=== PATIENT | male | born 1955 | race Caucasian/White ===

== ENCOUNTER → 2017-03-23 07:43 | Outpatient (CLI) | payer OTHER, SELFPAY ==
[2017-03-27 17:09] LABS: Testosterone, Total, LC/MS 639.3 ng/dL (264.0-916.0)
== END ==
PROVIDERS: PCP Family Medicine; Visit Provider Urology
DX: E29.1 Testicular hypofunction (principal)
CPT/HCPCS: 36415

== ENCOUNTER 2017-09-05 09:09 | Inpatient (IN) ==
[2017-09-05 09:50] LABS: Basophils % 0.1 % (0.1-2.0); Eosinophils # 0.1 K/mm3 (0.0-0.4); Eosinophils % 1.3 % (0.1-12.0); Hematocrit 43.6 % (42.0-52.0); Hemoglobin 13.6 g/dL (14.1-18.0); Lymphocytes # 1.5 K/mm3 (0.7-4.5); Lymphocytes % 14.3 K/mm3 (10-50); Mean Corpuscular HGB Conc 31.2 g/dL (31.8-35.4); Mean Corpuscular Hemoglobin 26.5 pg (27.0-31.2); Mean Corpuscular Volume 84.8 fl (80-94); Mean Platelet Volume 7.2 fl (7.4-10.4); Monocytes # 0.6 K/mm3 (0.1-1.0); Neutrophils # 8.2 K/mm3 (1.8-7.8); Neutrophils % 78.3 % (37.0-80.0); Platelet Count 266 K/mm3 (142-424); Red Blood Count 5.14 M/mm3 (4.60-6.20); White Blood Count 10.5 K/mm3 (4.8-10.8)
--- NOTE | 2017-09-05 10:01 | Emergency Department Note ---
ED Disposition Clinical Impression: Ulcer Cellulitis Qualifiers: Site of cellulitis: extremity Site of cellulitis of extremity: toe Laterality: right Qualified Code(s): L03.031 - Cellulitis of right toe Diabetic foot ulcer Qualifiers: Diabetic foot ulcer location: unspecified part of foot Diabetes mellitus type: type 2 Laterality: right Non-pressure ulcer stage: unspecified non-pressure ulcer stage Qualified Code(s): E11.621 - Type 2 diabetes mellitus with foot ulcer Disposition: Admitted As Inpatient Condition on Discharge: Fair Time of Disposition: 07:55 - Critical Care Critical Care Time: No Attestation: On 09/05/17, the high probability of a clinically significant, sudden or life threatening deterioration of the following system(s) required my full and direct attention, intervention and personal management. The time I documented below is in addition to time spent performing reported procedures but includes the following listed in this critical care notation. Medical Decision Making - Medical Records Medical records reviewed: Yes: I reviewed the patient's medical records. - Franck Inquiry Pt receiving controlled substance: No Franck was queried for this patient: No Vital Signs: 09/05/17 09:10 09/05/17 10:57 09/05/17 11:20 Temperature 98.8 F 98.6 F Temperature Source Oral Oral Pulse Rate Pulse Rate [Right Radial] 97 H 100 H Respiratory Rate 20 20 Blood Pressure Blood Pressure [Right Arm] 149/83 139/85 Blood Pressure Mean [Right Arm] 105 103 Blood Pressure Source Blood Pressure Source [Right Arm] Automatic Cuff Automatic Cuff Blood Pressure Position Blood Pressure Position [Right Arm] Sitting Supine 02 Sat by Pulse Oximetry 98 96 Oxygen Delivery Method Room Air Room Air Room Air 09/05/17 11:38 Temperature 99.2 F Temperature Source Oral Pulse Rate 99 H Pulse Rate [Right Radial] Respiratory Rate 18 Blood Pressure 137/90 Blood Pressure [Right Arm] Blood Pressure Mean [Right Arm] Blood Pressure Source Automatic Cuff Blood Pressure Source [Right Arm] Blood Pressure Position Sitting Blood Pressure Position [Right Arm] 02 Sat by Pulse Oximetry Oxygen Delivery Method Room Air - Lab Data Lab results reviewed: Yes: I reviewed the patient's lab results. Lab Results 09/05/17 09:35: WBC 10.5, RBC 5.14, Hgb 13.6 L, Hct 43.6, MCV 84.8, MCH 26.5 L, MCHC 31.2 L, RDW 13.0, Plt Count 266, MPV 7.2 L, Neut % (Auto) 78.3, Lymph % ( Auto) 14.3, [place] % (Auto) 6.0, Eos % (Auto) 1.3, Baso % (Auto) 0.1, Neut # (Auto ) 8.2 H, Lymph # (Auto) 1.5, [place] # (Auto) 0.6, Eos # (Auto) 0.1, Baso # (Auto) 0.0 09/05/17 09:35: Sodium 132 L, Potassium 4.6, Chloride 92 L, Carbon Dioxide 28, Anion Gap 16.6 H, BUN 12, Creatinine 1.05, Estimated Creat Clear 117, Estimated GFR 72, Est GFR ( Amer) 87, Glucose 184 H, Calcium 8.5, Total Bilirubin 0.6, AST 15, ALT 46, Alkaline Phosphatase 89, Total Protein 7.4, Albumin 3.4, Globulin 4.0 H, Albumin/Globulin Ratio 0.9 L 09/05/17 09:35: Lactic Acid 1.6 09/05/17 09:35: ESR 50 H 09/05/17 09:35: C-Reactive Protein 16.2 H Result diagrams: 09/08/17 05:30 09/08/17 05:30 Orders (Tests/Meds): ED MEDICATIONS Discontinued Medications Generic Name Dose Route Start Last Admin Trade Name Freq PRN Reason Stop Dose Admin Acetaminophen 650 mg 09/06/17 16:41 09/06/17 19:07 Acetaminophen 325mg Tab PO 10/06/17 16:40 650 mg Q4HP PRN Administration MILD PAIN/FEVER Acetaminophen 325 mg 09/07/17 13:05 Acetaminophen 325mg Tab PO 10/07/17 13:04 Q8HP PRN Fever > 100.4 Hydrocodone Bitart/Acetaminophen 1 tab 09/07/17 13:05 [place] 7.5/325mg Tablet PO 10/07/17 13:04 Q4HP PRN Moderate Pain Aspirin 81 mg 09/05/17 11:15 Aspirin 81mg Enteric Coated Tablet PO 10/05/17 11:14 QDAY CALEB Aspirin 81 mg 09/05/17 11:18 09/05/17 12:34 Aspirin 81mg Enteric Coated Tablet PO 10/05/17 11:17 Not Given DAILY CALEB Aspirin 81 mg 09/05/17 11:45 09/05/17 13:10 Aspirin 81mg Enteric Coated Tablet PO 10/05/17 11:44 81 mg DAILY CALEB Administration Aspirin 81 mg 09/05/17 13:33 09/08/17 20:31 Aspirin 81mg Enteric Coated Tablet PO 10/05/17 11:44 81 mg HS CALEB Administration Sodium Chloride 1,000 mls @ 999 mls/hr 09/05/17 10:15 09/05/17 10:24 Sod Chlor 0.9% 1000ml Bag IV 09/05/17 11:15 999 mls/hr .Q1H1M CALEB Administration Sodium Chloride 1,000 mls @ 999 mls/hr 09/05/17 10:30 09/05/17 10:29 Sod Chlor 0.9% 1000ml Bag IV 09/05/17 11:30 Not Given .Q1H1M CALEB Piperacillin Sod/Tazobactam 100 mls @ 200 mls/hr 09/05/17 10:30 09/05/17 10: 31 Sod 3.375 gm/ Sodium Chloride IV 09/19/17 10:29 200 mls/hr Q6H CALEB Administration Protocol Vancomycin HCl 2,000 mg/ 250 mls @ 125 mls/hr 09/05/17 10:45 09/05/17 12:18 Sodium Chloride IV 09/19/17 10:44 125 mls/hr Q12 CALEB Administration Sodium Chloride 1,000 mls @ 999 mls/hr 09/05/17 11:18 09/05/17 11:52 Sod Chlor 0.9% 1000ml Bag IV 09/05/17 11:30 Not Given .Q1H1M CALEB Piperacillin Sod/Tazobactam 100 mls @ 200 mls/hr 09/05/17 17:00 Sod 3.375 gm/ Sodium Chloride IV 09/19/17 16:59 Q6H CALEB Protocol Vancomycin HCl 2,000 mg/ 250 mls @ 125 mls/hr 09/05/17 21:00 Sodium Chloride IV 09/19/17 10:44 Q12 CALEB Piperacillin Sod/Tazobactam 50 mls @ 100 mls/hr 09/05/17 17:00 09/09/17 05:01 Sod 3.375 gm/ Sodium Chloride IV 09/19/17 16:59 100 mls/hr Q6H CALEB Administration Protocol Vancomycin HCl 2,000 mg/ 250 mls @ 125 mls/hr 09/05/17 21:00 09/09/17 08:39 Sodium Chloride IV 09/19/17 10:44 125 mls/hr Q12 CALEB Administration Insulin Human Lispro 0 unit 09/05/17 16:30 09/09/17 06:23 Humalog 100 Units/Ml 3ml Vial (Ssi) SQ 10/05/17 16:29 Not Given ACHS CALEB Protocol Irbesartan 300 mg 09/06/17 21:00 09/08/17 20:31 Avapro 300mg Tablet PO 10/06/17 20:59 300 mg HS CALEB Administration Metformin HCl 1,000 mg 09/05/17 17:30 Metformin 500mg Tablet PO 10/05/17 17:29 BIDWM [facility] Miscellaneous 1 each 09/05/17 10:30 09/05/17 10:29 Vancomycin Consult Request * 10/05/17 10:29 1 each [facility] Administration Miscellaneous 1 each 09/05/17 11:18 09/05/17 12:34 Vancomycin Consult Request * 10/05/17 10:29 Not Given [facility]SULT [facility] Miscellaneous 1 each 09/05/17 11:45 09/05/17 11:52 Vancomycin Consult Request * 10/05/17 10:29 Not Given [facility] Non-Formulary Medication 10 mg 09/05/17 11:15 Ezetimibe [Ezetimibe] PO 10/05/17 11:14 QDAY [facility] Non-Formulary Medication 30 unit 09/05/17 11:15 Insulin Aspart [Novolog Flexpen] SUB-Q 10/05/17 11:14 DIRECTED CALEB Non-Formulary Medication 70 unit 09/05/17 21:00 Insulin Degludec [Tresiba Flextouch U-100] SUB-Q 10/05/17 20:59 HS [facility] Non-Formulary Medication 1,000 mg 09/05/17 21:00 Metformin Hcl [Glucophage] PO 10/05/17 20:59 BID CALEB Non-Formulary Medication 50 mg 09/05/17 11:15 Nortriptyline Hcl [Nortriptyline Hcl] PO 10/05/17 11:14 QDAY [facility] Non-Formulary Medication 320 mg 09/05/17 11:15 Valsartan [Valsartan] PO 10/05/17 11:14 QDAY CALEB Non-Formulary Medication 10 mg 09/05/17 11:18 Ezetimibe [Ezetimibe] PO 10/05/17 11:14 QDAY CALEB Non-Formulary Medication 30 unit 09/05/17 11:18 Insulin Aspart [Novolog Flexpen] SUB-Q 10/05/17 11:14 DIRECTED CALEB Non-Formulary Medication 70 unit 09/05/17 21:00 Insulin Degludec [Tresiba Flextouch U-100] SUB-Q 10/05/17 20:59 HS CALEB Non-Formulary Medication 320 mg 09/05/17 11:18 Valsartan [Valsartan] PO 10/05/17 11:14 QDAY CALEB Non-Formulary Medication 30 unit 09/05/17 11:45 Insulin Aspart [Novolog Flexpen] SUB-Q 10/05/17 11:14 DIRECTED [facility] Pat Own Med 70 unit 09/05/17 21:00 09/08/17 20:35 Tresiba Flextouch U- SUB-Q 10/05/17 20:59 70 unit 100 HS CALEB Administration Non-Formulary Medication 1,000 mg 09/05/17 21:00 Metformin Hcl [Glucophage] PO 10/05/17 20:59 BID [facility] Pat Own Med 10 mg 09/05/17 21:00 09/08/17 20:34 Ezetimibe 10 Mg PO 10/05/17 20:59 10 mg HS CALEB Administration Nortriptyline HCl 50 mg 09/06/17 09:00 Pamelor 25mg Capsule PO 10/06/17 08:59 DAILY CALEB Nortriptyline HCl 50 mg 09/06/17 21:00 09/08/17 20:31 Pamelor 25mg Capsule PO 10/06/17 20:59 50 mg HS CALEB Administration Ondansetron HCl 4 mg 09/07/17 13:05 Zofran 4mg/2ml Vial IV 10/07/17 13:04 Q6HP PRN Nausea Testosterone Cypionate 200 mg 09/05/17 11:15 Depo-Testosterone 200mg/Ml Inj IM 10/05/17 11:14 DIRECTED CALEB Testosterone Cypionate 200 mg 09/05/17 11:18 Depo-Testosterone 200mg/Ml Inj IM 10/05/17 11:14 DIRECTED [facility] Testosterone Cypionate 200 mg 09/05/17 11:45 Depo-Testosterone 200mg/Ml Inj IM 10/05/17 11:14 DIRECTED [facility] Skin/Abscess/FB HPI - General Chief complaint: Skin/Abscess/Foreign Body Stated complaint: right foot has ulcer; swelled Time Seen by Provider: 09/05/17 09:54 Mode of Arrival: Ambulatory Limitations: No Limitations Description of Symptoms (Recalled from ER Triage Doc. by RN): swelling on fourth toe on right foot that started out as a blister on thursday. when the scab of the blister came off, it had a big hole in it. swelling increased. seen pcp on thursday and was placed on levaquin. toe is yellow and red in color. appears to have red streaking up foot. pt is a diabetic. - History of Present Illness HPI narrative: Pt says he noticed a blister on right 5th toe 4 days ago and when scab came off it had a hole in it. Swelled up and he went to see Dr. Capellan on and was placed on Levaquin. Now comes to the ED with yello area on toe and redness going up the foot. ? low grade fiever and he is a Diabetic for over 30 years and had a diabetic ulcer on another toe on that foot in the past that healed up successfully. He quit smoking over 3 years ago but does drink beer occasionally He has neuropathy as well MD complaint: rash Onset (ago): day(s) Tetanus up to date: yes Location: R foot Severity: moderate Severity scale (1-10): 4 - Related Data Home Medications Medication Instructions Recorded Confirmed aspirin 81 mg tablet,delayed 81 mg PO DAILY 03/26/17 09/08/17 release ezetimibe 10 mg tablet 10 mg PO DAILY 03/26/17 09/08/17 insulin aspart U-100 100 unit/mL 30 unit SUB-Q DIRECTED 03/26/17 09/05/17 subcutaneous pen insulin degludec (U-100) 100 70 unit SUB-Q HS 03/26/17 09/05/17 unit/mL (3 mL) subcutaneous pen metformin 1,000 mg tablet 1,000 mg PO BID 03/26/17 09/05/17 nortriptyline 50 mg capsule 50 mg PO DAILY 03/26/17 09/08/17 valsartan 160 mg tablet 320 mg PO DAILY 03/26/17 09/08/17 Testosterone Cypionate 200 mg IM QOW 09/05/17 09/08/17 Previous Rx's Medication Instructions Recorded Ciprofloxacin HCl [Ciprofloxacin 500 mg PO BID #42 tab 09/09/17 500mg Tab] Clindamycin HCl [Cleocin HCl] 300 mg PO TID #63 cap 09/09/17 Allergies Allergy/AdvReac Type Severity Reaction Status Date / Time No Known Allergies Allergy Verified 09/05/17 09:[address] [facility] History I have reviewed the patient's past medical history: Yes Medical History: Reports:: Cerebrovascular Accident, Diabetes Mellitus Type 2, Hyperlipidemia, Hypertension Denies:: Aneurysm, Asthma, Atrial Fibrillation, Cancer, Congestive Heart Failure, Chronic Obstructive Pulmonary Disease (COPD), Gastroesophageal Reflux Disease(GERD), MRSA, Myocardial Infarction, Osteoporosis, Seizures, Supraventricular Tachycardia, Transient Ischemic Attacks (TIA), Valvular Heart Disease Other Medical History: Denies: Anemia, Arthritis, Cataracts, Glaucoma, Hypothyroidism, Osteoporosis, Thyroid Disease Other Surgeries: Yes: Other (neck sx) Amputation: No Fractures: No - Social History Smoking Status: Former smoker Tobacco Type: cigarettes #Yrs smoked (if former smoker): 20 Alcohol Intake: current Alcohol Intake Frequency:: a few times a week Substance Use Type: denies use Occupational Status: retired - Psychiatric History Expresses thoughts of harming self/others: None Suicide Plan Description: No Plan Family Hx:: Diabetes, Cancer, Hyperlipidemia, Hypertension ROS Obtained: Yes All systems reviewed & no additional complaints - Constitutional Constitutional: Reports system reviewed and no additional complaints, except as docu - Eyes Eyes: Reports system reviewed and no additional complaints, except as docu - ENT Ears, Nose, Mouth, and Throat: Reports system reviewed and no additional complaints, except as docu - Cardiovascular Cardiovascular: Reports system reviewed and no additional complaints, except as docu - Respiratory Respiratory: Yes system reviewed and no additional complaints, except as docu - Gastrointestinal Gastrointestingal: Reports: system reviewed and no additional complaints, except as docu - Musculoskeletal Musculoskeletal: Reports system reviewed and no additional complaints, except as docu - Integumentary/Breasts Skin/Breast: Reports system reviewed and no additional complaints, except as docu Physical Exam - General General appearance: alert, in no apparent distress - Head Head exam: atraumatic - Eye Eye exam: Present: normal appearance - ENT ENT exam: Present: normal exam - Neck Neck exam: Present: normal inspection - Chest Chest inspection: Present: normal inspection - Respiratory Respiratory exam: Present: normal lung sounds bilaterally - Cardiovascular Cardiovascular exam: Present: regular rate, normal rhythm - Abdominal Exam Abdominal exam: Present: soft - Neurological Exam Neurological exam: Present: alert, oriented X3 - Skin Skin exam: Present: other (Diabetic foot ulcer on 4th toe between 3rd and 4th toes)
[2017-09-05 10:05] LABS: Albumin Level 3.4 gm/dL (3.4-5.0); Albumin/Globulin Ratio 0.9 (1.1-1.8); Anion Gap 16.6 mEq/L (5-15); Bilirubin,Total 0.6 mg/dL (0.2-1.0); Calcium 8.5 mg/dL (8.5-10.1); Potassium 4.6 mmoL/L (3.5-5.1); Total Protein,Serum 7.4 gm/dL (6.4-8.2)
--- NOTE | 2017-09-05 12:28 | History & Physical Report ---
*Admission Date: 09/05/17 *Chief complaint: Redness and swelling in right foot *History of present illness: 62-year-old white male, insulin requiring type II diabetic with previous history of toe cellulitis that resolved, who presented to the emergency department this morning after having taken levofloxacin for 3 days for toe cellulitis without improvement. Worsening condition was noted, significant redness and streaking was noted, patient admitted for IV antibiotics and podiatry evaluation. [facility] History I have reviewed the patient's past medical history: Yes Medical History: Reports:: Cerebrovascular Accident, Diabetes Mellitus Type 2, Hyperlipidemia, Hypertension Denies:: Aneurysm, Asthma, Atrial Fibrillation, Cancer, Congestive Heart Failure, Chronic Obstructive Pulmonary Disease (COPD), Gastroesophageal Reflux Disease(GERD), MRSA, Myocardial Infarction, Osteoporosis, Seizures, Supraventricular Tachycardia, Transient Ischemic Attacks (TIA), Valvular Heart Disease Other Medical History: Denies: Anemia, Arthritis, Cataracts, Glaucoma, Hypothyroidism, Osteoporosis, Thyroid Disease Other Surgeries: Yes: Other (neck sx) Amputation: No Fractures: No - *Social History Smoking Status: Former smoker Tobacco Type: cigarettes #Yrs smoked (if former smoker): 20 Alcohol Intake: current Alcohol Intake Frequency:: a few times a week Substance Use Type: denies use Occupational Status: retired - Psychiatric History Expresses thoughts of harming self/others: None Suicide Plan Description: No Plan *Family Hx:: Diabetes, Cancer, Hyperlipidemia, Hypertension Review of Systems - Review of Systems Review of systems:: pertinent systems reviewed and negative unless documented below Meds Home Medications Medication Instructions Recorded Confirmed Type aspirin 81 mg tablet,delayed 81 mg PO QDAY 03/26/17 09/05/17 History release ezetimibe 10 mg tablet 10 mg PO QDAY 03/26/17 09/05/17 History insulin aspart U-100 100 unit/mL 30 unit SUB-Q DIRECTED 03/26/17 09/05/17 History subcutaneous pen insulin degludec (U-100) 100 70 unit SUB-Q HS 03/26/17 09/05/17 History unit/mL (3 mL) subcutaneous pen metformin 1,000 mg tablet 1,000 mg PO BID 03/26/17 09/05/17 History nortriptyline 50 mg capsule 50 mg PO QDAY 03/26/17 09/05/17 History valsartan 160 mg tablet 320 mg PO QDAY 03/26/17 09/05/17 History Testosterone Cypionate 200 mg IM DIRECTED 09/05/17 09/05/17 History Allergies Allergy/AdvReac Type Severity Reaction Status Date / Time No Known Allergies Allergy Verified 09/05/17 09:21 Exam Vital signs and Labs for Last 24 Hours: Temp Pulse Resp BP Pulse Ox 99.2 F 99 H 18 137/90 98 09/05/17 11:38 09/05/17 11:38 09/05/17 11:38 09/05/17 11:38 09/05/17 09:10 Laboratory Results - last 24 hr 09/05/17 09:35: WBC 10.5, RBC 5.14, Hgb 13.6 L, Hct 43.6, MCV 84.8, MCH 26.5 L, MCHC 31.2 L, RDW 13.0, Plt Count 266, MPV 7.2 L, Neut % (Auto) 78.3, Lymph % ( Auto) 14.3, [place] % (Auto) 6.0, Eos % (Auto) 1.3, Baso % (Auto) 0.1, Neut # (Auto ) 8.2 H, Lymph # (Auto) 1.5, [place] # (Auto) 0.6, Eos # (Auto) 0.1, Baso # (Auto) 0.0 09/05/17 09:35: Sodium 132 L, Potassium 4.6, Chloride 92 L, Carbon Dioxide 28, Anion Gap 16.6 H, BUN 12, Creatinine 1.05, Estimated Creat Clear 117, Estimated GFR 72, Est GFR ( Amer) 87, Glucose 184 H, Calcium 8.5, Total Bilirubin 0.6, AST 15, ALT 46, Alkaline Phosphatase 89, Total Protein 7.4, Albumin 3.4, Globulin 4.0 H, Albumin/Globulin Ratio 0.9 L 09/05/17 09:35: Lactic Acid 1.6 I & O for Last 24 hours: Intake & Output 09/03/17 09/04/17 09/05/17 09/06/17 11:59 11:59 11:59 11:59 Weight 247 lb Narrative: Patient is alert, oriented. Very pleasant. Lungs are clear, cardiac assessment unremarkable with regular heart rate and no murmurs. Abdomen soft and nontender. No edema noted in his hands or left foot. The right foot has a significant cellulitic toe with red streaking into the dorsum of the foot. There is good capillary refill in the other toes, but significant redness and some purulent appearance at the tip of the nailbed of this toe. H&P: Result - Labs Labs: Short CBC 09/05/17 Range/Units 09:35 WBC 10.5 (4.8-10.8) K/mm3 Hgb 13.6 L (14.1-18.0) g/dL Hct 43.6 (42.0-52.0) % Plt Count 266 (142-424) K/mm3 BMP 09/05/17 09:35 Sodium 132 L Potassium 4.6 Chloride 92 L Carbon Dioxide 28 BUN 12 Creatinine 1.05 Glucose 184 H Calcium 8.5 Liver Function 09/05/17 Range/Units 09:35 Total Bilirubin 0.6 (0.2-1.0) mg/dL AST 15 (15-37) U/L ALT 46 (12-78) U/L Alkaline Phosphatase 89 (46-116) U/L Albumin 3.4 (3.4-5.0) gm/dL Assessment and Plan (1) Diabetic foot ulcer Current visit: Yes Status: Acute Category: Medical Code(s): E11.621 - Type 2 diabetes mellitus with foot ulcer; L97.509 - Non-pressure chronic ulcer of other part of unspecified foot with unspecified severity (2) Cellulitis, toe Current visit: Yes Status: Acute Category: Medical Code(s): L03.039 - Cellulitis of unspecified toe (3) Insulin-requiring or dependent type II diabetes mellitus Current visit: Yes Status: Acute Category: Medical Code(s): E11.9 - Type 2 diabetes mellitus without complications; Z79.4 - shelter (current) use of insulin Plan will be to admit to hospital for vancomycin and Zosyn therapy. Check sed rate, CRP. Check CT of foot. Podiatry evaluation. Plan for at least a couple of days of IV antibiotics before reassessment. Hold metformin given possible need for IV contrast. Sliding scale insulin along with long-acting Triceba
[2017-09-06 06:02] LABS: Basophils % 0.3 % (0.1-2.0); Eosinophils # 0.2 K/mm3 (0.0-0.4); Eosinophils % 1.7 % (0.1-12.0); Hematocrit 41.8 % (42.0-52.0); Hemoglobin 13.1 g/dL (14.1-18.0); Lymphocytes # 1.4 K/mm3 (0.7-4.5); Lymphocytes % 15.5 K/mm3 (10-50); Mean Corpuscular HGB Conc 31.4 g/dL (31.8-35.4); Mean Corpuscular Hemoglobin 26.9 pg (27.0-31.2); Mean Corpuscular Volume 85.8 fl (80-94); Mean Platelet Volume 7.4 fl (7.4-10.4); Monocytes # 0.6 K/mm3 (0.1-1.0); Monocytes % 6.7 % (1.7-9.3); Neutrophils # 6.7 K/mm3 (1.8-7.8); Neutrophils % 75.8 % (37.0-80.0); Platelet Count 266 K/mm3 (142-424); Red Blood Count 4.87 M/mm3 (4.60-6.20); Red Cell Distribution Width 13.2 % (11.5-17.5); White Blood Count 8.9 K/mm3 (4.8-10.8)
[2017-09-06 06:21] LABS: Albumin Level 3.1 gm/dL (3.4-5.0); Albumin/Globulin Ratio 0.8 (1.1-1.8); Anion Gap 11.4 mEq/L (5-15); Bilirubin,Total 0.4 mg/dL (0.2-1.0); Calcium 8.5 mg/dL (8.5-10.1); Potassium 4.4 mmoL/L (3.5-5.1); Total Protein,Serum 7.1 gm/dL (6.4-8.2)
--- NOTE | 2017-09-06 08:28 | Progress Note ---
Internal Medicine - PN: Subj *Date: 09/06/17 *Time: 08:26 Interval history: No complaints overnight, rested well. Exam Vital signs and Labs for Last 24 Hours: Temp Pulse Resp BP Pulse Ox 99.0 F 94 H 18 116/75 96 09/06/17 04:05 09/06/17 04:05 09/06/17 04:05 09/06/17 04:05 09/06/17 04:05 Laboratory Results - last 24 hr 09/05/17 09:35: WBC 10.5, RBC 5.14, Hgb 13.6 L, Hct 43.6, MCV 84.8, MCH 26.5 L, MCHC 31.2 L, RDW 13.0, Plt Count 266, MPV 7.2 L, Neut % (Auto) 78.3, Lymph % ( Auto) 14.3, [place] % (Auto) 6.0, Eos % (Auto) 1.3, Baso % (Auto) 0.1, Neut # (Auto ) 8.2 H, Lymph # (Auto) 1.5, [place] # (Auto) 0.6, Eos # (Auto) 0.1, Baso # (Auto) 0.0 09/05/17 09:35: Sodium 132 L, Potassium 4.6, Chloride 92 L, Carbon Dioxide 28, Anion Gap 16.6 H, BUN 12, Creatinine 1.05, Estimated Creat Clear 117, Estimated GFR 72, Est GFR ( Amer) 87, Glucose 184 H, Calcium 8.5, Total Bilirubin 0.6, AST 15, ALT 46, Alkaline Phosphatase 89, Total Protein 7.4, Albumin 3.4, Globulin 4.0 H, Albumin/Globulin Ratio 0.9 L 09/05/17 09:35: Lactic Acid 1.6 09/05/17 09:35: ESR 50 H 09/05/17 09:35: C-Reactive Protein 16.2 H 09/05/17 16:43: POC Glucose 171 H 09/05/17 20:30: POC Glucose 164 H 09/06/17 05:50: WBC 8.9, RBC 4.87, Hgb 13.1 L, Hct 41.8 L, MCV 85.8, MCH 26.9 L , MCHC 31.4 L, RDW 13.2, Plt Count 266, MPV 7.4, Neut % (Auto) 75.8, Lymph % ( Auto) 15.5, [place] % (Auto) 6.7, Eos % (Auto) 1.7, Baso % (Auto) 0.3, Neut # (Auto ) 6.7, Lymph # (Auto) 1.4, [place] # (Auto) 0.6, Eos # (Auto) 0.2, Baso # (Auto) 0.0 09/06/17 05:50: Sodium 137, Potassium 4.4, Chloride 100, Carbon Dioxide 30, Anion Gap 11.4, BUN 10, Creatinine 0.98, Estimated Creat Clear 122, Estimated GFR 78, Est GFR ( Amer) 94, Glucose 130 H D, Calcium 8.5, Total Bilirubin 0.4, AST 16, ALT 42, Alkaline Phosphatase 81, Total Protein 7.1, Albumin 3.1 L, Globulin 4.0 H, Albumin/Globulin Ratio 0.8 L 09/06/17 05:56: POC Glucose 117 H I & O for Last 24 hours: Intake & Output 09/03/17 09/04/17 09/05/17 09/06/17 11:59 11:59 11:59 11:59 Intake Total 1440 / 1440 Output Total 300 / 300 Balance 1140 / 1140 Weight 252 lb 1.013 oz 244 lb 9 oz Narrative: Alert, able to ambulate around room. Cardiopulmonary assessment unremarkable. No ankle edema. Toe on the right foot remains yellow and swollen. Red streaking is improved, Assessment and Plan (1) Diabetic foot ulcer Current visit: Yes Status: Acute Category: Medical Code(s): E11.621 - Type 2 diabetes mellitus with foot ulcer; L97.509 - Non-pressure chronic ulcer of other part of unspecified foot with unspecified severity (2) Cellulitis, toe Current visit: Yes Status: Acute Category: Medical Code(s): L03.039 - Cellulitis of unspecified toe (3) Insulin-requiring or dependent type II diabetes mellitus Current visit: Yes Status: Acute Category: Medical Code(s): E11.9 - Type 2 diabetes mellitus without complications; Z79.4 - intermediate (current) use of insulin - Assessment and plan all Dx Assessment and Plan for all problems:: Discussed case with podiatry yesterday via phone. She will see patient first thing in the morning. Sed rate noted to be elevated. CT scan report reviewed. Continue current antibiotic therapy.
--- NOTE | 2017-09-06 12:06 | Pharmacy Consult Notes ---
- Pharmacy Consult Date: 09/06/17 Time: 12:05 Referring provider: DR. WILLS Reason for Consult:: VANCOMYCIN DOSING Allergies and ADEs:: Allergies Allergy/AdvReac Type Severity Reaction Status Date / Time No Known Allergies Allergy Verified 09/05/17 09:21 Home Medications:: Home Medications Medication Instructions Recorded Confirmed Type aspirin 81 mg tablet,delayed 81 mg PO QDAY 03/26/17 09/05/17 History release ezetimibe 10 mg tablet 10 mg PO QDAY 03/26/17 09/05/17 History insulin aspart U-100 100 unit/mL 30 unit SUB-Q DIRECTED 03/26/17 09/05/17 History subcutaneous pen insulin degludec (U-100) 100 70 unit SUB-Q HS 03/26/17 09/05/17 History unit/mL (3 mL) subcutaneous pen metformin 1,000 mg tablet 1,000 mg PO BID 03/26/17 09/05/17 History nortriptyline 50 mg capsule 50 mg PO QDAY 03/26/17 09/05/17 History valsartan 160 mg tablet 320 mg PO QDAY 03/26/17 09/05/17 History Testosterone Cypionate 200 mg IM DIRECTED 09/05/17 09/05/17 History Height: 1.88 m Weight: 110.932 kg Laboratory Results:: Laboratory Results - last 24 hr 09/05/17 09:35: ESR 50 H 09/05/17 09:35: C-Reactive Protein 16.2 H 09/05/17 16:43: POC Glucose 171 H 09/05/17 20:30: POC Glucose 164 H 09/06/17 05:50: WBC 8.9, RBC 4.87, Hgb 13.1 L, Hct 41.8 L, MCV 85.8, MCH 26.9 L , MCHC 31.4 L, RDW 13.2, Plt Count 266, MPV 7.4, Neut % (Auto) 75.8, Lymph % ( Auto) 15.5, [place] % (Auto) 6.7, Eos % (Auto) 1.7, Baso % (Auto) 0.3, Neut # (Auto ) 6.7, Lymph # (Auto) 1.4, [place] # (Auto) 0.6, Eos # (Auto) 0.2, Baso # (Auto) 0.0 09/06/17 05:50: Sodium 137, Potassium 4.4, Chloride 100, Carbon Dioxide 30, Anion Gap 11.4, BUN 10, Creatinine 0.98, Estimated Creat Clear 122, Estimated GFR 78, Est GFR ( Amer) 94, Glucose 130 H D, Calcium 8.5, Total Bilirubin 0.4, AST 16, ALT 42, Alkaline Phosphatase 81, Total Protein 7.1, Albumin 3.1 L, Globulin 4.0 H, Albumin/Globulin Ratio 0.8 L 09/06/17 05:56: POC Glucose 117 H 09/06/17 11:18: POC Glucose 178 H Medical History: Reports:: Cerebrovascular Accident, Diabetes Mellitus Type 2, Hyperlipidemia, Hypertension Denies:: Aneurysm, Asthma, Atrial Fibrillation, Cancer, Congestive Heart Failure, Chronic Obstructive Pulmonary Disease (COPD), Gastroesophageal Reflux Disease(GERD), MRSA, Myocardial Infarction, Osteoporosis, Seizures, Supraventricular Tachycardia, Transient Ischemic Attacks (TIA), Valvular Heart Disease Assessment and Plan (1) Diabetic foot ulcer Current visit: Yes Status: Acute Category: Medical Code(s): E11.621 - Type 2 diabetes mellitus with foot ulcer; L97.509 - Non-pressure chronic ulcer of other part of unspecified foot with unspecified severity (2) Cellulitis, toe Current visit: Yes Status: Acute Category: Medical Code(s): L03.039 - Cellulitis of unspecified toe (3) Insulin-requiring or dependent type II diabetes mellitus Current visit: Yes Status: Acute Category: Medical Code(s): E11.9 - Type 2 diabetes mellitus without complications; Z79.4 - intermediate (current) use of insulin - Assessment and plan all Dx Assessment and Plan for all problems:: BASED ON PATIENT'S FACTORS, RECOMMEND STARTING WITH VANCOMYCIN 2000 MG Q24H AT THIS TIME. PHARMACY WILL FOLLOW DAILY AND ADJUST APPROPRIATE. JAEL DE LA GARZA, RADHAD
--- NOTE | 2017-09-06 12:08 | Pharmacy Consult Notes ---
[facility] Pharmacy VTE Monitoring - Patient Demographics Admission date: 09/06/17 Report Date: 09/06/17 Time: 12:07 Allergies/Adverse Reactions: Patient Allergies No Known Allergies Allergy (Verified 09/05/17 09:21) Height: 1.88 m Weight: 110.932 kg Patient Problems: Current Active Problems Ulcer (Acute) Diabetic foot ulcer (Acute) Cellulitis, toe (Acute) Insulin-requiring or dependent type II diabetes mellitus (Acute) - VTE Risk Labs: VTE Related Lab Results Hgb 13.1 g/dL (14.1-18.0) L 09/06/17 05:50 Hct 41.8 % (42.0-52.0) L 09/06/17 05:50 Plt Count 266 K/mm3 (142-424) 09/06/17 05:50 BUN 10 mg/dL (7-18) 09/06/17 05:50 Creatinine 0.98 mg/dL (0.70-1.30) 09/06/17 05:50 Estimated Creat Clear 122 mL/min (0-300) 09/06/17 05:50 Was VTE Risk Assessment Performed: Yes VTE Score: 2 VTE Risk Level: Low Risk - Prophylaxis Types of VTE Prophylaxis: TEDS Knee High (TERRY HOSE ORDERED) Location of Applied Device: Bilateral Lower Extremeties
--- NOTE | 2017-09-07 07:03 | Progress Note ---
Internal Medicine - PN: Subj *Date: 09/07/17 *Time: 07:02 Interval history: There has been very little if any improvement in the right fourth toe over the last 24 hours according to the patient. Exam Vital signs and Labs for Last 24 Hours: Temp Pulse Resp BP Pulse Ox 97.9 F 82 18 157/86 97 09/07/17 03:56 09/07/17 03:56 09/07/17 03:56 09/07/17 03:56 09/07/17 03:56 Laboratory Results - last 24 hr 09/06/17 11:18: POC Glucose 178 H 09/06/17 16:41: POC Glucose 136 H 09/06/17 21:20: POC Glucose 191 H 09/07/17 05:58: POC Glucose 95 I & O for Last 24 hours: Intake & Output 09/04/17 09/05/17 09/06/17 09/07/17 11:59 11:59 11:59 11:59 Intake Total 1900 / 1900 1989 Output Total 300 / 300 Balance 1600 / 1600 1989 Weight 252 lb 1.013 oz 244 lb 9 oz 242 lb 2 oz Narrative: Left fourth toe remains significantly swollen with yellow discoloration erythema extending from the fourth MTP joint proximally. Assessment and Plan (1) Diabetic foot ulcer Current visit: Yes Status: Acute Category: Medical Code(s): E11.621 - Type 2 diabetes mellitus with foot ulcer; L97.509 - Non-pressure chronic ulcer of other part of unspecified foot with unspecified severity (2) Cellulitis, toe Current visit: Yes Status: Acute Category: Medical Code(s): L03.039 - Cellulitis of unspecified toe (3) Insulin-requiring or dependent type II diabetes mellitus Current visit: Yes Status: Acute Category: Medical Code(s): E11.9 - Type 2 diabetes mellitus without complications; Z79.4 - USP (current) use of insulin - Assessment and plan all Dx Assessment and Plan for all problems:: Podiatry consult
--- NOTE | 2017-09-07 08:56 | Consult Report ---
*Admission Date: 09/06/17 *Chief complaint: Right foot cellulitis, 4th toe infection *History of present illness: Mr. Marsh is a 62-year-old white male, insulin requiring type II diabetic with previous history of toe cellulitis that resolved, who presented to the emergency department 09/05/17 after having taken levofloxacin for 3 days for toe cellulitis without improvement. Patient states redness to right foot started . Worsening condition was noted, significant redness and streaking was noted, patient admitted for IV antibiotics and podiatry evaluation. Review of Systems - Review of Systems Review of systems:: pertinent systems reviewed and negative unless documented below - Constitutional Reports fatigue, Denies chills, Denies fever(s) - Eyes Denies change in vision - ENT Denies abnormal hearing - *Cardiovascular Reports foot swelling, Denies chest pain, Denies shortness of breath Comments: Right foot swelling - *Respiratory Denies shortness of breath, Denies pain on inspiration - *Gastrointestinal Denies abdominal pain - *Genitourinary Denies difficulty urinating - *Musculoskeletal Reports joint swelling (right 4th digit), Reports tingling - Integumentary/Breasts Reports skin ulcer (right 4th medial toe) - *Neurologic Denies abnormal walking, Denies loss of vision - Psychiatric Denies abnormal sleep pattern [facility] History Medical History: Reports:: Cerebrovascular Accident, Diabetes Mellitus Type 2, Hyperlipidemia, Hypertension Denies:: Aneurysm, Asthma, Atrial Fibrillation, Cancer, Congestive Heart Failure, Chronic Obstructive Pulmonary Disease (COPD), Gastroesophageal Reflux Disease(GERD), MRSA, Myocardial Infarction, Osteoporosis, Seizures, Supraventricular Tachycardia, Transient Ischemic Attacks (TIA), Valvular Heart Disease Other Medical History: Denies: Anemia, Arthritis, Cataracts, Glaucoma, Hypothyroidism, Osteoporosis, Thyroid Disease Laterality Cases: Bilateral: Other Other Surgeries: Yes: Skin Cancer Excision (on face), Other (neck sx) Amputation: No Fractures: No - *Social History Educational Level: Attended High School Smoking Status: Former smoker Tobacco Type: cigarettes #Yrs smoked (if former smoker): 20 Smoking End Date: 30 years ago Alcohol Intake: current Alcohol Intake Frequency:: a few times a week Substance Use Type: denies use Occupational Status: retired Housing: house Household Members: spouse - Psychiatric History Expresses thoughts of harming self/others: None Suicide Plan Description: No Plan *Family Hx:: Diabetes, Cancer, Hyperlipidemia, Hypertension Meds Home Medications Medication Instructions Recorded Confirmed Type aspirin 81 mg tablet,delayed 81 mg PO QDAY 03/26/17 09/05/17 History release ezetimibe 10 mg tablet 10 mg PO QDAY 03/26/17 09/05/17 History insulin aspart U-100 100 unit/mL 30 unit SUB-Q DIRECTED 03/26/17 09/05/17 History subcutaneous pen insulin degludec (U-100) 100 70 unit SUB-Q HS 03/26/17 09/05/17 History unit/mL (3 mL) subcutaneous pen metformin 1,000 mg tablet 1,000 mg PO BID 03/26/17 09/05/17 History nortriptyline 50 mg capsule 50 mg PO QDAY 03/26/17 09/05/17 History valsartan 160 mg tablet 320 mg PO QDAY 03/26/17 09/05/17 History Testosterone Cypionate 200 mg IM DIRECTED 09/05/17 09/05/17 History Allergies Allergy/AdvReac Type Severity Reaction Status Date / Time No Known Allergies Allergy Verified 09/05/17 09:21 Exam Vital signs and Labs for Last 24 Hours: Temp Pulse Resp BP Pulse Ox 97.9 F 82 18 157/86 97 09/07/17 03:56 09/07/17 03:56 09/07/17 03:56 09/07/17 03:56 09/07/17 03:56 Laboratory Results - last 24 hr 09/06/17 11:18: POC Glucose 178 H 09/06/17 16:41: POC Glucose 136 H 09/06/17 21:20: POC Glucose 191 H 09/07/17 05:58: POC Glucose 95 I & O for Last 24 hours: Intake & Output 09/04/17 09/05/17 09/06/17 09/07/17 11:59 11:59 11:59 11:59 Intake Total 1900 / 1900 1989 Output Total 300 / 300 Balance 1600 / 1600 1989 Weight 252 lb 1.013 oz 244 lb 9 oz 242 lb 2 oz - *Routine HEENT Exam Head: Present: normocephalic - *Routine Neck Exam Present: supple. Absent: JVD - *Routine Respiratory Exam Present: accessory muscle use - *Routine Cardiovascular Exam Present: RRR - *Routine Abdominal Exam Present: soft - *Routine Rectal Exam Patient deferred: visual exam - *Routine Exam Patient deferred: penile exam - *Routine Extremities Exam Present: edema (right foot), pulses intact, normal capillary refill. Absent: calf tenderness, extremity cold to touch - *Routine Skin Exam Present: erythema (right 4th toe and dorsal foot) - *Routine Neurological Exam Present: alert, oriented X3, moving all extremities - Detailed Lower Extremity Exam Foot/Toes: Right erythema (right 4th toe extending to dorsal midfoot), Right swelling (right 4th toe), Right tenderness Comments: Palpable DP and PT pedal pulses noted. Capillary time within normal limits. Skin temperature increased to the right dorsal fourth toe. Ulceration noted on the medial aspect of the right fourth PIPJ extending to the bone. Malodor and yellow purulent drainage expressed. Erythema noted extending from the right fourth toe to the dorsal midfoot. Nonpalpable popliteal lymph nodes. No pain to palpation noted. Significant edema noted to the right fourth toe extending to dorsal midfoot. No crepitus noted over midfoot. Results - Labs Result Diagrams: 09/06/17 05:50 09/06/17 05:50 Labs: Abnormal lab results 09/06/17 09/06/17 09/06/17 Range/Units 11:18 16:41 21:20 POC Glucose 178 H 136 H 191 H (70-110) H & H 09/05/17 09/06/17 Range/Units 09:35 05:50 Hgb 13.6 L 13.1 L (14.1-18.0) g/dL Hct 43.6 41.8 L (42.0-52.0) % All other labs normal. - Diagnostic results Ankle/Foot x-ray: report reviewed, image reviewed (R 4th toe cellulitis) Ankle/Foot CT: report reviewed, image reviewed (R foot swelling, cellulitis, HAV ) Assessment and Plan (1) Diabetic foot ulcer Current visit: Yes Status: Acute Category: Medical Code(s): E11.621 - Type 2 diabetes mellitus with foot ulcer; L97.509 - Non-pressure chronic ulcer of other part of unspecified foot with unspecified severity (2) Cellulitis, toe Current visit: Yes Status: Acute Category: Medical Code(s): L03.039 - Cellulitis of unspecified toe (3) Insulin-requiring or dependent type II diabetes mellitus Current visit: Yes Status: Acute Category: Medical Code(s): E11.9 - Type 2 diabetes mellitus without complications; Z79.4 - [facility] (current) use of insulin - Assessment and plan all Dx Assessment and Plan for all problems:: PRE-OP AMPUTATION RIGHT FOOT CELLULITIS, 4TH TOE OSTEOMYELITIS: Radiographs and CT of the right foot were reviewed from 09/05/17, and discussed with the patient. X-rays show cellulitis of the right foot and 4th toe. We discussed conservative versus surgical treatment options. Conservative treatment options include local wound care, oral and IV antibiotics, change in shoe wear, taping/padding, and off-loading. Discussed that patient would benefit from a wider and deeper shoe wear to accommodate the deformity and will need DM shoes. We discussed surgical intervention for amputation of the right 4th toe. Patient understands that there is a chance that the toes can migrate to fill the gap or the foot may change shape after surgery. Patient also understands that they could have wound healing complications including delayed healing and infection. We discussed that if the wound does not heal, it is possible that they may need a more proximal amputation and could result in further loss of digits, loss of partial foot or loss of leg. We discussed the risks and benefits in great detail. Other surgical risks include: prolonged pain and swelling, further infection requiring oral or IV antibiotics, delay in healing of soft tissue or bone, nerve or blood vessel damage, CRPS/RSD, DVT, anesthesia complications, and even . Patient has medical clearance per Dr. Quiroz and Madi. Pre-op labs: ESR, CRP, Ha1c, CBC, CMP, EKG, CXR Plan for surgery: right foot incision and drainage, right 4th toe amputation
--- NOTE | 2017-09-07 11:37 | Progress Note ---
[facility] Anesthesia Checklist - Patient Identification Patient Identification: Arm Band, Verbal (Name & ) - Structural Data Admitted From: Inpatient Planned Operative Procedure/s: Right foot I&D, right 4th toe amputation Consent for Planned Operative Procedure(s) Verified: Yes Verified Documents: Surgical Consent, History and Physical - NPO Status Verified Time NPO: 00:00 - Additional verifications Anesthesia Reactions: No - Airway Assessment C-Spine Mobility Assessed: Yes TMJ Mobility Assessed: Yes Dentition: Edentulous - Neurological Assessment Level of Consciousness: Awake Hx Seizures: No Numbness or tingling in extremities: No - Anesthesia Plan Anesthesia Risk discussed: Yes Anesthesia Plan: Verified ASA Class: III Anesthesia Type: MAC [facility] Anesthesia HX I have reviewed the patient's past medical history: Yes Medical History: Reports:: Depression, Diabetes Mellitus Type 2, Hyperlipidemia , Hypertension Denies:: Aneurysm, Asthma, Atrial Fibrillation, Cancer, Congestive Heart Failure, Chronic Obstructive Pulmonary Disease (COPD), Gastroesophageal Reflux Disease(GERD), MRSA, Myocardial Infarction, Osteoporosis, Seizures, Supraventricular Tachycardia, Transient Ischemic Attacks (TIA), Valvular Heart Disease Other Medical History: Reports: Other (Obesity). Denies: Anemia, Arthritis, Cataracts, Glaucoma, Hypothyroidism, Osteoporosis, Thyroid Disease Laterality Cases: Bilateral: Other Other Surgeries: Yes: Skin Cancer Excision (on face), Other (neck sx) Amputation: No Fractures: No *Family Hx:: Diabetes, Cancer, Hyperlipidemia, Hypertension
--- NOTE | 2017-09-07 13:29 | Operative Note ---
Date of procedure: 09/07/17 Pre-op Diagnosis:: Right foot cellulitis Right 4th digit cellulitis, osteomyelitis Right 4th digit DM ulcer Post-op Diagnosis:: Right foot cellulitis Right 4th digit cellulitis, osteomyelitis Right 4th digit DM ulcer Procedure performed:: Right foot incision and drainage Right 4th digit amputation Surgeon:: Mickie Field DPM MARINE DRAFTER:: Other (Taj Walker) Anesthesia: MAC, local (10cc 0.5% marcaine plain) Estimated blood loss (mL): 50 Clinical Note:: PRE-OP AMPUTATION RIGHT FOOT CELLULITIS, 4TH TOE OSTEOMYELITIS: Radiographs and CT of the right foot were reviewed from 09/05/17, and discussed with the patient. X-rays show cellulitis of the right foot and 4th toe. We discussed conservative versus surgical treatment options. Conservative treatment options include local wound care, oral and IV antibiotics, change in shoe wear, taping/padding, and off-loading. Discussed that patient would benefit from a wider and deeper shoe wear to accommodate the deformity and will need DM shoes. We discussed surgical intervention for amputation of the right 4th toe. Patient understands that there is a chance that the toes can migrate to fill the gap or the foot may change shape after surgery. Patient also understands that they could have wound healing complications including delayed healing and infection. We discussed that if the wound does not heal, it is possible that they may need a more proximal amputation and could result in further loss of digits, loss of partial foot or loss of leg. We discussed the risks and benefits in great detail. Other surgical risks include: prolonged pain and swelling, further infection requiring oral or IV antibiotics, delay in healing of soft tissue or bone, nerve or blood vessel damage, CRPS/RSD, DVT, anesthesia complications, and even . Patient has medical clearance per Dr. Quiroz and Madi. Pre-op labs: ESR, CRP, Ha1c, CBC, CMP, EKG, CXR Plan for surgery: right foot incision and drainage, right 4th toe amputation Operative findings:: Diabetic ulcer noted to the right medial fourth toe over the PIPJ, probe to bone. Purulent yellow discharge noted with malodor. Edema and erythema noted extending from the fourth toe to the dorsal aspect of the midfoot. Infection localized to the 4th digit. Operative note:: On this date and time patient was deemed an appropriate surgical candidate. With informed consent signed, the patient was taken to the operating theater. The patient was positioned supine. MAC anesthesia was induced. No tourniquet used. Pre-op right fourth toe block given with 10 cc 0.5% marcaine plain. Right foot incision and drainage: The right lower extremity was prepped and drapped in normal sterile fashion. Attention was directed to the right 4th toe where a medial ulcer was noted over the PIPJ. There was exposed deep fascia and proximal phalanx head. Cellulitis is noted extending to the MPJ and onto the dorsal right midfoot. Wound probed directly to the bone and 2 cc purulent drainage was coming from the wound site. A linear incision was made over the 4th MPJ directly to the bone. A hemostat was used to bluntly dissect the soft tissue. There was no tracking or tunneling noted. No evidence extending up the extensor or flexor tendon. Right 4th digit amputation: A fish mouth incision was then mapped out. Utilizing a 15 blade dissection was carried down sharply to the level of the bone around the proximal phalanx which was disarticulated from the metatarsal head. The distal proximal phalanx bone was less hard than normal bone and slightly crumbly and had malodor to it. Portion of it was cut and sent for bone culture and the other part was sent for bone biopsy for pathology. Attention was then directed to the proximal aspect of the proximal phalanx. The proximal phalanx base was sent as proximal margin. The 4th met head was intact with no cortical erosions, discoloration or obvious signs of osteomyelitis. Next 3 L of bacitracin irrigation was used to flush the wound with pulse lavage. The wound was reexplored and no further signs of infection noted. Patient was on aspirin, some bleeding noted. Bleeding controlled with ligating vessels with electrocautery or tied as needed. Bernard-surg topical thrombin was inserted to control bleeding. No pulsatile blood flow noted. 3-0 and 4-0 Nylon was used to close skin in an interrupted simple suture fashion. The wounds were cleansed. Xeroform, betadine , dry sterile dressing was then applied to the right foot. The patient was awoken from anesthesia and transferred to recovery with vital signs stable and neurovascular status intact. Materials: 3-0 Nylon 4-0 Nylon Bernard-surg topical thrombin Discharge/Plan: Transfer back to the floor. Patient is to maintain dressing clean dry and intact. Continue antibiotics. Non weight bearing to the right lower extremity with DME assistance (crutches, walker). Obtain post op films, right foot, 3 views. Plan for dressing change tomorrow by myself. Tourniquet time (min): 0 Condition: stable Disposition: floor Specimens:: Right foot wound culture Right 4th proximal phalanx bone culture Right 4th proximal phalanx bone pathology Right 4th proximal phalanx bone pathology-proximal margin Complications:: None
[2017-09-08 06:02] LABS: Basophils % 0.3 % (0.1-2.0); Eosinophils # 0.2 K/mm3 (0.0-0.4); Hematocrit 40.6 % (42.0-52.0); Hemoglobin 12.6 g/dL (14.1-18.0); Lymphocytes # 1.2 K/mm3 (0.7-4.5); Lymphocytes % 17.2 K/mm3 (10-50); Mean Corpuscular HGB Conc 31.1 g/dL (31.8-35.4); Mean Corpuscular Hemoglobin 26.6 pg (27.0-31.2); Mean Corpuscular Volume 85.4 fl (80-94); Mean Platelet Volume 7.1 fl (7.4-10.4); Monocytes # 0.5 K/mm3 (0.1-1.0); Monocytes % 7.3 % (1.7-9.3); Neutrophils # 5.1 K/mm3 (1.8-7.8); Neutrophils % 72.1 % (37.0-80.0); Platelet Count 297 K/mm3 (142-424); Red Blood Count 4.75 M/mm3 (4.60-6.20); White Blood Count 7.1 K/mm3 (4.8-10.8)
[2017-09-08 06:17] LABS: Albumin/Globulin Ratio 0.8 (1.1-1.8); Anion Gap 11.3 mEq/L (5-15); Bilirubin,Total 0.4 mg/dL (0.2-1.0); Calcium 8.5 mg/dL (8.5-10.1); Globulin 3.9 gm/dl (1.3-3.2); Potassium 4.3 mmoL/L (3.5-5.1); Total Protein,Serum 6.9 gm/dL (6.4-8.2)
--- NOTE | 2017-09-08 07:16 | Progress Note ---
Internal Medicine - PN: Subj *Date: 09/08/17 *Time: 07:15 Interval history: Patient has no complaints as he is postop right fourth toe amputation. Dr. Higuera will change the dressing this morning. Patient denies any significant pain. Exam Vital signs and Labs for Last 24 Hours: Temp Pulse Resp BP Pulse Ox 98.4 F 85 18 124/65 96 09/08/17 04:00 09/08/17 04:00 09/08/17 04:00 09/08/17 04:00 09/08/17 04:00 Laboratory Results - last 24 hr 09/07/17 11:07: POC Glucose 82 09/07/17 16:18: POC Glucose 163 H 09/07/17 20:03: POC Glucose 189 H 09/07/17 20:30: Vancomycin Trough 16.7 09/08/17 05:30: WBC 7.1, RBC 4.75, Hgb 12.6 L, Hct 40.6 L, MCV 85.4, MCH 26.6 L , MCHC 31.1 L, RDW 13.0, Plt Count 297, MPV 7.1 L, Neut % (Auto) 72.1, Lymph % ( Auto) 17.2, [place] % (Auto) 7.3, Eos % (Auto) 3.0, Baso % (Auto) 0.3, Neut # (Auto ) 5.1, Lymph # (Auto) 1.2, [place] # (Auto) 0.5, Eos # (Auto) 0.2, Baso # (Auto) 0.0 09/08/17 05:30: Sodium 137, Potassium 4.3, Chloride 103, Carbon Dioxide 27, Anion Gap 11.3, BUN 11, Creatinine 0.95, Estimated Creat Clear 121, Estimated GFR 81, Est GFR ( Amer) 98, Glucose 101, Calcium 8.5, Total Bilirubin 0.4 , AST 53 H D, ALT 114 H D, Alkaline Phosphatase 85, Total Protein 6.9, Albumin 3.0 L, Globulin 3.9 H, Albumin/Globulin Ratio 0.8 L 09/08/17 05:50: POC Glucose 94 I & O for Last 24 hours: Intake & Output 09/05/17 09/06/17 09/07/17 09/08/17 11:59 11:59 11:59 11:59 Intake Total 1900 / 1900 2710 / 2710 1760 / 1760 Output Total 300 / 300 Balance 1600 / 1600 2710 / 2710 1760 / 1760 Weight 252 lb 1.013 oz 244 lb 9 oz 242 lb 1.998 oz 242 lb 1.998 oz Microbiology Reports for the Last 24 Hours: Microbiology 09/07/17 13:35 Toe,Right Fourth Gram Stain - Final 09/07/17 13:35 Toe,Right Fourth Gram Stain - Final 09/05/17 09:27 Blood Blood Culture - Preliminary NO GROWTH AFTER 48 HOURS 09/05/17 09:27 Blood Blood Culture - Preliminary NO GROWTH AFTER 48 HOURS Narrative: He is in no distress. Foot is heavily bandaged Assessment and Plan (1) Diabetic foot ulcer Current visit: Yes Status: Acute Category: Medical Code(s): E11.621 - Type 2 diabetes mellitus with foot ulcer; L97.509 - Non-pressure chronic ulcer of other part of unspecified foot with unspecified severity (2) Cellulitis, toe Current visit: Yes Status: Acute Category: Medical Code(s): L03.039 - Cellulitis of unspecified toe (3) Insulin-requiring or dependent type II diabetes mellitus Current visit: Yes Status: Acute Category: Medical Code(s): E11.9 - Type 2 diabetes mellitus without complications; Z79.4 - [facility] (current) use of insulin - Assessment and plan all Dx Assessment and Plan for all problems:: Podiatry evaluation and recommendation. At this time continue broad-spectrum antibiotic coverage
--- NOTE | 2017-09-08 08:03 | Progress Note ---
Subjective Date: 09/08/17 Time: 07:45 Principal diagnosis: Right foot cellulitis, 4th digit osteomyelitis Interval history: Patient is resting comfortably, denies pain. He is status post right foot I&D and fourth digit amputation 09/07/17. PN: Obj Ex Vital signs: Temp Pulse Resp BP Pulse Ox 98.4 F 85 18 124/65 96 09/08/17 04:00 09/08/17 04:00 09/08/17 04:00 09/08/17 04:00 09/08/17 04:00 Narrative: Denies N/V, F/C, SOB/CP. - Constitutional no acute distress - Routine HEENT Exam Head: Present: normocephalic Eye: Present: PERRL ENT: Present: mucous membranes moist - Routine Neck Exam Absent: JVD - Detailed Lower Extremity Exam Foot/Toes: Right amputation (R 4TH TOE AMP), Right erythema (Improving to right foot), Right swelling (improving to right foot, resolved ankle), Right wound (R 4TH TOE-INCISION, SUTURES) Comments: Dressing to the right foot was clean dry and intact with no strikethrough. Upon removal of the dressing sutures intact to the fourth digit amputation site. Erythema and edema noted to the dorsal aspect of the right foot. Edema has resolved from the ankle and erythema has decreased. No pain to palpation. No ascending cellulitis or palpable lymph nodes noted. No purulence or drainage appreciated from incision site. No calf or thigh pain noted bilaterally. Progress Note: A&P (1) Diabetic foot ulcer Status: Acute Current Visit: Yes (2) Cellulitis, toe Status: Acute Current Visit: Yes (3) Insulin-requiring or dependent type II diabetes mellitus Status: Acute Current Visit: Yes Assessment and Plan for All Diagnoses:: S/P RIGHT FOOT INCISION AND DRAINAGE, RIGHT 4TH DIGIT AMPUTATION 09/07/17: POD # 1 Intrap op wound culture, bone cultures (09/07/17): gram stain NOS Right foot evaluated and foot cleansed with Betadine. Right foot dressing change today with Xeroform Betadine soaked 4 x 4's followed by dry sterile dressing. See physical exam, overall looks improved. 1. Plan for dressing change tomorrow morning per Dr. Field 2. Dispensed flat post op shoe today 3. NWB (may put heel down to stand, transition) to right foot in shoe with DME 4. Patient will need crutches or walker as tolerated 5. Continue IV Abx broad spectrum 6. Await wound cultures tomorrow to determine po vs IV Abx for discharge 7. Plan for possible d/c home tomorrow
--- NOTE | 2017-09-08 08:13 | Progress Note ---
Internal Medicine - PN: Subj *Date: 09/08/17 *Time: 08:13 Exam Vital signs and Labs for Last 24 Hours: Temp Pulse Resp BP Pulse Ox 98.3 F 88 18 137/74 96 09/08/17 07:59 09/08/17 07:59 09/08/17 07:59 09/08/17 07:59 09/08/17 07:59 Laboratory Results - last 24 hr 09/07/17 11:07: POC Glucose 82 09/07/17 16:18: POC Glucose 163 H 09/07/17 20:03: POC Glucose 189 H 09/07/17 20:30: Vancomycin Trough 16.7 09/08/17 05:30: WBC 7.1, RBC 4.75, Hgb 12.6 L, Hct 40.6 L, MCV 85.4, MCH 26.6 L , MCHC 31.1 L, RDW 13.0, Plt Count 297, MPV 7.1 L, Neut % (Auto) 72.1, Lymph % ( Auto) 17.2, [place] % (Auto) 7.3, Eos % (Auto) 3.0, Baso % (Auto) 0.3, Neut # (Auto ) 5.1, Lymph # (Auto) 1.2, [place] # (Auto) 0.5, Eos # (Auto) 0.2, Baso # (Auto) 0.0 09/08/17 05:30: Sodium 137, Potassium 4.3, Chloride 103, Carbon Dioxide 27, Anion Gap 11.3, BUN 11, Creatinine 0.95, Estimated Creat Clear 121, Estimated GFR 81, Est GFR ( Amer) 98, Glucose 101, Calcium 8.5, Total Bilirubin 0.4 , AST 53 H D, ALT 114 H D, Alkaline Phosphatase 85, Total Protein 6.9, Albumin 3.0 L, Globulin 3.9 H, Albumin/Globulin Ratio 0.8 L 09/08/17 05:50: POC Glucose 94 I & O for Last 24 hours: Intake & Output 09/05/17 09/06/17 09/07/17 09/08/17 23:59 23:59 23:59 23:59 Intake Total 1070 / 1070 2770 / 2770 2110 / 2110 840 / 840 Output Total 300 / 300 Balance 1070 / 1070 2470 / 2470 2110 / 2109 840 / 840 Weight 114.334 kg 110.932 kg 109.826 kg Microbiology Reports for the Last 24 Hours: Microbiology 09/07/17 13:35 Toe,Right Fourth Gram Stain - Final 09/07/17 13:35 Toe,Right Fourth Surgical Biopsy Culture - Preliminary 09/07/17 13:35 Toe,Right Fourth Gram Stain - Final 09/07/17 13:35 Toe,Right Fourth Wound Culture - Preliminary 09/05/17 09:27 Blood Blood Culture - Preliminary NO GROWTH AFTER 48 HOURS 09/05/17 09:27 Blood Blood Culture - Preliminary NO GROWTH AFTER 48 HOURS Assessment and Plan (1) Diabetic foot ulcer Current visit: Yes Status: Acute Category: Medical Code(s): E11.621 - Type 2 diabetes mellitus with foot ulcer; L97.509 - Non-pressure chronic ulcer of other part of unspecified foot with unspecified severity (2) Cellulitis, toe Current visit: Yes Status: Acute Category: Medical Code(s): L03.039 - Cellulitis of unspecified toe (3) Insulin-requiring or dependent type II diabetes mellitus Current visit: Yes Status: Acute Category: Medical Code(s): E11.9 - Type 2 diabetes mellitus without complications; Z79.4 - longterm (current) use of insulin The patient's infection will respond to the chosen ABx?: Yes Is the patient receiving the right drug, dose, and route?: Yes Could a more targeted ABx be ordered?: No
--- NOTE | 2017-09-08 10:16 | Pharmacy Consult Notes ---
- Pharmacy Consult Date: 09/08/17 Time: 10:14 Referring provider: DR. JACKSON/GIANLUCA Reason for Consult:: VANCOMYCIN TROUGH LEVEL Allergies and ADEs:: Allergies Allergy/AdvReac Type Severity Reaction Status Date / Time No Known Allergies Allergy Verified 09/05/17 09:21 Home Medications:: Home Medications Medication Instructions Recorded Confirmed Type aspirin 81 mg tablet,delayed 81 mg PO DAILY 03/26/17 09/08/17 History release ezetimibe 10 mg tablet 10 mg PO DAILY 03/26/17 09/08/17 History insulin aspart U-100 100 unit/mL 30 unit SUB-Q DIRECTED 03/26/17 09/05/17 History subcutaneous pen insulin degludec (U-100) 100 70 unit SUB-Q HS 03/26/17 09/05/17 History unit/mL (3 mL) subcutaneous pen metformin 1,000 mg tablet 1,000 mg PO BID 03/26/17 09/05/17 History nortriptyline 50 mg capsule 50 mg PO DAILY 03/26/17 09/08/17 History valsartan 160 mg tablet 320 mg PO DAILY 03/26/17 09/08/17 History Testosterone Cypionate 200 mg IM QOW 09/05/17 09/08/17 History Height: 1.88 m Weight: 109.826 kg Laboratory Results:: Laboratory Results - last 24 hr 09/07/17 11:07: POC Glucose 82 09/07/17 16:18: POC Glucose 163 H 09/07/17 20:03: POC Glucose 189 H 09/07/17 20:30: Vancomycin Trough 16.7 09/08/17 05:30: WBC 7.1, RBC 4.75, Hgb 12.6 L, Hct 40.6 L, MCV 85.4, MCH 26.6 L , MCHC 31.1 L, RDW 13.0, Plt Count 297, MPV 7.1 L, Neut % (Auto) 72.1, Lymph % ( Auto) 17.2, [place] % (Auto) 7.3, Eos % (Auto) 3.0, Baso % (Auto) 0.3, Neut # (Auto ) 5.1, Lymph # (Auto) 1.2, [place] # (Auto) 0.5, Eos # (Auto) 0.2, Baso # (Auto) 0.0 09/08/17 05:30: Sodium 137, Potassium 4.3, Chloride 103, Carbon Dioxide 27, Anion Gap 11.3, BUN 11, Creatinine 0.95, Estimated Creat Clear 121, Estimated GFR 81, Est GFR ( Amer) 98, Glucose 101, Calcium 8.5, Total Bilirubin 0.4 , AST 53 H D, ALT 114 H D, Alkaline Phosphatase 85, Total Protein 6.9, Albumin 3.0 L, Globulin 3.9 H, Albumin/Globulin Ratio 0.8 L 09/08/17 05:50: POC Glucose 94 Medical History: Reports:: Cerebrovascular Accident, Depression, Diabetes Mellitus Type 2, Hyperlipidemia, Hypertension Denies:: Aneurysm, Asthma, Atrial Fibrillation, Cancer, Congestive Heart Failure, Chronic Obstructive Pulmonary Disease (COPD), Gastroesophageal Reflux Disease(GERD), MRSA, Myocardial Infarction, Osteoporosis, Seizures, Supraventricular Tachycardia, Transient Ischemic Attacks (TIA), Valvular Heart Disease Assessment and Plan (1) Diabetic foot ulcer Current visit: Yes Status: Acute Category: Medical Code(s): E11.621 - Type 2 diabetes mellitus with foot ulcer; L97.509 - Non-pressure chronic ulcer of other part of unspecified foot with unspecified severity (2) Cellulitis, toe Current visit: Yes Status: Acute Category: Medical Code(s): L03.039 - Cellulitis of unspecified toe (3) Insulin-requiring or dependent type II diabetes mellitus Current visit: Yes Status: Acute Category: Medical Code(s): E11.9 - Type 2 diabetes mellitus without complications; Z79.4 - remote computer terminal operator (current) use of insulin - Assessment and plan all Dx Assessment and Plan for all problems:: BASED ON PATIENT FACTORS AND VANCOMYCIN TROUGH LEVEL, RECOMMEND CONTINUING VANCOMYCIN 2 GM IV Q12H. PHARMACY WILL CONTINUE TO MONITOR DAILY AND ADJUST APPROPRIATE.
--- NOTE | 2017-09-09 07:32 | Progress Note ---
Internal Medicine - PN: Subj *Date: 09/09/17 *Time: 07:31 Interval history: Patient has no complaints this morning. Cultures are still pending. Exam Vital signs and Labs for Last 24 Hours: Temp Pulse Resp BP Pulse Ox 98.5 F 80 16 112/65 99 09/09/17 04:00 09/09/17 04:00 09/09/17 04:00 09/09/17 04:00 09/09/17 04:00 Laboratory Results - last 24 hr 09/08/17 11:02: POC Glucose 140 H 09/08/17 16:39: POC Glucose 133 H 09/08/17 20:21: POC Glucose 195 H 09/09/17 06:23: POC Glucose 81 I & O for Last 24 hours: Intake & Output 09/06/17 09/07/17 09/08/17 09/09/17 11:59 11:59 11:59 11:59 Intake Total 1900 / 1900 2710 / 2710 2420 / 2420 1130 / 1130 Output Total 300 / 300 Balance 1600 / 1600 2710 / 2710 2420 / 2420 1130 / 1130 Weight 244 lb 9 oz 242 lb 1.998 oz 242 lb 1.998 oz Microbiology Reports for the Last 24 Hours: Microbiology 09/07/17 13:35 Toe,Right Fourth Gram Stain - Final 09/07/17 13:35 Toe,Right Fourth Surgical Biopsy Culture - Preliminary 09/07/17 13:35 Toe,Right Fourth Gram Stain - Final 09/07/17 13:35 Toe,Right Fourth Wound Culture - Preliminary - Constitutional no acute distress Assessment and Plan (1) Diabetic foot ulcer Current visit: Yes Status: Acute Category: Medical Code(s): E11.621 - Type 2 diabetes mellitus with foot ulcer; L97.509 - Non-pressure chronic ulcer of other part of unspecified foot with unspecified severity (2) Cellulitis, toe Current visit: Yes Status: Acute Category: Medical Code(s): L03.039 - Cellulitis of unspecified toe (3) Insulin-requiring or dependent type II diabetes mellitus Current visit: Yes Status: Acute Category: Medical Code(s): E11.9 - Type 2 diabetes mellitus without complications; Z79.4 - alf (current) use of insulin - Assessment and plan all Dx Assessment and Plan for all problems:: Await podiatry recommendations today. Patient may possibly be discharged today.
--- NOTE | 2017-09-09 07:35 | Discharge Summary ---
General - General Admission date:: 09/05/17 Discharge date: 09/09/17 HPI HPI: Mr. Marsh is a 62-year-old white male, insulin requiring type II diabetic with previous history of toe cellulitis that resolved, who presented to the emergency department 09/05/17 after having taken levofloxacin for 3 days for toe cellulitis without improvement. Patient states redness to right foot started . Worsening condition was noted, significant redness and streaking was noted, patient admitted for IV antibiotics and podiatry evaluation. Hospital Course Hospital Course: Patient was admitted and placed on broad-spectrum antibiotic coverage. After nearly 48 hours of treatment or been very little improvement in cellulitis or swelling of the fourth right toe. Podiatry evaluated the patient on September 07 and decision was made to perform right fourth toe amputation. Dr. Higuera took him to the OR on September 07 and performed right toe amputation without complication. Postoperatively he was continued on broad-spectrum antibiotics with dressing changes daily by Dr. Field. On September 09 patient was discharged home on oral antibiotics. He will follow-up with Dr. Field in 2 weeks. He was placed on 3 worth of antibiotics at discharge to include ciprofloxacin 500 mg twice daily and clindamycin 300 mg 3 times daily. Objective Vital signs: Temp Pulse Resp BP Pulse Ox 98.5 F 80 16 112/65 99 09/09/17 04:00 09/09/17 04:00 09/09/17 04:00 09/09/17 04:00 09/09/17 04:00 Results Labs on day of discharge: Labs from last 24 hours 09/09/17 09/08/17 09/08/17 06:23 20:21 16:39 POC Glucose 81 195 H 133 H 09/08/17 11:02 POC Glucose 140 H Preliminary micro results at discharge 09/07/17 13:35 Surgical Biopsy Culture - Preliminary Toe,Right Fourth 09/07/17 13:35 Wound Culture - Preliminary Toe,Right Fourth 09/05/17 09:27 Blood Culture - Preliminary Blood NO GROWTH AFTER 48 HOURS 09/05/17 09:27 Blood Culture - Preliminary Blood NO GROWTH AFTER 48 HOURS DS: Diagnosis - Discharge Diagnosis (1) Diabetic foot ulcer Status: Acute (2) Cellulitis, toe Status: Acute (3) Insulin-requiring or dependent type II diabetes mellitus Status: Acute Discharge Plan - Patient Discharge Instructions ACTIVITY: Continue current activity DIET: continue same diet - Follow up Plan Follow up with: Mickie Field DPM [Physician] - 2 weeks Disposition: Home, Self-Halfway Medications: Home Medications Medication Instructions Recorded Confirmed Type aspirin 81 mg tablet,delayed 81 mg PO DAILY 03/26/17 09/08/17 History release ezetimibe 10 mg tablet 10 mg PO DAILY 03/26/17 09/08/17 History insulin aspart U-100 100 unit/mL 30 unit SUB-Q DIRECTED 03/26/17 09/05/17 History subcutaneous pen insulin degludec (U-100) 100 70 unit SUB-Q HS 03/26/17 09/05/17 History unit/mL (3 mL) subcutaneous pen metformin 1,000 mg tablet 1,000 mg PO BID 03/26/17 09/05/17 History nortriptyline 50 mg capsule 50 mg PO DAILY 03/26/17 09/08/17 History valsartan 160 mg tablet 320 mg PO DAILY 03/26/17 09/08/17 History Testosterone Cypionate 200 mg IM QOW 09/05/17 09/08/17 History Prescriptions/Medication Reconciliation: New Ciprofloxacin HCl [Ciprofloxacin 500mg Tab] 500 mg PO BID #42 tab Clindamycin HCl [Cleocin HCl] 300 mg PO TID #63 cap Continue ezetimibe 10 mg tablet 10 mg PO DAILY valsartan 160 mg tablet 320 mg PO DAILY nortriptyline 50 mg capsule 50 mg PO DAILY aspirin 81 mg tablet,delayed release 81 mg PO DAILY insulin aspart U-100 100 unit/mL subcutaneous pen 30 unit SUB-Q DIRECTED insulin degludec (U-100) 100 unit/mL (3 mL) subcutaneous pen 70 unit SUB-Q HS metformin 1,000 mg tablet 1,000 mg PO BID Testosterone Cypionate 200 mg IM QOW
--- NOTE | 2017-09-09 08:03 | Progress Note ---
Subjective Date: 09/09/17 Time: 07:40 Principal diagnosis: Right foot cellulitis, 4th digit osteomyelitis Interval history: Patient is postop day 2, resting comfortably in chair with leg elevated. Patient denies pain to the right foot. Patient denies systemic signs of infection and reports having an appetite. Patient is requesting to go home today. PN: Obj Ex Vital signs: Temp Pulse Resp BP Pulse Ox 98.5 F 80 16 112/65 99 09/09/17 04:00 09/09/17 04:00 09/09/17 04:00 09/09/17 04:00 09/09/17 04:00 - Constitutional no acute distress - Routine HEENT Exam Head: Present: normocephalic - Routine Neck Exam Absent: JVD - Routine Respiratory Exam Absent: respiratory distress - Routine Cardiovascular Exam Absent: JVD - Routine Extremities Exam Present: edema, pulses intact. Absent: calf tenderness - Detailed Lower Extremity Exam Foot/Toes: Right amputation (R 4TH DIGIT), Right erythema (R DORSAL FOREFOOT), Right swelling (IMPROVING RIGHT FOOT), Right wound (SX INCISION ) Comments: Dressing to the right foot was clean dry and intact. Upon removal of the dressing, sutures intact to the fourth digit amputation site. Maceration to the incision site. Erythema and edema noted to the dorsal aspect of the right foot, improving. Edema has resolved from the ankle and erythema has decreased. No pain to palpation. No ascending cellulitis or palpable lymph nodes noted. No purulence or drainage appreciated from incision site. No calf or thigh pain noted bilaterally. Progress Note: A&P (1) Diabetic foot ulcer Status: Acute Current Visit: Yes (2) Cellulitis, toe Status: Acute Current Visit: Yes (3) Insulin-requiring or dependent type II diabetes mellitus Status: Acute Current Visit: Yes Assessment and Plan for All Diagnoses:: S/P RIGHT FOOT INCISION AND DRAINAGE, RIGHT 4TH DIGIT AMPUTATION 09/07/17: POD # 2 Intrap op wound culture, bone cultures (09/07/17): gram stain NOS Right foot evaluated and foot cleansed with Betadine. Maceration painted with betadine. Right foot dressing change today with Betadine soaked 4 x 4's followed by dry sterile dressing. 1. NWB (may put heel down to stand, transition) to right foot in post op shoe with crutches 2. 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 I discussed cultures with the lab. Gram stain for the bones is no organisms seen. Wound culture has light growth and the bone path has no growth so far. 5. Discussed plan of care with Dr. Barraza. I feel like the infection is isolated to the toe and did not extend into the metatarsal. Patient will need to continue antibiotics 6. Clinda 300 mg 3 times daily and Cipro 500 mg twice daily 3 weeks 7. Follow-up outpatient when he returns back from [facility] in 1.5 weeks
== END 2017-09-09 10:48 | disposition home or self-care (01) ==
LOC: 2ND 09:09 → ER 09:09 → OBSVTOIN 10:50 → 2ND 10:59
PROVIDERS: ADMIT Internal Medicine Adolescent Medicine; ATTEND Family Medicine

== ENCOUNTER → 2017-10-12 10:45 | Outpatient (CLI) | payer OTHER, SELFPAY ==
--- NOTE | 2017-10-12 10:46 | XR_ITS ---
XR foot wt bearing RT 3V HISTORY: Follow-up surgery ITS.REASON: postop views ORDERING PHYSICIAN: Mickie Field DPM PATIENT AGE: 62 years COMPARISON: 09/07/2017 FINDINGS: Status post amputation of the fourth metatarsophalangeal joint. The distal aspect of the fourth metatarsal has an unremarkable appearance as does the amputation site. There is mild hallux valgus with moderate osteoarthritic changes of the first metatarsophalangeal joint and prominent hypertrophic changes of the distal aspect of the first metatarsal. There is diffuse vascular calcification. Calcaneal spur and Achilles enthesophyte noted. IMPRESSION: Status post amputation at the fourth metatarsophalangeal joint with no acute finding. Hallux valgus with bunion formation
== END ==
PROVIDERS: Visit Provider Podiatrist
DX: Z98.890 Other specified postprocedural states (principal)
CPT/HCPCS: 73630

== ENCOUNTER → 2017-12-28 14:23 | Outpatient (CLI) | payer OTHER, SELFPAY ==
--- NOTE | 2017-12-28 14:26 | MR_ITS ---
MR cervical spine wo con, MR 3-d myelogram/MRCP HISTORY: No strength in LT hand. Pain between scapula tingling in LT arm. ITS.REASON: LEFT CERVICAL RADICULOPATHY ORDERING PHYSICIAN: Tommie Barraza MD PATIENT AGE: 62 years Comparison: 02-07-2011 TECHNIQUE: Standard multiplanar multiecho sequences are performed without contrast. 3-D MIP and myelographic images are also rendered and reviewed FINDINGS: Status post anterior cervical disc fusion at C5, C6, and C7. Artifact is present from surgical hardware. There is normal alignment Unremarkable craniocervical junction C2-C3: Mild right-sided foraminal narrowing from facet and uncovertebral hypertrophy C3-C4: Degenerative disc disease with bulging disc with small right paracentral/foraminal disc osteophyte complex. There is severe narrowing of the foramen on the right due to the disc osteophyte complex and facet hypertrophic change. There is narrowing of the canal at this level is not millimeters but no obvious cord impingement. C4-C5: Mild concentric bulging disc with narrowing of the canal at 10 mm. No cord impingement. C5-C6: Artifact from prior anterior cervical disc fusion. Moderate right and mild left foraminal narrowing from uncovertebral hypertrophy. There is narrowing of the canal at 9 mm. C6-C7: Artifact from prior anterior cervical disc fusion. Mild right and moderate left foraminal narrowing. C7-T1: Degenerative disc disease with bulging discs with narrowing of the canal 9 mm without cord compression. T1-T2: Degenerative disc disease with bulging disc. There does appear to be a small left foraminal disc herniation at T1-T2. Images are somewhat compromised due to motion. This is best demonstrated on the axial images. Dedicated MRI of the T-spine may be of further value if clinically warranted. IMPRESSION: 1. Abnormal MRI of the cervical spine with postsurgical changes from prior disc fusion at C5-C6 and C7 with artifact from the cervical hardware. 2. Multilevel cervical spondylosis with degenerative disc disease, bulging disc, variable foraminal narrowing, and narrowing of the canal. Please see above for detailed description at each level. 3. Small left foraminal disc herniation suspected at T1-T2 with compromise of that neural foramen. Dedicated MRI of the thoracic spine may confirm if clinically warranted
== END ==
PROVIDERS: PCP Family Medicine; Visit Provider Family Medicine
DX: M54.12 Radiculopathy, cervical region (principal)
CPT/HCPCS: 72141; 76376

== ENCOUNTER → 2018-02-18 09:39 | Outpatient (CLI) | payer OTHER, SELFPAY ==
--- NOTE | 2018-02-18 09:46 | XR_ITS ---
XR humerus RT, XR elbow RT min 3V Ordering Physician: Tommie Barraza MD Patient Age: 63 years: Male HISTORY: ITS.REASON: RT BICEP TENDON RUPTURE TECHNIQUE: Right humerus: AP & lateral Right elbow AP lateral and oblique COMPARISON : No previous studies for comparison ========= RIGHT HUMERUS. No acute findings at humerus Humeral shaft intact. Bones well mineralized. Right shoulder included on this right humerus study shows normal glenohumeral joint and humeral head/neck. There are degenerative changes at the AC joint and acromion. ======== RIGHT ELBOW 3 VIEWS No fracture. No acute findings. No joint effusion. There is suggestion of some mild hypertrophy about the lateral aspect of coronoid process and at the lateral elbow. Slight joint space narrowing and hypertrophy here at the ulna. Likely old injury. There is also small calcification seen overlying the medial and lateral epicondyles regions which may indeed reflect old epicondylitis. Note history of possible biceps tendon rupture. No plain film findings associated. No avulsion fracture from proximal right radius. MR may be of benefit to further evaluate and please specify if its of proximal or distal biceps tendon rupture if proceeded with the MRI imaging IMPRESSION......... 1. No acute osseous findings. 2. Right Elbow: No joint effusion at the elbow. No fracture Right elbow with mild degenerative changes at the lateral anterior aspect of the joint. Minimal focal calcification overlying the medial & lateral epicondyles- likely reflecting remote old epicondylitis 3. Right humerus intact. Right shoulder intact only to note Degenerative changes AC joint and acromion noted
--- NOTE | 2018-02-18 09:46 | XR_ITS ---
XR hip LT 2-3V w/pelvis Ordering Physician: Tommie Barraza MD Patient Age: 63 years: Male HISTORY: ITS.REASON: LEFT HIP PAIN Left hip pain TECHNIQUE: AP frog-leg view left hip along with AP pelvis. COMPARISON :. A lumbar spine series December 2010 FINDINGS Left hip. No fracture. No dislocation . Left femoral head normal contour and density. Borderline narrowing superior joint space on the left versus right but suggestive some early degenerative changes. Note relatively shallow acetabulum bilaterally appears adequate reaching just covering mid dome of the femur head slight roughening at the rim of acetabulum bilaterally is reflection of some scant degenerative changes but unimpressive. The osseous pelvis is intact. Pubis intact. Slight roughening at the issue reflecting insertions.. The sacrum SI joints iliac bone intact Degenerative changes lower L-spine noted with disc space narrowing most evident L4/5 L4/5 with associated marginal osteophytes. L4/5 Degenerative lumbar Findings at this level similar to the 2011 lumbar study. IMPRESSION: Subtle narrowing superior left hip joint space which may reflect some early degenerative changes. Femoral head appear normal bilaterally. Adequate but Borderline shallow acetabulum noted . Degenerative changes lower L-spine L4/5 again noted
== END ==
PROVIDERS: PCP Family Medicine; Visit Provider Family Medicine
DX: S46.211A Strain of muscle, fascia and tendon of other parts of biceps, right arm, initial encounter (principal)
CPT/HCPCS: 73060; 73080; 73502

== ENCOUNTER → 2018-05-03 15:25 | Outpatient (CLI) | payer OTHER, SELFPAY ==
[2018-05-07 10:52] LABS: Testosterone, Total, LC/MS 438.5 ng/dL (264.0-916.0); Testosterone,Free 9.7 pg/mL (6.6-18.1)
== END ==
PROVIDERS: Visit Provider Urology
DX: C61 Malignant neoplasm of prostate (principal)
CPT/HCPCS: 36415; 84402; 84403

== ENCOUNTER → 2018-05-05 13:45 | Outpatient (CLI) | payer OTHER, SELFPAY ==
--- NOTE | 2018-05-05 13:48 | XR_ITS ---
EXAM: XR lumbar spine min 4V HISTORY: Lower back and left hip pain ITS.REASON: weightbearing! ORDERING PHYSICIAN: Joellen Jacobson MD PATIENT AGE: 63 years COMPARISON: None FINDINGS: Weightbearing views are performed. There is multilevel degenerative disc disease from L1 S1 most severe at L3-S1. There is normal alignment. No acute fracture or dislocation. Anterior osteophytes are present from L2 to L5. No lytic or blastic change. Facet arthritic changes are also present at L4-L5 and L5-S1. IMPRESSION: Degenerative disc disease and facet arthritic change of the lumbar spine
== END ==
PROVIDERS: PCP Family Medicine; Visit Provider Orthopaedic Surgery
DX: M54.9 Dorsalgia, unspecified (principal)
CPT/HCPCS: 72110

== ENCOUNTER → 2018-05-11 10:35 | Outpatient (CLI) | payer OTHER, SELFPAY ==
--- NOTE | 2018-05-11 10:37 | IR_ITS ---
IR fluoro guided needle place CLINICAL INDICATION: ITS.REASON: left hip injection ORDERING PHYSICIAN: Joellen Jacobson MD PATIENT AGE: 63 years Comparison: None Fluoroscopy time: 13 seconds FINDINGS: Single image is submitted the fluoroscope showing contrast injection overlying the left femoral head and neck does not appear to be intracapsular. Please correlate with fluoroscopic findings. IMPRESSION: Fluoroscopic assistance utilized with left hip joint injection as described above
--- NOTE | 2018-05-11 21:55 | P.PCN_ITS ---
[facility] Procedure Note Procedure Note:: Date of Procedure: May 11, 2018 Pre-procedure diagnosis: L hip pain Post-procedure diagnosis: L hip pain Procedure: intraarticular corticosteroid injection L hip Performed by: Joellen Jacobson MD Accounting Manager/s: none Anesthesia: local; 10cc 1% lidocaine w/o epinephrine Estimated Blood Loss: none History of Present Illness: 63yo M with L hip pain as well as low back pain, pain that radiates across the posterior buttock, lateral thigh, and down the leg to the knee. X-rays of the lumbar spine show DDD/multilevel degenerative changes and possible mild degenerative changes in the hip (mostly superior joint space). I believe there are components of both lumbar and hip pathology contributing to his discomfort. To investigate the source of pain and serve both diagnostic and therapeutic purposes, I've recommended an intra-articular steroid injection into the left hip. Based on his response to the injection we may be able to determine how much pain is coming from the hip versus the back and target treatment accordingly. I discussed the procedure with the patient, including the risks of the procedure; he vocalized understanding and provided informed consent. Procedure Note: The patient presented to the radiology department and changed into a gown, exposing the affected LEFT hip. Consent was reviewed and signed by both myself and the patient, all questions were answered. The patient was placed supine on the fluoroscopy table and the left hip exposed. The anterior groin/hip and proxi mal thigh were prepped with chlorhexidine. Timeout was performed. Next, the fluoro machine was brought in over the patient?s left hip and a picture taken to confirm adequate visualization of the joint. I donned a pair of sterile surgical gloves; the remainder of the procedure was performed in a sterile fashion. A 20G spinal needle was held over the hip to approximate my desired entry point on the skin. Once this was established, a 25G needle was used to infiltrate injection site and estimated needle track with 10cc 1% lidocaine w/o epinephrine. Once the injection site was anesthetized, the spinal needle was advanced through the same puncture site and deeper towards the hip joint. Using fluoro, it was confirmed that the needle was advanced until it was at the level of the femoral neck. The stylus was removed from the spinal needle and 2cc of iodinated contrast solution was injected through the spinal needle. Fluoro was taken again, and the dye confirmed intra-capsular placement of the spinal needle, indicating a successful intraarticular injection. The syringe with contrast was removed, keeping the spinal needle in place, and 40mg Kenalog with 2cc 1% lidocaine w/o epinephrine was injected through the needle into the hip joint. A final fluoro picture was taken, confirming successful intraarticular injection. The spinal needle was removed from the hip and a band-aid was placed over the injection site. Specimens: none Condition/Disposition: good / home Complications: none
== END ==
PROVIDERS: PCP Family Medicine; Visit Provider Orthopaedic Surgery
DX: M16.12 Unilateral primary osteoarthritis, left hip (principal); M25.552 Pain in left hip; M51.37 Other intervertebral disc degeneration, lumbosacral region; E11.9 Type 2 diabetes mellitus without complications; I10 Essential (primary) hypertension
CPT/HCPCS: 20610; 77002

== ENCOUNTER → 2018-06-08 14:09 | Outpatient (CLI) | payer OTHER, SELFPAY | PROVIDERS: PCP Family Medicine; Visit Provider Orthopaedic Surgery | DX: M54.5 Low back pain (principal) ==

== ENCOUNTER → 2018-06-15 13:19 | Outpatient (CLI) | payer OTHER, SELFPAY ==
--- NOTE | 2018-06-15 14:30 | MR_ITS ---
MR lumbar spine wo/w con Ordering Physician: Joellen Jacobson MD Patient Age: 63 years: Male HISTORY: ITS.REASON: back pain Groin and buttocks pain. Left hip pain. Left-sided low back pain while sitting. Symptoms for months but has gotten worse the past month. No trauma. No history of lumbar surgery. TECHNIQUE: Pre and postcontrast imaging lumbar spine Precontrast images: Sagittal STIR, T1, T2, axial T1 and T2. On 1.5T Siemens wide bore MRI. 3-D MR myelogram image set obtained & performed on MRI workstation. Additional sagittal thin section T2 weighted dataset obtained from this latter acquisition as well (---76 CPT) Postcontrast images include sagittal and axial T1 imaging following 20 mL ProHance COMPARISON : Plain films of lumbar spine 05/05/2018 FINDINGS Vertebral bodies intact in that they show no no lesions or compression fractures. Generous Schmorl's node and Degenerative reactive endplate changes at inferior aspect of L3 narrowed L5/S1 & L4/5 disc space. Multilevel degenerative disc changes and lumbar spondylosis-superimposed upon a modest volume underlying osseous spinal canal L5/S1. Disc space narrowing. Degenerative reactive endplate changes . Mild disc bulge and spondylosis. Mild Posterior disc bulge/with osteophytic ridging posteriorly.. This along with generous facet hypertrophy yields moderate recess and foraminal encroachment bilateral L4/5. Pronounced spinal stenosis Most prominent disc space narrowing at this level with associated Modic degenerative endplate changes are seen about this level. Again spondylosis with. Diffuse osteophytic ridging with diffuse disc bulge. Prominent facet hypertrophy bilaterally with moderately ligamentum flavum hypertrophy also noted.-Combination of these features yields: moderately pronounced central canal spinal stenosis; as well as moderate pronounced foraminal & recess encroachment bilateral,-overall left greater than right L3/4. Pronounced, fairly severe spinal stenosis most evident at this level. Prominent spondylosis Generous posterior osteophytic ridging along with disc bulge narrow the spinal canal along with the exuberant of facet hypertrophy.. Generous bilateral recess and foraminal encroachment.. Degenerative disc disc space narrowing. Generous Schmorl's node along with Reactive endplate changes inferior aspect L4 vertebral L2/3. Diffuse more generous size disc bulge most evident towards the left foramen. Less pronounced posterior osteophytic ridging. These features yield moderate central canal stenosis, and along with moderate bilateral facet arthropathy yield moderate recess and foraminal encroachment.... Most evident to the left.. Moderate pronounced canal stenosis also seen at this level L1/2 mild diffuse disc bulge most evident at foramen. Bulge slightly more evident towards left foramen. Minor facet arthropathy. Moderate bilateral foraminal encroachment. Mild central canal stenosis T12/L1 disc intact with only mild disc bulge. T11/12 disc. Unremarkable. Conus ends appropriately at L1 On on the precontrast images there is a slightly unusual stippled within the thecal sac posterior to L4 and L5 level. Thus contrast was utilized. These areas show no enhancement and I believe are merely reflection of the prominent multilevel spinal stenosis compressing & dispersing nerve at the lower thecal sac. Mildly prominent Epidural veins likely also contribute to this overall appearance is well. No mass 3-D MRI myelogram nicely demonstrates the disc above feature but also nicely demonstrates the multilevel spinal stenosis which is most pronounced at L3/4, followed by L4/5 L2/3 with mild narrowing at L1/2 Incidental near 4 cm left renal cyst is partially imaged extending from the lateral aspect left kidney. ... IM
== END ==
PROVIDERS: PCP Family Medicine; Visit Provider Orthopaedic Surgery
DX: M51.37 Other intervertebral disc degeneration, lumbosacral region (principal)
CPT/HCPCS: 72158; 76376; A9576

== ENCOUNTER 2018-06-17 13:00 | Outpatient (RCR) | payer OTHER, SELFPAY ==
--- NOTE | 2018-06-07 15:12 | HMH.PTOPEV ---
PT Outpatient Evaluation Rehab PT Outpatient Evaluation Start: 06/07/18 14:03 Freq: Status: Active Protocol: Document 06/07/18 14:52 PHORNE (Rec: 06/07/18 15:06 PHORNE [id number]) Electronically Signed By Joe Barajas, PT 06/07/18 14:52 Outpatient Therapy Subjective History Subjective History Pt is a 63 yowm with history of LBP and left hip pain. Pt reports the low back has been hurting him for years and the hip began around 4 months ago. Pt reports recieving a cortizone shot from a doctor a month ago and it did not help . Pt reports being on crutches but now uses 1 cane. Pt reports 0/10 pain at this time and 8/10 at worst. Pt states pain is ache and shooting into the hip at times. Pt reports being diabetic and having skin cancer removed. Pt's past surgeries include C spine decompression x2, and 4th toe removed on the right foot. Pt reports 0/10 tenderness to palpation. Chief Complaint Pain Stiff Symptom Type Ache Shooting Symptoms Relieved By Rest/Positioning Symptoms Aggravated By Standing Physical Activity Twisting Walking Lifting Prior Functional Limitations None Current Functional Limitations Sleeping Standing Squatting Recreation Activity Walking Stairs Balance Symptom Description Constant but Variable Level of pain today (0-10) 0 Pain scale - at its best (0-10) 0 Pain scale - at its worst (0-10) 8 Lumbopelvic Eval Posture Thoracic Spine Posture Standing Position Neutral Flattened Lumbar Spine Posture Standing Position Flattened Assistive device Assistive Devices Straight Cane Gait Observation General Gait Pattern Observation Antalgic Gait Wide Based Gait Decrease Weight Bear (L) Range of Motion Lumbar Spine Active Flexion Ran
== END 2018-06-17 13:05 | disposition home or self-care (01) ==
LOC: PT 13:00
PROVIDERS: Visit Provider Orthopaedic Surgery
DX: M54.5 Low back pain (principal); M16.12 Unilateral primary osteoarthritis, left hip
CPT/HCPCS: 97010; 97014; 97035; 97110; 97140; 97163; G0283

== ENCOUNTER → 2018-10-18 09:54 | Outpatient (CLI) | payer OTHER, SELFPAY ==
[2018-10-20 11:13] LABS: Testosterone, Total, LC/MS 744.3 ng/dL (264.0-916.0); Testosterone,Free 12.8 pg/mL (6.6-18.1)
== END ==
PROVIDERS: Visit Provider Urology
DX: E29.1 Testicular hypofunction (principal)
CPT/HCPCS: 36415; 84402; 84403

== ENCOUNTER → 2019-02-07 14:57 | Outpatient (CLI) | payer OTHER, SELFPAY ==
--- NOTE | 2019-02-07 15:01 | XR_ITS ---
PROCEDURE: XR HIP LT 2-3V W/PELVIS CLINICAL INDICATION: AP pelvis AP/Lateral of Lt Hip-weightbearing COMPARISON: HIPCMLT XR hip LT 2-3V w/pelvis from 02/18/2018 [id number] XR lumbar spine min 4V from 05/05/2018 FINDINGS: There are severe osteoarthritic changes of the left hip with subarticular cystic changes of the acetabulum and the femoral head. Is some minimal flattening of the left femoral head. There is mild widening of the left hip joint space. Somewhat unusual gas density is noted inferior to the symphysis pubis etiology indeterminate IMPRESSION: Severe osteoarthritic changes are present involving the left hip with subarticular cystic changes and mild flattening of the femoral head. These findings have developed since the previous exam. Dictated by: Qasim Rojas MD 02/07/2019 18:46 Electronically signed by Qasim Rojas MD in [place] 02/07/2019 18:46
== END ==
PROVIDERS: PCP Family Medicine; Visit Provider Orthopaedic Surgery
DX: M25.552 Pain in left hip (principal)
CPT/HCPCS: 73502

== ENCOUNTER → 2019-02-16 08:40 | Outpatient (CLI) | payer OTHER, SELFPAY ==
--- NOTE | 2019-02-16 08:41 | XR_ITS ---
PROCEDURE: XR KUB CLINICAL INDICATION: PRIOR TO BE COMPARISON: No exams were available for comparison FINDINGS: There is a rather gas x's appearing abdomen with no definite visible stool seen throughout the colon consistent with an adequate prep for the scheduled barium enema. 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 There is severe joint space narrowing with eburnation of the left hip joint. There is possible subchondral cyst femoral head. IMPRESSION: Satisfactory prep for scheduled barium enema, severe osteoarthritic change left hip Dictated by: Dr. Obdulio Recio MD 02/16/2019 17:[address] Obdulio Recio MD in [place] 02/16/2019 17:45
== END ==
PROVIDERS: PCP Family Medicine; Visit Provider Surgery
DX: Q43.8 Other specified congenital malformations of intestine (principal)
CPT/HCPCS: 74018

== ENCOUNTER → 2019-02-17 09:38 | Outpatient (CLI) | payer OTHER, SELFPAY ==
--- NOTE | 2019-02-17 09:39 | FL_ITS ---
PROCEDURE: FL BARIUM ENEMA CLINICAL INDICATION: tortuous and spastic colon COMPARISON: No exams were available for comparison FINDINGS: Fluoroscopy time: 2 minutes and 29 seconds. Air contrast technique utilized. The colon is visualized from the rectum to the cecum. No annular constricting lesions, fixed polypoid filling defects, mucosal abnormalities, or other significant anomalies apparent. No diverticula evident. IMPRESSION: Unremarkable air-contrast barium enema Dictated by: Qasim Rojas MD 02/17/2019 14:41 Electronically signed by Qasim Rojas MD in [place] 02/17/2019 14:41
== END ==
PROVIDERS: PCP Family Medicine; Visit Provider Surgery
DX: Q43.8 Other specified congenital malformations of intestine (principal)
CPT/HCPCS: 74270

== ENCOUNTER → 2019-04-21 12:15 | Outpatient (CLI) | payer OTHER, SELFPAY ==
[2019-04-21 12:17] LABS: MANUAL DIFFERENTIAL MANUAL DIFFERENTIAL (MANUAL DIFF)
[2019-04-21 12:31] LABS: Basophils % 0.6 % (0.1-2.0); Eosinophils # 0.2 K/mm3 (0.0-0.4); Eosinophils % 3.4 % (0.1-12.0); Hematocrit 45.8 % (42.0-52.0); Hemoglobin 15.3 g/dL (14.1-18.0); Lymphocytes # 2.1 K/mm3 (0.7-4.5); Lymphocytes % 29.8 % (10-50); Mean Corpuscular HGB Conc 33.4 g/dL (31.8-35.4); Mean Corpuscular Hemoglobin 28.6 pg (27.0-31.2); Mean Corpuscular Volume 85.5 fl (80-94); Monocytes # 0.5 K/mm3 (0.1-1.0); Monocytes % 6.8 % (1.7-9.3); Neutrophils # 4.1 K/mm3 (1.8-7.8); Neutrophils % 59.3 % (37.0-80.0); Platelet Count 303 K/mm3 (142-424); Red Blood Count 5.36 M/mm3 (4.60-6.20); White Blood Count 6.9 K/mm3 (4.8-10.8)
[2019-04-21 13:22] LABS: Alanine Aminotransferase 35 U/L (12-78); Albumin Level 4.4 gm/dL (3.4-5.0); Alkaline Phosphatase 85 U/L (46-116); Aspartate Amino Transferase 19 U/L (15-37); Bilirubin,Direct 0.1 mg/dL (0.0-0.2); Bilirubin,Indirect 0.2 mg/dL (0.0-0.9); Bilirubin,Total 0.3 mg/dL (0.2-1.0); Prostate Specific Ag, Diagnost 1.16 ng/mL (0.0-4.0); Total Protein,Serum 7.2 gm/dL (6.4-8.2)
[2019-04-21 13:36] LABS: Lymphocytes % 35 % (10-50); Monocytes % 7 % (2-9); Neutrophils % 58 % (42-76); Platelet Estimate Normal; RBC Morphology Normal; Total Cells Counted 100
[2019-04-26 06:20] LABS: Testosterone,Free 23.7 pg/mL (6.6-18.1)
== END ==
PROVIDERS: Visit Provider Urology
DX: Z12.5 Encounter for screening for malignant neoplasm of prostate (principal); R79.89 Other specified abnormal findings of blood chemistry; E34.9 Endocrine disorder, unspecified
CPT/HCPCS: 36415; 80076; 84153; 84402; 84403; 85007; 85014; 85018; 85048; 85049

== ENCOUNTER → 2019-05-12 10:10 | Outpatient (CLI) | payer OTHER, SELFPAY ==
--- NOTE | 2019-05-12 10:17 | XR_ITS ---
PROCEDURE: XR CHEST 2V CLINICAL HISTORY: HTN, PREOP COMPARISON: CXR1VP XR chest portable from 09/07/2017 FINDINGS: The cardiomediastinal silhouette and pulmonary vascularity are within normal limits. The lungs are clear without infiltrates, suspicious nodules, or pleural effusions. Bone plate is present over the lower cervical spine IMPRESSION: No change with no acute finding Dictated by: Qasim Rojas MD 05/12/2019 10:55 Electronically signed by Qasim Rojas MD in [place] 05/12/2019 10:55
== END ==
PROVIDERS: PCP Family Medicine; Visit Provider Family Medicine
DX: Z01.818 Encounter for other preprocedural examination (principal); I10 Essential (primary) hypertension
CPT/HCPCS: 71046

== ENCOUNTER → 2019-10-20 11:06 | Outpatient (CLI) | payer OTHER, SELFPAY ==
[2019-10-20 11:27] LABS: Basophils % 0.6 % (0.1-2.0); Eosinophils # 0.2 K/mm3 (0.0-0.4); Eosinophils % 3.5 % (0.1-12.0); Hematocrit 41.4 % (42.0-52.0); Hemoglobin 14.1 g/dL (14.1-18.0); Lymphocytes # 1.5 K/mm3 (0.7-4.5); Mean Corpuscular Hemoglobin 28.1 pg (27.0-31.2); Mean Corpuscular Volume 82.9 fl (80-94); Mean Platelet Volume 7.6 fl (7.4-10.4); Monocytes # 0.5 K/mm3 (0.1-1.0); Monocytes % 7.9 % (1.7-9.3); Neutrophils # 3.5 K/mm3 (1.8-7.8); Platelet Count 220 K/mm3 (142-424); Red Blood Count 4.99 M/mm3 (4.60-6.20); Red Cell Distribution Width 14.9 % (11.5-17.5); White Blood Count 5.7 K/mm3 (4.8-10.8)
[2019-10-20 11:55] LABS: Alanine Aminotransferase 41 U/L (12-78); Albumin Level 4.5 g/dl (3.5-5.0); Alkaline Phosphatase 72 U/L (38-126); Aspartate Amino Transferase 36 U/L (17-59); Bilirubin,Direct 0.1 mg/dl (0.0-0.4); Bilirubin,Indirect 0.4 mg/dL (0.0-0.9); Bilirubin,Total 0.5 mg/dl (0.2-1.3); Bilirubin,Unconjugated 0.5 mg/dL (0.0-1.1); Total Protein,Serum 7.2 g/dl (6.3-8.2)
[2019-10-25 09:36] LABS: Testosterone, Total, LC/MS 294.2 ng/dL (264.0-916.0); Testosterone,Free 8.9 pg/mL (6.6-18.1)
== END ==
PROVIDERS: Visit Provider Urology
DX: E29.1 Testicular hypofunction (principal)
CPT/HCPCS: 36415; 80076; 84402; 84403; 85025

== ENCOUNTER → 2020-04-24 10:40 | Outpatient (CLI) | payer OTHER, SELFPAY ==
[2020-04-24 10:44] LABS: MANUAL DIFFERENTIAL MANUAL DIFFERENTIAL (MANUAL DIFF)
[2020-04-24 11:30] LABS: Basophils % 0.6 % (0.1-2.0); Eosinophils # 0.3 K/mm3 (0.0-0.4); Eosinophils % 4.9 % (0.1-12.0); Hematocrit 45.2 % (42.0-52.0); Hemoglobin 14.6 g/dL (14.1-18.0); Lymphocytes # 1.4 K/mm3 (0.7-4.5); Lymphocytes % 25.8 % (10-50); Mean Corpuscular HGB Conc 32.2 g/dL (31.8-35.4); Mean Corpuscular Hemoglobin 27.3 pg (27.0-31.2); Mean Corpuscular Volume 84.6 fl (80-94); Mean Platelet Volume 7.4 fl (7.4-10.4); Monocytes # 0.4 K/mm3 (0.1-1.0); Monocytes % 6.3 % (1.7-9.3); Neutrophils # 3.5 K/mm3 (1.8-7.8); Neutrophils % 62.4 % (37.0-80.0); Platelet Count 271 K/mm3 (142-424); Red Blood Count 5.34 M/mm3 (4.60-6.20); Red Cell Distribution Width 13.5 % (11.5-17.5); White Blood Count 5.5 K/mm3 (4.8-10.8)
[2020-04-24 12:23] LABS: Alanine Aminotransferase 47 U/L (12-78); Albumin Level 4.8 g/dl (3.5-5.0); Alkaline Phosphatase 60 U/L (38-126); Aspartate Amino Transferase 42 U/L (17-59); Bilirubin,Direct 0.3 mg/dl (0.0-0.4); Bilirubin,Indirect 0.2 mg/dL (0.0-0.9); Bilirubin,Total 0.5 mg/dl (0.2-1.3); Bilirubin,Unconjugated 0.3 mg/dL (0.0-1.1); Total Protein,Serum 7.6 g/dl (6.3-8.2)
[2020-04-24 12:54] LABS: Prostate Specific Ag Screen 1.5 ng/ml (0.0-4.0)
[2020-04-24 17:40] LABS: Eosinophils % 6 % (0-3); Lymphocytes % 15 % (10-50); Monocytes % 3 % (2-9); Neutrophils % 69 % (42-76); RBC Morphology Normal; Total Cells Counted 100
[2020-04-24 17:41] LABS: Platelet Estimate Normal
== END ==
PROVIDERS: Visit Provider Urology
DX: E29.1 Testicular hypofunction (principal); Z12.5 Encounter for screening for malignant neoplasm of prostate
CPT/HCPCS: 36415; 80076; 85007; 85014; 85018; 85048; 85049; G0103

== ENCOUNTER → 2020-07-06 11:51 | Outpatient (CLI) | payer OTHER, SELFPAY | PROVIDERS: PCP Family Medicine; Visit Provider Family Medicine | DX: I49.9 Cardiac arrhythmia, unspecified (principal) | CPT/HCPCS: 93225; 93226 ==

== ENCOUNTER → 2020-08-02 08:05 | Outpatient (CLI) | payer OTHER, SELFPAY ==
[2020-08-02 09:20] LABS: Blood Urea Nitrogen 13 mg/dl (9-20); Estimated Glomerular Filt Rate 85 ml/min (>60); GFR (African American) 103 ML/MIN (>60)
== END ==
PROVIDERS: Visit Provider Family Medicine
DX: M48.062 Spinal stenosis, lumbar region with neurogenic claudication (principal); Z98.890 Other specified postprocedural states
CPT/HCPCS: 36415; 82565; 84520

== ENCOUNTER → 2020-08-04 09:08 | Outpatient (CLI) | payer OTHER, SELFPAY ==
--- NOTE | 2020-08-04 09:15 | MR_ITS ---
PROCEDURE INFORMATION: Exam: MR Lumbar Spine Without and With Contrast Exam date and time: 08/04/2020 9:15 AM Age: 65 years old Clinical indication: Low back pain; Prior surgery; Surgery date: 6+ months; Surgery type: Lumbar surgery; Patient HX: PT C/O lbp with RT groin pain with HX of mary stenosis. PT states he had lumbar sugery in 2019. 20 ml prohance used for contrast lot # [id number] exp 12/2022 bun 13 creat .9 gfr 85 prior MR l-spine done 06/15/2018. ; Additional info: Lbp HX spinal stenosis TECHNIQUE: Imaging protocol: Multiplanar magnetic resonance images of the lumbar spine without and with intravenous contrast. Contrast material: PROHANCE; Contrast volume: 20 ml; Contrast route: IV; COMPARISON: SPLUMBWW MR lumbar spine wo/w con 06/15/2018 1:44 PM FINDINGS: Vertebrae: There is straightening of the normal lumbar lordosis. There is 4 mm of grade 1 retrolisthesis of L2 with respect to L3 and 3 mm of grade 1 retrolisthesis of L3 with respect to L4. Normal vertebral body alignment is otherwise preserved. There is severe intervertebral disc space loss at L4/5 and L5/S1. There are laminectomy changes from L3/4 to L4/5. Spinal cord: Normal signal. No cord compression. L1-L2: There is diffuse disc bulging. There is mild facet hypertrophy. There is mild canal stenosis. There is moderate right and sqls-jz-zcizalsg left neural foraminal narrowing. L2-L3: There is diffuse disc bulging/uncovering related to listhesis. There is mild facet hypertrophy. There is lrbw-wk-fvbapvwf canal stenosis. There is moderate to severe right and moderate left neural foraminal narrowing. L3-L4: There are laminectomy changes. There is diffuse disc bulging. There is mild facet hypertrophy. There is mild canal stenosis. There is vdoe-pp-notvqlvo right and moderate left neural foraminal narrowing. L4-L5: There are laminectomy changes. There is a diffuse disc bulge. There is mild facet hypertrophy. There is moderate right and moderate to severe left neural foraminal narrowing. L5-S1: There is diffuse disc bulging. There is sfnk-xk-jwxfalxy facet hypertrophy. There is moderate bilateral neural foraminal narrowing. Soft tissues: Unremarkable. IMPRESSION: Degenerative disc disease and spondylosis, with multilevel neural foraminal narrowing, most pronounced at L4/5, where it is moderate on the right and moderate to severe on the left.
== END ==
PROVIDERS: PCP Family Medicine; Visit Provider Family Medicine
DX: M48.062 Spinal stenosis, lumbar region with neurogenic claudication (principal); Z98.890 Other specified postprocedural states
CPT/HCPCS: 72158; 76376; A9576

== ENCOUNTER → 2020-11-07 12:19 | Outpatient (CLI) | payer OTHER, SELFPAY | PROVIDERS: Visit Provider Urology | DX: Z20.822 Contact with and (suspected) exposure to COVID-19 (principal); R33.9 Retention of urine, unspecified | CPT/HCPCS: U0003 ==

== ENCOUNTER 2020-11-09 08:05 | Day surgery (SDC) | payer OTHER, SELFPAY ==
[2020-11-06 14:09] VITALS: BMI 30.8
[2020-11-09 08:37] VITALS: BP 135/75; PULSE 88; RESP 16; TEMP 36.3; O2SAT 97
[2020-11-09 09:48] VITALS: BP 133/76; PULSE 76; RESP 16; TEMP 36.8; O2SAT 97
--- NOTE | 2020-11-09 12:57 | HMH.OPNOTE ---
Date of procedure: 11/09/20 Pre-op Diagnosis:: Urinary retention Post-op Diagnosis:: Urinary retention Procedure performed:: Flexible cystourethroscopy Surgeon:: Will Andres MD Anesthesia: local Estimated blood loss (mL): 0 Clinical Note:: Patient is a 65-year-old white male with urinary retention and constipation since back surgery last year. Patient states he was voiding and defecating normally prior to his back surgery. He presents for cystoscopic evaluation. He is currently self catheterizing 3 times a day with residuals between 307 100 cc. He states he does not void very much between catheterizations. He is on Flomax without much improvement. Operative findings:: The bladder showed no evidence of chronic bladder outlet obstructive changes. It does appear to be of the larger capacity than normal. The prostate was moderately enlarged with a mild median lobe. It does not appear to be severely obstructing. Operative note:: Patient taken to the cystoscopy suite after informed consent was obtained. On the stretcher he was prepped draped in the standard surgical fashion and 2% lidocaine placed into the urethra and the urethra clamped for 5 minutes. Flexible cystoscope and introduced into the urethral meatus after 5 minutes and passed to the prostatic urethra which showed some moderate hyperplasia and some coaptation. The bladder was entered and examined in a systematic fashion. There is no evidence of mucosal abnormalities, stones, trabeculation, cellules or diverticula. Does appear to be a little larger than normal with some elevation towards the dome. The ureteral orifices in their normal anatomic position with clear efflux of urine. Scope was retroflexed showing a mild median lobe. Scope was brought back to the prostatic urethra and the urethral length was 2-1/2 cm in length. The prostate again was moderately enlarged but does not appear to be obstructing enough to cause the degree of retention that the patient is having plus there are no chronic obstructive changes in the bladder. Scope was removed patient taught the procedure well. We discussed the findings today. Patient states he is to have back surgery again for pinched nerve. He states that the surgeon states that this could help improve his bladder function. We will see the patient back in about 3 months to allow him to recover from his back surgery and reevaluate his bladder function. We did discuss UroLift procedure to help with the moderate hyperplasia but there no guarantees that his bladder would empty better if he has suffered a neurologic injury. Condition: stable Disposition: same day Specimens:: None Complications:: None
[2020-11-09 15:33] LABS: POC Glucose,Bedside 137 (70-110)
== END 2020-11-09 09:55 | disposition home or self-care (01) ==
LOC: OUTP 08:07
PROVIDERS: PCP Family Medicine; Visit Provider Urology
PROC: (CPT 52000; principal; 2020-11-09 09:00)
DX: N40.1 Benign prostatic hyperplasia with lower urinary tract symptoms (principal); R33.8 Other retention of urine; Z79.82 Long term (current) use of aspirin; Z79.84 Long term (current) use of oral hypoglycemic drugs; Z79.899 Other long term (current) drug therapy; Z85.9 Personal history of malignant neoplasm, unspecified; I50.9 Heart failure, unspecified; Z86.73 Personal history of transient ischemic attack (TIA), and cerebral infarction without residual deficits; F32.9 Major depressive disorder, single episode, unspecified; E11.9 Type 2 diabetes mellitus without complications; E78.5 Hyperlipidemia, unspecified; I10 Essential (primary) hypertension
CPT/HCPCS: 52000; 82962

== ENCOUNTER → 2021-04-25 12:35 | Outpatient (CLI) | payer MEDICARE, SELFPAY ==
[2021-04-25 12:42] LABS: MANUAL DIFFERENTIAL MANUAL DIFFERENTIAL (MANUAL DIFF)
[2021-04-25 13:28] LABS: Basophils % 0.7 % (0.1-2.0); Eosinophils # 0.2 K/mm3 (0.0-0.4); Eosinophils % 2.7 % (0.1-12.0); Hemoglobin 15.2 g/dL (14.1-18.0); Lymphocytes # 1.9 K/mm3 (0.7-4.5); Lymphocytes % 29.2 % (10-50); Mean Corpuscular Hemoglobin 27.7 pg (27.0-31.2); Mean Corpuscular Volume 83.9 fl (80-94); Mean Platelet Volume 7.8 fl (7.4-10.4); Monocytes # 0.4 K/mm3 (0.1-1.0); Monocytes % 5.8 % (1.7-9.3); Neutrophils # 3.9 K/mm3 (1.8-7.8); Neutrophils % 61.6 % (37.0-80.0); Platelet Count 296 K/mm3 (142-424); Red Blood Count 5.48 M/mm3 (4.60-6.20); Red Cell Distribution Width 13.3 % (11.5-17.5); White Blood Count 6.4 K/mm3 (4.8-10.8)
[2021-04-25 14:53] LABS: Alanine Aminotransferase 55 U/L (12-78); Albumin Level 4.9 g/dl (3.5-5.0); Alkaline Phosphatase 47 U/L (38-126); Aspartate Amino Transferase 46 U/L (17-59); Bilirubin,Direct 0.2 mg/dl (0.0-0.4); Bilirubin,Indirect 0.4 mg/dL (0.0-0.9); Bilirubin,Total 0.6 mg/dl (0.2-1.3); Bilirubin,Unconjugated 0.4 mg/dL (0.0-1.1)
[2021-04-25 15:21] LABS: Prostate Specific Ag Screen 0.8 ng/ml (0.0-4.0)
[2021-04-25 17:25] LABS: Eosinophils % 1 % (0-3); Lymphocytes % 13 % (10-50); Monocytes % 8 % (2-9); Neutrophils % 77 % (42-76); Platelet Estimate Normal; RBC Morphology Normal; Total Cells Counted 100
[2021-05-01 12:13] LABS: Testosterone, Total, LC/MS 465.8 ng/dL (264.0-916.0)
== END ==
PROVIDERS: PCP Family Medicine; Visit Provider Urology
DX: E29.1 Testicular hypofunction (principal); Z12.5 Encounter for screening for malignant neoplasm of prostate; N31.9 Neuromuscular dysfunction of bladder, unspecified
CPT/HCPCS: 36415; 80076; 84402; 84403; 85007; 85014; 85018; 85048; 85049; G0103

== ENCOUNTER 2021-07-26 19:08 | Emergency (ER) | payer MEDICARE, SELFPAY ==
[2021-07-26 19:13] VITALS: BMI 33.9
--- NOTE | 2021-07-26 19:14 | XR_ITS ---
PROCEDURE INFORMATION: Exam: XR Left Foot Exam date and time: 07/26/2021 7:28 PM Age: 66 years old Clinical indication: Pain; Foot; Left; Additional info: Pain/swelling TECHNIQUE: Imaging protocol: XR Left foot. Views: 3 or more views. COMPARISON: CR FTL3 FOOT-LT-3 VIEWS 01/29/2017 1:04 PM FINDINGS: Bones/joints: Accessory navicular. Mild hallux valgus. Degenerative changes most prominent of the 1st ray. Calcaneal spur. Enthesophyte at the Achilles tendon insertion. No acute fracture or dislocation. Soft tissues: No radiopaque foreign body. Vasculature: Vascular calcifications. IMPRESSION: No acute osseous abnormality. Chronic changes described above.
[2021-07-26 19:45] VITALS: BP 131/86; PULSE 87; RESP 19; TEMP 36.8; O2SAT 98; BMI 32.8
--- NOTE | 2021-07-26 20:13 | HMH.EDUTC ---
[facility] Disposition Clinical Impression: Left foot pain Sprain of left foot Qualifiers: Encounter type: initial encounter Qualified Code(s): S93.602A - Unspecified sprain of left foot, initial encounter Disposition: Home, Self-Care Condition on Discharge: Good Additional Instructions: Rest the extremity, Elevate the extremity as tolerated while you are resting. Take ibuprofen or tylenol for pain. Follow up with Dr. Field (podiatry). I put in a referral but you need to call her office and schedule an appointment. Follow up with your regular doctor. GO TO THE ER FOR ANY WORSENING SYMPTOMS Referrals: Bailey Solorzano APRN [Primary Care Provider] - Mickie Field DPM [Staff Physician] - Time of Disposition: 20:51 Medical Decision Making - Medical Records Medical records reviewed: No: I reviewed the patient's medical records. - Franck Inquiry Pt receiving controlled substance: No Vital Signs: 07/26/21 19:45 07/26/21 20:55 Temperature 98.2 F 98.2 F Temperature Source Oral Pulse Rate 87 Pulse Rate [Right Brachial] 87 Respiratory Rate 19 19 Blood Pressure 131/86 Blood Pressure [Right Arm] 131/86 Blood Pressure Mean [Right Arm] 101 Blood Pressure Source [Right Arm] Automatic Cuff Blood Pressure Position [Right Arm] Sitting 02 Sat by Pulse Oximetry 98 Oxygen Delivery Method Room Air [facility] HPI - General Stated complaint: left foot swelling Time Seen by Provider: 07/26/21 20:14 Mode of Arrival: Ambulatory Source of Information: Patient Limitations: No Limitations Description of Symptoms (Recalled from Triage Doc. by RN): PATIENT C/O SWELLING TO LEFT FOOT. HEENT Symptoms (Recalled from RN notes): No Resp Symptoms (Recalled from RN notes): No Skin Symptoms (Recalled from RN notes): No MS Symptoms (Recalled from RN notes): Yes Functional Status (Recalled from RN notes): WNL - History of Present Illness Provider Complaint: He c/o left and ankle pain and swelling. He states that he twisted it around 1 week ago and it has not got completely better. - Related Data Home Medications Medication Instructions Recorded Confirmed aspirin 81 mg tablet,delayed 81 mg PO DAILY 03/26/17 06/07/21 release insulin aspart U-100 100 unit/mL 30 unit SUB-Q DIRECTED 03/26/17 06/07/21 (3 mL) subcutaneous pen metformin 1,000 mg tablet 1,000 mg PO BID 03/26/17 06/07/21 nortriptyline 50 mg capsule 50 mg PO DAILY 03/26/17 06/07/21 Testosterone Cypionate 200 mg IM QOW 09/05/17 06/07/21 telmisartan 80 mg tablet 80 mg PO DAILY 30 Days #30 tab 12/31/17 06/07/21 tamsulosin 0.4 mg capsule 0.4 mg PO DAILY 09/07/18 06/07/21 hydroCHLOROthiazide [HCTZ 25mg 25 mg PO DAILY 01/19/19 06/07/21 tab] Insulin Degludec [Tresiba] 12 unit SQ HS 11/06/20 06/07/21 Allergies Allergy/AdvReac Type Severity Reaction Status Date / Time No Known Allergies Allergy Verified 06/07/21 13:46 - Worker's Comp Is this a Worker's Comp case?: No [facility] History - Hepatitis A Screen Attestation statement:: This patient has been screened for Hepatitis A risk factors. I have reviewed the patient's past medical history: Yes Medical History: Reports:: Cancer, Congestive Heart Failure, Cerebrovascular Accident, Depression, Diabetes Mellitus Type 2, Hyperlipidemia, Hypertension Denies:: Aneurysm, Asthma, Atrial Fibrillation, Chronic Obstructive Pulmonary Disease (COPD), Diabetes Mellitus Type 1, Gastroesophageal Reflux Disease(GERD), Internal Pacemaker, MRSA, Myocardial Infarction, Osteoporosis, Seizures, Supraventricular Tachycardia, Transient Ischemic Attacks (TIA), Valvular Heart Disease Other Medical History: Reports: Arthritis, Other (Obesity). Denies: Anemia, Blood Transfusion Reaction, Cataracts, Glaucoma, Hypothyroidism, Osteoporosis, Thyroid Disease Comment: hypogonadism/erectile dysfunction Laterality Cases: Left: Total Hip Replacement, Bilateral: Other Other Surgeries: Yes: No Previous Surgery, Cancer Surger
[2021-07-26 20:55] VITALS: BP 131/86; PULSE 87; RESP 19; TEMP 36.8; O2SAT 98
== END 2021-07-26 21:00 | disposition home or self-care (01) ==
PROVIDERS: Emergency Provider Nurse Practitioner Family; PCP Nurse Practitioner Family
DX: S93.602A Unspecified sprain of left foot, initial encounter (principal); M25.572 Pain in left ankle and joints of left foot; I11.0 Hypertensive heart disease with heart failure; I50.9 Heart failure, unspecified; E78.5 Hyperlipidemia, unspecified; E11.9 Type 2 diabetes mellitus without complications; E03.9 Hypothyroidism, unspecified; M81.0 Age-related osteoporosis without current pathological fracture; N52.9 Male erectile dysfunction, unspecified; M19.90 Unspecified osteoarthritis, unspecified site; H26.9 Unspecified cataract; H40.9 Unspecified glaucoma; E66.9 Obesity, unspecified; F32.A Depression, unspecified; F41.9 Anxiety disorder, unspecified; Z79.82 Long term (current) use of aspirin; Z79.84 Long term (current) use of oral hypoglycemic drugs; Z79.4 Long term (current) use of insulin; Z79.899 Other long term (current) drug therapy; Z85.9 Personal history of malignant neoplasm, unspecified; Z96.643 Presence of artificial hip joint, bilateral; Z68.32 Body mass index [BMI] 32.0-32.9, adult; Z87.891 Personal history of nicotine dependence; Z82.49 Family history of ischemic heart disease and other diseases of the circulatory system; Z83.438 Family history of other disorder of lipoprotein metabolism and other lipidemia; Z80.9 Family history of malignant neoplasm, unspecified; Z83.3 Family history of diabetes mellitus
CPT/HCPCS: 73630; 99213; G0463

== ENCOUNTER → 2021-10-24 09:21 | Outpatient (CLI) | payer MEDICARE, SELFPAY ==
[2021-10-24 09:43] LABS: MANUAL DIFFERENTIAL MANUAL DIFFERENTIAL (MANUAL DIFF)
[2021-10-24 10:16] LABS: Basophils # 0.1 K/mm3 (0-0.2); Basophils % 1.1 % (0.1-2.0); Eosinophils # 0.2 K/mm3 (0.0-0.4); Eosinophils % 2.9 % (0.1-12.0); Hematocrit 48.6 % (42.0-52.0); Hemoglobin 15.4 g/dL (14.1-18.0); Lymphocytes # 1.9 K/mm3 (0.7-4.5); Lymphocytes % 29.3 % (10-50); Mean Corpuscular HGB Conc 31.7 g/dL (31.8-35.4); Mean Corpuscular Hemoglobin 27.6 pg (27.0-31.2); Mean Corpuscular Volume 87.1 fl (80-94); Mean Platelet Volume 7.5 fl (7.4-10.4); Monocytes # 0.4 K/mm3 (0.1-1.0); Monocytes % 6.5 % (1.7-9.3); Neutrophils # 3.9 K/mm3 (1.8-7.8); Neutrophils % 60.1 % (37.0-80.0); Platelet Count 311 K/mm3 (142-424); Red Blood Count 5.59 M/mm3 (4.60-6.20); Red Cell Distribution Width 13.8 % (11.5-17.5); White Blood Count 6.5 K/mm3 (4.8-10.8)
[2021-10-24 11:27] LABS: Alanine Aminotransferase 47 U/L (12-78); Albumin Level 4.4 g/dl (3.5-5.0); Alkaline Phosphatase 66 U/L (38-126); Aspartate Amino Transferase 43 U/L (17-59); Bilirubin,Direct 0.2 mg/dl (0.0-0.4); Bilirubin,Indirect 0.1 mg/dL (0.0-0.9); Bilirubin,Total 0.3 mg/dl (0.2-1.3); Bilirubin,Unconjugated 0.1 mg/dL (0.0-1.1); Total Protein,Serum 6.9 g/dl (6.3-8.2)
[2021-10-24 12:45] LABS: Eosinophils % 2 % (0-3); Lymphocytes % 30 % (10-50); Monocytes % 4 % (2-9); Neutrophils % 64 % (42-76); Platelet Estimate Normal; RBC Morphology Normal; Total Cells Counted 100
[2021-10-30 11:23] LABS: Testosterone, Total, LC/MS 525.3 ng/dL (264.0-916.0); Testosterone,Free 12.1 pg/mL (6.6-18.1)
== END ==
PROVIDERS: PCP Nurse Practitioner Family; Visit Provider Urology
DX: E29.1 Testicular hypofunction (principal)
CPT/HCPCS: 36415; 80076; 84402; 84403; 85007; 85014; 85018; 85048; 85049

== ENCOUNTER 2021-12-04 09:51 | Outpatient (RCR) | payer MEDICARE, SELFPAY | END 2021-12-04 09:55 | disposition home or self-care (01) | LOC: PT 09:51 | PROVIDERS: PCP Nurse Practitioner Family; Visit Provider Orthopaedic Surgery | DX: M16.11 Unilateral primary osteoarthritis, right hip (principal); R26.89 Other abnormalities of gait and mobility ==

== ENCOUNTER → 2021-12-07 11:37 | Outpatient (CLI) | payer MEDICARE, SELFPAY | PROVIDERS: PCP Nurse Practitioner Family; Visit Provider Surgery | DX: Z01.812 Encounter for preprocedural laboratory examination (principal); Z20.822 Contact with and (suspected) exposure to COVID-19; Z12.11 Encounter for screening for malignant neoplasm of colon | CPT/HCPCS: C9803; U0003; U0005 ==

== ENCOUNTER 2021-12-10 07:23 | Day surgery (SDC) | payer MEDICARE, SELFPAY ==
[2021-12-05 13:35] VITALS: BMI 28.8
[2021-12-10 07:38] VITALS: BP 154/85; PULSE 55; RESP 20; TEMP 36.2; O2SAT 98
[2021-12-10 07:48] LABS: POC Glucose,Bedside 128 (70-110)
--- NOTE | 2021-12-10 08:25 | EXP.ANES.CKL ---
[facility] Medical History Amputated toe Diabetes mellitus, type 2 Hip replacement planned History of chest pain Hyperlipidemia Hypertension Skin cancer Surgical History History of back surgery History of hip replacement History of neck surgery Family History Other No significant family history Social History Smoking Status: Former smoker pack-years: 20 second hand exposure: No alcohol intake: current substance use type: denies use current occupational status: retired Travel in the last 8 weeks: None household members: spouse housing: house caffeine: Yes [facility] Anesthesia Checklist Patient Identification Patient Identification: Arm Band Structural Data Admitted From: Home Planned Operative Procedure/s: colonoscopy Consent for Planned Operative Procedure(s) Verified: Yes Verified Documents: Surgical Consent and History and Physical NPO Status Verified Time NPO: 00:00 Additional verifications Anesthesia Reactions: No Hx Blood Transfusions: No Blood Transfusion Reaction: No Airway Assessment C-Spine Mobility Assessed: Yes TMJ Mobility Assessed: Yes Dentition: Edentulous Neurological Assessment Level of Consciousness: Awake and Alert Anesthesia Plan Anesthesia Risk discussed: Yes Anesthesia Plan: Verified ASA Class: II Anesthesia Type: MAC
[2021-12-10 08:26] VITALS: O2SAT 98
[2021-12-10 09:20] VITALS: BP 108/74; PULSE 71; RESP 12; TEMP 36.2; O2SAT 95
--- NOTE | 2021-12-10 09:20 | HMH.SCOPE ---
Procedure: Date: 12/10/21 Patient Date of :: 1955 Procedure Performed:: Colonoscopy with polypectomy Indications:: History of colon polyps. Last colonoscopy in January 2019 was significant for poor bowel preparation, lack of relaxation, and a transverse colon tubular adenoma. Follow-up barium enema revealed no significant abnormality. Performing Provider:: Yanick Darling MD Referring Provider:: . Sedation:: Monitored anesthesia care Procedure:: After informed consent was obtained the patient was taken to the endoscopy suite. Sedation ensued after the patient was transferred to the left lateral decubitus position. Pulse, blood pressure, and oxygen saturation were monitored throughout the procedure. Digital rectal exam revealed no significant abnormality. The colonoscope was placed in position. The entire colon was evaluated. The colonoscope was carefully removed and the patient was transferred to recovery in stable condition. Please see findings and specimens below for detail. Findings:: Bowel preparation fairly poor with moderate improvement after large-volume irrigation/suctioning Enlarged/smooth prostate Scattered AVMs Polyps (see specimens) Specimens:: Sessile polyp at 65 cm (cold snare) Sessile polyp at 40 cm (cold snare) Sessile polyp at 20 cm (cold snare) Recommendations:: Timing of repeat colonoscopy is pending pathology but will likely be between 2-3 years with extended/altered bowel preparation. Complications:: No immediate with the exception of poor bowel preparation (somewhat improved with irrigation and suction) Estimated blood obtained (mL): 1
[2021-12-10 09:30] VITALS: BP 128/59; PULSE 564; RESP 16; O2SAT 97
[2021-12-10 09:40] VITALS: BP 148/60; PULSE 66; RESP 16; TEMP 36.2; O2SAT 98
[2021-12-10 09:56] VITALS: BP 145/64; PULSE 68; RESP 16; TEMP 36.2; O2SAT 98
== END 2021-12-10 09:56 | disposition home or self-care (01) ==
PROVIDERS: PCP Nurse Practitioner Family; Visit Provider Surgery
PROC: 0DJD8ZZ Inspection of Lower Intestinal Tract, Via Natural or Artificial Opening Endoscopic (ICD-10-PCS; principal; 2021-12-10 08:30)
DX: Z12.11 Encounter for screening for malignant neoplasm of colon (principal); Z86.010 Personal history of colon polyps; K63.5 Polyp of colon; Z79.899 Other long term (current) drug therapy
CPT/HCPCS: 45385; 82962; 88305; J2704

== ENCOUNTER → 2022-01-22 13:40 | Outpatient (CLI) | payer MEDICARE, SELFPAY ==
[2022-01-22 13:48] LABS: MANUAL DIFFERENTIAL MANUAL DIFFERENTIAL (MANUAL DIFF)
[2022-01-22 13:48] LABS: Microscopic, Urine URINE MICROSCOPIC (MICROSCOPIC)
[2022-01-22 14:16] LABS: Appearance,Urine CLEAR (Clear); Bilirubin,Urine Negative (Negative); Blood, Urine Negative (Negative); Color,Urine YELLOW (Yellow); Glucose,Urine (UA) Negative (Negative); Ketones,Urine Negative (Negative); Leukocyte Esterase,Urine Negative (Negative); Nitrate,Urine Negative (Negative); Protein,Urine Negative (Negative); Specific Gravity, Urine 1.015 (1.005-1.030)
[2022-01-22 14:25] LABS: WBC,Urine Occasional #/hpf (0-3)
[2022-01-22 14:33] LABS: Microalbumin < 6.000 mg/L (0-16.7)
[2022-01-22 14:44] LABS: Chloride 90 mmol/L (98-107)
[2022-01-22 14:45] LABS: Potassium 4.2 mmoL/L (3.5-5.1); Sodium 128 mmol/L (136-145)
[2022-01-22 14:47] LABS: Anion Gap 16.2 mEq/L (5-15); Blood Urea Nitrogen 7 mg/dl (9-20); Carbon Dioxide 26 mmol/L (22.0-30.0); Estimated Glomerular Filt Rate 113 ml/min (>60); GFR (African American) 137 ML/MIN (>60)
[2022-01-22 14:48] LABS: Calcium 9.2 mg/dl (8.4-10.2); Chol/HDL Ratio 4.3 (1-3.5); Cholesterol 175 mg/dl (140-200); Glucose 110 mg/dl (74-100); HDL Cholesterol 41 mg/dl (40-60); Triglycerides 174 mg/dl (30-150); VLDL Cholesterol 35 mg/dL (0-40)
[2022-01-22 14:58] LABS: Direct LDL Cholesterol 100.82 mg/dL (100-129)
[2022-01-22 15:16] LABS: Thyroid Stimulating Hormone 1.19 uIU/mL (0.465-4.68)
[2022-01-22 15:41] LABS: Basophils # 0.1 K/mm3 (0-0.2); Basophils % 0.6 % (0.1-2.0); Eosinophils # 0.2 K/mm3 (0.0-0.4); Eosinophils % 2.7 % (0.1-12.0); Hematocrit 38.4 % (42.0-52.0); Hemoglobin 12.1 g/dL (14.1-18.0); Lymphocytes # 1.6 K/mm3 (0.7-4.5); Lymphocytes % 20.4 % (10-50); Mean Corpuscular HGB Conc 31.5 g/dL (31.8-35.4); Mean Corpuscular Hemoglobin 28.4 pg (27.0-31.2); Mean Corpuscular Volume 89.9 fl (80-94); Mean Platelet Volume 7.1 fl (7.4-10.4); Monocytes # 0.5 K/mm3 (0.1-1.0); Monocytes % 6.4 % (1.7-9.3); Neutrophils # 5.3 K/mm3 (1.8-7.8); Neutrophils % 69.8 % (37.0-80.0); Platelet Count 422 K/mm3 (142-424); Red Blood Count 4.27 M/mm3 (4.60-6.20); Red Cell Distribution Width 15.5 % (11.5-17.5); White Blood Count 7.6 K/mm3 (4.8-10.8)
[2022-01-22 16:17] LABS: Lymphocytes % 15 % (10-50); Monocytes % 4 % (2-9); Neutrophils % 81 % (42-76); Total Cells Counted 100
[2022-01-22 16:18] LABS: Anisocytosis 1+; Platelet Estimate Normal
[2022-01-22 18:37] LABS: Hemoglobin A1C 5.7 % (4.0-6.0)
[2022-01-22 21:28] LABS: Vitamin B12 270 pg/mL (239-931)
[2022-01-22 21:39] LABS: Folate 9.61 ng/mL
== END ==
PROVIDERS: PCP Family Medicine; Visit Provider Family Medicine
DX: E11.9 Type 2 diabetes mellitus without complications (principal); E78.5 Hyperlipidemia, unspecified; I10 Essential (primary) hypertension; N31.9 Neuromuscular dysfunction of bladder, unspecified; R33.9 Retention of urine, unspecified; Z79.4 Long term (current) use of insulin
CPT/HCPCS: 36415; 80048; 80061; 81001; 82043; 82607; 82746; 83036; 84443; 85007; 85014; 85018; 85048; 85049; 87086

== ENCOUNTER → 2022-02-27 11:28 | Outpatient (CLI) | payer MEDICARE, SELFPAY ==
[2022-02-27 12:37] LABS: Alanine Aminotransferase 32 U/L (12-78); Albumin/Globulin Ratio 1.7 (1.1-1.8); Alkaline Phosphatase 106 U/L (38-126); Anion Gap 12.5 mEq/L (5-15); Aspartate Amino Transferase 26 U/L (17-59); Bilirubin,Total 0.3 mg/dl (0.2-1.3); Blood Urea Nitrogen 12 mg/dl (9-20); Calcium 9.1 mg/dl (8.4-10.2); Carbon Dioxide 26 mmol/L (22.0-30.0); Chloride 95 mmol/L (98-107); Estimated Glomerular Filt Rate 113 ml/min (>60); GFR (African American) 137 ML/MIN (>60); Globulin 2.3 g/dL (1.3-3.2); Glucose 100 mg/dl (74-100); Potassium 4.5 mmoL/L (3.5-5.1); Sodium 129 mmol/L (136-145); Total Protein,Serum 6.3 g/dl (6.3-8.2)
== END ==
PROVIDERS: PCP Family Medicine; Visit Provider Family Medicine
DX: E11.9 Type 2 diabetes mellitus without complications (principal); Z79.4 Long term (current) use of insulin
CPT/HCPCS: 36415; 80053

== ENCOUNTER → 2022-03-18 09:47 | Outpatient (POV) | payer MEDICARE, SELFPAY | PROVIDERS: Visit Provider Dermatology | DX: Z00.00 Encounter for general adult medical examination without abnormal findings (principal) ==

== ENCOUNTER → 2022-04-25 11:39 | Outpatient (CLI) | payer MEDICARE, SELFPAY ==
[2022-04-25 12:43] LABS: Hemoglobin A1C 6.3 % (4.0-6.0)
[2022-04-25 13:07] LABS: Alanine Aminotransferase 34 U/L (12-78); Albumin Level 4.6 g/dl (3.5-5.0); Alkaline Phosphatase 73 U/L (38-126); Anion Gap 13.3 mEq/L (5-15); Aspartate Amino Transferase 33 U/L (17-59); Bilirubin,Total 0.5 mg/dl (0.2-1.3); Blood Urea Nitrogen 9 mg/dl (9-20); Calcium 9.1 mg/dl (8.4-10.2); Carbon Dioxide 23 mmol/L (22.0-30.0); Chloride 102 mmol/L (98-107); Estimated Glomerular Filt Rate 97 ml/min (>60); GFR (African American) 117 ML/MIN (>60); Globulin 2.3 g/dL (1.3-3.2); Glucose 100 mg/dl (74-100); Potassium 4.3 mmoL/L (3.5-5.1); Sodium 134 mmol/L (136-145); Total Protein,Serum 6.9 g/dl (6.3-8.2)
== END ==
PROVIDERS: PCP Family Medicine; Visit Provider Family Medicine
DX: E11.9 Type 2 diabetes mellitus without complications (principal); Z79.4 Long term (current) use of insulin
CPT/HCPCS: 36415; 80053; 83036

== ENCOUNTER → 2022-05-12 12:25 | Outpatient (CLI) | payer MEDICARE, SELFPAY ==
--- NOTE | 2022-05-12 12:43 | XR_ITS ---
FINAL REPORT CLINICAL HISTORY: chest pain COMPARISON: 05/12/2019 FINDINGS: PA and lateral views of the chest were obtained. The cardiac and mediastinal silhouettes are within normal limits. The lungs are clear. There is no pleural effusion or pneumothorax. No acute osseous abnormality is identified. IMPRESSION: No radiographic evidence of acute cardiac or pulmonary disease. Reviewed, Interpreted and Dictated by Carmen Danielson MD Transcribed by Jessica Ureña Authenticated and . [facility]
[2022-05-12 13:06] LABS: Basophils % 0.8 % (0.1-2.0); Eosinophils # 0.1 K/mm3 (0.0-0.4); Eosinophils % 2.4 % (0.1-12.0); Hematocrit 44.4 % (42.0-52.0); Hemoglobin 14.3 g/dL (14.1-18.0); Lymphocytes # 1.5 K/mm3 (0.7-4.5); Lymphocytes % 27.8 % (10-50); Mean Corpuscular HGB Conc 32.2 g/dL (31.8-35.4); Mean Corpuscular Volume 80.6 fl (80-94); Mean Platelet Volume 7.5 fl (7.4-10.4); Monocytes # 0.3 K/mm3 (0.1-1.0); Monocytes % 6.1 % (1.7-9.3); Neutrophils # 3.4 K/mm3 (1.8-7.8); Platelet Count 264 K/mm3 (142-424); Red Blood Count 5.51 M/mm3 (4.60-6.20); Red Cell Distribution Width 15.4 % (11.5-17.5); White Blood Count 5.5 K/mm3 (4.8-10.8)
[2022-05-12 13:55] LABS: Chloride 100 mmol/L (98-107); Sodium 133 mmol/L (136-145)
[2022-05-12 13:56] LABS: Potassium 4.3 mmoL/L (3.5-5.1)
[2022-05-12 13:58] LABS: Alanine Aminotransferase 36 U/L (12-78); Albumin Level 4.5 g/dl (3.5-5.0); Alkaline Phosphatase 67 U/L (38-126); Anion Gap 11.3 mEq/L (5-15); Aspartate Amino Transferase 33 U/L (17-59); Bilirubin,Total 0.4 mg/dl (0.2-1.3); Blood Urea Nitrogen 10 mg/dl (9-20); Carbon Dioxide 26 mmol/L (22.0-30.0); Estimated Glomerular Filt Rate 113 ml/min (>60); GFR (African American) 137 ML/MIN (>60)
[2022-05-12 13:59] LABS: Albumin/Globulin Ratio 1.8 (1.1-1.8); Globulin 2.5 g/dL (1.3-3.2); Glucose 106 mg/dl (74-100)
[2022-05-12 14:24] LABS: Troponin I < 0.01 ng/ml (0.00-0.034)
== END ==
PROVIDERS: PCP Family Medicine; Visit Provider Family Medicine
DX: R07.9 Chest pain, unspecified (principal)
CPT/HCPCS: 36415; 71046; 80053; 84484; 85025

== ENCOUNTER → 2022-06-02 06:53 | Outpatient (CLI) | payer MEDICARE, SELFPAY ==
--- NOTE | 2022-06-02 | CA_ITS ---
APPROVED REPORT EXAM: Comprehensive 2D, Doppler, and color-flow Echocardiogram Sales Ledger Clerk: EDNA Charlton, RVS Ht: 6 ft 2 in Wt: 234lbs BSA: 2.32 BP: 152/92 mmHg Indications: CP, SOB, Abn EKG, DM, Fatigue 2D Dimensions Aortic Root 3.54 cm LA Volume 62.60 mL Left Atrium 3.20 cm LA Volume Index 26.455151 mL/m2 (M/F) 16-34 LVOT 2.07 cm (M/F) 1.5-2.5 M-Mode Dimensions RVDd 2.53 cm (0.9-2.6) LA Diam 4.42 cm (1.9-4.0) LVDd 4.78 cm (3.5-5.7) Ao Diam 3.55 cm (2.0-3.7) LVDs 3.13 cm (3.5-5.7) IVSd 1.17 cm (0.6-1.1) PWd 1.09 cm (0.6-1.1) EF (Teich) 63.60% EPSs 0.52 cm FS 34.50% EDV (Teich) 106.50 mL TAPSE 1.94 (<1.7) ESV (Teich) 38.80 mL LV Diastology E Decel Time 197.00 (160-240 msec) E/A Ratio 1.15 MED E' 7.10 (< 7 cm/sec) MED A' 11.40 cm/s E'/MED E' Ratio 9.90 (>14) LAT E' 8.60 (<10 cm/sec) LAT A' 8.70 cm/s E/LAT E' Ratio 8.17 (>14) Aortic Valve LVOT Max 76.00 (70-110 cm/s) LVOT VTI 17.61 cm AoV Peak Gustavo. 155.00 (50-130 cm/s) AO Peak GR. 9.60 mmHg AO Mean GR. 4.80 (<5 mmHg) AO VTI 31.55 (18-25 cm) DAVID (VTI) 1.88 (2.5-4.5 cm2) Mitral Valve MV A Velocity 61.00 (40-130 cm/s) E/A Ratio 1.15 MV Decel. Time 197.00 (160-240 ms) MV PHT 70.00 ms Pulmonary Valve PV Peak Velocity 94.00 (50-150 cm/s) Tricuspid Valve TR P. Velocity 153.00 cm/s RAP Estimate 10.00 mmHg RVSP 19.30 mmHg Left Ventricle Left atrium is normal size left ventricle is normal size, estimated ejection fraction 55% with no regional wall motion abnormality, diastolic parameters are inconclusive. Right Ventricle Right atrium and right ventricular normal size and contractility. Aortic Valve Aortic valve is thickened and calcified without Doppler evidence of aortic stenosis aortic insufficiency. Mitral Valve Mitral valve grossly normal, there is trace mitral regurgitation. Tricuspid Valve Tricuspid valve grossly normal, there is trace tricuspid regurgitation, tricuspid regurgitation jet velocity is inadequate for calculation of the right ventricular systolic pressure. Pulmonic Valve Pulmonic valve is poorly visualized. Great Vessels Aortic root is normal size. Inferior vena cava is normal size with normal inspiratory collapse. Pericardium No significant pericardial effusion noted. Conclusion 1. Normal left ventricular size preserved left ventricular systolic function, estimated ejection fraction 55% with no regional wall motion abnormality, diastolic parameters are inconclusive. 2. Trace mitral and tricuspid regurgitation. 3. No significant pericardial effusion noted. 4. Inferior vena cava is normal size with normal inspiratory collapse. Electronically signed by : Roni Brock MD 06/02/2022 13:15:31
--- NOTE | 2022-06-02 06:54 | CA_ITS ---
APPROVED REPORT Exam: Pharmacologic Technologist: Zena Yi, Ht: 6 ft 2 in Wt: 234 lbs BSA: 2.32 m2 HR: 64 bpm BP: 172/79 mmHg Medical History Medications: Lisinopril,,,,, Aspirin,,,,, Metformin,,,,, INSULIN,,,,, Nitroglycerin,,,,, Testosterone,,,,, Ezetimibe,,,,, Nortriptyline,,,,, Stress Test Details Test: LEXISCAN Reason for pharmacologic stress test: physical limitation. HR Resting HR: 66 bpm Max Heart Rate (APMHR): 154.191087 bpm Max HR Achieved: 82 bpm Target HR (85% APMHR): 130.803742 bpm % of APMHR: 53.25 Recovery HR: 70 bpm BP Resting BP: 172.0/79.0 mmHg Max BP: 172.0/79.0 mmHg Recovery BP: 131.0/75.0 mmHg ECG Resting ECG: SR Clinical Exercise duration: 04:00 min Highest Stage Achieved: Stress ECG Conclusion Symptoms: SOA w/ Lexiscan. No chest pain. Arrhythmias/Ectopy: none ST-T Changes: <1.5mm ST segment depression Test Summary REST . . . . . . . Resting REST 05:09 . . 66 . 172/ 79 . . Stage 1 01:00 . . 74 . . . . Stage 2 01:00 . . 76 . . . . Stage 3 01:00 . . 76 . 128/ 73 . . Stage 4 01:00 . . 73 . 131/ 73 . Stop exercise at 04:00 RECOVERY 01:00 . . 74 . . . . RECOVERY 02:00 . . 71 . 134/ 73 . . RECOVERY 02:15 . . 71 . 131/ 75 . . Electronically signed by : Roni Brock MD 06/02/2022 11:04:28
--- NOTE | 2022-06-02 06:54 | NM_ITS ---
APPROVED REPORT Exam: Nuclear Stress Test Indication: HTN, DM, HYPERLIPIDEMIA, C.P., SOB Patient Location: Outpatient Stress Tech: Zena Fajardo ME Tech:MALA Hernandez RT (R)(N)(M) Ht: 6 ft 2 in Wt: 225 lbs HR: 64 bpm BP: 172/79 mmHg BSA: 2.29 m2 TID: 1.19 BMI: 28.8 History: HTN, DM, HYPERLIPIDEMIA, C.P., SOB Procedure: Patient received 0.4 mg of intravenous Lexiscan, resting heart rate 64 bpm, resting blood pressure 172/79 mmHg, with Lexiscan maximum heart rate achieved was 77 bpm which is Less than 85 % of the maximum predicted heart rate and blood pressure was 128/71 mmHg. With Lexiscan, patient denied any complaint of chest pain. Electrocardiogram Resting electrocardiogram shows sinus rhythm, with Lexiscan there is less than 1.[address] segment depression noted from the baseline EKG. The EKG portion of the Lexiscan is nondiagnostic. Cardiac Stress and Resting SPECT Images: Cardiac Stress and Resting SPECT images were obtained using technetium 99m Myoview 31.7 mCi stress and 10.33 mCi at rest. Gated SPECT analysis of segmental wall motion and calculation of the ejection fraction also done. Prone images were also obtained. Cardiac stress and rest respectively show uniform myocardial activity without segmental perfusion abnormality, computer derived ejection fraction is 42% with no regional wall motion abnormality, right ventricle is normal size and contractility. Conclusion: 1. The EKG portion of the Lexiscan is nondiagnostic. 2. No scintigraphic evidence of reversible ischemia seen, computer derived ejection fraction is 42% with no regional wall motion abnormality, right ventricle is normal size and contractility. 3. Likely normal Lexiscan Myoview study except ejection fraction is 42%. Electronically signed by : Roni Brock MD 06/02/2022 12:50:51
== END ==
PROVIDERS: PCP Family Medicine; Visit Provider Nurse Practitioner
DX: R94.31 Abnormal electrocardiogram [ECG] [EKG] (principal); R06.09 Other forms of dyspnea; R07.9 Chest pain, unspecified
CPT/HCPCS: 78452; 93017; 93306; A9502; J2785

== ENCOUNTER → 2022-07-24 11:10 | Outpatient (CLI) | payer MEDICARE, SELFPAY ==
[2022-07-24 12:49] LABS: Chloride 89 mmol/L (98-107); Potassium 4.7 mmoL/L (3.5-5.1); Sodium 128 mmol/L (136-145)
[2022-07-24 12:51] LABS: Blood Urea Nitrogen 10 mg/dl (9-20); Estimated Glomerular Filt Rate 97 ml/min (>60); GFR (African American) 117 ML/MIN (>60)
[2022-07-24 12:52] LABS: Alanine Aminotransferase 48 U/L (12-78); Albumin Level 4.4 g/dl (3.5-5.0); Albumin/Globulin Ratio 2.2 (1.1-1.8); Alkaline Phosphatase 71 U/L (38-126); Anion Gap 19.7 mEq/L (5-15); Aspartate Amino Transferase 42 U/L (17-59); Bilirubin,Total 0.4 mg/dl (0.2-1.3); Calcium 9.3 mg/dl (8.4-10.2); Carbon Dioxide 24 mmol/L (22.0-30.0); Cholesterol 177 mg/dl (140-200); Glucose 163 mg/dl (74-100); Total Protein,Serum 6.4 g/dl (6.3-8.2); Triglycerides 91 mg/dl (30-150); VLDL Cholesterol 18 mg/dL (0-40)
[2022-07-24 12:53] LABS: Chol/HDL Ratio 3.2 (1-3.5); HDL Cholesterol 56 mg/dl (40-60)
[2022-07-24 13:03] LABS: Direct LDL Cholesterol 113.14 mg/dL (100-129); Hemoglobin A1C 6.2 % (4.0-6.0)
[2022-07-24 13:35] LABS: Prostate Specific Ag Screen 0.8 ng/ml (0.0-4.0)
[2022-07-30 17:51] LABS: Testosterone, Total, LC/MS 147.4 ng/dL (264.0-916.0); Testosterone,Free 3.7 pg/mL (6.6-18.1)
== END ==
PROVIDERS: PCP Family Medicine; Visit Provider Family Medicine
DX: E11.9 Type 2 diabetes mellitus without complications (principal); E78.5 Hyperlipidemia, unspecified; I10 Essential (primary) hypertension; Z79.4 Long term (current) use of insulin; Z12.5 Encounter for screening for malignant neoplasm of prostate
CPT/HCPCS: 36415; 80053; 80061; 83036; 84402; 84403; G0103

== ENCOUNTER → 2022-10-24 09:18 | Outpatient (CLI) | payer MEDICARE, SELFPAY ==
[2022-10-24 09:57] LABS: Chloride 99 mmol/L (98-107); Potassium 4.6 mmoL/L (3.5-5.1); Sodium 135 mmol/L (136-145)
[2022-10-24 09:59] LABS: Alanine Aminotransferase 43 U/L (12-78); Aspartate Amino Transferase 38 U/L (17-59); Blood Urea Nitrogen 10 mg/dl (9-20); Estimated Glomerular Filt Rate 97 ml/min (>60); GFR (African American) 117 ML/MIN (>60)
[2022-10-24 10:00] LABS: Albumin Level 4.1 g/dl (3.5-5.0); Albumin/Globulin Ratio 1.9 (1.1-1.8); Alkaline Phosphatase 67 U/L (38-126); Anion Gap 14.6 mEq/L (5-15); Bilirubin,Total 0.5 mg/dl (0.2-1.3); Carbon Dioxide 26 mmol/L (22.0-30.0); Chol/HDL Ratio 3.7 (1-3.5); Cholesterol 184 mg/dl (140-200); Globulin 2.2 g/dL (1.3-3.2); Glucose 98 mg/dl (74-100); HDL Cholesterol 50 mg/dl (40-60); Total Protein,Serum 6.3 g/dl (6.3-8.2); Triglycerides 82 mg/dl (30-150); VLDL Cholesterol 16 mg/dL (0-40)
[2022-10-24 10:11] LABS: Direct LDL Cholesterol 107.78 mg/dL (100-129)
[2022-11-01 22:07] LABS: Free Testosterone (Direct) 3.9 pg/mL (6.6-18.1); Testosterone, Total, LC/MS 218.7 ng/dL (264.0-916.0)
== END ==
PROVIDERS: PCP Nurse Practitioner Family; Visit Provider Family Medicine
DX: E11.9 Type 2 diabetes mellitus without complications (principal); Z79.4 Long term (current) use of insulin; E78.5 Hyperlipidemia, unspecified; N52.9 Male erectile dysfunction, unspecified; I10 Essential (primary) hypertension
CPT/HCPCS: 80053; 80061; 83036

== ENCOUNTER → 2022-11-04 12:48 | Outpatient (POV) | payer MEDICARE, SELFPAY ==
[2023-03-29 17:34] VITALS: BMI 29.5
== END | disposition home or self-care (01) ==
PROVIDERS: Visit Provider Dermatology
DX: Z00.00 Encounter for general adult medical examination without abnormal findings (principal)

== ENCOUNTER 2023-04-28 12:50 | Outpatient (CLI) | payer MEDICARE, SELFPAY ==
[2023-04-28 12:54] LABS: Microscopic, Urine URINE MICROSCOPIC (MICROSCOPIC)
[2023-04-28 13:14] LABS: Appearance,Urine SL CLOUDY (Clear); Bilirubin,Urine Negative (Negative); Blood, Urine Negative (Negative); Color,Urine YELLOW (Yellow); Glucose,Urine (UA) Negative (Negative); Ketones,Urine Negative (Negative); Leukocyte Esterase,Urine 1+ (Negative); Nitrate,Urine Negative (Negative); PH,Urine 6.5 (5.0-8.5); Protein,Urine Negative (Negative); Urobilinogen,Urine 0.2 EU/dl (0.2)
[2023-04-28 13:34] LABS: Barbiturates Screen,Urine Negative ng/ml (<200); Benzodiazepines Screen,Urine Negative ng/ml (<200)
[2023-04-28 13:36] LABS: Bacteria,Urine Trace /lpf; Squamous Epithelial Cell,Urine Occasional #/hpf (0-5); WBC,Urine Occasional #/hpf (0-3)
[2023-04-28 13:38] LABS: Phencyclidine Screen,Urine Negative ng/ml (<25)
[2023-04-28 14:01] LABS: Alanine Aminotransferase 53 U/L (12-78); Albumin Level 4.6 g/dl (3.5-5.0); Alkaline Phosphatase 80 U/L (38-126); Anion Gap 13.2 mEq/L (5-15); Aspartate Amino Transferase 44 U/L (17-59); Bilirubin,Total 0.6 mg/dl (0.2-1.3); Blood Urea Nitrogen 9 mg/dl (9-20); Calcium 9.4 mg/dl (8.4-10.2); Carbon Dioxide 26 mmol/L (22.0-30.0); Chloride 99 mmol/L (98-107); Chol/HDL Ratio 5.1 (1-3.5); Cholesterol 200 mg/dl (140-200); Estimated Glomerular Filt Rate 96 ml/min (>60); GFR (African American) 117 ML/MIN (>60); Globulin 2.3 g/dL (1.3-3.2); Glucose 102 mg/dl (74-100); HDL Cholesterol 39 mg/dl (40-60); Potassium 5.2 mmoL/L (3.5-5.1); Sodium 133 mmol/L (136-145); Total Protein,Serum 6.9 g/dl (6.3-8.2); Triglycerides 92 mg/dl (30-150); VLDL Cholesterol 18 mg/dL (0-40)
[2023-04-28 14:07] LABS: Cannabinoid Screen,Urine Negative ng/ml (<50); Cocaine Screen,Urine Negative ng/ml (<300)
[2023-04-28 14:09] LABS: Methadone Screen,Urine Negative ng/ml (<300)
[2023-04-28 14:10] LABS: Opiate Screen,Urine Negative ng/ml (<300)
[2023-04-28 14:15] LABS: Hemoglobin A1C 6.2 % (4.0-6.0)
[2023-04-28 14:17] LABS: Free T4 (Free Thyroxine) 0.97 ng/dl (0.78-2.19)
[2023-04-28 14:24] LABS: Amphetamine/Metha Screen,Urine Negative ng/ml (<1000)
[2023-04-28 14:30] LABS: Thyroid Stimulating Hormone 1.19 uIU/mL (0.465-4.68)
[2023-04-28 14:50] LABS: Vitamin B12 403 pg/mL (239-931)
[2023-04-29 09:14] LABS: Testosterone,Total 231 ng/dL (264-916)
== END 2023-04-28 23:59 ==
PROVIDERS: PCP Nurse Practitioner Family; Visit Provider Nurse Practitioner Family
DX: R53.83 Other fatigue (principal); Z79.899 Other long term (current) drug therapy; E34.9 Endocrine disorder, unspecified; Z79.4 Long term (current) use of insulin; R82.90 Unspecified abnormal findings in urine; E13.40 Other specified diabetes mellitus with diabetic neuropathy, unspecified; E78.5 Hyperlipidemia, unspecified; B95.2 Enterococcus as the cause of diseases classified elsewhere
CPT/HCPCS: 80053; 80061; 80307; 81001; 82607; 83036; 84403; 84439; 84443; 87086

== ENCOUNTER 2023-10-29 15:16 | Outpatient (CLI) | payer MEDICARE, SELFPAY ==
[2023-10-29 14:17] LABS: Alanine Aminotransferase 42 U/L (12-78); Albumin Level 4.5 g/dl (3.5-5.0); Albumin/Globulin Ratio 1.7 (1.1-1.8); Alkaline Phosphatase 64 U/L (38-126); Anion Gap 14.8 mEq/L (5-15); Aspartate Amino Transferase 37 U/L (17-59); Bilirubin,Total 0.7 mg/dl (0.2-1.3); Blood Urea Nitrogen 13 mg/dl (9-20); Calcium 9.5 mg/dl (8.4-10.2); Carbon Dioxide 26 mmol/L (22.0-30.0); Chloride 98 mmol/L (98-107); Cholesterol 196 mg/dl (140-200); Estimated Glomerular Filt Rate 96 ml/min (>60); GFR (African American) 117 ML/MIN (>60); Globulin 2.6 g/dL (1.3-3.2); Glucose 76 mg/dl (74-100); HDL Cholesterol 49 mg/dl (40-60); Potassium 5.8 mmoL/L (3.5-5.1); Sodium 133 mmol/L (136-145); Total Protein,Serum 7.1 g/dl (6.3-8.2); Triglycerides 72 mg/dl (30-150); VLDL Cholesterol 14 mg/dL (0-40)
[2023-10-29 15:04] LABS: Hemoglobin A1C 6.2 % (4.0-6.0)
[2023-10-31 07:21] LABS: Testosterone,Total 114 ng/dL (264-916)
== END 2023-10-29 23:59 | disposition home or self-care (01) ==
LOC: LAB.DROPOF 15:16
PROVIDERS: PCP Nurse Practitioner Family; Visit Provider Nurse Practitioner Family
DX: E78.2 Mixed hyperlipidemia (principal); E11.9 Type 2 diabetes mellitus without complications; Z79.4 Long term (current) use of insulin; E34.9 Endocrine disorder, unspecified; I10 Essential (primary) hypertension; N31.9 Neuromuscular dysfunction of bladder, unspecified; R39.9 Unspecified symptoms and signs involving the genitourinary system
CPT/HCPCS: 80053; 80061; 83036; 84403

== ENCOUNTER → 2023-10-30 11:23 | Outpatient (REF) | payer MEDICARE, SELFPAY ==
[2023-10-30 11:29] LABS: Microscopic, Urine URINE MICROSCOPIC (MICROSCOPIC)
[2023-10-30 13:02] LABS: Appearance,Urine CLEAR (Clear); Bilirubin,Urine Negative (Negative); Blood, Urine Negative (Negative); Color,Urine YELLOW (Yellow); Glucose,Urine (UA) Negative (Negative); Ketones,Urine Negative (Negative); Leukocyte Esterase,Urine Negative (Negative); Nitrate,Urine Negative (Negative); Protein,Urine Negative (Negative); Urobilinogen,Urine 0.2 EU/dl (0.2)
[2023-10-30 13:13] LABS: Creatinine,Urine Random 44 mg/dL (Not Estab.)
[2023-10-30 13:17] LABS: Bacteria,Urine Trace /lpf; Squamous Epithelial Cell,Urine Occasional #/hpf (0-5)
[2023-10-30 13:19] LABS: Microalbumin < 6.000 mg/L (0-16.7)
== END ==
LOC: LAB 11:23
PROVIDERS: Visit Provider Nurse Practitioner Family
DX: R39.9 Unspecified symptoms and signs involving the genitourinary system (principal); N31.9 Neuromuscular dysfunction of bladder, unspecified; I10 Essential (primary) hypertension; E11.9 Type 2 diabetes mellitus without complications; Z79.4 Long term (current) use of insulin
CPT/HCPCS: 81001; 82043; 82570; 84156; 87086

== ENCOUNTER 2023-12-19 12:47 | Emergency (ER) | payer MEDICARE, SELFPAY ==
[2023-12-19] VITALS (7 sets, daily range): BP systolic 137–157; BP diastolic 85–96; PULSE 61–86; RESP 12–18; TEMP 36.6–36.9; O2SAT 97–99; BMI 28.7
--- NOTE | 2023-12-19 12:46 | ECG_ITS ---
APPROVED REPORT Exam: Resting ECG HR:87 bpm ECG Measurements Heart Rate 87 AXES IL 186 P 65 QRSd 95 QRS -41 QT 320 T 30 QTc 364 Conclusion SINUS RHYTHM WITH FREQUENT SUPRAVENTRICULAR PREMATURE COMPLEXES INDETERMINATE AXIS ABNORMAL ECG Electronically signed by : SUSAN PENNINGTON, 12/19/2023 16:27:25
--- NOTE | 2023-12-19 13:02 | XR_ITS ---
PROCEDURE INFORMATION: Exam: XR Chest Exam date and time: 12/19/2023 1:06 PM Age: 68 years old Clinical indication: Pain; Other: Cp, pressue; Additional info: L chest pain TECHNIQUE: Imaging protocol: Radiologic exam of the chest. Views: 1 view. COMPARISON: CR XR CHEST 2V 05/12/2022 12:58 PM FINDINGS: Lungs: The lungs are clear. Pleural spaces: No pneumothorax or pleural effusion. Heart/Mediastinum: Cardiomediastinal silhouette is unremarkable. Bones/joints: No acute osseous or soft tissue abnormality. Partially seen cervical ACDF without appreciable complication. IMPRESSION: No acute cardiopulmonary abnormality.
[2023-12-19 13:09] LABS: Chloride 94 mmol/L (98-107); Potassium 4.6 mmoL/L (3.5-5.1); Sodium 132 mmol/L (136-145)
[2023-12-19 13:12] LABS: Alanine Aminotransferase 50 U/L (12-78); Albumin/Globulin Ratio 1.7 (1.1-1.8); Alkaline Phosphatase 62 U/L (38-126); Anion Gap 14.6 mEq/L (5-15); Aspartate Amino Transferase 42 U/L (17-59); Bilirubin,Total 0.9 mg/dl (0.2-1.3); Blood Urea Nitrogen 10 mg/dl (9-20); Calcium 9.9 mg/dl (8.4-10.2); Carbon Dioxide 28 mmol/L (22.0-30.0); Creatinine Clearance Estimated 106 mL/min (50-200); Estimated Glomerular Filt Rate 112 ml/min (>60); GFR (African American) 136 ML/MIN (>60); Globulin 2.9 g/dL (1.3-3.2); Glucose 96 mg/dl (74-100); Total Protein,Serum 7.9 g/dl (6.3-8.2)
[2023-12-19 13:16] LABS: Basophils # 0.1 K/mm3 (0-0.2); Basophils % 0.9 % (0.1-2.0); Eosinophils # 0.2 K/mm3 (0.0-0.4); Eosinophils % 2.6 % (0.1-12.0); Hemoglobin 16.4 g/dL (14.1-18.0); Lymphocytes # 1.5 K/mm3 (0.7-4.5); Lymphocytes % 19.7 % (10-50); Mean Corpuscular HGB Conc 31.6 g/dL (31.8-35.4); Mean Corpuscular Hemoglobin 26.7 pg (27.0-31.2); Mean Corpuscular Volume 84.4 fl (80-94); Mean Platelet Volume 7.6 fl (7.4-10.4); Monocytes # 0.5 K/mm3 (0.1-1.0); Monocytes % 6.5 % (1.7-9.3); Neutrophils # 5.4 K/mm3 (1.8-7.8); Neutrophils % 70.4 % (37.0-80.0); Platelet Count 299 K/mm3 (142-424); Red Blood Count 6.15 M/mm3 (4.60-6.20); Red Cell Distribution Width 14.7 % (11.5-17.5); White Blood Count 7.7 K/mm3 (4.8-10.8)
[2023-12-19 13:32] LABS: Troponin I < 0.01 ng/ml (0.00-0.034)
[2023-12-19 13:40] LABS: HIV (1&2) Antibody Rapid NONREACTIVE (NONREACTIVE)
--- NOTE | 2023-12-19 14:00 | HMH.EDCP ---
Discharge Plan Disposition Patient Disposition: Home, Self-Care Condition: Good Prescriptions Prescriptions: No Action aspirin 81 mg tablet,delayed release (DR/EC) 81 mg PO DAILY insulin degludec [Tresiba FlexTouch U-100] 100 unit/mL (3 mL) insulin pen 35 unit SQ DAILY Qty: 15 5RF (DME) Dexcom G7 Livestock Inspector Misc See Rx Instructions .Route Qty: 1 0RF Rx Instructions: As directed (DME) Dexcom G7 Sensor Device See Rx Instructions .Route Qty: 3 11RF Rx Instructions: As directed Fiasp FlexTouch U-100 Insulin 100 unit/mL (3 mL) insulin pen SQ Patient Comments: INJECT 30 UNITS TWICE A DAY BY SUBCUTANEOUS ROUTE AT BREAKFAST AND LUNCH, AND 50 UNITS AT SUPPER (DME) FreeStyle Claudia 3 [place] Misc See Rx Instructions .Route Qty: 1 0RF Rx Instructions: As directed (DME) FreeStyle Claudia 3 Sensor Device See Rx Instructions .ROUTE .MEDSUPPLY Qty: 6 3RF Rx Instructions: As directed ezetimibe 10 mg tablet 10 mg PO HS Qty: 90 3RF lisinopril 40 mg tablet 40 mg PO BID Qty: 180 3RF metformin 1,000 mg tablet 1,000 mg PO BID Qty: 180 3RF metoprolol succinate 25 mg tablet extended release 24 hr 25 mg PO DAILY Qty: 90 3RF nitroglycerin 0.4 mg tablet, sublingual 0.4 mg sublingual Q5M PRN (Reason: chest pain) Qty: 20 0RF Rx Instructions: do not exceed 3 doses per episode GO TO ER on 3rd dose nortriptyline 50 mg capsule 50 mg PO DAILY Qty: 90 3RF testosterone cypionate 200 mg/mL oil 200 mg IM Q2W Qty: 2 0RF (DME) Monoject Safety Syringes 3 mL 23 gauge x 1 syringe See Rx Instructions .Route Qty: 500 0RF Rx Instructions: for use with biweekly testosterone injections (DME) pen needle, diabetic [Unifine Pentips] 31 gauge x 5/16 needle See Rx Instructions .ROUTE .MEDSUPPLY Qty: 1200 0RF Rx Instructions: 4 times per day (DME) pen needle, diabetic, safety 30 gauge x 1/3 needle See Rx Instructions .Route Qty: 100 11RF Rx Instructions: 4 times per day Referrals Follow up/Referrals: Morenita De Jesus APRN [Primary Care Provider] - See instructions Activity Restrictions/Add. Instructions Additional Instructions/Restrictions: You were evaluated in the emergency department today. 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 Return to the emergency department right away for new or worsening symptoms. Clinical Impressions Clinical Impression: Chest pain Instructions Patient Instructions: DI for Atypical Chest Pain Print Language Print Language: Thai Discharge ED Provider: Sally Guzman HPI General Chief Complaint: Chest Pain Stated Complaint: chest pain Time Seen by Provider: 12/19/23 12:50 Mode of Arrival: Ambulatory Source of Information: Patient Limitations: No Limitations Description of Symptoms (Recalled from ER Triage Doc. by RN): left sided chest pain. heaviness. dull ache off and on for 2 weeks History of Present Illness HPI narrative: This patient is a 68-year-old male with a history of hypertension, hyperlipidemia, diabetes, and testosterone use presenting to the emergency department for evaluation with concern for chest pain. Patient states that for the last 2 weeks, he has had a discomfort in his chest as well as a heaviness that seems to come and go. Nothing seems to bring it on. Nothing makes it better or worse. No other associated symptoms noticed. [place] [employer] [place] when he started experiencing the symptoms. He states that he had gotten a sharp pain which resolved. He is now feeling fine. He reports compliance with his home medications. He is post to see cardiology 01/07/2024. He notes he is had issues like this in the past multiple times and no one has been able to figure out exactly what causes it Related Data Home Medications ?Medication ?Instructions ?Recorded ?Confirmed aspirin 81 mg tablet,delayed 81 mg PO DAILY [facility] 03/26/17 10/29/23 release insulin aspart SQ 10/29/23 10/29/23 (niacinamide)(U-100) 100 unit/mL(3 mL) subcutaneous pen (Fiasp FlexTouch U-100 Insulin) Previous Rx's ?Medication ?Instructions ?Recorded insulin degludec 100 unit/mL (3 35 unit (0.35 mL) SQ DAILY #15 mL 10/28/22 mL) subcutaneous pen (Tresiba FlexTouch U-100 insulin) blood-glucose meter,continuous #1 ea 05/04/23 (Dexcom G7 Livestock Inspector) blood-glucose sensor (Dexcom G7 #3 ea 05/04/23 Sensor device) blood-glucose meter,continuous #1 ea 10/29/23 (FreeStyle Claudia 3 [place]) blood-glucose sensor (FreeStyle #6 ea 10/29/23 Claudia 3 Sensor device) ezetimibe 10 mg tablet 10 mg PO HS Cholesterol #90 tabs 10/29/23 lisinopril 40 mg tablet 40 mg PO BID #180 tabs 10/29/23 metformin 1,000 mg tablet 1,000 mg PO BID #180 tabs 10/29/23 metoprolol succinate 25 mg 25 mg PO DAILY #90 tabs 10/29/23 tablet,extended release 24 hr nitroglycerin 0.4 mg sublingual 0.4 mg sublingual Q5M PRN chest 10/29/23 tablet pain #20 tabs nortriptyline 50 mg capsule 50 mg PO DAILY #90 caps 10/29/23 syringe with needle, safety 3 mL #500 ea 11/23/23 23 gauge x 1 (Monoject Safety Syringes) testosterone cypionate 200 mg/mL 200 mg IM Q2W #2 mL 11/23/23 intramuscular oil pen needle, diabetic 31 gauge x #1,200 ea 12/10/23 5/16 (Unifine Pentips) pen needle, diabetic, safety 30 #100 ea 12/10/23 gauge x 1/3 Allergies Allergy/AdvReac Type Severity Reaction Status Date / Time amlodipine AdvReac Severe leg Verified 10/29/23 08:46 swelling [id number] Reductase AdvReac Mild myalgia Verified 10/29/23 08:46 Inhibitor PFSH [facility] Disclaimer: The information contained in this section may have been updated after the patient was seen, as this information can be updated by other users. 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 Hip replacement planned History of chest pain Hyperlipidemia Hypertension Skin cancer Sprain of left foot Left foot pain Pain due to onychomycosis of toenail Cellulitis Cellulitis, toe Diabetic foot ulcer Ulcer Surgical History History of right hip replacement History of colonoscopy History of hip replacement Amputated toe History of back surgery History of neck surgery Family History Other No significant family history Social History Smoking Status: Never smoker second hand exposure: No alcohol intake: current alcohol intake frequency: 0-2 drinks per day substance use type: denies use current occupational status: retired Travel in the last 8 weeks: None household members: spouse housing: house caffeine: Yes Other Medical History Have you received the Flu Vaccine for this season: No Have you received the Pneumonia Vaccine: No ROS Obtained: Yes All systems reviewed & no additional complaints except as documented Physical Exam General General appearance: alert and in no apparent distress Head Head exam: atraumatic and normocephalic Eye Eye exam: Present normal appearance, PERRL and EOMI ENT ENT exam: Present normal exam, normal oropharynx, mucous membranes moist and normal external ear exam Neck Neck exam: Present normal inspection, full ROM and trachea midline; Absent tenderness Chest Chest inspection: Present normal inspection and symmetric chest wall rise; Absent tenderness Respiratory Respiratory exam: Present normal lung sounds bilaterally; Absent respiratory distress, wheezes, stridor or accessory muscle use Cardiovascular Cardiovascular exam: Present regular rate and normal rhythm Abdominal Exam Abdominal exam: Present soft; Absent distention, tenderness or guarding Extremities Exam Extremities exam: Present normal inspection, full ROM and normal capillary refill; Absent tenderness or edema Back Exam Back exam: Present normal inspection and full ROM; Absent tenderness Neurological Exam Neurological exam: Present alert, oriented X3, CN II-XII intact and normal gait; Absent motor sensory deficit Psychiatric Psychiatric exam: Present normal affect and normal mood Skin Skin exam: Present warm and dry HEART Score HEART Score HEART Score assessment performed?: Yes History (anamnesis): Slightly suspicious ECG: Normal Age: >65 years Risk factors: Atherosclerosis history Troponin: </= normal limit HEART Score: 4 Critical Care Critical Care Time Critical Care Time: No Medical Decision Making Franck Inquiry Pt receiving controlled substance: No Vital Signs Vital Signs: 12/19/23 12:48 12/19/23 13:00 12/19/23 13:30 Temperature 98.4 F Temperature Source Oral Pulse Rate 67 66 Pulse Rate [Right] 72 Respiratory Rate 18 Blood Pressure 148/85 H 146/90 H Blood Pressure [Right Arm] 157/96 H Blood Pressure Mean 95 99 Blood Pressure Mean [Right Arm] 116 02 Sat by Pulse Oximetry 98 98 99 Oxygen Delivery Method Room Air Room Air 12/19/23 14:00 12/19/23 14:30 12/19/23 15:00 Temperature Temperature Source Pulse Rate 61 68 61 Pulse Rate [Right] Respiratory Rate 16 16 16 Blood Pressure 149/96 H 137/85 148/96 H Blood Pressure [Right Arm] Blood Pressure Mean 107 102 108 Blood Pressure Mean [Right Arm] 02 Sat by Pulse Oximetry 98 97 98 Oxygen Delivery Method 12/19/23 15:44 Temperature 98 F Temperature Source Pulse Rate 86 Pulse Rate [Right] Respiratory Rate 12 Blood Pressure 153/89 H Blood Pressure [Right Arm] Blood Pressure Mean Blood Pressure Mean [Right Arm] 02 Sat by Pulse Oximetry Oxygen Delivery Method Lab Data Labs: Lab Results 12/19/23 12:50: WBC 7.7, RBC 6.15, Hgb 16.4, Hct 52.0, MCV 84.4, MCH 26.7 L, MCHC 31.6 L, RDW 14.7, Plt Count 299, MPV 7.6, Neut % (Auto) 70.4, Lymph % (Auto) 19.7, Dukes % (Auto) 6.5, Eos % (Auto) 2.6, Baso % (Auto) 0.9, Neut # (Auto) 5.4, Lymph # (Auto) 1.5, Dukes # (Auto) 0.5, Eos # (Auto) 0.2, Baso # (Auto) 0.1, D-Dimer 0.46, Sodium 132 L, Potassium 4.6, Chloride 94 L, Carbon Dioxide 28, Anion Gap 14.6, BUN 10, Creatinine 0.70, Estimated Creat Clear 106, Estimated GFR 112, Est GFR ( Amer) 136, Glucose 96, Calcium 9.9, Total Bilirubin 0.9, AST 42, ALT 50, Alkaline Phosphatase 62, Troponin I < 0.01, Total Protein 7.9, Albumin 5.0, Globulin 2.9, Albumin/Globulin Ratio 1.7, HIV 1&2 Antibody Rapid Nonreactive 12/19/23 15:13: Troponin I < 0.01 12/19/23 12:50 12/19/23 12:50 Response Orders (Tests/Meds): ORDERS Category Date Time Status CXR --portable [XR chest portable] Stat Exams 12/19/23 13:02 Completed Complete Blood Count Auto Diff Stat Lab 12/19/23 12:50 Completed Comprehensive Metabolic Panel Stat Lab 12/19/23 12:50 Completed D-Dimer Stat Lab 12/19/23 12:50 Completed HIV (1&2) Antibody Rapid Stat Lab 12/19/23 12:50 Completed Hep C Ab with Reflex to RNA Stat Lab 12/19/23 12:50 Received Troponin I Q3H Lab 12/19/23 15:13 Completed Troponin I Stat Lab 12/19/23 12:50 Completed ECG Data Tracing #1: Attestation: I reviewed this ECG and interpreted as documented below: ECG Narrative: Normal sinus rhythm with a ventricular rate of 87 bpm. Frequent PACs. No acute ST changes concerning for ischemia. ECG initial impression date: 12/19/23 ECG initial impression time: 12:47 MDM Narrative Medical Decision Narrative: In summary, this patient is a 68-year-old male presenting to the Emergency Department for evaluation of chest pain this been intermittent for the last 2-week. Differential diagnoses considered include but are not limited to ACS, dysrhythmia, GERD, costochondritis, PE. Ruling out the most morbid conditions drove assessment. It should be noted patient's history includes hypertension, hyperlipidemia, diabetes which may not be at goal therapy. This complicates all aspects of care by increasing patient's risk for morbidity. I reviewed patient's past medical records and noted cardiology evaluations as well as prior stress test from May 2022. On exam, the patient is sitting upright in bed in no acute distress with no symptoms at this time. Vitals are reassuring on cardiac telemetry. He has sinus arrhythmia on EKG without acute ST changes concerning for ischemia. He is not hypoxic or tachycardia, so feel PE is unlikely but cannot use PERC criteria to exclude PE given his age. workup included CBC, CMP, troponin, D-dimer, chest x-ray, EKG. I independently interpreted CXR prior to the radiologist read and noted no acute focal consolidation. Please see their read for final interpretation. Labs were obtained that demonstrated negative initial troponin and negative D-dimer. No other acute concerning abnormalities. At 1430, patient was placed in ED observation status pending 2nd troponin to determine whether or not the patient would be appropriate for discharge versus admission. The patient was provided serial reevaluations and cardiac monitoring while awaiting ultimate disposition. On reassessment again, the patient is lying comfortably in bed with normal vital signs on cardiac telemetry and no recurrence of symptoms. Second troponin resulted and is negative given reassuring workup and exam, it is felt that the patient is appropriate for discharge at 1545. Total ED observation time was 1 hour 15 minutes. Patient already has close follow-up with cardiology arranged, however advised that he contact them on Thursday and let them know that he was seen in the emergency department to try and expedite this. I also advised that he follow-up very closely with his primary care provider. He was given strict return precautions. I had a [id number] visit with the patient when providing discharge instructions. The total time involved in discharging this patient was less than 30 minutes.
--- NOTE | 2023-12-19 14:14 | PC.NURSE ---
Rounded on patient, patient voiced that he does not need anything at the moment. Call light in reach of the patient.
[2023-12-19 14:59] LABS: D-Dimer 0.46 ug/mL (0.0-0.5)
[2023-12-19 15:27] LABS: Troponin I < 0.01 ng/ml (0.00-0.034)
[2023-12-22 05:15] LABS: HCV Ab Non Reactive (Non Reactive)
== END 2023-12-19 15:45 | disposition home or self-care (01) ==
PROVIDERS: Emergency Provider Emergency Medicine; PCP Nurse Practitioner Family
DX: R07.9 Chest pain, unspecified (principal)
CPT/HCPCS: 71045; 80053; 84484; 85025; 85378; 86803; 87389; 93005; 99284

== ENCOUNTER 2024-01-18 11:44 | Outpatient (CLI) | payer MEDICARE, SELFPAY ==
[2024-01-18] VITALS (9 sets, daily range): BP systolic 121–160; BP diastolic 62–102; PULSE 54–98; RESP 18; O2SAT 91–100; BMI 29.7
--- NOTE | 2024-01-18 11:44 | CT_ITS ---
APPROVED REPORT Senior Sales Operations Manager: CLINICAL INDICATION Chest Pain TECHNIQUE Image Acquisition: A 128 slice MDCT scanner (Dattcha View) was used for data acquisition. A noncontrast coronary calcium scan was performed. A CT attenuation threshold of 130 Hounsfield units (HU) was used for the detection of calcium in contiguous voxels of 1 sq mm in area to be counted as individual lesions. Bolus tracking in the ascending aorta with a threshold of 180 HU was performed. Immediately afterwards, ECG synchronized cardiac CT was then performed from the cardiac base to apex using retrospective gating with ECG tube current modulation. A total of 85 mL of Isovue 370 mg/mL contrast medium was administered at 5 mL/sec followed by a saline flush using a biphasic injection protocol. A tube voltage of 120 KVp was used. The average heart rate at the time of acquisition was 85 bpm and irregular. Image Reconstruction Transaxial images were reconstructed at 0.67 mm slide thickness. Data was reviewed interactively on an advanced workstation capable of 2 and 3-dimensional displays in all conventional reconstruction formats, including multiplanar reformations, maximum intensity projections, curved multiplanar reformations, and volume rendered reconstructions. When applicable, selected routine images describing the relevant coronary anatomy and pathology were saved and sent to PACS. Complications None Technical Quality Overall image quality was suboptimal due to elevated HR and significant motion). Coronary artery opacification was suboptimal. Total DLP (Dose-Length Product) is 2448.2 mGy-cm. The reported value represents the total of one or more individual components during the CT acquisition of this date and at this time, and as such, the same value may appear in more than one CT report depending on the interpreting/reporting physicians. COMPARISON None FINDINGS CT Coronary Calcium Scoring LMA (Left Main Artery) = 38 LAD (Left Anterior Descending) = 535 LCX (Left Coronary Circumflex) = 357 RCA (Right Coronary Artery) = 1242 Total Calcium Score = 2171 using the AJ-130 method. The observed calcium score of 2171 is at 96th percentile for subjects of the same age, sex, and race/ethnicity. The interpretation of the calcium heart score is based on the following continuum*: 0 = no calcified plaque detected (risk of coronary artery disease is very low ??? less than 5%) 1-10 = calcium detected in extremely minimal levels (risk of coronary diseases is still low ??? less than 10%) 11-100 = mild levels of plaque detected with certainty (mild or minimal narrowing of heart arteries is likely) 101-400 = definite,at least moderate levels of plaque detected (relatively high risk of a heart attack within 3-5 years) >401-999 = extensive levels of plaque detected (high risk of heart attack, high levels of vascular disease are present, high likelihood of at least one significant coronary narrowing) *The calcium heart score quantifies the burden of coronary calcification/plaque in the coronary arteries. The calcium heart score is not able to evaluate the presence or burden of non-calcified (i.e. soft) plaque. There is also calcification in the aortic valve, mitral annulus, and the ascending and descending thoracic aorta. Coronary CT Angiography The coronary arterial system is right dominant. Quantitative Stenosis Grading: Left Main (LM): The left main originates normally from the left sinus of Valsalva. The LM bifurcates into the left anterior descending artery and left circumflex artery. There is mixed calcified/noncalcified plaque along the LM, with > 50% luminal stenosis. Left Anterior Descending (LAD) and Diagonal Branches: The LAD gives off at least 2 diagonal branch(es). There is mixed calcified/noncalcified plaque in the proximal and mid LAD segments with up to 70-90% luminal stenosis. There is no evidence of LAD-myocardial bridge. Left Circumflex (LCX) and Obtuse Marginals (OM): The LCX gives off at least 1 Obtuse Marginal (OM) branch(es). There is mixed calcified/noncalcified plaque in the proximal LCx segment with indeterminate degree of luminal stenosis. Right Coronary Artery (RCA): The RCA originates normally from the right sinus of Valsalva. The RCA gives off a posterior descending artery (PDA) and posterolateral (PL) branches. There is mixed calcified/noncalcified plaque along the RCA, and possibly presence of total/subtotal occlusion proximally. Non-Coronary Cardiac Findings: Analysis of the left ventricular (LV) structure and function was performed after 3-D reconstruction of the LV from axial images, with user-corrected automatic contouring for assessment of LV volumes and user-defined reconstruction from oblique planes for measurement of 3-D cardiac structure and function. -The left ventricle systolic function cannot be determined in this study due to technical difficulty. -There is no left atrial appendage filling defect. Two right pulmonary veins and two left pulmonary veins drain normally into the left atrium. -No pericardial thickening or calcification. -Central and branch pulmonary arteries in the [id number] are unremarkable. -Thoracic aorta within the visualized thoracic aortic-branches in the [id number] is unremarkable. Extracardiac Structures No significant extra-cardiac findings. Note, however, that this study is focused on the cardiac findings. IMPRESSION -Technically difficult study due to significant calcification and blurring in motion in the setting of elevated HR, as well as due to extensive calcification. Multiple coronary segments are not well-visualized. -Extensive coronary calcification with an Agatston score = 2171 using the AJ-130 method. -The observed calcium score of 2171 is at 96th percentile for subjects of the same age, sex, and race/ethnicity. -Multiple segments could not be visualized in the study due to technically difficult imaging. However, grossly, there is moderate to severe multivessel atherosclerotic coronary disease, including the left main segment, with evidence of significant flow-limiting atherosclerosis of the coronary arteries and possible total/subtotal occlusion of the RCA proximally. -CAD-RADS 5. Management recommendations per ACC/AHA guidelines*, as clinically appropriate. In the setting of technically difficult study and nondiagnostic evaluation of multiple segments, as well as extensive calcification and likely significant luminal stenosis, further evaluation invasively with coronary angiography is recommended. *Recommendations: CAD RADS 0: Reassurance. Consider non-atherosclerotic causes of chest pain. CAD RADS 1: Consider non-atherosclerotic causes of chest pain. Consider preventive therapy and risk factor modification. CAD RADS 2: Consider non-atherosclerotic causes of chest pain. Consider preventive therapy and risk factor modification, particularly for patients with nonobstructive plaque in multiple segments. CAD RADS 3: Consider further functional testing. Consider symptom-guided anti-ischemic and preventive pharmacotherapy as well as risk factor modification per published guideline statements. CAD RADS 4A: Consider further functional testing or invasive coronary angiography with revascularization per published guideline statements. Consider symptom-guided anti-ischemic and preventive pharmacotherapy as well as risk factor modification per published guideline statements. CAD RADS 4B: Invasive coronary angiography recommended with revascularization per published guideline statements. Consider symptom-guided anti-ischemic and preventive pharmacotherapy as well as risk factor modification per published guideline statements. CAD RADS 5: Consider invasive angiography and/or viability assessment with revascularization per published guideline statements. Consider symptom-guided anti-ischemic and preventive pharmacotherapy as well as risk factor modification per published guideline statements. CRITICAL RESULT None COMMUNICATION Per this written report The coronary and cardiac findings of this CCTA were reviewed, reported, and signed by Jayesh Bermudez MD (Railway Signal Operator) Conclusion Electronically signed by : Vilma Bermudez MD 01/21/2024 10:20:49
[2024-01-18 12:28] LABS: POC Glucose,Bedside 143 (70-110)
[2024-01-18 12:34] LABS: Chloride 94 mmol/L (98-107); Potassium 4.1 mmoL/L (3.5-5.1); Sodium 129 mmol/L (136-145)
[2024-01-18 12:37] LABS: Anion Gap 14.1 mEq/L (5-15); Blood Urea Nitrogen 10 mg/dl (9-20); Carbon Dioxide 25 mmol/L (22.0-30.0); Creatinine Clearance Estimated 107 mL/min (50-200); Estimated Glomerular Filt Rate 96 ml/min (>60); GFR (African American) 117 ML/MIN (>60); Glucose 162 mg/dl (74-100)
[2024-01-18] MEDS: METOPROLOL TARTRATE 25MG TABLET 25 MG (12:53)
[2024-01-18] MEDS: NITROGLYCERIN 0.4MG SL TABLET SL (13:45)
[2024-01-18] MEDS: SODIUM CHLORIDE 0.9% 10ML SYR (RAD ONLY) 10 ML IV (14:12)
[2024-01-18] MEDS: 0.9 % SODIUM CHLORIDE 50 ML VIAL IV (14:12)
[2024-01-18] MEDS: IOPAMIDOL-370 (76%);100ML BOTTLE 85 ML IV (14:13)
== END 2024-01-18 14:26 | disposition home or self-care (01) ==
PROVIDERS: PCP Nurse Practitioner Family; Visit Provider Physician Assistant
DX: I25.118 Atherosclerotic heart disease of native coronary artery with other forms of angina pectoris (principal); R07.9 Chest pain, unspecified; R94.31 Abnormal electrocardiogram [ECG] [EKG]
CPT/HCPCS: 75574; 80048; 82962; Q9967

== ENCOUNTER 2024-01-21 14:14 | Outpatient (CLI) | payer MEDICARE, SELFPAY | END 2024-01-21 23:59 | disposition home or self-care (01) | LOC: LAB.DROPOF 14:14 | PROVIDERS: PCP Nurse Practitioner Family; Visit Provider Nurse Practitioner Family | DX: R82.90 Unspecified abnormal findings in urine (principal) | CPT/HCPCS: 87086; 87088; 87186 ==

== ENCOUNTER 2024-02-03 08:08 | Day surgery (SDC) | payer MEDICARE, SELFPAY ==
[2024-02-03] VITALS (13 sets, daily range): BP systolic 115–167; BP diastolic 70–90; PULSE 18–78; RESP 16–63; O2SAT 90–100; BMI 29.9
--- NOTE | 2024-02-03 06:59 | IR_ITS ---
APPROVED REPORT Patient Location: Outpatient On Air Host: MALA Sol RT (R) PROCEDURES Selective coronary angiogram Intravascular ultrasound to the proximal and mid LAD Drug-eluting stent deployment to the proximal LAD INDICATION Abnormal CCTA, Coronary artery disease, Complex intervention requiring IVUS guidance for reduce morbidity mortality, Angiographic ambiguity in the proximal LAD Informed consent was obtained prior to the procedure. COMPLICATIONS NONE Estimated Blood Loss: LESS THAN 10 ML TECHNIQUE One percent lidocaine used to anesthetize the right anterior aspect of the wrist. The right radial artery was accessed via the Seldinger technique. A 6 [place] sheath was placed in the right radial artery. 2.5 mg of Verapamil, 800 mcg of nitroglycerin, 1mg Lidocaine and 5000 U Heparin were given through the arterial sheath. The 6 [place] JL 3 guide catheter was used to perform selective coronary angiogram. At the end the diagnostic angiogram therapeutic heparin was administered giving a therapeutic ACT and the guide catheters placed in left main artery followed by Choice PT extra-support wire placed distally in the LAD. Intravascular ultrasound probe was advanced which demonstrated heavy calcified plaque burden in the proximal LAD which was underrepresented by angiography however was more consistent with a CCTA. Intravascular ultrasound demonstrated the proximal LAD had an MLA of 3.6 mm???. Because of this a 3.5 x 22 mm Mathew frontier stent was deployed at 24 neftali reducing the stenosis. A 4 mm x 12 mm noncompliant balloon was deployed at 24 neftali in the proximal midportion of the stent. Following this intravascular ultrasound probe was advanced which demonstrated the stent was slightly undersized with persistent proximal calcification. A 4.5 x 12 mm noncompliant balloon was then deployed in the proximal and midportion at 24 neftali to further post dilate. Excellent intragraft results were obtained. At the end the procedure the apparatus was removed the sheath was removed and hemostasis was achieved using TR banding patient was transferred to the postop putting in stable condition. TESSA-3 flow was present before and after the procedure ANGIOGRAPHIC RESULTS The left main artery Normal The left anterior descending artery Has severe calcified plaque in the proximal segment which proved to have an angiographic stenosis in excess of 70%. The mid LAD then has diffuse 40% stenoses. A large first diagonal artery is present and was jailed at the end of the stent procedure with persistent TESSA-3 flow The circumflex artery Nondominant and has mild 10 and 20% calcified stenosis The right coronary artery Is dominant and has proximal 20 to 30% stenosis with mid vessel and distal 20 and 30% calcified stenoses The BANDA ventriculogram reveals Not performed The left ventricular end-diastolic pressure Not measured IMPRESSION Severe calcified proximal LAD stenosis as described above with successful stenting reducing lesion to 0% with 1 drug-eluting stent Persistent mild to moderate calcified disease as described above PLAN 1. Effient and aspirin 2. LDL less than 55 to be achieved with high intensity statin 3. Cardiac rehabilitation 4. Avoidance of tobacco products 5. Risk factor modification Electronically signed by : Dinoicio Zaragoza MD 02/03/2024 10:35:38
[2024-02-03 08:47] LABS: Anion Gap 10.3 mEq/L (5-15); Blood Urea Nitrogen 11 mg/dl (9-20); Calcium 8.9 mg/dl (8.4-10.2); Carbon Dioxide 31 mmol/L (22.0-30.0); Chloride 99 mmol/L (98-107); Creatinine Clearance Estimated 107 mL/min (50-200); Estimated Glomerular Filt Rate 96 ml/min (>60); GFR (African American) 117 ML/MIN (>60); Glucose 112 mg/dl (74-100); Potassium 4.3 mmoL/L (3.5-5.1); Sodium 136 mmol/L (136-145)
[2024-02-03 08:49] LABS: Basophils # 0.1 K/mm3 (0-0.2); Eosinophils # 0.3 K/mm3 (0.0-0.4); Hematocrit 47.2 % (42.0-52.0); Hemoglobin 15.7 g/dL (14.1-18.0); Lymphocytes # 1.5 K/mm3 (0.7-4.5); Lymphocytes % 25.8 % (10-50); Mean Corpuscular HGB Conc 33.3 g/dL (31.8-35.4); Mean Corpuscular Hemoglobin 27.4 pg (27.0-31.2); Mean Corpuscular Volume 82.1 fl (80-94); Mean Platelet Volume 7.1 fl (7.4-10.4); Monocytes # 0.4 K/mm3 (0.1-1.0); Monocytes % 7.3 % (1.7-9.3); Neutrophils # 3.5 K/mm3 (1.8-7.8); Neutrophils % 60.9 % (37.0-80.0); Platelet Count 261 K/mm3 (142-424); Red Blood Count 5.75 M/mm3 (4.60-6.20); Red Cell Distribution Width 14.4 % (11.5-17.5); White Blood Count 5.8 K/mm3 (4.8-10.8)
[2024-02-03] MEDS: MIDAZOLAM HCL 1MG/ML 5ML VIAL 1 MG IV (09:45)
[2024-02-03] MEDS: HEPARIN 1,000 UNITS/ML 10ML VIAL (CATH LAB) 10000 UNIT IV (09:46)
[2024-02-03] MEDS: VERAPAMIL 2.5MG/ML 2ML VIAL 2.5 MG IV (09:46)
[2024-02-03] MEDS: FENTANYL 100MCG/2ML VIAL 50 MCG IV (09:46)
[2024-02-03] MEDS: 0.9 % SODIUM CHLORIDE 500 ML 25 ML IV (09:46)
[2024-02-03] MEDS: LIDOCAINE 1% 10ML MDV 20 ML IJ (09:46)
[2024-02-03] MEDS: HEPARIN 1,000 UNITS/500ML NS (CATH LAB) 3000 UNIT IV (09:47)
[2024-02-03] MEDS: NITROGLYCERIN 800MCG/8ML SYR (CATH LAB) 800 MCG IA (09:55)
[2024-02-03] MEDS: diphenhydrAMINE 50MG/ML VIAL 50 MG IV (10:09)
[2024-02-03] MEDS: PRASUGREL 10MG TAB 60 MG PO (10:31)
[2024-02-03] MEDS: IOPAMIDOL-370 (76%);100ML BOTTLE 110 ML IV (10:50)
[2024-02-03 11:01] LABS: CATHL Activated Clotting Time > 400 SEC (74-125)
== END 2024-02-03 13:49 | disposition home or self-care (01) ==
PROVIDERS: PCP Nurse Practitioner Family; Visit Provider Internal Medicine
DX: I25.118 Atherosclerotic heart disease of native coronary artery with other forms of angina pectoris (principal); I77.1 Stricture of artery; Z79.899 Other long term (current) drug therapy; Z79.4 Long term (current) use of insulin; N31.8 Other neuromuscular dysfunction of bladder; E11.42 Type 2 diabetes mellitus with diabetic polyneuropathy; I25.83 Coronary atherosclerosis due to lipid rich plaque
CPT/HCPCS: 80048; 85025; 85347; 92928; 92978; 93454; 99152; 99153; C1725; C1769; C1874; C9600; J1200; J1644; J2250; J3010; Q9967

== ENCOUNTER 2024-02-06 13:41 | Outpatient (CLI) | payer MEDICARE, SELFPAY ==
[2024-02-06 14:16] LABS: Basophils # 0.1 K/mm3 (0-0.2); Basophils % 0.8 % (0.1-2.0); Eosinophils # 0.2 K/mm3 (0.0-0.4); Eosinophils % 3.3 % (0.1-12.0); Hemoglobin 15.5 g/dL (14.1-18.0); Lymphocytes # 1.5 K/mm3 (0.7-4.5); Lymphocytes % 24.7 % (10-50); Mean Corpuscular HGB Conc 32.9 g/dL (31.8-35.4); Mean Corpuscular Hemoglobin 27.6 pg (27.0-31.2); Mean Corpuscular Volume 83.9 fl (80-94); Mean Platelet Volume 7.6 fl (7.4-10.4); Monocytes # 0.3 K/mm3 (0.1-1.0); Monocytes % 5.4 % (1.7-9.3); Neutrophils # 4.1 K/mm3 (1.8-7.8); Neutrophils % 65.8 % (37.0-80.0); Platelet Count 256 K/mm3 (142-424); Red Cell Distribution Width 14.3 % (11.5-17.5); White Blood Count 6.2 K/mm3 (4.8-10.8)
[2024-02-06 14:26] LABS: Chloride 94 mmol/L (98-107); Potassium 4.4 mmoL/L (3.5-5.1); Sodium 131 mmol/L (136-145)
[2024-02-06 14:29] LABS: Anion Gap 15.4 mEq/L (5-15); Blood Urea Nitrogen 9 mg/dl (9-20); Calcium 9.3 mg/dl (8.4-10.2); Carbon Dioxide 26 mmol/L (22.0-30.0); Estimated Glomerular Filt Rate 75 ml/min (>60); GFR (African American) 90 ML/MIN (>60); Glucose 246 mg/dl (74-100)
== END 2024-02-06 23:59 | disposition home or self-care (01) ==
LOC: LAB 13:43
PROVIDERS: PCP Nurse Practitioner Family; Visit Provider Internal Medicine
DX: I25.10 Atherosclerotic heart disease of native coronary artery without angina pectoris (principal); R79.9 Abnormal finding of blood chemistry, unspecified
CPT/HCPCS: 36415; 80048; 85025

== ENCOUNTER 2024-02-17 10:59 | Outpatient (CLI) | payer MEDICARE, SELFPAY | END 2024-02-17 23:59 | disposition home or self-care (01) | LOC: RT 11:00 | PROVIDERS: PCP Nurse Practitioner Family; Visit Provider Nurse Practitioner | DX: I49.8 Other specified cardiac arrhythmias (principal); R00.2 Palpitations | CPT/HCPCS: 93270 ==

== ENCOUNTER 2024-04-11 11:11 | Outpatient (CLI) | payer MEDICARE, SELFPAY ==
[2024-04-11 17:32] LABS: Chloride 93 mmol/L (98-107); Potassium 5.5 mmoL/L (3.5-5.1); Sodium 131 mmol/L (136-145)
[2024-04-11 17:35] LABS: Anion Gap 19.5 mEq/L (5-15); Blood Urea Nitrogen 10 mg/dl (9-20); Calcium 9.6 mg/dl (8.4-10.2); Carbon Dioxide 24 mmol/L (22.0-30.0); Cholesterol 181 mg/dl (140-200); Estimated Glomerular Filt Rate 96 ml/min (>60); GFR (African American) 116 ML/MIN (>60); Glucose 68 mg/dl (74-100); Triglycerides 88 mg/dl (30-150); VLDL Cholesterol 18 mg/dL (0-40)
[2024-04-11 17:36] LABS: Chol/HDL Ratio 4.9 (1-3.5); HDL Cholesterol 37 mg/dl (40-60)
[2024-04-11 17:50] LABS: Direct LDL Cholesterol 124.45 mg/dL (100-129)
[2024-04-11 17:56] LABS: 25-OH Vitamin D, Total 30.1 ng/mL (30-100)
[2024-04-11 18:07] LABS: Prostate Specific Ag Screen 0.6 ng/ml (0.0-4.0)
[2024-04-11 18:26] LABS: Vitamin B12 289 pg/mL (239-931)
[2024-04-11 21:23] LABS: Hemoglobin A1C 6.3 % (4.0-6.0)
[2024-04-17 16:27] LABS: Testosterone, Total, LC/MS 569 ng/dL (.)
== END 2024-04-11 23:59 | disposition home or self-care (01) ==
LOC: LAB.DROPOF 11:11
PROVIDERS: PCP Nurse Practitioner Family; Visit Provider Nurse Practitioner Family
DX: R82.90 Unspecified abnormal findings in urine (principal); N39.0 Urinary tract infection, site not specified; E11.9 Type 2 diabetes mellitus without complications; I10 Essential (primary) hypertension; Z12.5 Encounter for screening for malignant neoplasm of prostate; E55.9 Vitamin D deficiency, unspecified; Z79.4 Long term (current) use of insulin; E78.2 Mixed hyperlipidemia; E34.9 Endocrine disorder, unspecified; I25.118 Atherosclerotic heart disease of native coronary artery with other forms of angina pectoris; E53.8 Deficiency of other specified B group vitamins
CPT/HCPCS: 80048; 80061; 82306; 82607; 83036; 84403; 87086; G0103

== ENCOUNTER 2024-06-21 08:18 | Day surgery (SDC) | payer MEDICARE, SELFPAY ==
--- NOTE | 2024-06-15 12:55 | SUR.PREOP ---
sent a workload message to [facility] cardiology regarding when pt can stop his Plavix. Will notify pt when I hear back from them
[2024-06-15 12:58] VITALS: BMI 29.5
--- NOTE | 2024-06-20 11:36 | SUR.PREOP ---
06/15/24 1330- confirmed with Alice Wheeler APRN when pt can stop blood thinners. Pt was called by me at this time and he verbalized understanding of when to stop
[2024-06-21] MEDS: LACTATED RINGERS 1000ML 1,000 ML 50 ML IV (08:42)
[2024-06-21 08:43] VITALS: BP 136/92; PULSE 89; RESP 16; TEMP 36.4; O2SAT 98
[2024-06-21 08:50] LABS: POC Glucose,Bedside 134 (70-110)
--- NOTE | 2024-06-21 08:54 | EXP.GEN.HP ---
HPI HPI HPI: This is a 69-year-old gentleman who presents for colonoscopy. He has a history of polyps. His most recent colonoscopy was in November 2021 at which time a fairly poor bowel preparation was noted. An enlarged/smooth prostate was encountered. Scattered AVMs were also noted. No active bleeding was seen. Adenomas at 65 cm, 40 cm, and 20 cm were excised. Prior colonoscopy in January 2019 was complicated by poor bowel preparation and poor relaxation. An adenomatous polyp of the transverse colon was excised. Follow-up barium enema revealed no significant abnormality. [facility] Disclaimer: The information contained in this section may have been updated after the patient was seen, as this information can be updated by other users. 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 Hip replacement planned History of chest pain Hyperlipidemia Hypertension Skin cancer Sprain of left foot Left foot pain Pain due to onychomycosis of toenail Cellulitis Cellulitis, toe Diabetic foot ulcer Ulcer Surgical History History of cardiac cath History of right hip replacement History of colonoscopy History of hip replacement Amputated toe History of back surgery History of neck surgery Family History Other No significant family history Social History Smoking Status: Never smoker second hand exposure: No alcohol intake: current alcohol intake frequency: 0-2 drinks per day substance use type: denies use current occupational status: retired Travel in the last 8 weeks: None household members: spouse housing: house caffeine: Yes Have you lived/traveled outside [place] in past 30 days?: No Contact w/someone who lives/traveled outside US past 30 days?: No Exposure to someone with infectious disease in past 14 days?: No Do you have a fever (greater than 100.4 F or 38 C)?: No Have you tested positive for COVID-19: No Exposed to someone with COVID-19 in past 14 days?: No Do you have a sore throat?: No Do you have a cough?: No Do you have any weakness?: No Do you have any diarrhea?: No Are you experiencing any unusual bleeding?: No Do you have any muscle aches/pain?: No Do you have any abdominal pain?: No Are you experiencing loss of taste or smell?: No Other Medical History Have you received the Flu Vaccine for this season: No Have you received the Pneumonia Vaccine: No Review of Systems Review of Systems Review of systems:: pertinent systems reviewed and negative unless documented below Meds Home Medications and Allergies Home Medications ?Medication ?Instructions ?Recorded ?Confirmed ?Type aspirin 81 mg tablet,delayed 81 mg PO DAILY heart health 03/26/17 06/15/24 History release ezetimibe 10 mg tablet 10 mg PO HS Cholesterol #90 tabs 10/29/23 06/15/24 Rx metformin 1,000 mg tablet 1,000 mg PO BID #180 tabs 10/29/23 06/15/24 Rx nitroglycerin 0.4 mg sublingual 0.4 mg sublingual Q5M PRN chest 10/29/23 06/15/24 Rx tablet pain #20 tabs nortriptyline 50 mg capsule 50 mg PO DAILY #90 caps 10/29/23 06/15/24 Rx clopidogrel 75 mg tablet (Plavix) 75 mg PO DAILY #90 tabs 03/28/24 06/15/24 Rx irbesartan 150 mg tablet 150 mg PO DAILY #90 tabs 03/28/24 06/15/24 Rx metoprolol succinate 100 mg 100 mg PO DAILY #90 tabs 03/28/24 06/15/24 Rx tablet,extended release 24 hr insulin aspart 1 sliding scale dose SQ TID 30 04/11/24 06/15/24 Rx (niacinamide)(U-100) 100 unit/mL(3 days #15 mL mL) subcutaneous pen (Fiasp FlexTouch U-100 Insulin) cholecalciferol (vitamin D3) 50 50 mcg PO DAILY #90 caps 04/12/24 06/15/24 Rx mcg (2,000 unit) capsule mecobalamin (vitamin B12) 1,000 1,000 mcg PO DAILY #90 tabs 04/12/24 06/15/24 Rx mcg chewable tablet insulin degludec 100 unit/mL (3 35 unit (0.35 mL) SQ HS #15 mL 04/18/24 06/15/24 Rx mL) subcutaneous pen testosterone cypionate 200 mg/mL 200 mg IM Q2W #2 mL 06/01/24 06/15/24 Rx intramuscular oil New Prescriptions to Start Prescriptions: Allergies Allergy/AdvReac Type Severity Reaction Status Date / Time amlodipine AdvReac Severe leg Verified 06/21/24 08:39 swelling [id number] Reductase AdvReac Mild myalgia Verified 06/21/24 08:39 Inhibitor Exam Data for Last 24 hours Vital signs and Labs for Last 24 Hours: Temp Pulse Resp BP Pulse Ox O2 Del Method 97.6 F 89 16 136/92 H 98 Room Air 06/21/24 08:43 06/21/24 08:43 06/21/24 08:43 06/21/24 08:43 06/21/24 08:43 06/21/24 08:43 Laboratory Results - last 24 hr 06/21/24 08:41: POC Glucose 134 H Constitutional Constitutional: no acute distress *Routine HEENT Exam Head: Present normocephalic Eye: Present EOMI ENT: Present mucous membranes moist *Routine Neck Exam Neck: Present full ROM *Routine Respiratory Exam Respiratory: Absent respiratory distress *Routine Cardiovascular Exam Cardiovascular: Absent tachycardia *Routine Abdominal Exam Abdominal: Present soft *Routine Rectal Exam Rectal:: deferred *Routine Genitalia Exam Genitalia:: deferred *Routine Extremities Exam Extremities: Present full ROM *Routine Skin Exam Skin: Absent erythema *Routine Neurological Exam Neurological: Present alert Results Results Lab Results Last 24 Hours:: Laboratory Results - last 24 hr 06/21/24 08:41: POC Glucose 134 H Assessment and Plan *Assessment and plan (1) History of colon polyps: Status: Acute Category: Medical Code(s): Z86.0100 - Personal history of colon polyps, unspecified Plan: Colonoscopy today I have discussed the risks and benefits including, but not limited to: Bleeding Infection Damage to surrounding tissue Inherent risks of sedation The patient agrees to proceed.
--- NOTE | 2024-06-21 08:55 | EXP.ANES.CKL ---
[facility] Disclaimer: The information contained in this section may have been updated after the patient was seen, as this information can be updated by other users. 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 Hip replacement planned History of chest pain Hyperlipidemia Hypertension Skin cancer Sprain of left foot Left foot pain Pain due to onychomycosis of toenail Cellulitis Cellulitis, toe Diabetic foot ulcer Ulcer Surgical History History of cardiac cath History of right hip replacement History of colonoscopy History of hip replacement Amputated toe History of back surgery History of neck surgery Family History Other No significant family history Social History Smoking Status: Never smoker second hand exposure: No alcohol intake: current alcohol intake frequency: 0-2 drinks per day substance use type: denies use current occupational status: retired Travel in the last 8 weeks: None household members: spouse housing: house caffeine: Yes Have you lived/traveled outside [place] in past 30 days?: No Contact w/someone who lives/traveled outside US past 30 days?: No Exposure to someone with infectious disease in past 14 days?: No Do you have a fever (greater than 100.4 F or 38 C)?: No Have you tested positive for COVID-19: No Exposed to someone with COVID-19 in past 14 days?: No Do you have a sore throat?: No Do you have a cough?: No Do you have any weakness?: No Do you have any diarrhea?: No Are you experiencing any unusual bleeding?: No Do you have any muscle aches/pain?: No Do you have any abdominal pain?: No Are you experiencing loss of taste or smell?: No [facility] Anesthesia Checklist Patient Identification Patient Identification: Arm Band Structural Data Admitted From: Home Planned Operative Procedure/s: Colonoscopy Consent for Planned Operative Procedure(s) Verified: Yes Verified Documents: Surgical Consent and History and Physical NPO Status Verified Time NPO: 00:00 Additional verifications Anesthesia Reactions: No Hx Blood Transfusions: No Blood Transfusion Reaction: No Airway Assessment Mallampati Score:: Class II C-Spine Mobility Assessed: Yes TMJ Mobility Assessed: Yes Dentition: Edentulous Neurological Assessment Level of Consciousness: Awake, Alert and Appropriate Anesthesia Plan Anesthesia Risk discussed: Yes Anesthesia Plan: Verified ASA Class: III Anesthesia Type: MAC
--- NOTE | 2024-06-21 08:56 | HMH.SCOPE ---
Procedure: Date: 06/21/24 Patient Date of :: 1955 Procedure Performed:: Colonoscopy with polypectomy by means other than snare Indications:: History of colon polyps Note: His most recent colonoscopy was in November 2021 at which time a fairly poor bowel preparation was noted. An enlarged/smooth prostate was encountered. Scattered AVMs were also noted. No active bleeding was seen. Adenomas at 65 cm, 40 cm, and 20 cm were excised. Prior colonoscopy in January 2019 was complicated by poor bowel preparation and poor relaxation. An adenomatous polyp of the transverse colon was excised. Follow-up barium enema revealed no significant abnormality. Performing Provider:: Yanick Darling MD Referring Provider:: . Sedation:: Monitored anesthesia care Procedure:: After informed consent was obtained the patient was taken to the endoscopy suite. Sedation ensued after the patient was transferred to the left lateral decubitus position. Pulse, blood pressure, and oxygen saturation were monitored throughout the procedure. Digital rectal exam revealed no significant abnormality. The colonoscope was placed in position. The entire colon was evaluated. The colonoscope was carefully removed and the patient was transferred to recovery in stable condition. Please see findings and specimens below for detail. Findings:: Moderate bowel preparation (improved versus prior evaluations) Hemorrhoidal tag/cushions Unchanged smooth prostatic enlargement Unchanged scattered AVMs Polyps (see specimens) Specimens:: Adjacent polyps at 35 cm (cold biopsy forceps) Polyp at 25 cm (cold biopsy forceps) Recommendations:: Timing of repeat colonoscopy is pending pathology will likely be around 3 years secondary to additional polyps on relatively short-term reevaluation and moderate bowel preparation. Complications:: No immediate Estimated blood obtained (mL): 1 Colonoscopy Component Colonoscopy Component Was a colonoscopy performed during today's procedure?: Yes Recommended follow up colonoscopy of at least 10 years?: No If no, follow up colonoscopy recommended in ___ years?: (See above) Reason for not recommending >/= 10 yr follow-up interval?: (See above)
[2024-06-21 09:01] VITALS: O2SAT 98
[2024-06-21 09:45] VITALS: BP 145/79; PULSE 90; RESP 18; TEMP 36.1; O2SAT 92
[2024-06-21 09:55] VITALS: BP 82/58; PULSE 82; RESP 18; O2SAT 94
[2024-06-21 10:05] VITALS: BP 102/62; PULSE 77; RESP 18; O2SAT 96
[2024-06-21 10:22] VITALS: BP 109/71; PULSE 84; RESP 18; O2SAT 93
== END 2024-06-21 10:24 | disposition home or self-care (01) ==
PROVIDERS: PCP Nurse Practitioner Family; Visit Provider Surgery
PROC: 0DJD8ZZ Inspection of Lower Intestinal Tract, Via Natural or Artificial Opening Endoscopic (ICD-10-PCS; CPT 45380; principal; 2024-06-21 09:30)
DX: K55.20 Angiodysplasia of colon without hemorrhage (principal); K63.5 Polyp of colon; K64.9 Unspecified hemorrhoids; Z86.0100 Personal history of colon polyps, unspecified; E11.621 Type 2 diabetes mellitus with foot ulcer
CPT/HCPCS: 45380; 82962; J2704; J7120

== ENCOUNTER 2024-07-28 11:00 | Outpatient (CLI) | payer MEDICARE, SELFPAY ==
[2024-07-28 14:24] LABS: Microscopic, Urine URINE MICROSCOPIC (MICROSCOPIC)
[2024-07-28 14:55] LABS: Appearance,Urine CLEAR (Clear); Bilirubin,Urine Negative (Negative); Blood, Urine Negative (Negative); Color,Urine YELLOW (Yellow); Glucose,Urine (UA) Negative (Negative); Ketones,Urine Negative (Negative); Leukocyte Esterase,Urine Negative (Negative); Nitrate,Urine Negative (Negative); Protein,Urine Negative (Negative); Urobilinogen,Urine 0.2 EU/dl (0.2)
[2024-07-28 15:08] LABS: Creatinine,Urine Random 57 mg/dL (Not Estab.)
[2024-07-28 15:10] LABS: Microalbumin < 6.000 mg/L (0-16.7)
[2024-07-28 15:19] LABS: Bacteria,Urine Trace /lpf; Squamous Epithelial Cell,Urine Occasional #/hpf (0-5)
--- OUTSIDE RECORDS SUMMARY | 2024-07-29 11:06 | XMS_ITS | Data Portability ---
Author Organization [facility] Address [address] [facility] [place] [address] Care Team Providers Care Production Packager Name Role Phone AZEEM JACKSON Primary Care Provider Assessment Encounter Date Assessment Date Assessment LastModified by Organization Details LastModified Time 12/24/2020 12/24/2020 Pt is S/P L2-3 Laminectomy on 11/30/2020. Here for staple removal. Incision is well healed. Atiya were removed. Pt is doing well. Tolerated procedure well. [email or web address] Not available 01/10/2021 13:19:10 01/03/2021 01/03/2021 Mr. Marsh is recovering well from an L2-3 laminectomy extension performed on November 30, 2020. I think he will continue to see improvement over the coming months. We discussed some lower extremity strengthening, and the option of physical therapy. He is comfortable following up on an as-needed basis, but understands he can call at any time with questions or concerns. Not available 01/03/2021 11:59:48 01/06/2023 01/06/2023 ASSESSMENT: Mr. Marsh is a 67-year-old male who returns to the office after last being seen 01/03/2021. He is accompanied by his , Keily. He had a C5-[address] Zuluaga in 2011 and then had a minimally invasive left C7-T1 and T1-T2 decompression done March 31, 2018. He also had an L3-4 and L4-5 laminectomy done on September 01, 2018 that was complicated by a durotomy. This procedure was followed with an L2-3 laminectomy on November 30, 2020. He returns to the office with increasing symptoms over the last 5 to 6 months. He reports low back pain that he describes as burning as well as pain that radiates to his anterior thighs bilaterally but not past the knee. He cannot tell if this is coming from the legs up his back or from his back down his legs. He does have a history of bilateral hip replacements completed at [facility]. 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 He also reports that with leaning his head back he experiences the same burning in his lower back. He does have numbness into his feet but they feel that could be related to his type 2 diabetes. He has issues with his balance and issues with his left hand regarding his dexterity as he feels his left hand has gotten weak. He has been using a cane for the last month or so mainly to help him get up once he starts moving he feels that he is able to move around easier. He continues to self cath 2-3 times a day following his surgery in 2019 and reports issues with constipation at times. He has no updated imaging of his lumbar spine or cervical spine available for review. IMAGING: No updated imaging available for review Nurse practitioner visit PLAN: Cervical AP, lateral, flexion, extension x-rays Lumbar AP, lateral, flexion, extension x-rays Cervical MRI without contrast Lumbar MRI without contrast Follow-up with Dr. Zuluaga Mr. Marsh is going to get updated imaging of his cervical and lumbar spine to include x-rays with flexion and extension to evaluate for any instability. We will also request updated cervical and lumbar MRIs to evaluate for any neural impingement that could be causing his radicular symptoms or cord compression that could be causing his balance and dexterity issues. He will follow-up with Dr. Zuluaga to review these results to determine if he would be a candidate for injections or surgical interventions. He has previously attempted physical therapy without significant improvement. He and his verbalized understanding of these instructions and are agreeable to this plan. They have no further questions or concerns at this time. They are satisfied with this plan of care. Addendum 02/20/23 [facility] [email or web address] Not available 02/20/2023 14:20:28 04/20/2023 04/20/2023 Mr. Marsh is a 68-year-old gentleman status post C3-C4 ACDF extension. His x-rays today look great. I gave him a printed copy. He may discontinue use of his cervical collar. I plan on seeing him back in 3 months with repeat x-rays of the cervical spine. I will also get some standing flexion-extension lumbar x-rays given his history of multilevel laminectomies and current back pain symptoms. Any additional imaging needed of his lumbar spine can be ordered at that time. Not available 04/20/2023 14:05:21 07/20/2023 07/20/2023 ASSESSMENT: Mr. Marsh is a pleasant 68-year-old man who returns to the office accompanied by his in follow-up of his C5-7 ACDF fusion extension up to C3 completed by Dr. Zuluaga on 03/11/2023. He has also had a C7-T1 and a T1-T2 decompression on 03/31/2018, and MIS left L3-4 and L4-5 laminectomy on 09/01/2018, and an L2-3 laminectomy on 11/30/2020. He reports in regards to his last cervical surgery at the end of last year, he only reports some pain to the left side of his neck that is intermittent in nature that started around 3 weeks after surgery but feels like something is rubbing the plate in his neck. He was evaluated by a throat doctor and said that it was not an issue in his throat causing the problem. He also continues to report bilateral lower extremity tightness that is worse after he has been sitting for any length of time when he tries to get up he it takes some time for his legs to get moving but the leg symptoms do improve with moving but then his low back pain seems to worsen. They report he has had issues with left foot drop following his second lumbar surgery where he suffered what sounds like a durotomy. He does still use a cane and feels that his balance is still not very good. He self caths 2-3 times per day. He denies any bowel control issues. IMAGING: Cervical and lumbar x-rays taken today at the clinic. Dr. Zuluaga and I have reviewed the images personally but the radiologist's report was not available at the time of his appointment. His cervical x-rays reveal his instrumentation in stable position with no signs of complications. His lumbar x-rays reveal significant degenerative changes in the lower lumbar spine. He is given printed copies of his cervical and lumbar x-rays as well as a copy of his preoperative cervical MRI sagittal view that demonstrates the significant central stenosis that was present at C3-4. He had a lumbar MRI taken at the clinic on 01/29/2023. Dr. Zuluaga and I have reviewed the images personally and read the radiologist report. This reveals multilevel foraminal stenosis most significantly at L2-3. Seen by Dr. Zuluaga and myself PLAN: Follow-up as needed Dr. Zuluaga spoke with Mr. Marsh and his that his neck surgery was completed to get the pressure off of his cervical cord that had developed above his previous fusion to prevent his myelopathy symptoms from worsening. We discussed that the hope would be that with additional time the symptoms will continue to improve but that it can take up to a year. However the goal of the surgery was to prevent them from worsening. We discussed possibly referring him to see pain management to discuss an injection at L2-3 to see if that would help with the symptoms he feels into his back and his legs. He is not interested in pursuing that at this time. We discussed that his last MRI was in January and that he can continue to tolerate the symptoms for as long as possible if he is able to continue with the activities that he wants. If this pain was to get to the point that it was becoming significantly more interfering and problematic, we would need to update his lumbar MRI. He is not to the point where he wants to consider additional surgery at this time which is certainly reasonable given his surgical history. We will leave the door open for him to follow-up with our office as needed moving forward and they are encouraged to contact our office if they would like to discuss injections or moving forward with an updated MRI. They both verbalized understanding of these instructions and are agreeable to this plan. They have no further questions or concerns at this time. They are satisfied with this plan of care. [email or web address] Not available 07/20/2023 15:40:47 Plan of Treatment Reminders Order Date Submit Date Provider Last Modified By Organization Details Last Modified Time Details Appointments None record ed. Lab None record ed. Referral None record ed. Procedures None record ed. Surgeries None record ed. Imaging None record ed. Medication Orders None record ed. Patient TargetsNo targets recorded. Patient Instructions Encounter Date Encounter Id Patient Instructions Last Modified By Organization Details Last Modified Time 07/20/2023 [id number] CATEGORY DESCRIPTION MINUTES Prepare to see the patient (e.g. review of tests) 5 Obtain/review separately obtained history 5 Perform medically appropriate exam/evaluation 5 Order medications, tests, or procedures Manuscripts Archivist/educate the patient/family/car egiver 10 Refer/communicate w/other healthcare professionals Document clinical information into health record 5 Non-billable independent interp of results Non-billable care coordination TOTAL TIME 30 74000 (15-29) 05247 (30-44) 61946 (45-59) [id number] (60-74) 25922 35176 (10-19) 62520 (20-29) 91328 (30-39) 89699 (40-54) [email or web address] Not available 07/20/2023 14:39:22 Reason for Referral None Reported. Results Created Date Observation Date Name Description Value Unit Range Abnormal Flag Note LastModifiedBy Organization Detail LastModifiedTime 12/20/1912/25/2021 FRUCT OSAMI NE fructosamine 266 umol/ L 205-28 5 normal TEST PERFO RMED AT: [facility] [address] [place] [address] Dev OSORIO,PHD ,SHAHRAM Not Available [facility] [address] [place] [address], [phone], 12/25/2021 09:24:44 12/20/19 22 12/23/2021 NICOT INE AND COTIN INE, BL nicotine <2 NG/mL normal Refer ence Range Smoke r: 2-10 Nonsm oker: < or = 4 This test was devel oped and its mariama tical perfo rmanc e james cteri stics have been deter mined by [facility]. It has not been clear ed or appro mary by the FDA. This assay has been valid ated pursu ant to the CLIA regul ation s and is used for clini beatriz purpo ses. Not Available [facility] [address] [place] [address], [phone], 12/24/2021 09:10:24 12/20/19 22 12/23/2021 NICOT INE AND COTIN INE, BL cotinine <2 NG/mL normal Refer ence Range Smoke r: 16-14 5 Nonsm oker: < or = 8 This test was devel oped and its mariama tical perfo rmanc e james cteri stics have been deter mined by [facility]. It has not been clear ed or appro mary by the FDA. This assay has been valid ated pursu ant to the CLIA regul ation s and is used for clini beatriz purpo ses. This drug testi ng is for medic al treat ment only. Mariama sis was perfo rmed as non-f orens ic testi ng and these resul ts shoul d be used only by healt hcare provi ders to rende r diagn osis or treat ment, or to monit or progr ess of medic al condi tions . TEST PERFO RMED AT: [facility] [address] [place] [address] Dev PIKE Not Available [facility] [address] [place] [address], [phone], 12/24/2021 09:10:24 12/20/19 22 12/22/2021 NASAL CULTU RE nasal culture SEE BELOW normal CULTU RE, RELASTER/NA KRISHAN Micro Numbe r: [id number] Test Statu s: Final Speci men Sourc e: Nasal Speci men Quali ty: Adequ ate Resul t: Growt h of skin jennifer (note : Growt h does not inclu de S. aureu s, beta- hemol ytic Strep tococ ci or P. aerug inosa ). TEST PERFO RMED AT: [employer] [facility] [address] [place] [address] MARK Palmer MD Not Available [facility] [place], [address], 12/22/2021 13:17:36 12/20/19 22 12/20/2021 PREAL BUMIN prealbumin 30 mg/dL 21-43 normal TEST PERFO RMED AT: [facility] [place] [address] [place] [address] MARK Palmer MD Not Available [facility] [address] [place], [address], 12/20/2021 14:25:49 12/20/19 22 12/19/2021 PTT (APTT ) PTT (APTT) 26.6 secon ds 21.3-2 9.7 normal Not Available [facility] [address] [place], [address], 12/19/2021 18:33:24 12/20/19 22 12/19/2021 PROTH ROMBI N TIME prothrombin time 9.9 secon ds 8.9-10 .8 normal Not Available [facility] [place], [address], 12/19/2021 18:33:23 12/20/19 22 12/19/2021 PROTH ROMBI N TIME INR 1.0 2.0-3. 0 low INR OF 2.0 TO 3.0 RECOM NEISHA D FOR: PROPH YLAXI S AND TREAT MENT OF VENOU S THROM BOSIS TREAT MENT OF PULMO NARY EMBOL ISM PREVE NTION OF SYSTE MARCOS EMBOL ISM TISSU E HEART VALVE S, VALVU LAR HEART DISEA SE ACUTE MYOCA RDIAL INFAR CTION , ATRIA L FIBRI LLATI ON INR OF 2.5 TO 3.5 RECOM NEISHA D FOR: RECUR RENT SYSTE MARCOS EMBOL ISM MECHA NICAL PROST HETIC VALVE S Not Available [facility] [address] [place], [address], 12/19/2021 18:33:23 12/01/19 21 11/30/2020 fluor oscop y (PROC ) No observ ation record ed. [email or web address] [address], [place], [address], 11/30/2020 14:32:41 01/30/20 23 01/29/2023 MRI, cervi beatriz spine , w/o contr ast [facility] [address] [facility] [place] [address] Willian rico Name: JEMMA rico : [phone] Willian rico 0 Orderi ng Provid er: GREGG Rico EXAM DATE: 2022 EXAM: MR CERVIC AL W/O CONTRA ST HISTOR Y: Pain. Previo us surger y COMPAR ROBERT: 2011 FINDIN GS: Previo us C5-C7 anteri or fixati on and interb socrates fusion . No defini te compli cation althou gh there is parama gnetic artifa ct. There is no fractu re or pathol ogic intrao sseous lesion . There is mild anteri or margin al osteop hytic spurri ng. No parasp inous soft tissue abnorm ality is identi fied. The visual ized spinal cord and deputy fire marshal ior fossa of the brain are normal in appear ance. The cranio cervic al juncti on is normal in appear ance. There are mild degene rative change s at C1-C2. C2-C3: Mild spurri ng and diffus e disc bulge. No spinal stenos is. Bilate ral facet DJD which is at least modera te. There is mild stenos is of the right neural forame n. Unchan ged. C3-C4: There is a broad protru len parace ntral to the right with endpla te spurri ng. The right with disc/o steoph yte comple x produc es right latera l recess stenos is. There is severe narrow ing of the right neural forame n and mild left neural forami nal narrow ing. Modera te spinal stenos is C4-C5: Mild endpla te spurri ng with diffus e bulge of the disc. No substa ntial spinal stenos is. Mild bilate ral facet DJD. Modera te bilate ral neural forami nal stenos is. C5-C6: Fusion level with residu al spurri ng. Modera te to severe stenos is of the right neural forame n. No spinal stenos is C6-C7: Fusion level. Modera te spurri ng. Mild centra l canal stenos is. Modera te to severe bilate ral neural forami nal stenos is. C7-T1: Diffus e bulge of mild endpla te spurri ng. Mild facet DJD. There is modera te bilate ral neural forami nal stenos is.. The visual ized thorac ic spine are essent ially normal in appear ance. IMPRES LEN: 1. Previo us C5 C7 fusion with no gross compli cation 2. Diffus e DDD elsewh ere most notabl y at C3-4 produc ing signif icant stenos is on the spinal canal, latera l recess , and neural forami na Interp reted By: Adalberto Salinas MD Electr onical ly Signed By: Adalberto Salinas MD on 2022 11:25 AM [email or web address] [facility] [address] [place] [address], [phone], 02/19/2023 12:37:12 01/30/20 23 01/29/2023 MRI, lumba r spine , w/o contr ast [employer] [place] [facility] [place] [address] Patihu t Name: JEMMA rico : [phone] [place] 0 Orderi ng Provid er: GREGG Rico EXAM DATE: 2022 EXAM: MR LUMBAR W/O CONTRA ST HISTOR Y: Back pain COMPAR ROBERT: None. The patien t did not requir e sedati on for this exam. FINDIN GS: The alignm ent [facility] which can indica te muscle spasm. No signif icant sublux ation. Previo us kee ctomie s L2-L4. There is no eviden ce of fractu re. There is mild anteri or margin al osteop hytic spurri ng. No pathol ogic lesion is identi fied in the lumbar spine. The conus medull saeed is normal in appear ance at the L1-L2 level. T12-L1 : There is a broad centra l disc protru len. There is no signif icant spinal canal or forami nal stenos is. L1-L2: There is a diffus e protru len of the disc with possib le small extrud ed compon ent centra lly. There is modera te stenos is of the neural forami na bilate rally and mild degree of spinal canal stenos is L2-L3: There is a diffus e protru len with probab le extrud ed compon ent centra lly. Mild bilate ral facet DJD. There is severe bilate ral neural forami nal stenos is. Modera te spinal canal stenos is L3-L4: Broad protru eln with mild bilate ral facet DJD. Modera te endpla te spurri ng. Modera te to severe bilate ral neural forami nal stenos is. L4-L5: Diffus e narrow ing of the disc space with mild bilate ral facet DJD. Diffus e bulge of the disc. Severe bilate ral neural forami nal stenos is is presen t. L5-S1: Diffus e narrow ing of the disc space. There is broad protru len of the disc. Modera te endpla te spurri ng. There is modera te to severe bilate ral neural forami nal stenos is. Modera te bilate ral facet DJD. IMPRES LEN: 1. Diffus e degene rative change s are presen t. Each level as detail ed above. The larges t findin gs at L2-3 with broad protru len and associ ated centra l extrus ion. There are multip le neural forami na impact ed bilate rally Interp reted By: Adalberto Salinas MD Electr onical ly Signed By: Adalberto Salinas MD on 2022 11:57 AM [email or web address] [facility] [address] [facility], [place], [address], 02/19/2023 12:37:12 01/30/20 23 01/29/2023 XR, cervi beatriz spine , 4 or [address] [place] [address] Willian rico Name: JEMMA MARSH Willian rico : [phone] 0 Orderi ng Provid er: GREGG Rico EXAM DATE: 2022 EXAM: XR CERVIC AL SPINE AP/LAT /FLEX/ EXT CLINIC AL INFORM ATION: Neck pain. IMAGES PROVID ED: Latera l views of the cervic al spine in flexio n and extens ion. COMPAR ROBERT: None. FINDIN GS AND IMPRES LEN: C5-C7 spinal fusion is noted. Surgic al hardwa re is satisf actori ly placed . No abnorm al hardwa re moveme nt is seen in flexio n or extens ion. Degene rative change s are seen at other levels . There is no instab ility. Interp reted By: Xi Thomson MD Electr onical ly Signed By: Xi Thomson MD on 2022 1:02 PM [email or web address] [facility] [address] [place] [address], [phone], 02/19/2023 12:37:13 04/20/19 24 04/20/2023 XR, cervi beatriz spine , 2 or [address] [address] Pat[place] t Name: JEMMA rico : [phone] Willian r[place] 0 Orderi ng Provid er: JUAN ZULUAGA EXAM DATE: 2023 EXAM: XR CERVIC AL AP/LAT CLINIC AL INFORM ATION: Postop erativ e. IMAGES PROVID ED: AP, and latera l views of the cervic al spine. COMPAR ROBERT: None. FINDIN GS AND IMPRES LEN: Spinal fusion is noted at C3-C7 level. Surgic al hardwa re is satisf actori ly placed . No eviden ce of loosen ing or infect ion is seen. Other levels are normal . Interp reted By: Xi Thomson MD Electr onical ly Signed By: Xi Thomson MD on 04/20/19 2:35 PM [email or web address] [facility] [address] [place], [address], 04/23/2023 14:56:19 07/21/19 24 07/20/2023 XR, cervi beatriz spine , 2 or [address] [place] [address] CLINIC AL INFORM ATION: Neck pain IMAGES PROVID ED: AP, latera l, open mouth and submen lacye views of the cervic al spine COMPAR ROBERT: 04/20/19 24. FINDIN GS: There is anteri or fixati on from C3 throug h C6 with discec john's . There is arthri tic change of the facet joints of bony sclero sis and spurri ng. There is no change in alignm ent compar ed to the prior exam. The fixati on device is intact . IMPRES LEN: Stable appear ance of the cervic al spine. . The fixati on device is intact . There is extens fartun arthri tic change of the facet joints . Interp reted By: Sidney odonnell [facility] onical ly Signed By: Sidney odonnell on 07/21/19 9:56 AM [email or web address] [facility] [address], [address], 07/21/2023 13:34:37 07/21/19 24 07/20/2023 XR, lumbo sacra l spine , compl ete [address] [place] [address] [facility] AL INFORM ATION: Back pain. IMAGES PROVID ED: Comple te radiog raphic series of the lumbar spine with additi onal latera l views in flexio n and extens ion. COMPAR ROBERT: None. FINDIN GS: There is severe narrow ing of the disks at L2-3 throug h L5-S1 with large anteri or and deputy fire marshal ior osteop hytes. There is extens fartun facet spurri ng. There is kee ctomy of the lower lumbar spine at L4-S1. There is bilate ral placem ent of the hips. There is severe sclero sis of the endpla ivonne at the T3 level. There is limite d motion with flexio n and extens ion with no eviden ce of instab ility. The SI joints appear intact .. No pars defect is seen. No radiog raphic eviden ce of injury is noted. IMPRES LEN: Advanc ed degene ration of the lower lumbar spine with disc space narrow ing sclero sis of the endpla ivonne and spurri ng with additi onal spurri ng of the facets and postsu rgical change .. No instab ility. Interp reted By: Sidney odonnell Electr onical ly Signed By: Sidney odonnell on 07/21/19 10:01 AM [email or web address] [facility] [address] [place] [address], [phone], 07/21/2023 13:34:30 Result Notes None recorded. Procedures Surgical History Date Name Laterality Status Provider Name and Address Organization Details Recorded Time 03/31/19 19 LAMINECTOMY, EACH ADDITIONAL SEGMENT (SURG) completed Jaz Nova [facility] 04/01/2018 11:40:45 02/27/20 18 Electromyography (EMG) with Nerve Conduction Study (NCV) completed Maeve Diaz (Nicky) [facility] 02/26/2018 14:02:14 Neck Surgery completed Jessica Martinez [facility] 11/05/2020 11:31:27 procedure on hip completed Jessica Martinez [facility] 11/05/2020 11:31:43 Imaging Results Imaging Date Name Status LastModified by Organiz ation Details LastModified Time 11/30/2020 fluoroscopy (PROC) [facility] [address] [facility] [address], [place], [address], 11/30/2020 14:32:41 01/29/2023 MRI, cervical spine, w/o contrast completed [email or web address] [facility] [address] [place] [address], [phone], 02/19/2023 12:37:12 01/29/2023 MRI, lumbar spine, w/o contrast completed [email or web address] [facility] [address] [place], [address], 02/19/2023 12:37:12 01/29/2023 XR, cervical spine, 4 or 5 view completed [email or web address] [facility] [address] [place], [address], 02/19/2023 12:37:13 04/20/2023 XR, cervical spine, 2 or 3 view completed [email or web address] [facility] [address] [place], [address], 04/23/2023 14:56:19 07/20/2023 XR, cervical spine, 2 or 3 view completed [email or web address] [facility] [address] [place], [address], 07/21/2023 13:34:37 07/20/2023 XR, lumbosacral spine, complete completed [email or web address] [facility] [address] [place], [address], 07/21/2023 13:34:30 Procedure Notes None recorded. Medical Equipment None Reported. Allergies No known drug allergies Medications Name Sig Start Date Stop Date Status Note LastModified by Organization Details LastModified Time Trimix (papaverin e--phental om-alprost 30mg-1mg-1 0mcg/ml intracaver nosal soln) inject 0.1 mL as directed 2017 active Not Available Not Available Not Avai lable Prescripti on - Prior Authorizat ion Request active Not Available Not Available Not Available cyclobenza mayra 10 mg tablet Take 1 tablet 3 times a day by oral route as needed. 2020 active Not Available Not Available Not Avai lable Medrol (Daniel) 4 mg tablets in a dose pack Take 1 dose pk by oral route. 2018 active Not Available Not Available Not Avai lable Lantus U-100 Insulin 100 unit/mL subcutaneo us solution As Directed active Frequency : as direct.;M edication Descripti on: insulin glargine; Dosage:as directed; Route:sub cutaneous ; refills:0 Not Available Not Available Not Available Glucophage 1,000 mg tablet Two times a day active Frequency : bid;Medic ation Descripti on: metformin ; Dosage:1; Route:ora l; refills:0 Not Available Not Available Not Available Lipitor 20 mg tablet Every night at bedtime active Frequency : qhs;Medic ation Descripti on: atorvasta tin; Dosage:1; Route:ora l; refills:0 Not Available Not Available Not Available Novolog U-100 Insulin aspart 100 unit/mL subcutaneo us solution As Directed active Frequency : as direct.;M edication Descripti on: insulin aspart; Dosage:as directed; Route:sub cutaneous ; refills:0 Not Available Not Available Not Available testostero ne cypionate 200 mg/mL intramuscu lar oil active Not Available Not Available Not Available [place] 7.5 mg-325 mg tablet Take 1 tablet every 6 hours by oral route as needed. 2022 active Not Available Not Available Not Avai lable BD Luer-Zain Syringe 3 mL 22 x 1 1/2 USE DIRECTED WITH TESTOSTER ONE 2019 active Not Available Not Available Not Avai lable Cialis 10 mg tablet active Medicatio n Descripti on: tadalafil ; Route:ora l; refills:0 Not Available Not Available Not Available aspirin active Medicatio n Descripti on: aspirin; refills:0 Not Available Not Available Not Available nortriptyl ine Bedtime active Frequency : hs;Medica tion Descripti on: nortripty line; Dosage:1; refills:0 Not Available Not Available Not Available telmisarta n active Not Available Not Available Not Available Vitals Date Recorded Body height Body mass index (BMI) Body weight Systolic blood pressure Diastolic blood pressure Provider Name and Address Organization Details Last Updated DateTime 01/03/2021 190.5 cm 29.9 kg/m2 080458.5 8 g 142 mm[Hg] 82 mm[Hg] Veronica Hernandez [facility] 11:39:09 Date Recorded Body height Body mass index (BMI) Body weight Provider Name and Address Organization Details Last Updated DateTime 01/06/2023 190.5 cm 28.7 kg/m2 730126.25 g Jennifer Oviedo [facility] 01/06/2023 14:15:39 Date Recorded Body height Body mass index (BMI) Body weight Systolic blood pressure Diastolic blood pressure Provider Name and Address Organization Details Last Updated DateTime 04/20/2023 190.5 cm 28.7 kg/m2 976746.2 5 g 140 mm[Hg] 82 mm[Hg] Veronica Hernandez [facility] 4 13:36:05 Date Recorded Body height Body mass index (BMI) Body weight Systolic blood pressure Diastolic blood pressure Provider Name and Address Organization Details Last Updated DateTime 07/20/2023 190.5 cm 28.7 kg/m2 410850. 25 g 134 mm[Hg] 78 mm[Hg] Jennifer Oviedo [facility] 4 13:24:47 Social History Question Answer Notes LastModified by Organizat ion Details LastModified Time Tobacco Smoking Status [facility]/05/2020 11:31:05 Marital Status [email or web address] Informatio n not available 05/18/2017 What Was The Date Of Your Most Recent Tobacco Screening? 10/04/2018 8 Information not available 05/03/2019 Has Tobacco Cessation Counseling Been Provided? Yes [email or web address] Information not available 05/18/2017 On What Date Was Tobacco Cessation Counseling Provided? 11/05/2020 apurdie Information not available 11/05/2020 Sex: Unknown Functional Status Question Answer Note LastModified by Organization D etails LastModified Time What is your level of alcohol consumption? None [email or web address] Information not available 05/18/2017 Mental Status None recorded. Family History Relationship Description Onset Age of this Age Resolved Age Notes LastModified by Organization Details LastModified Time Unspecified Relation Malignant neoplastic disease apurdie Not available 2020 11:30:21 Unspecified Relation Diabetes mellitus apurdie Not available 2020 11:30:31 Unspecified Relation Hypertensive disorder apurdie Not available 2020 11:30:37 Unspecified Relation Back problem apurdie Not available 10/15 11:30:42 Medical History Condition Response Diabetes Y Cancer Y Arthritis Y Hypertension Y High Cholesterol Y Thyroid Disorder Y Past Encounters Encounter ID Performer Location Encounter Start Date Encounter Closed Date Diagnosis/Indication Diagnosis SNOMED-CT Code Diagnosis ICD10 Code Diagnosis Note [id number] BORIS BELCHER MD [facility] [address] [place] [address] 05/18/2017 11:41:27 05/18/2017 17:23:47 Impotence of organic origin 666410725 N52.9 [id number] KAYLA ZULUAGA MD [facility] [address] [place] [address] 02/08/2018 10:03:44 02/08/2018 13:58:11 Cervical radiculopathy 49176895 M54.12 Time spent reviewing images, discussing the diagnosis and coordinati ng care: 30 min [id number] YAAKOV SCHERER MD NEUROLOGY [facility] [address] [place] [address] 02/26/2018 12:17:10 02/26/2018 14:33:18 Diabetic peripheral neuropathy 401221362 E11.40 Cervical radiculopathy 29487392 M54.12 [id number] KAYLA ZULUAGA MD NEUROSURG [facility] [address] [place] [address] 03/04/2018 09:09:22 03/04/2018 11:45:39 Cervical radiculopathy 13711321 M54.12 Thoracic radiculopathy 65729796 M54.14 [id number] KAYLA ZULUAGA MD NEUROSURG [facility] [address] [place] [address] 05/03/2018 10:12:03 05/03/2018 11:07:50 Postoperative care 920575115 Z48.89 [id number] KAYLA ZULUAGA MD NEUROSURG [facility] [address] [place] [address] 07/26/2018 08:49:03 07/27/2018 13:52:37 Spinal stenosis of lumbar region 71009220 M48.024 [id number] KAYLA ZULUAGA MD SURGERY SCHEDULE [address] [place] [address] 09/03/2018 13:48:20 09/03/2018 16:06:21 [id number] KAYLA ZULUAGA MD [facility] [address] [place] [address] 09/13/2018 10:19:15 09/13/2018 10:31:11 [id number] KAYLA ZULUAGA MD [facility] [address] [place] [address] 10/04/2018 08:34:10 10/05/2018 13:58:28 Postoperative care 027425108 Z48.89 [id number] KAYLA ZULUAGA MD [facility] [address] [place] [address] 12/06/2018 10:55:45 12/09/2018 12:16:11 Postoperative care [id number] Z48.89 [id number] KAYLA ZULUAGA MD [facility] [address] [place] [address] 05/02/2019 11:04:58 05/06/2019 10:16:27 Postoperative care 028022372 Z48.89 [id number] JASEN RACHEL-Cary [facility] [address] [place] [address] 11/05/2020 10:32:03 11/06/2020 08:15:06 Lumbar radiculopathy 327055908 M54.16 Mr. Marsh is a 65-year-ol d male with a history of an L3-4 and L4-5 laminectom y on 09/01/[address] Zuluaga. Patient presents today for discussion of new onset lumbar pain that started 8-9 months ago and is progressiv sudeep getting worse. Pain runs diffusely across the back and diffusely down both lower extremitie s from hip to knee on all aspects. Has not taken any medication s for the pain. Has not done physical therapy or pain management . Reviewed the case and imaging with Dr. Zuluaga.Calinu ssed multiple treatment options with the patient including 1 level laminectom y at L2-3 versus an L2 to iliac fusion to address the diffuse disease received. We cannot tell the patient with great certainty that the fusion would completely resolve his problems so we do feel that the laminectom y would help based on the severity of findings on the MRI. For this reason we ultimately decided that we would recommend just an L2-L3 laminectom y to start with the understand ing that he may need the L2 to iliac fusion in the future. The surgery was explained in length including benefits, risks, downtime, postop care. The patient understand s this and would like to schedule the procedure today. He knows to call if any questions and is happy with this plan. The patient was seen by myself and today Lumbar MRI on 08/04/20 at [facility]. He brought the disc with him.-Shows large disc herniation at L2-L3 with bilateral foraminal stenosis, worse on the left. Also shows disc disease throughout the lumbar,Wor se at L5-S1 [id number] KAYLA ZULUAGA MD SURGERY SCHEDULE [address] [place] [address] 12/12/2020 09:15:18 12/12/2020 11:05:16 [id number] K[facility]AG[facility] [address] [place] [address] 12/24/2020 12:36:47 12/28/2020 13:18:20 [id number] KAYLA ZULUAGA MD NEUROSURG [facility] [address] [place] [address] 01/03/2021 11:06:23 01/04/2021 09:56:19 Postoperative care [id number] Z48.89 [id number] GREGG PORRAS APRN NEUROSURG [facility] [address] [address] [address] [place] [address] 01/06/2023 13:20:39 01/07/2023 04:19:00 Lumbar radiculopathy 624477772 M54.16 Lumbar spondylosis 45574 0009 M47.896 Impairment of balance 38 5950308 R26.89 Cervical spondylosis 387 272416 M47.812 Cervical radiculopathy 98785267 M54.12 History of cervical spine fusion 5756038453 101 Z98.1 Poor manual dexterity 30 2878646 R29.898 [id number] KAYLA ZULUAGA MD [facility] [address] [place] [address] 04/20/2023 13:07:56 04/21/2023 04:20:18 Postoperative care 457950394 Z48.89 [id number] GREGG PORRAS APRN [facility] [address] [place] [address] 07/20/2023 13:07:26 07/21/2023 04:11:18 Lumbar radiculopathy 598508991 M54.16 Lumbar spondylosis 86774 0009 M47.896 History of cervical spine fusion 0800118137 101 Z98.1 Health Concerns Section Related Observation LastModified by Organization Detai ls LastModified Time None Recorded Concern Status LastModified by Organization Details LastModified Time None Recorded Advance Directives Directive None Recorded Payers Insurance Date Sequence Insurance Name Policy Number Policy Bae Covered Member ID Bae Member ID Guarantor Name 12/19/2021 1 [facility] [id number] Keily Marsh [id number] Will Marsh 07/17/2023 1 [place] Will Marsh [id number] Will Marsh 07/17/2023 2 [facility] (MEDICARE SUPPLEMENT) Will Marsh [id number] Will Marsh Notes Date Note Type Note Provider Name and Address Organization Details Recorded Time 01/03/2021 text/html Mr. Marsh is a 65-year-old gentleman status post L2-3 laminectomy extension on November 30, 2020. He is recovered from this, and has noticed some improvement in his lower extremity claudication. He continues to have urinary issues, which is been present since his previous surgery in August 2018, in which it durotomy occurred. He is pleased with his improvement at this time. KAYLA ZULUAGA MD [facility] [place], [address], [facility] 01/03/2021 12:00:01 01/06/2023 text/html Mr. Marsh is a 67-year-old male who returns to the office after last being seen 01/03/2021 following his L2-3 laminectomy on 11/30/[address] Zuluaga. He also has a history of a L3-4 and L4-[address] Zuluaga on 09/01/2018 GREGG PORRAS, BRAD [address] [place], [address], [facility] 02/20/2023 14:20:32 04/20/2023 text/html Mr. Marsh is a 68-year-old gentleman status post C3-C5 ACDF extension to previous C5-7. This was performed by myself on March 11, 2023. He presents today for his first postoperative visit. He seems to be doing quite well with good relief of his presenting symptoms. He does describe some lower extremity leg stiffness, especially in the morning with intermittent severe back pain. He has a history of a L2-3, L3-4 and L4-5 laminectomy. The L2-3 segment was performed last in November 2020. L3-4 and L4-5 was performed in August 2018. KAYLA ZULUAGA MD [address] [place], [address], [facility] 04/20/2023 14:05:35 07/20/2023 text/html Mr. Marsh is a 68-year-old man who returns to the office after last being seen 04/20/2023 following the extension of his previous C5-7 ACDF up to C3 by Dr. Zuluaga on 03/11/2023 for cervical cord compression. He reports he is doing well following that surgery and is now reporting low back and lower extremity symptoms which is actually what brought him back to the office prior to this last surgery. GREGG PORRAS, BRAD [address] [place], [address], [facility] 07/20/2023 15:40:55
== END 2024-07-28 23:59 | disposition home or self-care (01) ==
LOC: LAB.DROPOF 07-29 11:05
PROVIDERS: PCP Nurse Practitioner Family; Visit Provider Nurse Practitioner Family
DX: N40.1 Benign prostatic hyperplasia with lower urinary tract symptoms (principal); E11.9 Type 2 diabetes mellitus without complications; I10 Essential (primary) hypertension; E34.9 Endocrine disorder, unspecified; N31.9 Neuromuscular dysfunction of bladder, unspecified; N52.9 Male erectile dysfunction, unspecified; R33.9 Retention of urine, unspecified; Z79.4 Long term (current) use of insulin
CPT/HCPCS: 81001; 82043; 82570; 84156; 87086

== ENCOUNTER 2024-10-20 10:00 | Outpatient (CLI) | payer MEDICARE, SELFPAY ==
[2024-10-20 14:10] LABS: Albumin Level 4.5 g/dl (3.5-5.0); Chloride 94 mmol/L (98-107); Potassium 5.0 mmoL/L (3.5-5.1); Sodium 129 mmol/L (136-145)
[2024-10-20 14:13] LABS: Alanine Aminotransferase 36 U/L (12-78); Albumin/Globulin Ratio 2.0 (1.1-1.8); Alkaline Phosphatase 70 U/L (38-126); Anion Gap 13.0 mEq/L (5-15); Aspartate Amino Transferase 30 U/L (17-59); Bilirubin,Total 0.6 mg/dl (0.2-1.3); Blood Urea Nitrogen 10 mg/dl (9-20); Carbon Dioxide 27 mmol/L (22.0-30.0); Creatinine,Serum 0.70 mg/dl (0.66-1.25); Estimated Glomerular Filt Rate 112 ml/min (>60); GFR (African American) 136 ML/MIN (>60); Globulin 2.2 g/dL (1.3-3.2); Total Protein,Serum 6.7 g/dl (6.3-8.2)
[2024-10-20 14:14] LABS: Calcium 9.2 mg/dl (8.4-10.2); Glucose 73 mg/dl (74-100)
[2024-10-20 15:55] LABS: Hemoglobin A1C 6.1 % (4.0-6.0)
--- OUTSIDE RECORDS SUMMARY | 2024-10-21 11:27 | XMS_ITS | Clinical Summary ---
Author Organization [employer] ([place], [place], [place], [place]) Address [address] [place] [address] Care Team Providers Care Batch Tester Name Role Phone Tommie Barraza MD Primary Care Provider [phone] Allergies No known active allergies Medications ezetimibe (ZETIA) 10 mg tablet Take 1 tablet (10 mg total) by mouth nightly. 3 Active metFORMIN (GLUCOPHAGE) 1000 MG tablet Take 1 tablet (1,000 mg total) by mouth 2 (two) times daily. 3 Active nortriptyline (PAMELOR) 50 MG capsule Take 1 capsule (50 mg total) by mouth nightly. 3 Active lisinopriL (PRINIVIL,ZEST RIL) 40 MG tablet Take 1 tablet (40 mg total) by mouth 2 (two) times daily. 3 Active Tresiba FlexTouch U-100 100 unit/mL (3 mL) InPn Inject subcutaneously nightly 30 to 35 units . 3 Active testosterone cypionate (DEPOTESTOTERO NE CYPIONATE) 200 mg/mL injection 1 mL (200 mg total) every 14 (fourteen) days. 3 Active metoprolol succinate (TOPROL-XL) 25 MG 24 hr tablet Take 1 tablet (25 mg total) by mouth nightly. 3 Active NovoLOG Flexpen U-100 Insulin 100 unit/mL (3 mL) InPn Inject subcutaneously 30 units AM; 30 at lunch and 50 units at supper. 3 Active aspirin 81 MG EC tablet Take 1 tablet (81 mg total) by mouth nightly. Active Active Problems Problem Noted Date Diagnosed Date Anxiety 03/04/2023 03/04/2023 Back pain 03/04/2023 03/04/2023 Depression 03/04/2023 03/04/2023 Hyperlipidemia 03/04/2023 03/04/2023 Hypertension 03/04/2023 03/04/2023 Neurogenic bladder 03/04/2023 03/04/2023 Neuropathy due to secondary diabetes 03/04/2023 03/04/2023 Testosterone deficiency 03/04/2023 03/04/20 Family History Medical History Relation Name Comments Diabetes Father Liver cancer Father Hypertension Mother Relation Name Status Comments Father Mother Social History Tobacco Use Types Packs/Day Years Used Date Smoking Tobacco: Former Cigarettes 1 6 1 1977 Passive Smoke Exposure: Past Smokeless Tobacco: Never Alcohol Use Standard Drinks/Week Comments Yes 0 (1 standard drink = 0.6 oz pur e alcohol) 2-3 drinks a week Food Insecurity Answer Date Recorded Food run out past 12 months Not on file 03/16 Food did not last past 12 months Not on file 03/31/2023 Employment Answer Date Recorded Help finding and keeping a job Not on file 0 03/31/2023 Family and Community Support Answer Cuong e Recorded Help with Day to Day Activities Not on file 03/31/2023 Feeling Lonely or Isolated Not on file 03/31 Educational Attainment Answer Date Wilbert rded Speak language other than Norwegian at home Not on file 03/31/2023 Want help with school or training Not on file 03/31/2023 Substance Use Answer Date Recorded Used prescription meds for non-medical reasons N ot on file 03/31/2023 Used illegal drugs past 12 months Not on file 03/31/2023 Sex and Gender Information Value Date Recorded Sex Assigned at Male 09/10/2021 6:57 PM CDT Legal Sex Male 6:57 PM CDT Gender Identity Male 09/10/2021 6:57 PM CDT Sexual Orientation Not on file Last Filed Vital Signs Vital Sign Reading Time Taken Comments Blood Pressure 170/89 03/11/2023 4:15 PM EST Pulse 85 03/11/2023 4:15 PM EST Temperature 36.4 C (97.5 F) 03/11/2023 4:02 PM EST Respiratory Rate 16 03/11/2023 4:15 PM EST Oxygen Saturation 95% 03/11/2023 4:15 PM EST room air Inhaled Oxygen Concentration - - Weight 106.9 kg (235 lb 9.6 oz) 03/11/2023 9:01 AM EST Height 186.1 cm (6' 1.27 ) 03/11/2023 9:01 AM ES T Body Mass Index 30.86 03/11/2023 9:01 AM EST Plan of Treatment Health Maintenance Due Date Last Done Comments CT Colonography 1955 Colonoscopy 1955 Colorectal Cancer Screening 1955 Diabetic Kidney Health Evalu ation (KED) 1956 FOBT/FIT 1956 Fit-DNA (Cologuard) 1956 Sigmoidoscopy 1956 Diabetic Eye Exam 02/13/1966 Hepatitis C Screening 02/13/1974 DTAP/TDAP/TD VACCINES (1 - Tdap) 02/13/1975 Pneumococcal 50+ years (1 of 2 - PCV) 02/13/1975 Shingles Vaccine (Zoster) (1 of 2) 02/13/2006 Respiratory Syncytial Virus (RSV) Adult or (1 - Risk 60-74 years 1-dose series) 2016 Medicare Initial AWV G0438 06/15/2017 Hemoglobin A1C 03/04/2023 COVID-19 VACCINE ( season) 2023 02/06/2021, 04/23/2020, 03/22/2020 Tobacco Cessation Counseling and Screening (12+) 03/11/2024 03/11/2023 Falls Risk Screening 03/16/2024 Influenza Vaccine (#1) 2024 Medical Devices Implanted Type Area Judicial Clerk Device Identifier Shelf Expiration Date Model / Serial / Lot Bone Vivigen Formable Sm Bl-1600-001 - [id number] Implanted:Qty : 1 on 03/11/2023 by Dionicio Zuluaga MD at [facility] IMPLANTS N/A: Spine Cervical LIFENET:LIFENET TRANSPLANT SRV 02/24/2024 BL-1600-0 [id number] / Cage Eit Cif H 7mm 8 L [id number] - [id number] Implanted:Qty : 1 on 03/11/2023 by Dionicio Zuluaga MD at [facility] IMPLANTS N/A: Spine Cervical J &J:DEPUY:DEPUY SPINE 10/13/2025 [id number] / / [id number] Cage Eit Cif H 7mm 8 L [id number] - [id number] Implanted:Qty : 1 on 03/11/2023 by Dionicio Zuluaga MD at [facility] IMPLANTS N/A: Spine Cervical J &J:DEPUY:DEPUY SPINE 10/13/2025 [id number] / / [id number] Plt Ant Skyln Hybrd Lvl3 60mm 1867-05-060 - [id number] Implanted:Qty : 1 on 03/11/2023 by Dionicio Zuluaga MD at [facility] IMPLANTS N/A: Spine Cervical J &J:DEPUY:DEPUY SPINE 03-0 60 / 03-0 60 / Scr Skyln Vari-Ovsz 16mm 54-016 - [id number] Implanted:Qty : 2 on 03/11/2023 by Dionicio Zuluaga MD at [facility] IMPLANTS N/A: Spine Cervical J &J:DEPUY:DEPUY SPINE 854-0 16 / 54-0 16 / Scr Skyln Vari Sd 16mm 1867-50-016 - [id number] Implanted:Qty : 4 on 03/11/2023 by Dionicio Zuluaga MD at [facility] IMPLANTS N/A: Spine Cervical J &J:DEPUY:DEPUY SPINE 50-0 16 / 50-0 16 / Scr Skyln Vari Sd 18mm 1867-50-018 - [id number] Implanted:Qty : 2 on 03/11/2023 by Dionicio Zuluaga MD at [facility] IMPLANTS N/A: Spine Cervical J &J:DEPUY:DEPUY SPINE 850-0 18 / 50-0 18 / Insurance MEDICARE PART A B SUPP [facility] SUPP Care Teams Batch Tester Relationship Specialty Start Date End Date Tommie Barraza MD PCP - General Family Medicine 03/05/23
--- OUTSIDE RECORDS SUMMARY | 2024-10-21 11:27 | XMS_ITS | Referral Summary ---
Author Organization [employer] ([place], [place], [place], [place]) Address [address] [place] [address] Care Team Providers Care Ssn/Ssbn Weapons Equipment Operator Name Role Phone Tommie Barraza MD Primary Care Provider [phone] Allergies No known active allergies Medications ezetimibe [...] diabetes 03/04/2023 03/04/2023 Testosterone deficiency 03/04/2023 03/04/20 Social History Tobacco Use Types Packs/Day Years Used Date Smoking Tobacco: Former Cigarettes 1 1977 Passive Smoke Exposure: Past Smokeless [...] Date Wilbert rded Speak language other than Cymraes at home Not on file 03/31/2023 Want [...] 03/11/2023 9:01 AM EST Plan of Treatment Not on file Medical Devices Implanted Type Area Jogger Operator Device Identifier Shelf Expiration Date Model / Serial / Lot Bone Vivigen Formable Bl-1600-001 - [id number] Implanted:Qty : 1 on 03/11/2023 by Dionicio Zuluaga MD at [facility] IMPLANTS N/A: Spine Cervical LIFENET:LIFENET TRANSPLANT SRV 02/24/2024 BL-1600-0 01 / [id number] / Cage Eit Cif H 7mm 8 L [id number] - [id number] Implanted:Qty : 1 on 03/11/2023 by Dionicio Zuluaga MD at [facility] IMPLANTS N/A: Spine Cervical J &J:DEPUY:DEPUY SPINE 10/13/2025 [id number] / / [id number] Cage Eit Cif H 7mm 8 L [id number] - [id number] Implanted:Qty : 1 on 03/11/2023 by Dionicio Zuluaga MD at [facility] IMPLANTS N/A: Spine Cervical J &J:DEPUY:DEPUY SPINE 10/13/2025 [id number] / / [id number] Plt Ant Skyln Hybrd Lvl3 60mm 1867-05-200 - [id number] Implanted:Qty : 1 on 03/11/2023 by Dionicio Zuluaga MD at [facility] IMPLANTS N/A: Spine Cervical J &J:DEPUY:DEPUY SPINE 0 60 / 0 60 / Scr Skyln Vari-Ovsz 16mm 016 - [id number] Implanted:Qty : 2 on 03/11/2023 by Dionicio Zuluaga MD at [facility] IMPLANTS N/A: Spine Cervical J &J:DEPUY:DEPUY SPINE 0 16 / 16 / Scr Skyln Vari Sd 16mm 1868-50-016 - [id number] Implanted:Qty : 4 on 03/11/2023 by Dionicio Zuluaga MD at [facility] IMPLANTS N/A: Spine Cervical J &J:DEPUY:DEPUY SPINE 50-0 16 / 50-0 16 / Scr Skyln Vari Sd 18mm 1867-50-018 - [id number] Implanted:Qty : 2 on 03/11/2023 by Dionicio Zuluaga MD at [facility] IMPLANTS N/A: Spine Cervical J &J:DEPUY:DEPUY SPINE 50-0 18 / 0 18 / Insurance MEDICARE PART A B [facility] SU[facility] Care Teams Ssn/Ssbn Weapons Equipment Operator Relationship Specialty Start Date End Date Tommie Barraza MD PCP - General Family Medicine 03/05/23
== END 2024-10-20 23:59 | disposition home or self-care (01) ==
LOC: LAB.DROPOF 10-21 11:22
PROVIDERS: PCP Nurse Practitioner Family; Visit Provider Nurse Practitioner Family
DX: E11.9 Type 2 diabetes mellitus without complications (principal); R41.3 Other amnesia; Z79.4 Long term (current) use of insulin
CPT/HCPCS: 80053; 83036

== ENCOUNTER 2024-11-18 09:30 | Outpatient (CLI) | payer MEDICARE, SELFPAY ==
[2024-11-18 14:06] LABS: Chloride 99 mmol/L (98-107); Potassium 5.0 mmoL/L (3.5-5.1); Sodium 131 mmol/L (136-145)
[2024-11-18 14:09] LABS: Anion Gap 13.0 mEq/L (5-15); Blood Urea Nitrogen 11 mg/dl (9-20); Calcium 9.3 mg/dl (8.4-10.2); Carbon Dioxide 24 mmol/L (22.0-30.0); Creatinine,Serum 0.70 mg/dl (0.66-1.25); Estimated Glomerular Filt Rate 112 ml/min (>60); GFR (African American) 136 ML/MIN (>60); Glucose 102 mg/dl (74-100)
--- OUTSIDE RECORDS SUMMARY | 2024-11-21 09:52 | XMS_ITS | Clinical Summary ---
Author Organization [employer] ([place], [place], [place], [place]) Address [address] [place] [address] Care Team Providers Care Threat Monitoring Analyst Name Role Phone Tommie Barraza MD Primary Care Provider [phone] Allergies No known active allergies Medications ezetimibe [...] Date Wilbert rded Speak language other than Montenegrin at home Not on file 03/31/2023 Want [...] Initial AWV [id number] 06/15/2017 Hemoglobin A1C 03/04/2023 Tobacco Cessation Counseling and Screening (12+) 03/11/2024 03/11/2023 Falls Risk Screening 03/16/2024 COVID-19 VACCINE ( season) 2024 02/06/2021, 04/23/2020, 03/22/2020 Influenza Vaccine (#1) 2024 Medical Devices Implanted Type Area Finishing Technician Device Identifier Shelf Expiration Date Model / Serial / Lot Bone Vivigen Formable Sm Bl-1600-001 - [id number] Implanted:Qty : 1 on 03/11/2023 by Dionicio Zuluaga MD at [facility] IMPLANTS N/A: Spine Cervical LIFENET:LIFENET TRANSPLANT SRV 02/24/2024 BL-1600-0 [id number] / Cage Eit Cif H 7mm 8 L [id number] - [id number] Implanted:Qty : 1 on 03/11/2023 by Dionicio Zuluaga MD at [facility] IMPLANTS N/A: Spine Cervical J &J:DEPUY:DEPUY SPINE 10/13/2025 [id number] / / [id number] Cage Eit Cif H 7mm 8 L [id number] - [id number] Implanted:Qty : 1 on 03/11/2023 by Dionicio Zuluaga MD at [facility] IMPLANTS N/A: Spine Cervical J &J:DEPUY:DEPUY SPINE 10/13/2025 [id number] / / [id number] Plt Ant Skyln Hybrd Lvl3 60mm 1867-05-060 - [id number] Implanted:Qty : 1 on 03/11/2023 by Dionicio Zuluaga MD at [facility] IMPLANTS N/A: Spine Cervical J &J:DEPUY:DEPUY SPINE 03-0 60 / 03-0 60 / Scr Skyln Vari-Ovsz 16mm 54-016 - [id number] Implanted:Qty : 2 on 03/11/2023 by Dionicio Zuluaga MD at [facility] IMPLANTS N/A: Spine Cervical J &J:DEPUY:DEPUY SPINE 854-0 16 / 54-0 16 / Scr Skyln Vari Sd 16mm 1867-50-016 - [id number] Implanted:Qty : 4 on 03/11/2023 by Dionicio Zuluaga MD at [facility] IMPLANTS N/A: Spine Cervical J &J:DEPUY:DEPUY SPINE 50-0 16 / 50-0 16 / Scr Skyln Vari Sd 18mm 1867-50-018 - [id number] Implanted:Qty : 2 on 03/11/2023 by Dionicio Zuluaga MD at [facility] IMPLANTS N/A: Spine Cervical J &J:DEPUY:DEPUY SPINE 850-0 18 / 50-0 18 / Insurance MEDICARE PART A B SUPP [facility] SUPP Care Teams Threat Monitoring Analyst Relationship Specialty Start Date End Date Tommie Barraza MD PCP - General Family Medicine 03/05/23
--- OUTSIDE RECORDS SUMMARY | 2024-11-21 09:52 | XMS_ITS | Referral Summary ---
Author Organization [employer] ([place], [place], [place], [place]) Address [address] [place] [address] Care Team Providers Care Experimental Rocketsled Mechanic Name Role Phone Tommie Barraza MD Primary Care Provider [phone] Allergies No known active allergies Medications ezetimibe [...] Date Wilbert rded Speak language other than Central African at home Not on file 03/31/2023 Want [...] on file Medical Devices Implanted Type Area Ceo Ziff Davis Device Identifier Shelf Expiration Date Model / Serial / Lot Bone Vivigen Formable Bl-1600-001 - [id number] Implanted:Qty : 1 on 03/11/2023 by Dionicio Zuluaga MD at [facility] IMPLANTS N/A: Spine Cervical LIFENET:LIFENET TRANSPLANT SRV 02/24/2024 BL-1600-0 01 / [id number] / Cage Eit Cif H 7mm 8 L [id number] - [id number] Implanted:Qty : 1 on 03/11/2023 by Dionicio Zuluaga MD at [facility] IMPLANTS N/A: Spine Cervical J &J:DEPUY:DEPUY SPINE 10/13/2025 [id number] / / [id number] Cage Eit Cif H 7mm 8 L [id number] - [id number] Implanted:Qty : 1 on 03/11/2023 by Dionicio Zuluaga MD at [facility] IMPLANTS N/A: Spine Cervical J &J:DEPUY:DEPUY SPINE 10/13/2025 [id number] / / [id number] Plt Ant Skyln Hybrd Lvl3 60mm 1867-05-200 - [id number] Implanted:Qty : 1 on 03/11/2023 by Dionicio Zuluaga MD at [facility] IMPLANTS N/A: Spine Cervical J &J:DEPUY:DEPUY SPINE 0 60 / 0 60 / Scr Skyln Vari-Ovsz 16mm 016 - [id number] Implanted:Qty : 2 on 03/11/2023 by Dionicio Zuluaga MD at [facility] IMPLANTS N/A: Spine Cervical J &J:DEPUY:DEPUY SPINE 0 16 / 16 / Scr Skyln Vari Sd 16mm 1868-50-016 - [id number] Implanted:Qty : 4 on 03/11/2023 by Dionicio Zuluaga MD at [facility] IMPLANTS N/A: Spine Cervical J &J:DEPUY:DEPUY SPINE 50-0 16 / 50-0 16 / Scr Skyln Vari Sd 18mm 1867-50-018 - [id number] Implanted:Qty : 2 on 03/11/2023 by Dionicio Zuluaga MD at [facility] IMPLANTS N/A: Spine Cervical J &J:DEPUY:DEPUY SPINE 50-0 18 / 0 18 / Insurance MEDICARE PART A B [facility] SUPP Care Teams Experimental Rocketsled Mechanic Relationship Specialty Start Date End Date Tommie Barraza MD PCP - General Family Medicine 03/05/23
== END 2024-11-18 23:59 ==
LOC: LAB.DROPOF 11-21 09:46
PROVIDERS: PCP Nurse Practitioner Family; Visit Provider Nurse Practitioner Family
DX: E87.1 Hypo-osmolality and hyponatremia (principal)
CPT/HCPCS: 80048

== ENCOUNTER 2024-12-05 16:45 | Emergency (ER) | payer MEDICARE, SELFPAY ==
[2024-12-05] VITALS (9 sets, daily range): BP systolic 137–162; BP diastolic 75–96; PULSE 56–96; RESP 8–19; TEMP 37–37.1; O2SAT 96–99; BMI 29.5
--- NOTE | 2024-12-05 16:52 | ECG_ITS ---
APPROVED REPORT Exam: Resting ECG HR:95 bpm ECG Measurements Heart Rate 95 AXES MS 156 P 267 QRSd 101 QRS -72 QT 336 T 68 QTc 389 Conclusion SINUS RHYTHM LEFT ANTERIOR FASCICULAR BLOCK [QRS AXIS <= -45, QR IN I, RS IN II] ABNORMAL ECG UNCONFIRMED REPORT Normal sinus rhythm. No ST elevation or depression. Electronically signed by : ADRIANE GENTILE, 12/05/2024 23:54:44
--- NOTE | 2024-12-05 16:56 | XR_ITS ---
PROCEDURE INFORMATION: Exam: XR Chest Exam date and time: 12/05/2024 5:34 PM Age: 69 years old Clinical indication: Shortness of breath; Additional info: Short of breath TECHNIQUE: Imaging protocol: Radiologic exam of the chest. Views: 1 view. COMPARISON: CR XR CHEST PORTABLE 12/19/2023 1:06 PM FINDINGS: Lungs: Unremarkable. No consolidation. Pleural spaces: Unremarkable. No pleural effusion. No pneumothorax. Heart/Mediastinum: Unremarkable. No cardiomegaly. Bones/joints: Unremarkable. IMPRESSION: No acute findings.
--- NOTE | 2024-12-05 17:01 | HMH.EDCP ---
Discharge Plan Disposition Patient Disposition: Home, Self-Care Condition: Good Prescriptions Prescriptions: No Action Fiasp FlexTouch U-100 Insulin 100 unit/mL (3 mL) insulin pen 1 sliding scale dose SQ TID 30 Days Qty: 15 11RF tramadol 50 mg tablet PO cefdinir 300 mg capsule PO aspirin 81 mg tablet,delayed release (DR/EC) 81 mg PO DAILY ezetimibe 10 mg tablet 10 mg PO HS Qty: 90 3RF metoprolol succinate 100 mg tablet extended release 24 hr 100 mg PO DAILY Qty: 90 2RF irbesartan 150 mg tablet 150 mg PO DAILY Qty: 90 3RF clopidogrel [Plavix] 75 mg tablet 75 mg PO DAILY Qty: 90 3RF cholecalciferol (vitamin D3) 50 mcg (2,000 unit) capsule 50 mcg PO DAILY Qty: 90 3RF mecobalamin (vitamin B12) 1,000 mcg tablet,chewable 1,000 mcg PO DAILY Qty: 90 3RF insulin degludec 100 unit/mL (3 mL) insulin pen 35 unit SQ HS Qty: 15 11RF (DME) Monoject Safety Syringes 3 mL 23 gauge x 1 syringe See Rx Instructions .Route Qty: 500 0RF Rx Instructions: for use with biweekly testosterone injections metformin 1,000 mg tablet See Rx Instructions .ROUTE .COMPLEX Qty: 180 3RF Dose Instruction: Take 1 tablet by mouth twice daily Rx Instructions: Take 1 tablet by mouth twice daily nortriptyline 50 mg capsule 50 mg PO DAILY Qty: 90 3RF testosterone cypionate 200 mg/mL oil 200 mg IM Q2W Qty: 2 0RF (DME) pen needle, diabetic 31 gauge x 3/16 needle See Rx Instructions .ROUTE .MEDSUPPLY Qty: 1200 0RF Rx Instructions: QID nitroglycerin 0.4 mg tablet, sublingual 0.4 mg sublingual Q5M PRN (Reason: chest pain) Qty: 20 0RF Rx Instructions: do not exceed 3 doses per episode GO TO ER on 3rd dose Referrals Follow up/Referrals: Dionicio Zaragoza MD [Staff Physician, Cardiology] - See instructions Morenita De Jesus APRN [Primary Care Provider, Family Practice] - See instructions Clinical Impressions Clinical Impression: Chest pain Instructions Patient Instructions: DI for Chest Pain Print Language Print Language: Tristanian Discharge ED Provider: Karsner,Clint HPI General Chief Complaint: Chest Pain Stated Complaint: Chest Pain Time Seen by Provider: 12/05/24 16:52 History of Present Illness HPI narrative: 69-year-old male presents today with complaint of chest pain that started at 10 AM. He says at 1330 he took a nitro and that helped. The pain returned at 1530. He says the pain is on the left side of his chest and goes down his left arm and causes tingling. He has no shortness of air. He does have some elevated heart rate today on the monitor. He does take Plavix and has 1 stent in his maker. His radio installer automobile is Dr. Zaragoza. He says last time he felt like this he got his last stent. He has no fevers, chills, nausea or vomiting. MD complaint: chest pain Onset (ago): hour(s) Duration: intermittent Pain location: left chest Related Data Home Medications ?Medication ?Instructions ?Recorded ?Confirmed aspirin 81 mg tablet,delayed [address] [facility] 03/26/17 11/18/24 release cefdinir 300 mg capsule mg PO 10/20/24 11/18/24 tramadol 50 mg tablet mg PO 10/20/24 11/18/24 Previous Rx's ?Medication ?Instructions ?Recorded ezetimibe 10 mg tablet 10 mg PO HS Cholesterol #90 tabs 10/29/23 clopidogrel 75 mg tablet (Plavix) 75 mg PO DAILY #90 tabs 03/28/24 irbesartan 150 mg tablet 150 mg PO DAILY #90 tabs 03/28/24 metoprolol succinate 100 mg 100 mg PO DAILY #90 tabs 03/28/24 tablet,extended release 24 hr insulin aspart 1 sliding scale dose SQ TID 30 04/11/24 (niacinamide)(U-100) 100 unit/mL(3 days #15 mL mL) subcutaneous pen (Fiasp FlexTouch U-100 Insulin) cholecalciferol (vitamin D3) 50 50 mcg PO DAILY #90 caps 04/12/24 mcg (2,000 unit) capsule mecobalamin (vitamin B12) 1,000 1,000 mcg PO DAILY #90 tabs 04/12/24 mcg chewable tablet insulin degludec 100 unit/mL (3 35 unit (0.35 mL) SQ HS #15 mL 02/03/25 mL) subcutaneous pen syringe with needle, safety 3 mL #500 ea 09/26/24 23 gauge x 1 (Monoject Safety Syringes) metformin 1,000 mg tablet See Rx Instructions .Route 10/21/24 .COMPLEX #180 tabs nortriptyline 50 mg capsule 50 mg PO DAILY #90 caps 11/21/24 testosterone cypionate 200 mg/mL 200 mg IM Q2W #2 mL 11/24/24 intramuscular oil pen needle, diabetic 31 gauge x #1,200 ea 11/26/24 3/16 nitroglycerin 0.4 mg sublingual 0.4 mg sublingual Q5M PRN chest 11/28/24 tablet pain #20 tabs Allergies Allergy/AdvReac Type Severity Reaction Status Date / Time amlodipine AdvReac Severe leg Verified 11/18/24 09:22 swelling Gucrpue-TIH-CbI Reductase AdvReac Mild myalgia Verified 11/18/24 09:22 Inhibitor [facility] Disclaimer: The information contained in this section may have been updated after the patient was seen, as this information can be updated by other users. 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 Hip replacement planned History of chest pain Hyperlipidemia Hypertension Skin cancer Sprain of left foot Left foot pain Pain due to onychomycosis of toenail Cellulitis Cellulitis, toe Diabetic foot ulcer Ulcer Surgical History (Updated 10/20/24 @ 09:34 by OSEI Salazar) History of suprapubic catheter History of cardiac cath History of right hip replacement History of colonoscopy History of hip replacement Amputated toe History of back surgery History of neck surgery Family History Other No significant family history Social History Smoking Status: Never smoker second hand exposure: No alcohol intake: current alcohol intake frequency: 0-2 drinks per day substance use type: denies use current occupational status: retired Travel in the last 8 weeks?: None household members: spouse housing: house caffeine: Yes Have you lived/traveled outside US in past 30 days?: No Contact w/someone who lives/traveled outside US past 30 days?: No Exposure to someone with infectious disease in past 14 days?: No Do you have a fever (greater than 100.4 F or 38 C)?: No Have you tested positive for COVID-19?: No Exposed to someone with COVID-19 in past 14 days?: No Do you have a sore throat?: No Do you have a cough?: No Do you have any weakness?: No Do you have any diarrhea?: No Are you experiencing any unusual bleeding?: No Do you have any muscle aches/pain?: No Do you have any abdominal pain?: No Are you experiencing loss of taste or smell?: No Other Medical History Have you received the Flu Vaccine for this season: No Have you received the Pneumonia Vaccine: No ROS Obtained: Yes Systems reviewed as appropriate & no additional complaints except as documented Constitutional Constitutional: Reports as per HPI Physical Exam General General appearance: alert and in no apparent distress Head Head exam: normocephalic Eye Eye exam: Present normal appearance and PERRL ENT ENT exam: Present normal exam and mucous membranes moist Neck Neck exam: Present trachea midline Chest Chest inspection: Present symmetric chest wall rise Respiratory Respiratory exam: Present normal lung sounds bilaterally Cardiovascular Cardiovascular exam: Present regular rate, normal rhythm, normal heart sounds, +S1 and +S2 Abdominal Exam Abdominal exam: Present soft and normal bowel sounds Extremities Exam Extremities exam: Present full ROM and normal capillary refill Back Exam Back exam: Present full ROM Neurological Exam Neurological exam: Present alert, oriented X3 and normal gait Psychiatric Psychiatric exam: Present normal affect and normal mood Skin Skin exam: Present warm and dry HEART Score HEART Score HEART Score assessment performed?: Yes History (anamnesis): Slightly suspicious ECG: Normal Age: >65 years Risk factors: 3 or more risk factors Troponin: </= normal limit HEART Score: 4 Critical Care Critical Care Time Critical Care Time: No Medical Decision Making Franck Inquiry Pt receiving controlled substance: No Franck was queried for this patient: No Vital Signs Vital Signs: 12/05/24 16:59 12/05/24 17:00 12/05/24 17:30 Temperature 98.6 F Temperature Source Oral Pulse Rate 96 H 85 Pulse Rate [Right Radial] 94 H Respiratory Rate 18 12 16 Blood Pressure 157/85 H 159/93 H Blood Pressure [Right Arm] 157/85 H Blood Pressure Mean [Right Arm] 109 Blood Pressure Source [Right Arm] Automatic Cuff Blood Pressure Position [Right Arm] Sitting 02 Sat by Pulse Oximetry 99 97 96 Oxygen Delivery Method Room Air 12/05/24 18:00 12/05/24 19:30 12/05/24 20:00 Temperature Temperature Source Pulse Rate 83 77 Pulse Rate [Right Radial] Respiratory Rate 12 19 17 Blood Pressure 137/87 162/88 H 150/75 H Blood Pressure [Right Arm] Blood Pressure Mean [Right Arm] Blood Pressure Source [Right Arm] Blood Pressure Position [Right Arm] 02 Sat by Pulse Oximetry 96 98 Oxygen Delivery Method 12/05/24 20:30 12/05/24 21:00 12/05/24 21:12 Temperature 98.8 F Temperature Source Pulse Rate 56 L 56 L Pulse Rate [Right Radial] Respiratory Rate 8 L 17 17 Blood Pressure 156/88 H 153/96 H 153/96 H Blood Pressure [Right Arm] Blood Pressure Mean [Right Arm] Blood Pressure Source [Right Arm] Blood Pressure Position [Right Arm] 02 Sat by Pulse Oximetry 99 Oxygen Delivery Method Room Air Lab Data Labs: Lab Results 12/05/24 16:54: WBC 8.7, RBC 5.65, Hgb 15.3, Hct 47.0, MCV 83.2, MCH 27.1, MCHC 32.6, RDW 13.7, Plt Count 275, MPV 9.1, Neut % (Auto) 58.3, Lymph % (Auto) 30.0, [place] % (Auto) 7.1, Eos % (Auto) 3.0, Baso % (Auto) 0.7, Neut # (Auto) 5.1, Lymph # (Auto) 2.6, [place] # (Auto) 0.6, Eos # (Auto) 0.3, Baso # (Auto) 0.1, D-Dimer 0.63 H, Sodium 129 L, Potassium 4.4, Chloride 91 L, Carbon Dioxide 26, Anion Gap 16.4 H, BUN 9, Creatinine 0.90, Estimated Creat Clear 104, Estimated GFR 84, Est GFR ( Amer) 102, Glucose 118 H, Calcium 9.2, Magnesium 1.4 L, Total Bilirubin 0.8, AST 42, ALT 43, Alkaline Phosphatase 69, Troponin I < 0.01, NT-Pro-B Natriuret Pep < 20.0, Total Protein 7.4, Albumin 4.8, Globulin 2.6, Albumin/Globulin Ratio 1.8, Lipase 111 12/05/24 19:41: Troponin I < 0.01 12/05/24 16:54 12/05/24 16:54 Response Orders (Tests/Meds): ED MEDICATIONS Discontinued Medications Generic Name Dose Route Start Last Admin Trade Name Meaghan PRN Reason Stop Dose Admin Aspirin 325 mg 12/05/24 16:56 12/05/24 17:09 Aspirin 325mg Tablet PO 12/05/24 16:57 325 mg ONCE ONE Administration Magnesium Sulfate 2 gm in 50 mls @ 50 mls/hr 12/05/24 17:46 12/05/24 19:59 Magnesium Sulfate 2gm/50ml Premix IV 12/05/24 18:45 Infused ONCE ONE Infusion Sodium Chloride 1,000 mls @ 999 mls/hr 12/05/24 17:47 12/05/24 19:58 Sod Chlor 0.9% 1000ml Bag IV 12/05/24 18:47 Infused .Q1H1M ONE Infusion Morphine Sulfate 4 mg 12/05/24 16:56 12/05/24 17:16 Morphine 4mg/Ml Syringe IV 12/05/24 16:57 Not Given ONCE ONE Ondansetron HCl 4 mg 12/05/24 16:56 12/05/24 17:16 Ondansetron 4mg/2ml Vial IV 12/05/24 16:57 Not Given ONCE ONE ORDERS Category Date Time Status Chest XR -- portable [XR chest portable] Stat Exams 12/05/24 16:56 Completed BNP [NT Pro Brain Natriuretic Pep.] Stat Lab 12/05/24 16:54 Completed CBC [Complete Blood Count Auto Diff] Stat Lab 12/05/24 16:54 Completed Comprehensive Metabolic Panel Stat Lab 12/05/24 16:54 Completed D-Dimer Stat Lab 12/05/24 16:54 Completed Lipase Stat Lab 12/05/24 16:54 Completed Magnesium Stat Lab 12/05/24 16:54 Completed Trop I [Troponin I] Stat Lab 12/05/24 16:54 Completed Troponin I Q3H Lab 12/05/24 19:41 Completed MDM Narrative Medical Decision Narrative: patient is a 69-year-old male presenting to the emergency department for evaluation of chest pain. Patient is hemodynamically stable and nontoxic-appearing upon arrival, afebrile. Differential diagnosis includes ACS, angina among others. Workup will be conducted with hematologic labs, specific imaging. Initial inventions include analgesics. Initial workup reviewed by me hematologic labs are remarkable for normal troponins x 2, mag was 1.4 which I did replace here in the ED, other labs are nonactionable at this time. Chest x-ray read by myself showed nothing acute. The radiologist did read nothing acute as well. Upon repeat evaluation patient has improved with symptoms. Patient and I discussed following up with cardiology and PCP for further treatment and management of symptoms. He likely needs a further workup concerning his symptoms.
[2024-12-05] MEDS: ASPIRIN 325MG TABLET 325 MG PO (17:09)
[2024-12-05 17:11] LABS: Hematocrit 47.0 % (42.0-52.0); Hemoglobin 15.3 g/dL (14.1-18.0); Immature Granulocytes % 0.9 %; Mean Corpuscular HGB Conc 32.6 g/dL (31.8-35.4); Mean Corpuscular Hemoglobin 27.1 pg (27.0-31.2); Mean Corpuscular Volume 83.2 fl (80-94); Nucleated Red Blood Cells % 0 %; Platelet Count 275 K/mm3 (142-424); Red Blood Count 5.65 M/mm3 (4.60-6.20); Red Cell Distribution Width-SD 41.4 fL; White Blood Count 8.7 K/mm3 (4.8-10.8)
[2024-12-05 17:26] LABS: Albumin Level 4.8 g/dl (3.5-5.0); Chloride 91 mmol/L (98-107)
[2024-12-05 17:27] LABS: Potassium 4.4 mmoL/L (3.5-5.1); Sodium 129 mmol/L (136-145)
[2024-12-05 17:29] LABS: Alanine Aminotransferase 43 U/L (12-78); Albumin/Globulin Ratio 1.8 (1.1-1.8); Alkaline Phosphatase 69 U/L (38-126); Anion Gap 16.4 mEq/L (5-15); Aspartate Amino Transferase 42 U/L (17-59); Bilirubin,Total 0.8 mg/dl (0.2-1.3); Blood Urea Nitrogen 9 mg/dl (9-20); Carbon Dioxide 26 mmol/L (22.0-30.0); Creatinine Clearance Estimated 104 mL/min (50-200); Creatinine,Serum 0.90 mg/dl (0.66-1.25); Estimated Glomerular Filt Rate 84 ml/min (>60); GFR (African American) 102 ML/MIN (>60); Globulin 2.6 g/dL (1.3-3.2); Lipase 111 U/L (23-300); Total Protein,Serum 7.4 g/dl (6.3-8.2)
[2024-12-05 17:30] LABS: Calcium 9.2 mg/dl (8.4-10.2); Glucose 118 mg/dl (74-100); Magnesium 1.4 mg/dl (1.6-2.3)
[2024-12-05 17:34] LABS: D-Dimer 0.63 ug/mL (0.0-0.5)
[2024-12-05 17:39] LABS: NT Pro Brain Natriuretic Pep. < 20.0 pg/mL (0-125)
[2024-12-05 17:53] LABS: Troponin I < 0.01 ng/ml (0.00-0.034)
[2024-12-05] MEDS: 0.9 % SODIUM CHLORIDE 1000ML 1,000 ML 999 ML IV (17:57)
[2024-12-05] MEDS: MAGNESIUM SULFATE IN WATER 2 GM/50 ML PIGGYBACK IV (17:58)
[2024-12-05 20:41] LABS: Troponin I < 0.01 ng/ml (0.00-0.034)
== END 2024-12-05 21:18 | disposition home or self-care (01) ==
PROVIDERS: Nurse Practitioner; Emergency Provider Student in an Organized Health Care Education/Training Program; PCP Nurse Practitioner Family
DX: R07.9 Chest pain, unspecified (principal); I44.4 Left anterior fascicular block; E83.42 Hypomagnesemia; E87.1 Hypo-osmolality and hyponatremia; I10 Essential (primary) hypertension; E78.5 Hyperlipidemia, unspecified; Z86.79 Personal history of other diseases of the circulatory system; Z95.5 Presence of coronary angioplasty implant and graft
CPT/HCPCS: 71045; 80053; 83690; 83735; 83880; 84484; 85025; 85378; 93005; 96365; 96375; 99285; J3475; J7030

== ENCOUNTER 2024-12-07 10:33 | Outpatient (CLI) | payer MEDICARE, SELFPAY ==
--- OUTSIDE RECORDS SUMMARY | 2024-12-07 10:38 | XMS_ITS | Referral Summary ---
Author Organization [employer] ([place], [place], [place], [place]) Address [address] [place] [address] Care Team Providers Care Correctional Facility Psychiatrist Name Role Phone Tommie Barraza MD Primary Care Provider [phone] Allergies No known active allergies Medications ezetimibe [...] Date Wilbert rded Speak language other than Italian at home Not on file 03/31/2023 Want [...] on file Medical Devices Implanted Type Area Vamp Liner Device Identifier Shelf Expiration Date Model / Serial / Lot Bone Vivigen Formable Bl-1600-001 - [id number] Implanted:Qty : 1 on 03/11/2023 by Dionicio Zuluaga MD at [facility] IMPLANTS N/A: Spine Cervical LIFENET:LIFENET TRANSPLANT SRV 02/24/2024 BL-1600-0 01 / [id number] / Cage Eit Cif H 7mm 8 L [id number] - [id number] Implanted:Qty : 1 on 03/11/2023 by Dionicio Zuluaga MD at [facility] IMPLANTS N/A: Spine Cervical J &J:DEPUY:DEPUY SPINE 10/13/2025 [id number] / / [id number] Cage Eit Cif H 7mm 8 L [id number] - [id number] Implanted:Qty : 1 on 03/11/2023 by Dionicio Zuluaga MD at [facility] IMPLANTS N/A: Spine Cervical J &J:DEPUY:DEPUY SPINE 10/13/2025 [id number] / / [id number] Plt Ant Skyln Hybrd Lvl3 60mm 1867-05-200 - [id number] Implanted:Qty : 1 on 03/11/2023 by Dionicio Zuluaga MD at [facility] IMPLANTS N/A: Spine Cervical J &J:DEPUY:DEPUY SPINE 0 60 / 0 60 / Scr Skyln Vari-Ovsz 16mm 016 - [id number] Implanted:Qty : 2 on 03/11/2023 by Dionicio Zuluaga MD at [facility] IMPLANTS N/A: Spine Cervical J &J:DEPUY:DEPUY SPINE 0 16 / 16 / Scr Skyln Vari Sd 16mm 1868-50-016 - [id number] Implanted:Qty : 4 on 03/11/2023 by Dionicio Zuluaga MD at [facility] IMPLANTS N/A: Spine Cervical J &J:DEPUY:DEPUY SPINE 50-0 16 / 50-0 16 / Scr Skyln Vari Sd 18mm 1867-50-018 - [id number] Implanted:Qty : 2 on 03/11/2023 by Dionicio Zuluaga MD at [facility] IMPLANTS N/A: Spine Cervical J &J:DEPUY:DEPUY SPINE 50-0 18 / 0 18 / Insurance MEDICARE PART A B [facility] SUPP Care Teams Correctional Facility Psychiatrist Relationship Specialty Start Date End Date Tommie Barraza MD PCP - General Family Medicine 03/05/23
--- OUTSIDE RECORDS SUMMARY | 2024-12-07 10:38 | XMS_ITS | Clinical Summary ---
Author Organization [employer] ([place], [place], [place], [place]) Address [address] [place] [address] Care Team Providers Care Orange Picking Supervisor Name Role Phone Tommie Barraza MD Primary Care Provider [phone] Allergies No known active allergies Medications ezetimibe [...] Date Wilbert rded Speak language other than Grenadian at home Not on file 03/31/2023 Want [...] (#1) 2024 Medical Devices Implanted Type Area Case Checker Device Identifier Shelf Expiration Date Model / Serial / Lot Bone Vivigen Formable Sm Bl-1600-001 - [id number] Implanted:Qty : 1 on 03/11/2023 by Dionicio Zuluaga MD at [facility] IMPLANTS N/A: Spine Cervical LIFENET:LIFENET TRANSPLANT SRV 02/24/2024 BL-1600-0 [id number] / Cage Eit Cif H 7mm 8 L [id number] - [id number] Implanted:Qty : 1 on 03/11/2023 by Dionicio Zuluaga MD at [facility] IMPLANTS N/A: Spine Cervical J &J:DEPUY:DEPUY SPINE 10/13/2025 [id number] / / [id number] Cage Eit Cif H 7mm 8 L [id number] - [id number] Implanted:Qty : 1 on 03/11/2023 by Dionicio Zuluaga MD at [facility] IMPLANTS N/A: Spine Cervical J &J:DEPUY:DEPUY SPINE 10/13/2025 [id number] / / [id number] Plt Ant Skyln Hybrd Lvl3 60mm 1867-05-060 - [id number] Implanted:Qty : 1 on 03/11/2023 by Dionicio Zuluaga MD at [facility] IMPLANTS N/A: Spine Cervical J &J:DEPUY:DEPUY SPINE 03-0 60 / 03-0 60 / Scr Skyln Vari-Ovsz 16mm 54-016 - [id number] Implanted:Qty : 2 on 03/11/2023 by Dionicio Zuluaga MD at [facility] IMPLANTS N/A: Spine Cervical J &J:DEPUY:DEPUY SPINE 854-0 16 / 54-0 16 / Scr Skyln Vari Sd 16mm 1867-50-016 - [id number] Implanted:Qty : 4 on 03/11/2023 by Dionicio Zuluaga MD at [facility] IMPLANTS N/A: Spine Cervical J &J:DEPUY:DEPUY SPINE 50-0 16 / 50-0 16 / Scr Skyln Vari Sd 18mm 1867-50-018 - [id number] Implanted:Qty : 2 on 03/11/2023 by Dionicio Zuluaga MD at [facility] IMPLANTS N/A: Spine Cervical J &J:DEPUY:DEPUY SPINE 850-0 18 / 50-0 18 / Insurance MEDICARE PART A B SUPP [facility] SUPP Care Teams Orange Picking Supervisor Relationship Specialty Start Date End Date Tommie Barraza MD PCP - General Family Medicine 03/05/23
[2024-12-07] MEDS: IOPAMIDOL-370 (76%);100ML BOTTLE 80 ML IV (11:04)
[2024-12-07] MEDS: 0.9 % SODIUM CHLORIDE 50 ML VIAL 10 ML IV (11:04)
--- NOTE | 2024-12-07 11:30 | CT_ITS ---
FINAL REPORT TECHNIQUE: Postcontrast axial images of the chest were performed in a CTA protocol. This study was performed with techniques to keep radiation doses as low as reasonably achievable, (ALARA). Individualized dose reduction technique using automated exposure control or adjustment of mA and/or kV according to the patient's size were employed. CLINICAL HISTORY: elevated d-dimer,cp,dyspnea, chest pain FINDINGS: The heart is normal in size. No adenopathy is identified. No pleural or pericardial effusion is identified. The thoracic aorta is normal in caliber with no focal aneurysm or dissection identified. There is no filling defect to suggest pulmonary embolism. No lung infiltrate or mass is identified. The images of the upper abdomen demonstrate cholelithiasis. IMPRESSION: No evidence for PE on this exam. No acute intrathoracic abnormality. Reviewed, Interpreted and Dictated by Carmen Danielson MD Transcribed by Giovana You Authenticated and [facility]
== END 2024-12-07 23:59 | disposition home or self-care (01) ==
LOC: RAD 10:34
PROVIDERS: PCP Nurse Practitioner Family; Visit Provider Nurse Practitioner Family
DX: R94.31 Abnormal electrocardiogram [ECG] [EKG] (principal); R07.9 Chest pain, unspecified; R06.00 Dyspnea, unspecified; R79.89 Other specified abnormal findings of blood chemistry
CPT/HCPCS: 71275; Q9967

== ENCOUNTER 2024-12-08 06:52 | Outpatient (CLI) | payer MEDICARE, SELFPAY ==
--- NOTE | 2024-12-08 | CA_ITS ---
APPROVED REPORT Exam: Pharmacologic Technologist: Greer Mcadams Ht: 6 ft 2 in Wt: 235 lbs BSA: 2.33 m2 HR: 65 bpm BP: 153/79 mmHg Rhythm: SR/PAC Medical History Cardiac Risk Factors: HTN, Hyperlipidemia, Diabetes (non-insulin) Stress Test Details HR Resting HR: 65 bpm Max Heart Rate (APMHR): 152.245638 bpm Target HR (85% APMHR): 129.649378 bpm Recovery HR: 73 bpm BP Resting BP: 153.0/79.0 mmHg Recovery BP: 145.0/80.0 mmHg ECG Resting ECG: SR/PAC Stress ECG Conclusion During lexiscan pt experinced chest tightness. PAC noted. Less than .5mm upsloping ST segment changes. Nondiagnostic ECG/lexiscan. Electronically signed by : Vilma Bermudez MD 12/08/2024 13:05:50
--- OUTSIDE RECORDS SUMMARY | 2024-12-08 06:55 | XMS_ITS | Clinical Summary ---
Author Organization [employer] ([place], [place], [place], [place]) Address [address] [place] [address] Care Team Providers Care Slitter Scorer Cut Off Operator Name Role Phone Tommie Barraza MD Primary Care Provider [phone] Allergies No known active allergies Medications ezetimibe [...] Date Wilbert rded Speak language other than Ivorian at home Not on file 03/31/2023 Want [...] (#1) 2024 Medical Devices Implanted Type Area Computer Aided Design Operator Device Identifier Shelf Expiration Date Model / Serial / Lot Bone Vivigen Formable Sm Bl-1600-001 - [id number] Implanted:Qty : 1 on 03/11/2023 by Dionicio Zuluaga MD at [facility] IMPLANTS N/A: Spine Cervical LIFENET:LIFENET TRANSPLANT SRV 02/24/2024 BL-1600-0 [id number] / Cage Eit Cif H 7mm 8 L [id number] - [id number] Implanted:Qty : 1 on 03/11/2023 by Dionicio Zuluaga MD at [facility] IMPLANTS N/A: Spine Cervical J &J:DEPUY:DEPUY SPINE 10/13/2025 [id number] / / [id number] Cage Eit Cif H 7mm 8 L [id number] - [id number] Implanted:Qty : 1 on 03/11/2023 by Dionicio Zuluaga MD at [facility] IMPLANTS N/A: Spine Cervical J &J:DEPUY:DEPUY SPINE 10/13/2025 [id number] / / [id number] Plt Ant Skyln Hybrd Lvl3 60mm 1867-05-060 - [id number] Implanted:Qty : 1 on 03/11/2023 by Dionicio Zuluaga MD at [facility] IMPLANTS N/A: Spine Cervical J &J:DEPUY:DEPUY SPINE 03-0 60 / 03-0 60 / Scr Skyln Vari-Ovsz 16mm 54-016 - [id number] Implanted:Qty : 2 on 03/11/2023 by Dionicio Zuluaga MD at [facility] IMPLANTS N/A: Spine Cervical J &J:DEPUY:DEPUY SPINE 854-0 16 / 54-0 16 / Scr Skyln Vari Sd 16mm 1867-50-016 - [id number] Implanted:Qty : 4 on 03/11/2023 by Dionicio Zuluaga MD at [facility] IMPLANTS N/A: Spine Cervical J &J:DEPUY:DEPUY SPINE 50-0 16 / 50-0 16 / Scr Skyln Vari Sd 18mm 1867-50-018 - [id number] Implanted:Qty : 2 on 03/11/2023 by Dionicio Zuluaga MD at [facility] IMPLANTS N/A: Spine Cervical J &J:DEPUY:DEPUY SPINE 850-0 18 / 50-0 18 / Insurance MEDICARE PART A B SUPP [facility] SUPP Care Teams Slitter Scorer Cut Off Operator Relationship Specialty Start Date End Date Tommie Barraza MD PCP - General Family Medicine 03/05/23
--- OUTSIDE RECORDS SUMMARY | 2024-12-08 06:55 | XMS_ITS | Referral Summary ---
Author Organization [employer] ([place], [place], [place], [place]) Address [address] [place] [address] Care Team Providers Care Mixing Machine Feeder Name Role Phone Tommie Barraza MD Primary Care Provider [phone] Allergies No known active allergies Medications ezetimibe [...] Date Wilbert rded Speak language other than Swiss at home Not on file 03/31/2023 Want [...] on file Medical Devices Implanted Type Area Director Of Outpatient Services Device Identifier Shelf Expiration Date Model / Serial / Lot Bone Vivigen Formable Bl-1600-001 - [id number] Implanted:Qty : 1 on 03/11/2023 by Dionicio Zuluaga MD at [facility] IMPLANTS N/A: Spine Cervical LIFENET:LIFENET TRANSPLANT SRV 02/24/2024 BL-1600-0 01 / [id number] / Cage Eit Cif H 7mm 8 L [id number] - [id number] Implanted:Qty : 1 on 03/11/2023 by Dionicio Zuluaga MD at [facility] IMPLANTS N/A: Spine Cervical J &J:DEPUY:DEPUY SPINE 10/13/2025 [id number] / / [id number] Cage Eit Cif H 7mm 8 L [id number] - [id number] Implanted:Qty : 1 on 03/11/2023 by Dionicio Zuluaga MD at [facility] IMPLANTS N/A: Spine Cervical J &J:DEPUY:DEPUY SPINE 10/13/2025 [id number] / / [id number] Plt Ant Skyln Hybrd Lvl3 60mm 1867-05-200 - [id number] Implanted:Qty : 1 on 03/11/2023 by Dionicio Zuluaga MD at [facility] IMPLANTS N/A: Spine Cervical J &J:DEPUY:DEPUY SPINE 0 60 / 0 60 / Scr Skyln Vari-Ovsz 16mm 016 - [id number] Implanted:Qty : 2 on 03/11/2023 by Dionicio Zuluaga MD at [facility] IMPLANTS N/A: Spine Cervical J &J:DEPUY:DEPUY SPINE 0 16 / 16 / Scr Skyln Vari Sd 16mm 1868-50-016 - [id number] Implanted:Qty : 4 on 03/11/2023 by Dionicio Zuluaga MD at [facility] IMPLANTS N/A: Spine Cervical J &J:DEPUY:DEPUY SPINE 50-0 16 / 50-0 16 / Scr Skyln Vari Sd 18mm 1867-50-018 - [id number] Implanted:Qty : 2 on 03/11/2023 by Dionicio Zuluaga MD at [facility] IMPLANTS N/A: Spine Cervical J &J:DEPUY:DEPUY SPINE 50-0 18 / 0 18 / Insurance MEDICARE PART A B [facility] SUPP Care Teams Mixing Machine Feeder Relationship Specialty Start Date End Date Tommie Barraza MD PCP - General Family Medicine 03/05/23
--- NOTE | 2024-12-08 07:00 | NM_ITS ---
APPROVED REPORT Exam: Nuclear Stress Test Indication: cp..soa..fatigue Patient Location: Outpatient Stress Tech: Greer MOTA Tech:Malissa KesslerMALA RT(R)(N) Ht: 6 ft 2 in Wt: 235 lbs HR: 58 bpm BP: 153/79 mmHg BSA: 2.33 m2 TID: 1.21 BMI: 30.1 History: cp..soa..fatigue Procedure: Patient received 0.4 mg of intravenous Lexiscan, resting heart rate 58 bpm, resting blood pressure 153/79 mmHg, with Lexiscan maximum heart rate achieved was 72 bpm which is 85 % of the maximum predicted heart rate and blood pressure was 147/72 mmHg. With Lexiscan, patient denied any complaint of chest pain. Cardiac Stress and Resting SPECT Images: Cardiac Stress and Resting SPECT images were obtained using technetium 99m Myoview 32.1 mCi stress and 10.62 mCi at rest. Resting and stress imaging in supine and prone positions demonstrate an medium sized, mild, partially reversible perfusion defect in the basal inferior LV wall. There is also increase in transient ischemic dilatation ratio (TID 1.21), which may be suggestive of possible multivessel disease or balanced ischemia. Gated imaging demonstrates mild reduction global LV systolic function. LVEF is calculated at 47%. Conclusion: Medium sized, mild, partially reversible perfusion defect in the basal inferior LV wall. Findings are suggestive of partial reversible ischemia. There is also increase in transient ischemic dilatation ratio (TID 1.21), which may be suggestive of possible multivessel disease or balanced ischemia. Gated imaging demonstrates mild reduction global LV systolic function. LVEF is calculated at 47%. Electronically signed by : Vilma Bermudez MD 12/08/2024 13:03:36
[2024-12-08 08:20] VITALS: BP 153/79; PULSE 65; RESP 14
[2024-12-08] MEDS: SODIUM CHLORIDE 0.9% 10ML SYR (RAD ONLY) 10 ML IV ×2 (09:45)
[2024-12-08] MEDS: ISOTOPE MYOVIEW (PER STUDY) 1 DOSE IV (09:45)
== END 2024-12-08 23:59 | disposition home or self-care (01) ==
LOC: RAD 06:53
PROVIDERS: PCP Nurse Practitioner Family; Visit Provider Nurse Practitioner Family
DX: I51.89 Other ill-defined heart diseases (principal); I49.1 Atrial premature depolarization; R94.39 Abnormal result of other cardiovascular function study; R94.31 Abnormal electrocardiogram [ECG] [EKG]
CPT/HCPCS: 78452; 93017; 93018; A9502; J2785

== ENCOUNTER 2024-12-19 13:54 | Outpatient (RCR) | payer MEDICARE, SELFPAY | END 2024-12-19 23:59 | disposition home or self-care (01) | LOC: PT 13:54 | PROVIDERS: Visit Provider Nurse Practitioner Family | DX: S93.401A Sprain of unspecified ligament of right ankle, initial encounter (principal) | CPT/HCPCS: 97760 ==

== ENCOUNTER 2024-12-19 14:13 | Outpatient (CLI) | payer MEDICARE, SELFPAY ==
--- NOTE | 2024-12-19 14:16 | XR_ITS ---
FINAL REPORT CLINICAL HISTORY: injury from fall FINDINGS: AP and lateral views of the right tibia and fibula were obtained. There is no prior exam for comparison. Well-corticated calcifications distal to both the medial and lateral malleoli. No acute fracture of the right tibia or fibula. 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 There is mild soft tissue edema about the ankle. IMPRESSION: No acute osseous abnormality of the right tibia or fibula. Reviewed, Interpreted and Dictated by Carmen Danielson MD Transcribed by Jessica Ureña Authenticated and . [facility]
--- NOTE | 2024-12-19 14:16 | XR_ITS ---
FINAL REPORT CLINICAL HISTORY: right ankle injury, swelling FINDINGS: AP, oblique, and lateral views of the right ankle were obtained. There is no prior exam for comparison. Calcifications distal to both medial and lateral malleoli are noted, most of which appear chronic. Calcification of the tip of the lateral malleolus is age indeterminate. There is lateral soft tissue edema. Mild degenerative disease is noted. IMPRESSION: Age indeterminate fracture tip of the lateral malleolus. Otherwise, calcifications appear chronic. Consider MRI if indicated. Reviewed, Interpreted and Dictated by Carmen Danielson MD Transcribed by Jessica Ureña Authenticated and [facility]
--- OUTSIDE RECORDS SUMMARY | 2024-12-19 14:16 | XMS_ITS ---
Care Plan - [facility], [facility] Created on: December 19, 2024 Will Marsh : 1955 Sex: [place] [address] Home Phone Mobile Phone Email Address Preferred Language en Marital Status Restoration Affiliation Unknown Race White Ethnic Group Not or Lati no Author Organization [facility] , [facility] Address [address] [place] [address] Phone Care Team Providers Care Shotgun Shell Assembly Machine Operator Name Role Phone Quincy CARR, Stef Diaz Unavailable [phone] AZEEM JACKSON MD Unavailable [phone]
--- OUTSIDE RECORDS SUMMARY | 2024-12-19 14:16 | XMS_ITS | Clinical Summary ---
[place] [address] Home Phone Mobile Phone Email Address Preferred Language en Marital Status Oriental Orthodox Affiliation Unknown Race White Ethnic Group Not or Lati no Author Organization [facility] , [facility] Address [address] [place] [address] Phone Care Team Providers Care Nail Welter Name Role Phone Quincy CARR, Stef Diaz Unavailable [phone] RENETTA CARR, AZEEM Unavailable [phone] Reason for Visit and Chief Complaint [facility] Problems Includes: Problems addressed during this encounter and other active Problems All Visits Onset Date Resolved Date Provider Condition S tatus Joint Pain Hip Right 11/07/2021 Yaya Pineda Active Last Documented On 2 10:50AM ; [facility] Joint Pain Hip Left 05/02/2019 Stef linda MD Active Last Documented On 0 2:25PM ; [facility] Plan of Treatment No Plan of Treatment Recorded Assessments Includes: Assessments from this encounter No Assessments Recorded Medical Equipment - Implanted Devices Includes: Current Devices No Medical Equipment Recorded Medications Includes: Medications discussed during this encounter and other current Medications Current Medications (continue as prescribed) Lisinopril-hydroCHLOROthiazi de 20-12.5 MG Oral Tablet 11/26/2021 Provider: AZEEM JACKSON MD Diagnosis: Last Documented On 2 8:54AM By Martha Godwin ; [facility] Ezetimibe 10 MG Oral Tablet 11/11/2021 Provider: AZEEM JACKSON MD Diagnosis: Last Documented On 2 8:54AM By Martha Godwin ; [facility] metFORMIN HCl 1000 MG Oral Tablet 11/11/2021 Provide r: AZEEM JACKSON MD Diagnosis: Last Documented On 2 8:54AM By Martha Godwin ; [facility], [facility] Nortriptyline HCl 50 MG Oral Capsule 11/01/2021 Prov ider: AZEEM JACKSON MD Diagnosis: Last Documented On 2 8:54AM By Martha Godwin ; [facility], [facility] Tresiba FlexTouch 200 UNIT/M L Subcutaneous Solution Pen-injector 10/24/2021 Provider: AZEEM JACKSON MD Diagnosis: Last Documented On 2 8:54AM By Martha Godwin ; [facility], [facility] NovoLOG FlexPen 100 UNIT/ML Subcutaneous Solution Pen-injector 10/07/2021 Provider: AZEEM JACKSON MD Diagnosis: Last Documented On 2 8:54AM By Martha Godwin ; [facility], [facility] Medications Administered Includes: Administered Medications from this encounter No Administered Medications Recorded Results Includes: Results discussed during this encounter No Results Recorded For Specified Dates History of Present Illness Includes: History of Present Illness from this encounter No History of Present Illness Recorded Social History No Social History Recorded - Smoking Status Unknown Medical History Includes: Medical History addressed during this encounter No Medical History Recorded Family History Includes: Family History addressed during this encounter No Family History Recorded Review of Systems Includes: Review of Systems from this encounter No Review of Systems Recorded Mental Status Includes: Mental Status from this encounter No Mental Status Recorded Functional Status Includes: Functional Status from this encounter No Functional Status Recorded Physical Exam Includes: Physical Exam from this encounter No Physical Exam Recorded Allergies Includes: Active Allergies No Known Allergies Encounters Encounter Provider Location Date Check-In Time Check-Out Time Diagnosis [facility] Stef Mathew MD Surgery 01/08/20 22 2:23PM 11:59PM Insurance Includes: Active Insurance Policies Plan Name Member ID Group # Subscriber Relationship Effect fartun Dates 1 - Medicare Part B [facility] [id number] Will Edwards 2 - [employer] [id number] Will Edwards Clinical Notes Includes: Clinical Notes from this encounter No Clinical Notes Recorded
--- OUTSIDE RECORDS SUMMARY | 2024-12-19 14:16 | XMS_ITS | Clinical Summary ---
[place] [address] Home Phone Mobile Phone Email Address Preferred Language en Marital Status Pentecostalism Affiliation Unknown Race White Ethnic Group Not or Lati no Author Organization [facility] Address [address] [place] [address] Phone Care Team Providers Care Artificial Intelligence Specialist Name Role Phone Quincy CARR, Stef Diaz Unavailable [phone] RENETTA CARR, AZEEM Unavailable [phone] Reason for Referral Date Encounter Description Provider Reason for Referral 11/28/21 Follow Up Stef Valera Referral To Physician Reason for Visit and Chief Complaint The Chief Complaint is: Right hip pain Problems Includes: Problems addressed during this encounter and other active Problems All Visits Onset Date Resolved Date Provider Condition S tatus Joint Pain Hip Right 11/07/2021 Yaya Pineda Active Last Documented On 2 10:50AM ; [facility] Joint Pain Hip Left 05/02/2019 Stef linda MD Active Last Documented On 0 2:25PM ; [facility] Plan of Treatment Fall Risk Assessment: This patient has been identified as a fall risk. Balance/gait along with postural blood pressure, vision and home fall hazards have been assessed. Medications have been reviewed, and recommendations made with regard to contributing factors for future falls. Plan of care: Consideration of vitamin D supplementation along with balance and strength training with consideration for formal physical therapy has been discussed with the patient. - Last Documented On 11/28/2021 4:23PM ; [facility] NON-SURGICAL PLAN: CONTINUE TO USE CANE FOR SAFETY MAINTAIN GOOD SHOES MEDICATION: MOBIC 15 MG SURGICAL PLAN: RIGHT HEENA-DIRECT ANTERIOR; 5 MM LENGTH. SURGERY CENTER CANDIDATE. IN 6 WEEKS DUE TO INJECTION - Last Documented On 11/28/2021 4:23PM ; [facility] PCP CLEARANCE FOLLOW UP: POST-OP - Last Documented On 11/28/2021 4:23PM ; [facility] Pending Tests Order Diagnosis Results Due Ordering P rovider Therapy - Physical Therapy Hip 11/28/21 Stef Mathew MD Last Documented On 2 12:04PM ; [facility] Instructions to patient Lose weight Last Documented On 2 8:57AM ; [facility] Assessments Includes: Assessments from this encounter Findings RIGHT HIP MODERATE-SEVERE DJD. VERY LIMITED. USING SPC. OCCASIONAL NSAIDs. INJECTION HELPED COMPLETELY FOR 3 DAYS. - Last Documented On 11/28/2021 4:23PM ; [facility] Instructions Includes: Instructions from this encounter Instructions to patient Lose weight Last Documented On 2 8:57AM ; [facility] Medical Equipment - Implanted Devices Includes: Current Devices No Medical Equipment Recorded Medications Includes: Medications discussed during this encounter and other current Medications Discontinued / Stopped on this date on 05/02/2019 Nortriptyline HCl 50 MG Oral Capsule Prov ider: Diagnosis: Last Documented On 2 8:54AM By Martha Godwin ; [facility] Adult Aspirin Regimen 81 MG Oral Tablet Delayed Releas e Provider: Diagnosis: Last Documented On 2 8:53AM By Martha Godwin ; [facility] NovoLOG 100 UNIT/ML Subcutaneous Solution Provider: Diagnosis: Last Documented On 2 8:54AM By Martha Godwin ; [facility] metFORMIN HCl 1000 MG Oral Tablet Provide r: Diagnosis: Last Documented On 2 8:54AM By Martha Godwin ; [facility] Telmisartan-HCTZ 80-25 MG Oral Tablet Pro vider: Diagnosis: Last Documented On 2 8:54AM By Martha Godwin ; [facility] Ezetimibe-Simvastatin 10-10 MG Oral Tablet Provider: Diagnosis: Last Documented On 2 8:53AM By Martha Godwin ; [facility] Depo-Testosterone 200 MG/ML Intramuscular Solution Provider: Diagnosis: Last Documented On 2 8:53AM By Martha Godwin ; [facility], [facility] New / Renewed during this visit Stef Mathew MD on 11/28/2021 Meloxicam 15 MG Oral Tablet Provider: Stef ledezma MD 30 day supply: 30 tablet, 1 refills Diagnosis: once a day Pharmacy: [facility] [place], [place], [address] - Last Documented On 2 9:12AM By Martha Godwin ; [facility], [facility] Current Medications (continue as prescribed) Lisinopril-hydroCHLOROthiazi de 20-12.5 MG Oral Tablet 11/26/2021 Provider: AZEEM JACKSON MD Diagnosis: Last Documented On 2 8:54AM By Martha Godwin ; [facility], [facility] Ezetimibe 10 MG Oral Tablet 11/11/2021 Provider: AZEEM JACKSON MD Diagnosis: Last Documented On 8:54AM By Martha Godwin ; [facility], [facility] metFORMIN HCl 1000 MG Oral Tablet 11/11/2021 Provide r: AZEEM JACKSON MD Diagnosis: Last Documented On 2 8:54AM By Martha Godwin ; [facility], [facility] Nortriptyline HCl 50 MG Oral Capsule 11/01/2021 Prov ider: AZEEM JACKSON MD Diagnosis: Last Documented On 2 8:54AM By Martha Godwin ; [facility], [facility] Tresiba FlexTouch 200 UNIT/M L Subcutaneous Solution Pen-injector 10/24/2021 Provider: AZEEM JACKSON MD Diagnosis: Last Documented On 2 8:54AM By Martha Godwin ; [facility], [facility] NovoLOG FlexPen 100 UNIT/ML Subcutaneous Solution Pen-injector 10/07/2021 Provider: AZEEM JACKSON MD Diagnosis: Last Documented On 2 8:54AM By Martha Godwin ; [facility], [facility] Past Medications on file traMADol HCl 50 MG Oral Tablet 01/06/2022 - 01/11/2022 Provider: Stef linda MD Diagnosis: 1-2 po q 4-6h Last Documented On 2 3:20PM By López Mathew ; [facility] oxyCODONE HCl 5 MG Oral Tablet 01/06/2022 - 01/11/2022 Provider: Stef linda MD Diagnosis: 1-2 po q 4-6h Last Documented On 2 3:20PM By López Mathew ; [facility] Ondansetron HCl 4 MG Oral Tablet 01/06/2022 - 01/11/2022 Provider: Stef Mathew MD Diagnosis: 0aai5-0s Last Documented On 2 3:20PM By López Mathew ; [facility] Colace 100 MG Oral Capsule 01/06/2022 - 04/06/2022 Provider: Stef linda MD Diagnosis: 1-2 tabs daily Last Documented On 2 3:20PM By López Mathew ; [facility] Cefadroxil 500 MG Oral Capsule 01/06/2022 - 01/09/2022 Provider: Stef linda MD Diagnosis: twice a day Last Documented On 2 3:20PM By López Mathew ; [facility] Aspirin 81 MG Oral Tablet Delayed Release 01/06/2022 - 05/12/2022 Provider: Stef Mathew MD Diagnosis: twice a day Last Documented On 2 3:20PM By López Mathew ; [facility] Acetaminophen 500 MG Oral Tablet 01/06/2022 - 02/05/2022 Provider: Stef Mathew MD Diagnosis: 2 three times a day Last Documented On 2 3:20PM By López Mathew ; [facility] Dilaudid 2 MG Oral Tablet 05/25/2019 - 05/27/2019 Provider: Stef linda MD Diagnosis: 1-2 po q6h prn pain (RESCUE PAIN)DO NOT FILL TILL 05/31/2019 FOR SURGERY Last Documented On 0 3:56PM By Latoya Delgado ; [facility] Neurontin 300 MG Oral Capsule 05/25/2019 - 08/23/2019 Provider: Stef linda MD Diagnosis: 1 every bedtime DO NOT DOUG L TILL 05/31/2019 FOR SURGERY Last Documented On 0 3:56PM By Latoya Delgado ; [facility] traMADol HCl 50 MG Oral Tablet 05/25/2019 - 05/30/2019 Provider: Stef linda MD Diagnosis: 1-2 po q6h prn pain DO NOT FILL TILL 05/31/2019 FOR SURGERY Last Documented On 0 3:56PM By Latoya Delgado ; [facility] oxyCODONE HCl 5 MG Oral Tablet 05/25/2019 - 05/30/2019 Provider: Stef linda MD Diagnosis: 1-2 po q6h prn pain DO NOT FILL TILL 05/31/2019 FOR SURGERY Last Documented On 0 3:56PM By Latoya Delgado ; [facility] Colace 100 MG Oral Capsule 05/25/2019 - 08/23/2019 Provider: Stef linda MD Diagnosis: 1-2 tabs daily DO NOT FILL TILL 05/31/2019 FOR SURGERY Last Documented On 0 5:16PM By Latoya Delgado ; [facility] Acetaminophen 500 MG Oral Tablet 05/25/2019 - 06/24/2019 Provider: Stef Mathew MD Diagnosis: 2 three times a day DO NOT FILL TILL 05/31/2019 FOR SURGERY Last Documented On 0 4:46PM By Latoya Delgado ; [facility], [facility] Mupirocin 2% External Ointment 05/11/2019 - 05/16/2019 Provider: Stef linda MD Diagnosis: three times a day Apply to n ostrils 3 time a day 5 days prior to surgery. Last Documented On 0 2:20PM By Nancy Arnold ; [facility], [facility] Medications Administered Includes: Administered Medications from this encounter No Administered Medications Recorded Vital Signs Includes: Vital Signs from this encounter Vital Name 11/28/2021 08:25A Blood Pressure Sitting (mmHg) 163/80 Pulse Rate-Sitting (bpm) 60 Height (in) 74 Weight (lb) 225 Body Mass Index (kg/m2) 28.9 Body Surface Area (m2) 2.3 Note: sjs Last Documented: On 11/28/2021 8:25AM ; [facility] Results Includes: Results discussed during this encounter No Results Recorded For Specified Dates History of Present Illness Includes: History of Present Illness from this encounter OBEY Marsh is a 66 year old male. - Allergy list reviewed - Problem list reviewed - Medication list reviewed Social History Description Last Updated Tobacco non-user 07/15/2022 Last Documented On 2 8:25AM ; [facility] No recent change in diet 07/15/2022 Last Documented On 2 8:25AM ; [facility] Not a current smoker. 07/15/2022 Last Documented On 2 8:25AM ; [facility] Retired from work 11/19/2021 Last Documented On 2 8:25AM ; [facility] Non-smoker 06/04/2020 Last Documented On 2 8:25AM ; [facility] Not a current smoker. 06/04/2020 Last Documented On 2 8:25AM ; [facility] No recent change in diet 07/21/2019 Last Documented On 2 8:25AM ; [facility] No tobacco use 07/21/2019 Last Documented On 2 8:25AM ; [facility] Not a current smoker 07/21/2019 Last Documented On 2 8:25AM ; [facility] Not using drugs 07/21/2019 Last Documented On 2 8:25AM ; [facility] Smoking status : Never smoker 07/21/2019 Last Documented On 2 8:25AM ; [facility] Alcohol use 05/02/2019 Last Documented On 2 8:25AM ; [facility] Caffeine use 05/02/2019 Last Documented On 2 8:25AM ; [facility] Not exercising regularly 05/02/2019 Last Documented On 2 8:25AM ; [facility] Procedures and Surgical History Includes: Procedures from this encounter Procedures Code Diagnosis Performing Provider Service L ocation Service Date use of tobacco assessment performed 1000F Last Documented On 2 8:57AM ; ÓSCAR GARNER [facility] patient screened for future fall risk: documentation of any fall with injury in past year 1100F Last Documented On 2 8:57AM ; ÓSCAR GARN[facility], [facility] follow-up visit in one month Last Documented On 2 8:57AM ; ÓSCAR GARNER, [facility] referral to physician Last Documented On 2 8:57AM ; [facility]SC[facility] GARN[facility], [facility] Surgical History Last Updated History of total hip replacement Left ~ 07/21/2019 Last Documented On 2 8:25AM ; [facility] of [facility] 05/02/2019 Last Documented On 2 8:25AM ; [facility] Medical History Includes: Medical History addressed during this encounter Description Last Updated History of arthritis 11/08/2021 Last Documented On 2 8:25AM ; ÓSCAR GARNER, [facility] History of History of Cancer 11/08/2021 Last Documented On 2 8:25AM ; [facility] History of Hypertension 11/08/2021 Last Documented On 2 8:25AM ; [facility] No recent immunization for flu 1 Last Documented On 2 8:25AM ; [facility] No recent immunization for pneumococcal pneumonia 06/04/2020 Last Documented On 2 8:25AM ; [facility] toe removal 05/02/2019 Last Documented On 2 8:25AM ; [facility] A history of cancer 05/02/2019 Last Documented On 2 8:25AM ; ÓSCAR GARN[facility], [facility] History of depression 05/02/2019 Last Documented On 2 8:25AM ; [facility] GARN[facility], [facility] History of diabetes mellitus 05/02/2019 Last Documented On 2 8:25AM ; [facility], [facility] Intermittent hypertension 05/02/2019 Last Documented On 2 8:25AM ; [facility] Family History Includes: Family History addressed during this encounter Description Last Updated Family history of cancer 05/02/2019 Last Documented On 2 8:25AM ; [facility] Family history of diabetes mellitus 04/16 Last Documented On 2 8:25AM ; [facility] Family history of hypertension 0 Last Documented On 2 8:25AM ; [facility] Family history of osteoporosis 0 Last Documented On 2 8:25AM ; [facility] Review of Systems Includes: Review of Systems from this encounter Systemic: Not feeling tired, no recent weight loss, and no recent weight gain. Head: No headache and no sinus pain. Eyes: No vision problems and no Cataracts. Glasses/Contacts. No Glaucoma. Otolaryngeal: No hearing loss and no tinnitus. Cardiovascular: No chest pain or discomfort and no palpitations. Hypertension and High Cholesterol. Pulmonary: No daytime asthma symptoms and no chronic cough. No wheezing. Gastrointestinal: No heartburn and no abdominal pain. No Indigestion, no Acid Reflux, no Peptic Ulcer, no GI Stomach Bleed, and no Ulcers. Endocrine: No hot flashes. Muscle weakness and Diabetes. No Hypothyroid and no Hyperthyroid. Hematologic: No easy bleeding, no tendency for easy bruising, and no Anemia. Musculoskeletal: Arthritis and lower back pain. No soft tissue swelling. Pain localized to one or more joints. Neurological: No dizziness and no convulsions. Numbness. Psychological: No anxiety and no emotional lability. Depression. No insomnia. Not crying for no reason. Skin: No dry skin. No Ulcers. Scars. No rash. Allergic and Immunologic: No complaint of seasonal allergic reaction. Mental Status Includes: Mental Status from this encounter Description No anxiety Functional Status Includes: Functional Status from this encounter No Functional Status Recorded Physical Exam Includes: Physical Exam from this encounter Allergies Includes: Active Allergies No Known Allergies Encounters Encounter Provider Location Date Check-In Time Check-Out Time Diagnosis Follow Up Stef Mathew MD [facility] 11/29/19 22 7:47AM 9:18AM Insurance Includes: Active Insurance Policies Plan Name Member ID Group # Subscriber Relationship Effect fartun Dates 1 - Medicare Part B [facility] [id number] Will Edwards 2 - [facility] [employer] [id number] Will Edwards Clinical Notes Includes: Clinical Notes from this encounter No Clinical Notes Recorded
--- OUTSIDE RECORDS SUMMARY | 2024-12-19 14:16 | XMS_ITS ---
[place] [address] Home Phone Mobile Phone Email Address Preferred Language en Marital Status Orthodox Affiliation Unknown Race White Ethnic Group Not or Lati no Author Organization [facility] Address [address] [place] [address] Phone Care Team Providers Care Civil Attorney Name Role Phone Quincy CARR, Stef Diaz Unavailable [phone] RENETTA CARR, AZEEM Unavailable [phone] Reason for Referral Date Encounter Description Provider Reason for Referral 01/30/22 Post Op Dionicio Taylor PA-C Refer ral To Physician 11/28/21 Follow Up Stef linda MD Referral To Physician 11/19/21 INJECTION John Mcleod PA-C R eferral To Physician - for elevated bp ; Referral To Physician 06/04/20 Follow Up Stef linda MD Referral To Physician - for elevated bp Problems Includes: Active, inactive, and resolved Problems All Visits Onset Date Resolved Date Provider Condition S tatus Joint Pain Hip Right 11/07/2021 Yaya Pineda Active Last Documented On 2 10:50AM ; [facility] Joint Pain Hip Left 05/02/2019 Stef linda MD Active Last Documented On 0 2:25PM ; [facility] Plan of Treatment Instructions to patient Lose weight Last Documented On 2 8:40AM ; [facility] Lose weight Last Documented On 2 8:57AM ; [facility] Instructions for patient to see pcp for bp and wt Last Documented On 2 8:05AM ; [facility] No intervention and counseli ng on cessation of tobacco use Last Documented On 2 8:05AM ; [facility] Lose weight Last Documented On 2 8:05AM ; [facility] Lose weight Last Documented On 2 10:50AM ; [facility] Instructions for patient to see pcp for bp and wt Last Documented On 1 3:30PM ; [facility] Lose weight Last Documented On 1 3:30PM ; [facility] Instructions for patient to see pcp for bp and wt Last Documented On 0 10:53AM ; [facility] Lose weight Last Documented On 0 10:53AM ; [facility] Instructions for patient to see pcp for bp Last Documented On 0 3:26PM ; [facility] Assessments Includes: Assessments for all patient encounters No Assessments Recorded Instructions Includes: Instructions for all patient encounters Instructions to patient Lose weight Last Documented On 2 8:40AM ; [facility] Lose weight Last Documented On 2 8:57AM ; [facility] Instructions for patient to see pcp for bp and wt Last Documented On 2 8:05AM ; [facility] No intervention and counseli ng on cessation of tobacco use Last Documented On 2 8:05AM ; [facility] Lose weight Last Documented On 2 8:05AM ; [facility] Lose weight Last Documented On 2 10:50AM ; [facility] Instructions for patient to see pcp for bp and wt Last Documented On 1 3:30PM ; [facility] Lose weight Last Documented On 1 3:30PM ; [facility] Instructions for patient to see pcp for bp and wt Last Documented On 0 10:53AM ; [facility] Lose weight Last Documented On 0 10:53AM ; [facility] Instructions for patient to see pcp for bp Last Documented On 0 3:26PM ; [facility] Medical Equipment - Implanted Devices Includes: Current and historical Devices No Medical Equipment Recorded Medications Includes: Current and historical Medications Current Medications (continue as prescribed) Lisinopril-hydroCHLOROthiazi de 20-12.5 MG Oral Tablet 11/26/2021 Provider: AZEEM JACKSON MD Diagnosis: Last Documented On 2 8:54AM By Martha Godwin ; [facility] Ezetimibe 10 MG Oral Tablet 11/11/2021 Provider: AZEEM JACKSON MD Diagnosis: Last Documented On 2 8:54AM By Martha Godwin ; [facility] metFORMIN HCl 1000 MG Oral Tablet 11/11/2021 Provide r: AZEEM JACKSON MD Diagnosis: Last Documented On 8:54AM By Martha Godwin ; [facility] Nortriptyline HCl 50 MG Oral Capsule 11/01/2021 Prov ider: AZEEM JACKSON MD Diagnosis: Last Documented On 2 8:54AM By Martha Godwin ; [facility] Tresiba FlexTouch 200 UNIT/M L Subcutaneous Solution Pen-injector 10/24/2021 Provider: AZEEM JACKSON MD Diagnosis: Last Documented On 2 8:54AM By Martha Godwin ; [facility] NovoLOG FlexPen 100 UNIT/ML Subcutaneous Solution Pen-injector 10/07/2021 Provider: AZEEM JACKSON MD Diagnosis: Last Documented On 2 8:54AM By Martha Godwin ; [facility] Past Medications on file traMADol HCl 50 MG Oral Tablet 01/06/2022 - 01/11/2022 Provider: Stef linda MD Diagnosis: 1-2 po q 4-6h Last Documented On 2 3:20PM By López Mathew ; [facility] oxyCODONE HCl 5 MG Oral Tablet 01/06/2022 - 01/11/2022 Provider: Stef linda MD Diagnosis: 1-2 po q 4-6h Last Documented On 2 3:20PM By López Mathew ; [facility] Ondansetron HCl 4 MG Oral Tablet 01/06/2022 - 01/11/2022 Provider: Stef Mathew MD Diagnosis: [id number] Last Documented On 2 3:20PM By López Mathew ; [facility] Colace 100 MG Oral Capsule 01/06/2022 - 04/06/2022 Provider: Stef linda MD Diagnosis: 1-2 tabs daily Last Documented On 2 3:20PM By López Mathew ; [facility] Cefadroxil 500 MG Oral Capsule 01/06/2022 - 01/09/2022 Provider: Stef linda MD Diagnosis: twice a day Last Documented On 2 3:20PM By López Mathew ; [facility] Aspirin 81 MG Oral Tablet Delayed Release 01/06/2022 - 05/12/2022 Provider: Stef Mathew MD Diagnosis: twice a day Last Documented On 2 3:20PM By López Mathew ; [facility] Acetaminophen 500 MG Oral Tablet 01/06/2022 - 02/05/2022 Provider: Stef Mathew MD Diagnosis: 2 three times a day Last Documented On 2 3:20PM By López Mathew ; [facility] Adult Aspirin Regimen 81 MG Oral Tablet Delayed Release 11/28/2021 - 12/18/2021 Provider: Diagnosis: Last Documented On 2 3:26PM By Morenita Palomo ; [facility] Meloxicam 15 MG Oral Tablet 11/28/2021 - 01/27/2022 Provider: Stef linda MD Diagnosis: once a day Last Documented On 2 9:12AM By Martha Godwin ; [facility] Testosterone Cypionate 200 M G/ML Intramuscular Solution 10/24/2021 - 12/18/2021 Provider: SELINA HOOVER MD Diagnosis: Last Documented On 2 3:26PM By Morenita Palomo ; [facility] Dilaudid 2 MG Oral Tablet 05/25/2019 - 05/27/2019 Provider: Stef linda MD Diagnosis: 1-2 po q6h prn pain (RESCUE PAIN)DO NOT FILL TILL 05/31/2019 FOR SURGERY Last Documented On 0 3:56PM By Latoya Delgado ; [facility] Neurontin 300 MG Oral Capsule 05/25/2019 - 08/23/2019 Provider: Stef linda MD Diagnosis: 1 every bedtime DO NOT DOUG L TILL 05/31/2019 FOR SURGERY Last Documented On 0 3:56PM By Latoya Delgado ; [facility] traMADol HCl 50 MG Oral Tablet 05/25/2019 - 05/30/2019 Provider: Stef linda MD Diagnosis: 1-2 po q6h prn pain DO NOT FILL TILL 05/31/2019 FOR SURGERY Last Documented On 0 3:56PM By Latoya Delgado ; [facility] oxyCODONE HCl 5 MG Oral Tablet 05/25/2019 - 05/30/2019 Provider: Stef linda MD Diagnosis: 1-2 po q6h prn pain DO NOT FILL TILL 05/31/2019 FOR SURGERY Last Documented On 0 3:56PM By Latoya Delgado ; [facility] Colace 100 MG Oral Capsule 05/25/2019 - 08/23/2019 Provider: Stef linda MD Diagnosis: 1-2 tabs daily DO NOT FILL TILL 05/31/2019 FOR SURGERY Last Documented On 0 5:16PM By Latoya Delgado ; [facility] Acetaminophen 500 MG Oral Tablet 05/25/2019 - 06/24/2019 Provider: Stef Mathew MD Diagnosis: 2 three times a day DO NOT FILL TILL 05/31/2019 FOR SURGERY Last Documented On 0 4:46PM By Latoya Delgado ; [facility] Mupirocin 2% External Ointment 05/11/2019 - 05/16/2019 Provider: Stef linda MD Diagnosis: three times a day Apply to n ostrils 3 time a day 5 days prior to surgery. Last Documented On 0 2:20PM By Nancy Arnold ; [facility] Nortriptyline HCl 50 MG Oral Capsule 05/02/2019 - 11/14 Provider: Diagnosis: Last Documented On 2 8:54AM By Martha Godwin ; [facility] Aspirin Regimen 81 MG Oral Tablet Delayed Release 05/02/2019 - 11/28/2021 Provider: Diagnosis: Last Documented On 2 8:53AM By Martha Godwin ; [facility] NovoLOG 100 UNIT/ML Subcutaneous Solution 05/02/2019 - 11/28/2021 Provider: Diagnosis: Last Documented On 2 8:54AM By Martha Godwin ; [facility] metFORMIN HCl 1000 MG Oral Tablet 05/02/2019 - 022 Provider: Diagnosis: Last Documented On 2 8:54AM By Martha Godwin ; [facility] Telmisartan-HCTZ 80-25 MG Oral Tablet 05/02/2019 - Provider: Diagnosis: Last Documented On 2 8:54AM By Martha Godwin ; [facility] Ezetimibe-Simvastatin 10-10 MG Oral Tablet 05/02/2019 - 11/28/2021 Provider: Diagnosis: Last Documented On 2 8:53AM By Martha Godwin ; [facility] Depo-Testosterone 200 MG/ML Intramuscular Solution 05/02/2019 - 11/28/2021 Provider: Diagnosis: Last Documented On 2 8:53AM By Martha Godwin ; [facility] Medications Administered Includes: Administered Medications in patient's chart No Administered Medications Recorded Results Includes: Results from 12/20/2023 through 12/19/2024 No Results Recorded For Specified Dates History of Present Illness History of Present Illness not supported for this document type No History of Present Illness Recorded Social History Description Last Updated Tobacco non-user 07/15/2022 Last Documented On 3 10:23AM ; [facility] No recent change in diet 07/15/2022 Last Documented On 3 10:23AM ; [facility] Not a current smoker. 07/15/2022 Last Documented On 3 10:23AM ; [facility] Retired from work 11/19/2021 Last Documented On 2 4:11PM ; [facility] Non-smoker 06/04/2020 Last Documented On 1 3:29PM ; [facility] Not a current smoker. 06/04/2020 Last Documented On 1 3:29PM ; [facility] No recent change in diet 07/21/2019 Last Documented On 0 11:04AM ; [facility] No tobacco use 07/21/2019 Last Documented On 0 11:04AM ; [facility] Not a current smoker 07/21/2019 Last Documented On 0 11:04AM ; [facility] Not using drugs 07/21/2019 Last Documented On 0 11:04AM ; [facility] Smoking status : Never smoker 07/21/2019 Last Documented On 0 11:04AM ; [facility] Alcohol use 05/02/2019 Last Documented On 0 4:03PM ; [facility] Caffeine use 05/02/2019 Last Documented On 0 4:03PM ; [facility] Not exercising regularly 05/02/2019 Last Documented On 0 4:03PM ; [facility] Procedures and Surgical History Surgical History Last Updated History of total hip replacement Left ~ 07/21/2019 Last Documented On 0 11:04AM ; [facility] History of back surgery 05/02/2019 Last Documented On 0 4:03PM ; [facility] Medical History Includes: Medical History in patient's chart Description Last Updated History of arthritis 11/08/2021 Last Documented On 3 10:23AM ; [facility] History of History of Cancer 11/08/2021 Last Documented On 3 10:23AM ; [facility] History of Hypertension 11/08/2021 Last Documented On 3 10:23AM ; [facility] Arthritis 06/04/2020 Last Documented On 1 3:29PM ; [facility] Back surgery 06/04/2020 Last Documented On 1 3:29PM ; [facility] History of Cancer 06/04/2020 Last Documented On 1 3:29PM ; [facility] Hypertension 06/04/2020 Last Documented On 1 3:29PM ; [facility] No recent immunization for flu 1 Last Documented On 1 3:29PM ; [facility] No recent immunization for pneumococcal pneumonia 06/04/2020 Last Documented On 1 3:29PM ; [facility] Total hip replacement 06/04/2020 Last Documented On 1 3:29PM ; [facility] toe removal 05/02/2019 Last Documented On 0 4:03PM ; [facility] A history of cancer 05/02/2019 Last Documented On 0 4:03PM ; [facility] History of depression 05/02/2019 Last Documented On 0 4:03PM ; [facility] History of diabetes mellitus 05/02/2019 Last Documented On 0 4:03PM ; [facility] Intermittent hypertension 05/02/2019 Last Documented On 0 4:03PM ; [facility] Family History Includes: Family History in patient's chart Description Last Updated Diabetes mellitus 06/04/2020 Last Documented On 1 3:29PM ; [facility] Family history of cancer 05/02/2019 Last Documented On 0 4:03PM ; [facility] Family history of diabetes mellitus 04/16 Last Documented On 0 4:03PM ; [facility] Family history of hypertension 0 Last Documented On 0 4:03PM ; [facility] Family history of osteoporosis 0 Last Documented On 0 4:03PM ; [facility] Review of Systems Review of Systems not supported for this document type No Review of Systems Recorded Mental Status Description No anxiety Functional Status No Functional Status Recorded Physical Exam Physical Exam not supported for this document type No Physical Exam Recorded Allergies Includes: Active, inactive, and resolved Allergies No Known Allergies Insurance Includes: Active Insurance Policies Plan Name Member ID Group # Subscriber Relationship Effect fartun Dates 1 - Medicare Part B [facility] [id number] Selina Edwards 2 - [facility] CLAIMS DIVISION [id number] Selina Edwards Clinical Notes Includes: Signed Clinical Notes starting from 02/27/2022 No Clinical Notes Recorded
--- OUTSIDE RECORDS SUMMARY | 2024-12-19 14:16 | XMS_ITS | Clinical Summary ---
[place] [address] Home Phone Mobile Phone Email Address Preferred Language en Marital Status Scientology Affiliation Unknown Race White Ethnic Group Not or Lati no Author Organization [facility] Address [address] [place] [address] Phone Care Team Providers Care Poultry Cleaner Name Role Phone Quincy CARR, Stef Diaz Unavailable [phone] RENETTA CARR, AZEEM Unavailable [phone] Reason for Visit and Chief Complaint [Patient Encounter] Problems Includes: Problems addressed during this encounter and other active Problems All Visits Onset Date Resolved Date Provider Condition S tatus Joint Pain Hip Right 11/07/2021 Yaya Pineda Active Last Documented On 2 10:50AM ; [facility] Joint Pain Hip Left 05/02/2019 Stef linda MD Active Last Documented On 0 2:25PM ; [facility] Plan of Treatment No Plan of Treatment Recorded Assessments Includes: Assessments from this encounter No Assessments Recorded Medical Equipment - Implanted Devices Includes: Current Devices No Medical Equipment Recorded Medications Includes: Medications discussed during this encounter and other current Medications New / Renewed during this visit Stef Mathew MD on 01/06/2022 traMADol HCl 50 MG Oral Tablet Provider: Stef ledezma MD 5 day supply: 50 tablet, 0 refills Diagnosis: 1-2 po q 4-6h [facility]: [facility] [address] - Last Documented On 2 3:20PM By López Mathew ; [facility] oxyCODONE HCl 5 MG Oral Tablet Provider: Stef ledezma MD 5 day supply: 50 tablet, 0 refills Diagnosis: 1-2 po q 4-6h Pharmacy: [facility] - [address] [place] [address], [id number] - Last Documented On 2 3:20PM By López Mathew ; [facility] Ondansetron HCl 4 MG Oral Tablet Provider: Stef Mathew MD 5 day supply: 15 tablet, 0 refills Diagnosis: [id number] Pharmacy: [facility] - [address] [place] [address], [id number] - Last Documented On 2 3:20PM By López Mathew ; [facility], [facility] Colace 100 MG Oral Capsule Provider: Stef ledezma MD 30 day supply: 60 capsule, 2 refills Diagnosis: 1-2 tabs daily Pharmacy: [facility] - [address] [place] [address], [id number] - Last Documented On 2 3:20PM By López Mathew ; [facility] Cefadroxil 500 MG Oral Capsule Provider: Stef Mathew MD 3 day supply: 6 capsule, 0 refills Diagnosis: twice a day Pharmacy: [facility] - [address] [place] [address], [id number] - Last Documented On 2 3:20PM By López Mathew ; [facility] Aspirin 81 MG Oral Tablet Delayed Release Provider: Stef zhang MD 42 day supply: 84 tablet, 2 refills Diagnosis: twice a day Pharmacy: [facility] - [address] [place] [address], [id number] - Last Documented On 2 3:20PM By López Mathew ; [facility] Acetaminophen 500 MG Oral Tablet Provider: Stef Mathew MD 30 day supply: 180 tablet, 0 refills Diagnosis: 2 three times a day Pharm[facility]: [facility] [address] [facility], [address] - Last Documented On 2 3:20PM By López Mathew ; [facility] Current Medications (continue as prescribed) Lisinopril-hydroCHLOROthiazi de 20-12.5 MG Oral Tablet 11/26/2021 Provider: AZEEM JACKSON MD Diagnosis: Last Documented On 2 8:54AM By Martha Godwin ; [facility] Ezetimibe 10 MG Oral Tablet 11/11/2021 Provider: AZEEM JACKSON MD Diagnosis: Last Documented On 2 8:54AM By Martha Godwin ; [facility] metFORMIN HCl 1000 MG Oral Tablet 11/11/2021 Provide r: AZEEM JACKSON MD Diagnosis: Last Documented On 2 8:54AM By Martha Godwin ; [facility] Nortriptyline HCl 50 MG Oral Capsule 11/01/2021 Prov ider: AZEEM JACKSON MD Diagnosis: Last Documented On 2 8:54AM By Martha Godwin ; [facility] Tresiba FlexTouch 200 UNIT/M L Subcutaneous Solution Pen-injector 10/24/2021 Provider: AZEEM JACKSON MD Diagnosis: Last Documented On 2 8:54AM By Martha Godwin ; [facility] NovoLOG FlexPen 100 UNIT/ML Subcutaneous Solution Pen-injector 10/07/2021 Provider: AZEEM JACKSON MD Diagnosis: Last Documented On 2 8:54AM By Martha Godwin ; [facility] Medications Administered Includes: Administered Medications from [...] Location Date Check-In Time Check-Out Time Diagnosis [Patient Encounter] Stef Mathew MD 2 3:09PM 11:59PM Insurance Includes: Active Insurance Policies Plan Name Member ID Group # Subscriber Relationship Effect fartun Dates 1 - Medicare Part B [facility] [id number] Will Edwards 2 - [facility] CLAIMS [employer] [id number] Will Edwards Clinical Notes Includes: Clinical Notes from this encounter No Clinical Notes Recorded
--- OUTSIDE RECORDS SUMMARY | 2024-12-19 14:16 | XMS_ITS | Clinical Summary ---
[place] [address] Home Phone Mobile Phone Email Address Preferred Language en Marital Status Roman Catholic Affiliation Unknown Race White Ethnic Group Not or Lati no Author Organization [facility] Address [address] [place] [address] Phone Care Team Providers Care Yarn Man Name Role Phone Quincy CARR, Stef Diaz Unavailable [phone] RENETTA CARR, AZEEM Unavailable [phone] Reason for Referral Date Encounter Description Provider Reason for Referral 01/30/22 Post Op Dionicio Taylor PA-C Refer ral To Physician Reason for Visit and Chief [...] 2:25PM ; [facility] Plan of Treatment Fall Risk [...] with the patient. - Last Documented On 01/30/2022 9:36AM ; [facility] Patient states he was doing well for the first 2 weeks of recovery. At the 3- week arturo started noticing some snapping when doing recumbent bike exercise with physical therapy. Did not notice any popping or snapping. Patient states it was over in the lateral side of the hip. Likely some soft tissue or tendon snapping on the lateral aspect of the hip. Recommended holding off on that specific exercise but continue with physical therapy follow-up as - Last Documented On 01/30/2022 9:36AM ; [facility] Instructions to patient Lose weight Last Documented On 2 8:40AM ; [facility] Assessments Includes: Assessments from this encounter Findings 3 weeks postop right total hip arthroplasty - Last Documented On 01/30/2022 9:36AM ; [facility] Instructions Includes: Instructions from this encounter Instructions to patient Lose weight Last Documented On 2 8:40AM ; [facility] Medical Equipment - Implanted Devices Includes: Current Devices No Medical Equipment Recorded Medications Includes: Medications discussed during this encounter and other current Medications Current Medications (continue as prescribed) Lisinopril-hydroCHLOROthiazi de 20-12.5 MG Oral Tablet 11/26/2021 Provider: AZEEM JACKSON MD Diagnosis: Last Documented On 2 8:54AM By Martha Godwin ; [facility], [facility] Ezetimibe 10 MG Oral Tablet 11/11/2021 Provider: AZEEM JACKSNO MD Diagnosis: Last Documented On 2 8:54AM By Martha Godwin ; [facility] metFORMIN HCl 1000 MG Oral Tablet 11/11/2021 Provide r: AZEEM JACKSON MD Diagnosis: Last Documented On 2 8:54AM By Martha Godwin ; [facility] Nortriptyline HCl 50 MG Oral Capsule 11/01/2021 Prov ider: AZEEM JACKSON MD Diagnosis: Last Documented On 2 8:54AM By Martha Godwin ; [facility] Tresiba FlexTouch 200 UNIT/M L Subcutaneous Solution Pen-injector 10/24/2021 Provider: AZEEM JACKSON MD Diagnosis: Last Documented On 2 8:54AM By Martha Godwin ; [facility] NovoLOG FlexPen 100 UNIT/ML Subcutaneous Solution Pen-injector 10/07/2021 Provider: AZEEM JACKSON MD Diagnosis: Last Documented On 2 8:54AM By Martha Godwin ; [facility] Past Medications on file traMADol HCl 50 MG Oral Tablet 01/06/2022 - 01/11/2022 Provider: Stef linda MD Diagnosis: 1-2 po q 4-6h Last Documented On 2 3:20PM By López Mathew ; [facility] oxyCODONE HCl 5 MG Oral Tablet 01/06/2022 - 01/11/2022 Provider: Stef linda MD Diagnosis: 1-2 po q 4-6h Last Documented On 2 3:20PM By López Mathew ; [facility] Ondansetron HCl 4 MG Oral Tablet 01/06/2022 - 01/11/2022 Provider: Stef Mathew MD Diagnosis: [id number] Last Documented On 2 3:20PM By López Mathew ; [facility] Colace 100 MG Oral Capsule 01/06/2022 - 04/06/2022 Provider: Stef linda MD Diagnosis: 1-2 tabs daily Last Documented On 2 3:20PM By López Mathew ; [facility] Cefadroxil 500 MG Oral Capsule 01/06/2022 - 01/09/2022 Provider: Stef linda MD Diagnosis: twice a day Last Documented On 2 3:20PM By López Mathew ; [facility] Aspirin 81 MG Oral Tablet Delayed Release 01/06/2022 - 05/12/2022 Provider: Stef Mathew MD Diagnosis: twice a day Last Documented On 2 3:20PM By López Mathew ; [facility] Acetaminophen 500 MG Oral Tablet 01/06/2022 - 02/05/2022 Provider: Stef Mathew MD Diagnosis: 2 three times a day Last Documented On 2 3:20PM By López Mathew ; [facility] Meloxicam 15 MG Oral Tablet 11/28/2021 - 01/27/2022 Provider: Stef linda MD Diagnosis: once a day Last Documented On 2 9:12AM By Martha Godwin ; [facility] Dilaudid 2 MG Oral Tablet 05/25/2019 - 05/27/2019 Provider: Stef linda MD Diagnosis: 1-2 po q6h prn pain (RESCUE PAIN)DO NOT FILL TILL 05/31/2019 FOR SURGERY Last Documented On 0 3:56PM By Latoya Delgado ; [facility] Neurontin 300 MG Oral Capsule 05/25/2019 - 08/23/2019 Provider: Stef linda MD Diagnosis: 1 every bedtime DO NOT DOUG L TILL 05/31/2019 FOR SURGERY Last Documented On 0 3:56PM By Latoya Delgado ; [facility] traMADol HCl 50 MG Oral Tablet 05/25/2019 - 05/30/2019 Provider: Stef linda MD Diagnosis: 1-2 po q6h prn pain DO NOT FILL TILL 05/31/2019 FOR SURGERY Last Documented On 0 3:56PM By Latoya Delgado ; [facility] oxyCODONE HCl 5 MG Oral Tablet 05/25/2019 - 05/30/2019 Provider: Stef linda MD Diagnosis: 1-2 po q6h prn pain DO NOT FILL TILL 05/31/2019 FOR SURGERY Last Documented On 0 3:56PM By Latoya Delgado ; [facility] Colace 100 MG Oral Capsule 05/25/2019 - 08/23/2019 Provider: Stef linda MD Diagnosis: 1-2 tabs daily DO NOT FILL TILL 05/31/2019 FOR SURGERY Last Documented On 0 5:16PM By Latoya Delgado ; [facility] Acetaminophen 500 MG Oral Tablet 05/25/2019 - 06/24/2019 Provider: Stef Mathew MD Diagnosis: 2 three times a day DO NOT FILL TILL 05/31/2019 FOR SURGERY Last Documented On 0 4:46PM By Latoya Delgado ; [facility] Mupirocin 2% External Ointment 05/11/2019 - 05/16/2019 Provider: Stef linda MD Diagnosis: three times a day Apply to n ostrils 3 time a day 5 days prior to surgery. Last Documented On 0 2:20PM By Nancy Arnold ; [facility] Medications Administered Includes: Administered Medications from this encounter No Administered Medications Recorded Vital Signs Includes: Vital Signs from this encounter Vital Name 01/30/2022 09:16A Blood Pressure Sitting (mmHg) 140/94 Pulse Rate-Sitting (bpm) 97 Height (in) 74 Weight (lb) 224 Body Mass Index (kg/m2) 28.8 Body Surface Area (m2) 2.3 Note: snb Last Documented: On 01/30/2022 9:16AM ; [facility] Results Includes: Results discussed during this encounter No Results Recorded For Specified Dates History of Present Illness Includes: History of Present Illness from this encounter OBEY Marsh is a 66 year old male. - Allergy list reviewed - Problem list reviewed - Medication list reviewed Social History Description Last Updated Tobacco non-user 07/15/2022 Last Documented On 2 8:40AM ; [facility] No recent change in diet 07/15/2022 Last Documented On 2 8:40AM ; [facility] Not a current smoker. 07/15/2022 Last Documented On 2 8:40AM ; [facility] Retired from work 11/19/2021 Last Documented On 2 8:40AM ; [facility] Non-smoker 06/04/2020 Last Documented On 2 8:40AM ; [facility] Not a current smoker. 06/04/2020 Last Documented On 2 8:40AM ; [facility] No recent change in diet 07/21/2019 Last Documented On 2 8:40AM ; [facility] No tobacco use 07/21/2019 Last Documented On 2 8:40AM ; [facility] Not a current smoker 07/21/2019 Last Documented On 2 8:40AM ; [facility] Not using drugs 07/21/2019 Last Documented On 2 8:40AM ; [facility] Smoking status : Never smoker 07/21/2019 Last Documented On 2 8:40AM ; [facility] Alcohol use 05/02/2019 Last Documented On 2 8:40AM ; [facility] Caffeine use 05/02/2019 Last Documented On 2 8:40AM ; [facility] Not exercising regularly 05/02/2019 Last Documented On 2 8:40AM ; [facility] Procedures and Surgical History Includes: Procedures from this encounter Procedures Code Diagnosis Performing Provider Service L ocation Service Date use of tobacco assessment performed 1000F Last Documented On 2 8:40AM ; [facility] patient screened for future fall risk: documentation of any fall with injury in past year 1100F Last Documented On 2 8:40AM ; [facility] follow-up visit in one month Last Documented On 2 8:40AM ; [facility] referral to physician Last Documented On 2 8:40AM ; [facility] Surgical History Last Updated History of total hip replacement Left ~ 07/21/2019 Last Documented On 2 8:40AM ; [facility] History of back surgery 05/02/2019 Last Documented On 2 8:40AM ; [facility] Medical History Includes: Medical History addressed during this encounter Description Last Updated History of arthritis 11/08/2021 Last Documented On 2 8:40AM ; [facility] History of History of Cancer 11/08/2021 Last Documented On 2 8:40AM ; [facility] History of Hypertension 11/08/2021 Last Documented On 2 8:40AM ; [facility] Arthritis 06/04/2020 Last Documented On 2 8:40AM ; [facility] Back surgery 06/04/2020 Last Documented On 2 8:40AM ; [facility] History of Cancer 06/04/2020 Last Documented On 2 8:40AM ; [facility] Hypertension 06/04/2020 Last Documented On 2 8:40AM ; [facility] No recent immunization for flu 1 Last Documented On 2 8:40AM ; [facility] No recent immunization for pneumococcal pneumonia 06/04/2020 Last Documented On 2 8:40AM ; [facility], [facility] Total hip replacement 06/04/2020 Last Documented On 2 8:40AM ; [facility] toe removal 05/02/2019 Last Documented On 2 8:40AM ; [facility] A history of cancer 05/02/2019 Last Documented On 2 8:40AM ; [facility] History of depression 05/02/2019 Last Documented On 2 8:40AM ; [facility] History of diabetes mellitus 05/02/2019 Last Documented On 2 8:40AM ; [facility] Intermittent hypertension 05/02/2019 Last Documented On 2 8:40AM ; [facility] Family History Includes: Family History addressed during this encounter Description Last Updated Diabetes mellitus 06/04/2020 Last Documented On 2 8:40AM ; [facility] Family history of cancer 05/02/2019 Last Documented On 2 8:40AM ; [facility] Family history of diabetes mellitus 04/16 Last Documented On 2 8:40AM ; [facility] Family history of hypertension 0 Last Documented On 2 8:40AM ; [facility] Family history of osteoporosis 0 Last Documented On 2 8:40AM ; [facility] Review of Systems Includes: Review of Systems [...] Immunologic: No complaint of seasonal allergic reaction. reviewed 01/30/22 Mental Status Includes: Mental Status from this encounter Description No anxiety Functional Status Includes: Functional Status from this encounter No Functional Status Recorded Physical Exam Includes: Physical Exam from this encounter Allergies Includes: Active Allergies No Known Allergies Encounters Encounter Provider Location Date Check-In Time Check-Out Time Diagnosis Post Op Dionicio Taylor PA-C [facility] 2 8:36AM 9:29AM Insurance Includes: Active Insurance Policies Plan Name Member ID Group # Subscriber Relationship Effect fartun Dates 1 - Medicare Part B [facility] [id number] Will Edwards 2 - [facility] [employer] [id number] Will Edwards Clinical Notes Includes: Clinical Notes from this encounter No Clinical Notes Recorded
--- OUTSIDE RECORDS SUMMARY | 2024-12-19 14:16 | XMS_ITS | Clinical Summary ---
Author Organization [facility] ([place], [place], [place], [place]) Address [address] [place] [address] Care Team Providers Care Assistant Floor Covering Printer Name Role Phone Tommie Barraza MD Primary Care Provider [phone] Allergies No known active allergies Medications ezetimibe [...] Date Wilbert rded Speak language other than Czech at home Not on file 03/31/2023 Want [...] (#1) 2024 Medical Devices Implanted Type Area Sleeping Room Cleaner Device Identifier Shelf Expiration Date Model / Serial / Lot Bone Vivigen Formable Sm Bl-1600-001 - [id number] Implanted:Qty : 1 on 03/11/2023 by Dionicio Zuluaga MD at [facility] IMPLANTS N/A: Spine Cervical LIFENET:LIFENET TRANSPLANT SRV 02/24/2024 BL-1600-0 [id number] / Cage Eit Cif H 7mm 8 L [id number] - [id number] Implanted:Qty : 1 on 03/11/2023 by Dionicio Zuluaga MD at [facility] IMPLANTS N/A: Spine Cervical J &J:DEPUY:DEPUY SPINE 10/13/2025 [id number] / / [id number] Cage Eit Cif H 7mm 8 L [id number] - [id number] Implanted:Qty : 1 on 03/11/2023 by Dionicio Zuluaga MD at [facility] IMPLANTS N/A: Spine Cervical J &J:DEPUY:DEPUY SPINE 10/13/2025 [id number] / / [id number] Plt Ant Skyln Hybrd Lvl3 60mm 1867-05-060 - [id number] Implanted:Qty : 1 on 03/11/2023 by Dionicio Zuluaga MD at [facility] IMPLANTS N/A: Spine Cervical J &J:DEPUY:DEPUY SPINE 03-0 60 / 03-0 60 / Scr Skyln Vari-Ovsz 16mm 54-016 - [id number] Implanted:Qty : 2 on 03/11/2023 by Dionicio Zuluaga MD at [facility] IMPLANTS N/A: Spine Cervical J &J:DEPUY:DEPUY SPINE 854-0 16 / 54-0 16 / Scr Skyln Vari Sd 16mm 1867-50-016 - [id number] Implanted:Qty : 4 on 03/11/2023 by Dionicio Zuluaga MD at [facility] IMPLANTS N/A: Spine Cervical J &J:DEPUY:DEPUY SPINE 50-0 16 / 50-0 16 / Scr Skyln Vari Sd 18mm 1867-50-018 - [id number] Implanted:Qty : 2 on 03/11/2023 by Dionicio Zuluaga MD at [facility] IMPLANTS N/A: Spine Cervical J &J:DEPUY:DEPUY SPINE 850-0 18 / 50-0 18 / Insurance MEDICARE PART [place] [address] SUPP [facility] SUPP Care Teams Assistant Floor Covering Printer Relationship Specialty Start Date End Date Tommie Barraza MD PCP - General Family Medicine 03/05/23
--- OUTSIDE RECORDS SUMMARY | 2024-12-19 14:16 | XMS_ITS | Clinical Summary ---
[place] [address] Home Phone Mobile Phone Email Address Preferred Language en Marital Status Protestant Affiliation Unknown Race White Ethnic Group Not or Lati no Author Organization [facility] Address [address] [place] [address] Phone Care Team Providers Care Self Propelled Mining Machine Operator Name Role Phone Quincy CARR, Stef Diaz Unavailable [phone] RENETTA CARR, AZEEM Unavailable [phone] Reason for Visit and Chief Complaint The Chief Complaint is: R HIP PAIN Problems Includes: Problems addressed during this encounter and other active Problems All Visits Onset Date Resolved Date Provider Condition S tatus Joint Pain Hip Right 11/07/2021 Yaya Pineda Active Last Documented On 2 10:50AM ; [facility] Joint Pain Hip Left 05/02/2019 Stef linda MD Active Last Documented On 0 2:25PM ; [facility] Plan of Treatment No Plan of Treatment Recorded Assessments Includes: Assessments from this encounter Findings 1. Preoperative Exam- Pt underwent preoperative laboratory workup and diagnostic studies. - Last Documented On 12/25/2021 10:55AM ; [facility] 2. HTN- Continue Lisinopril/HCTZ. - Last Documented On 12/25/2021 10:55AM ; [facility] 3. DM- Continue Metformin, Novolog and Tresiba. - Last Documented On 12/25/2021 10:55AM ; [facility] 4. HL- Continue Ezetimibe. - Last Documented On 12/25/2021 10:55AM ; [facility] 5. Right Hip Pain secondary to DJD- Proceed with surgery as scheduled with Dr Mahtew on 01/07/2022. - Last Documented On 12/25/2021 10:55AM ; [facility] Medical Equipment - Implanted Devices Includes: Current Devices No Medical Equipment Recorded Medications Includes: Medications discussed during this encounter and other current Medications Current Medications (continue as prescribed) Lisinopril-hydroCHLOROthiazi de 20-12.5 MG Oral Tablet 11/26/2021 Provider: AZEEM JACKSON MD Diagnosis: Last Documented On 2 8:54AM By Martha Godwin ; [facility] Ezetimibe 10 MG Oral Tablet 11/11/2021 Provider: AZEEM JACKSON MD Diagnosis: Last Documented On 8:54AM By Martha Godwin ; [facility] metFORMIN HCl 1000 MG Oral Tablet 11/11/2021 Provide r: AZEEM JACKSON MD Diagnosis: Last Documented On 8:54AM By Martha Godwin ; [facility] Nortriptyline HCl 50 MG Oral Capsule 11/01/2021 Prov ider: AZEEM JACKSON MD Diagnosis: Last Documented On 8:54AM By Martha Godwin ; [facility] Tresiba FlexTouch 200 UNIT/M L Subcutaneous Solution Pen-injector 10/24/2021 Provider: AZEEM JACKSON MD Diagnosis: Last Documented On 2 8:54AM By Martha Godwin ; [facility] NovoLOG FlexPen 100 UNIT/ML Subcutaneous Solution Pen-injector 10/07/2021 Provider: AZEEM JACKSON MD Diagnosis: Last Documented On 8:54AM By Martha Godwin ; [facility] Past Medications on file traMADol HCl 50 MG Oral Tablet 01/06/2022 - 01/11/2022 Provider: Stef linda MD Diagnosis: 1-2 po q 4-6h Last Documented On 2 3:20PM By López Mathew ; [facility] oxyCODONE HCl 5 MG Oral Tablet 01/06/2022 - 01/11/2022 Provider: Stef linda MD Diagnosis: 1-2 po q 4-6h Last Documented On 2 3:20PM By López Mathew ; [facility] Ondansetron HCl 4 MG Oral Tablet 01/06/2022 - 01/11/2022 Provider: Stef Mathew MD Diagnosis: [id number] Last Documented On 2 3:20PM By López Mathew ; [facility] Colace 100 MG Oral Capsule 01/06/2022 - 04/06/2022 Provider: Stef linda MD Diagnosis: 1-2 tabs daily Last Documented On 2 3:20PM By López Mathew ; [facility] Cefadroxil 500 MG Oral Capsule 01/06/2022 - 01/09/2022 Provider: Stef linda MD Diagnosis: twice a day Last Documented On 2 3:20PM By López Mathew ; [facility] Aspirin 81 MG Oral Tablet Delayed Release 01/06/2022 - 05/12/2022 Provider: Stef Mathew MD Diagnosis: twice a day Last Documented On 2 3:20PM By López Mathew ; [facility] Acetaminophen 500 MG Oral Tablet 01/06/2022 - 02/05/2022 Provider: Stef Mathew MD Diagnosis: 2 three times a day Last Documented On 2 3:20PM By López Mathew ; [facility] Meloxicam 15 MG Oral Tablet 11/28/2021 - 01/27/2022 Provider: Stef linda MD Diagnosis: once a day Last Documented On 2 9:12AM By Martha Godwin ; [facility] Dilaudid 2 MG Oral Tablet 05/25/2019 - 05/27/2019 Provider: Stef linda MD Diagnosis: 1-2 po q6h prn pain (RESCUE PAIN)DO NOT FILL TILL 05/31/2019 FOR SURGERY Last Documented On 0 3:56PM By Latoya Delgado ; [facility] Neurontin 300 MG Oral Capsule 05/25/2019 - 08/23/2019 Provider: Stef linda MD Diagnosis: 1 every bedtime DO NOT DOUG L TILL 05/31/2019 FOR SURGERY Last Documented On 0 3:56PM By Latoya Delgado ; [facility] traMADol HCl 50 MG Oral Tablet 05/25/2019 - 05/30/2019 Provider: Stef linda MD Diagnosis: 1-2 po q6h prn pain DO NOT FILL TILL 05/31/2019 FOR SURGERY Last Documented On 0 3:56PM By Latoya Delgado ; [facility] oxyCODONE HCl 5 MG Oral Tablet 05/25/2019 - 05/30/2019 Provider: Stef linda MD Diagnosis: 1-2 po q6h prn pain DO NOT FILL TILL 05/31/2019 FOR SURGERY Last Documented On 0 3:56PM By Latoya Delgado ; [facility] Colace 100 MG Oral Capsule 05/25/2019 - 08/23/2019 Provider: Stef linda MD Diagnosis: 1-2 tabs daily DO NOT FILL TILL 05/31/2019 FOR SURGERY Last Documented On 0 5:16PM By Latoya Delgado ; [facility] Acetaminophen 500 MG Oral Tablet 05/25/2019 - 06/24/2019 Provider: Stef Mathew MD Diagnosis: 2 three times a day DO NOT FILL TILL 05/31/2019 FOR SURGERY Last Documented On 0 4:46PM By Latoya Delgado ; [facility] Mupirocin 2% External Ointment 05/11/2019 - 05/16/2019 Provider: Stef linda MD Diagnosis: three times a day Apply to n ostrils 3 time a day 5 days prior to surgery. Last Documented On 0 2:20PM By Nancy Arnold ; [facility] Medications Administered Includes: Administered Medications from this encounter No Administered Medications Recorded Vital Signs Includes: Vital Signs from this encounter Vital Name 12/19/2021 10:24A Blood Pressure Sitting (mmHg) 150/79 Pulse Rate-Sitting (bpm) 104 Height (in) 74 Weight (lb) 231 Body Mass Index (kg/m2) 29.7 Body Surface Area (m2) 2.3 Oxygen Saturation (%) 100 Note: TDT Last Documented: On 12/19/2021 10:29A M ; [facility] Results Includes: Results discussed during this encounter No Results Recorded For Specified Dates History of Present Illness Includes: History of Present Illness from this encounter OBEY Marsh is a 66 year old male. - Allergy list reviewed - Problem list reviewed - Medication list reviewed This patient is a pleasant 66 yo WM who presents with right hip pain. The pain has been going on for a year but has gotten progressively worse. He describes it as a sharp pain. It is now to the point that it is affecting his ADLs. He has tried NSAIDs and injections without relief of his pain. He has not fallen. He has used a cane as an assistive device. He was seen at Dr Mathew's office and evaluated and it was determined that he has severe DJD affecting the right hip. Pt was offered a Right Anterior vs Posterior Total Hip Arthroplasty and agreed to the procedure. Pt denies a h/o DVT/PE. No trouble with anesthesia in the past. Pt denies h/o COPD/Asthma/SARA. Social History Description Last Updated Tobacco non-user 07/15/2022 Last Documented On 2 10:24AM ; [facility] No recent change in diet 07/15/2022 Last Documented On 2 10:24AM ; [facility] Not a current smoker. 07/15/2022 Last Documented On 2 10:24AM ; [facility] Retired from work 11/19/2021 Last Documented On 2 10:24AM ; [facility] Non-smoker 06/04/2020 Last Documented On 2 10:24AM ; [facility] Not a current smoker. 06/04/2020 Last Documented On 2 10:24AM ; [facility] No recent change in diet 07/21/2019 Last Documented On 2 10:24AM ; [facility] No tobacco use 07/21/2019 Last Documented On 2 10:24AM ; [facility] Not a current smoker 07/21/2019 Last Documented On 2 10:24AM ; [facility] Not using drugs 07/21/2019 Last Documented On 2 10:24AM ; [facility] Smoking status : Never smoker 07/21/2019 Last Documented On 2 10:24AM ; [facility] Alcohol use 05/02/2019 Last Documented On 2 10:24AM ; [facility] Caffeine use 05/02/2019 Last Documented On 2 10:24AM ; [facility] Not exercising regularly 05/02/2019 Last Documented On 2 10:24AM ; [facility] Procedures and Surgical History Surgical History Last Updated History of total hip replacement Left ~ 07/21/2019 Last Documented On 2 10:24AM ; [facility] History of back surgery 05/02/2019 Last Documented On 2 10:24AM ; [facility] Medical History Includes: Medical History addressed during this encounter Description Last Updated History of arthritis 11/08/2021 Last Documented On 2 10:24AM ; [facility] History of History of Cancer 11/08/2021 Last Documented On 2 10:24AM ; [facility] History of Hypertension 11/08/2021 Last Documented On 2 10:24AM ; [facility] Arthritis 06/04/2020 Last Documented On 2 10:24AM ; [facility] Back surgery 06/04/2020 Last Documented On 2 10:24AM ; [facility] History of Cancer 06/04/2020 Last Documented On 2 10:24AM ; [facility] Hypertension 06/04/2020 Last Documented On 2 10:24AM ; [facility] No recent immunization for flu Last Documented On 2 10:24AM ; [facility] No recent immunization for pneumococcal pneumonia 06/04/2020 Last Documented On 2 10:24AM ; [facility] Total hip replacement 06/04/2020 Last Documented On 2 10:24AM ; [facility] toe removal 05/02/2019 Last Documented On 2 10:24AM ; [facility] A history of cancer 05/02/2019 Last Documented On 2 10:24AM ; [facility] History of depression 05/02/2019 Last Documented On 2 10:24AM ; [facility] History of diabetes mellitus 05/02/2019 Last Documented On 2 10:24AM ; [facility] Intermittent hypertension 05/02/2019 Last Documented On 2 10:24AM ; [facility] Family History Includes: Family History addressed during this encounter Description Last Updated Pt mother from paralysi s complications in her 70s. Pt father from Liver Cancer in his 70s. 12/19/2021 Last Documented On 2 10:38AM ; [facility] Review of Systems Includes: Review of Systems from this encounter Constitutional: Neg for fevers or chills. Eyes: Neg for blurry vision or change in vision. ENT: Neg for sore throat, ear pain, or dizziness. Cardiac: Neg for chest pain or dyspnea on exertion. Respiratory: Neg for shortness of breath. Gastrointestinal: Neg for nausea, vomiting, diarrhea, or constipation. Musculoskeletal: Pos for right hip pain. Neurologic: Neg for headaches or seizures. Psychiatric: Neg for anxiety and depression. Integumentary: Neg for rash. Mental Status Includes: Mental Status from this encounter No Mental Status Recorded Functional Status Includes: Functional Status from this encounter No Functional Status Recorded Physical Exam Includes: Physical Exam from this encounter Allergies Includes: Active Allergies No Known Allergies Encounters Encounter Provider Location Date Check-In Time Check-Out Time Diagnosis Pre Admission Testing Terri RACHEL [facility] 12/20/19 10:01AM 10:29AM Insurance Includes: Active Insurance Policies Plan Name Member ID Group # Subscriber Relationship Effect fartun Dates 1 - Medicare Part B [facility] [id number] Will Edwards 2 - [facility] [employer] [employer] [id number] Will Edwards Clinical Notes Includes: Clinical Notes from this encounter No Clinical Notes Recorded
--- OUTSIDE RECORDS SUMMARY | 2024-12-19 14:16 | XMS_ITS | Referral Summary ---
Author Organization [employer] ([place], [place], [place], [place]) Address [address] [place] [address] Care Team Providers Care Shellfish Processing Laborer Name Role Phone Tommie Barraza MD Primary Care Provider [phone] Allergies No known active allergies Medications ezetimibe [...] Date Wilbert rded Speak language other than Scottish at home Not on file 03/31/2023 Want [...] on file Medical Devices Implanted Type Area Care Partner Device Identifier Shelf Expiration Date Model / Serial / Lot Bone Vivigen Formable Bl-1600-001 - [id number] Implanted:Qty : 1 on 03/11/2023 by Dionicio Zuluaga MD at [facility] IMPLANTS N/A: Spine Cervical LIFENET:LIFENET TRANSPLANT SRV 02/24/2024 BL-1600-0 01 / [id number] / Cage Eit Cif H 7mm 8 L [id number] - [id number] Implanted:Qty : 1 on 03/11/2023 by Dionicio Zuluaga MD at [facility] IMPLANTS N/A: Spine Cervical J &J:DEPUY:DEPUY SPINE 10/13/2025 [id number] / / [id number] Cage Eit Cif H 7mm 8 L [id number] - [id number] Implanted:Qty : 1 on 03/11/2023 by Dionicio Zuluaga MD at [facility] IMPLANTS N/A: Spine Cervical J &J:DEPUY:DEPUY SPINE 10/13/2025 [id number] / / [id number] Plt Ant Skyln Hybrd Lvl3 60mm 1867-05-200 - [id number] Implanted:Qty : 1 on 03/11/2023 by Dionicio Zuluaga MD at [facility] IMPLANTS N/A: Spine Cervical J &J:DEPUY:DEPUY SPINE 0 60 / 0 60 / Scr Skyln Vari-Ovsz 16mm 016 - [id number] Implanted:Qty : 2 on 03/11/2023 by Dionicio Zuluaga MD at [facility] IMPLANTS N/A: Spine Cervical J &J:DEPUY:DEPUY SPINE 0 16 / 16 / Scr Skyln Vari Sd 16mm 1868-50-016 - [id number] Implanted:Qty : 4 on 03/11/2023 by Dionicio Zuluaga MD at [facility] IMPLANTS N/A: Spine Cervical J &J:DEPUY:DEPUY SPINE 50-0 16 / 50-0 16 / Scr Skyln Vari Sd 18mm 1867-50-018 - [id number] Implanted:Qty : 2 on 03/11/2023 by Dionicio Zuluaga MD at [facility] IMPLANTS N/A: Spine Cervical J &J:DEPUY:DEPUY SPINE 50-0 18 / 0 18 / Insurance MEDICARE PART A B [facility] SUPP Care Teams Shellfish Processing Laborer Relationship Specialty Start Date End Date Tommie Barraza MD PCP - General Family Medicine 03/05/23
== END 2024-12-19 23:59 | disposition home or self-care (01) ==
LOC: RAD 14:14
PROVIDERS: PCP Nurse Practitioner Family; Visit Provider Nurse Practitioner Family
DX: S93.401A Sprain of unspecified ligament of right ankle, initial encounter (principal); S82.61XA Displaced fracture of lateral malleolus of right fibula, initial encounter for closed fracture; M19.071 Primary osteoarthritis, right ankle and foot; M17.11 Unilateral primary osteoarthritis, right knee; W19.XXXA Unspecified fall, initial encounter
CPT/HCPCS: 73590; 73610

== ENCOUNTER 2024-12-23 08:32 | Day surgery (SDC) | payer MEDICARE, SELFPAY ==
[2024-12-23] VITALS (10 sets, daily range): BP systolic 124–162; BP diastolic 73–92; PULSE 58–70; RESP 16–20; O2SAT 90–97; BMI 29.9
--- NOTE | 2024-12-23 07:08 | IR_ITS ---
APPROVED REPORT Patient Location: Outpatient PROCEDURES Left heart catheterization Left ventriculogram Selective coronary angiogram INDICATION Abnormal Myoview, Angina pectoris, Known coronary artery disease Informed consent was obtained prior to the procedure. COMPLICATIONS NONE Estimated Blood Loss: LESS THAN 10 ML TECHNIQUE One percent lidocaine used to anesthetize the right anterior aspect of the wrist. The right radial artery was accessed via the Seldinger technique. A 6 Indonesian sheath was placed in the right radial artery. 2.5 mg of Verapamil, 800 mcg of nitroglycerin, 1mg Lidocaine and 5000 U Heparin were given through the arterial sheath. The JL3 catheter was also used to perform left heart catheterization, left ventriculogram and selective coronary angiogram. At the end of the procedure the sheath was removed good hemostasis was achieved using Traclet band, patient was transferred to the postop holding area in stable condition. ANGIOGRAPHIC RESULTS The left main artery Normal The left anterior descending artery Has a proximal 20% stenosis immediately proximal to a widely patent proximal LAD stent which has no angiographic evidence of in-stent restenosis. Distal to the stent there is a 30% concentric stenosis. The remaining vessel was initially accompanied by TESSA II flow which improved to TESSA-3 flow after subsequent injections. Distally in the LAD there are 40% stenosis as the LAD approaches the apex. A large first diagonal artery is widely patent with proximal 30% concentric stenosis The circumflex artery Nondominant with 10% diffuse luminal regularities The right coronary artery Dominant with proximal 30% stenoses mid vessel concentric 40% stenosis with distal 20 and 30% stenosis The BANDA ventriculogram reveals Normal 60% The left ventricular end-diastolic pressure 15 mmHg IMPRESSION Coronary disease as described above most notably with TESSA II flow down the LAD on initial injection consistent with endothelial dysfunction which is likely etiology for patient's angina Normal ejection fraction Normal LVEDP PLAN 1. Maximize antianginal medications. 2. Recommend adding dihydropyridine calcium channel namita and Ranexa 3. Risk factor modification 4. Is a low and acceptable risk to proceed with surgery Electronically signed by : Dionicio Zaragoza MD 12/23/2024 12:22:50
[2024-12-23 08:56] LABS: Hematocrit 44.9 % (42.0-52.0); Hemoglobin 14.7 g/dL (14.1-18.0); Immature Granulocytes % 0.8 %; Mean Corpuscular HGB Conc 32.7 g/dL (31.8-35.4); Mean Corpuscular Hemoglobin 27.6 pg (27.0-31.2); Mean Corpuscular Volume 84.2 fl (80-94); Nucleated Red Blood Cells % 0 %; Platelet Count 252 K/mm3 (142-424); Red Blood Count 5.33 M/mm3 (4.60-6.20); Red Cell Distribution Width-SD 41.4 fL; White Blood Count 6.2 K/mm3 (4.8-10.8)
[2024-12-23 09:08] LABS: Chloride 96 mmol/L (98-107); Potassium 4.8 mmoL/L (3.5-5.1); Sodium 135 mmol/L (136-145)
[2024-12-23 09:11] LABS: Anion Gap 15.8 mEq/L (5-15); Carbon Dioxide 28 mmol/L (22.0-30.0)
[2024-12-23 09:12] LABS: Calcium 9.2 mg/dl (8.4-10.2); Glucose 119 mg/dl (74-100)
[2024-12-23 09:16] LABS: Blood Urea Nitrogen 11 mg/dl (9-20); Creatinine Clearance Estimated 106 mL/min (50-200); Creatinine,Serum 0.80 mg/dl (0.66-1.25); Estimated Glomerular Filt Rate 96 ml/min (>60); GFR (African American) 116 ML/MIN (>60)
[2024-12-23] MEDS: LIDOCAINE 1% 10ML MDV 10 ML IJ (11:14)
[2024-12-23] MEDS: NITROGLYCERIN 800MCG/8ML SYR (CATH LAB) 800 MCG IA (11:14)
[2024-12-23] MEDS: HEPARIN 1,000 UNITS/500ML NS (CATH LAB) 3000 UNIT IV (11:15)
[2024-12-23] MEDS: HEPARIN 1,000 UNITS/ML 10ML VIAL (CATH LAB) 5000 UNIT IV (11:15)
[2024-12-23] MEDS: VERAPAMIL 2.5MG/ML 2ML VIAL 2.5 MG IV (11:15)
[2024-12-23] MEDS: 0.9 % SODIUM CHLORIDE 500 ML 25 ML IV (11:15)
[2024-12-23] MEDS: FENTANYL 100MCG/2ML VIAL 50 MCG IV (11:24)
[2024-12-23] MEDS: MIDAZOLAM HCL 1MG/ML 5ML VIAL 1 MG IV (11:24)
[2024-12-23] MEDS: IOPAMIDOL-370 (76%);100ML BOTTLE 50 ML IV (12:19)
== END 2024-12-23 13:50 | disposition home or self-care (01) ==
PROVIDERS: PCP Nurse Practitioner Family; Visit Provider Internal Medicine
PROC: 4A023N7 Measurement of Cardiac Sampling and Pressure, Left Heart, Percutaneous Approach (ICD-10-PCS; CPT 93452; principal; 2024-12-23 10:30)
DX: Z01.810 Encounter for preprocedural cardiovascular examination (principal); I25.118 Atherosclerotic heart disease of native coronary artery with other forms of angina pectoris; R94.39 Abnormal result of other cardiovascular function study; R94.31 Abnormal electrocardiogram [ECG] [EKG]; R79.89 Other specified abnormal findings of blood chemistry; E11.9 Type 2 diabetes mellitus without complications; I10 Essential (primary) hypertension; E78.2 Mixed hyperlipidemia; N31.9 Neuromuscular dysfunction of bladder, unspecified; Z96.642 Presence of left artificial hip joint; Z87.891 Personal history of nicotine dependence; Z79.4 Long term (current) use of insulin; Z79.84 Long term (current) use of oral hypoglycemic drugs; Z79.82 Long term (current) use of aspirin; Z79.02 Long term (current) use of antithrombotics/antiplatelets; Z79.890 Hormone replacement therapy; Z79.899 Other long term (current) drug therapy; Z88.8 Allergy status to other drugs, medicaments and biological substances
CPT/HCPCS: 80048; 85025; 93458; 99152; C1725; C1760; C1769; J1200; J1644; J3010; J7040; Q9967

== ENCOUNTER 2024-12-28 08:45 | Outpatient (CLI) | payer MEDICARE, SELFPAY ==
--- NOTE | 2024-12-28 09:00 | MR_ITS ---
FINAL REPORT CLINICAL HISTORY: concern for lateral malleolus fx increasing ankle pain COMPARISON: None FINDINGS: Multiplanar and multisequence imaging of the right ankle was obtained without intravenous contrast. BONES/JOINT: Bone marrow signal intensity is normal. There is no edema, contusion or pathologic marrow replacement. No acute fracture is identified. One of the small fragments at the tip of the lateral malleolus is visualized, while the other is not. LIGAMENTS: There may be a partial tear of the ATFL. The PTFL and CFL are intact. The tibiofibular ligaments are intact. The medial ligaments are intact. TENDONS: The Achilles tendon is normal in size and signal intensity. The medial tendons are within normal limits. There is enlargement of the peroneal tendons, with a small amount of fluid in the tendon sheath suggesting peroneal tenosynovitis. The extensor tendons are within normal limits. OTHER SOFT TISSUES: A small tibiotalar joint effusion is present. Signal intensity within the sinus tarsi is preserved. The plantar fascia is normal in size and signal intensity. Nonspecific soft tissue edema is noted about the ankle. IMPRESSION: 1. No acute bone marrow edema or fracture is identified. 2. There may be a partial tear of the ATFL. 3. Enlargement of the peroneal tendons, with a small amount of fluid in the tendon sheath suggestive of tenosynovitis. 4. Nonspecific soft tissue edema about the ankle. Reviewed, Interpreted and Dictated by Carmen Danielson MD Transcribed by Yoko Saavedra Authenticated and . [facility]
--- OUTSIDE RECORDS SUMMARY | 2024-12-28 09:00 | XMS_ITS | Referral Summary ---
Author Organization [employer] ([place], [place], [place], [place]) Address [address] [place] [address] Care Team Providers Care Telecommunications Line Mechanic Name Role Phone Tommie Barraza MD Primary Care Provider [phone] Allergies No known active allergies Medications ezetimibe [...] Date Wilbert rded Speak language other than Telugu at home Not on file 03/31/2023 Want [...] on file Medical Devices Implanted Type Area Machine Castings Plasterer Device Identifier Shelf Expiration Date Model / Serial / Lot Bone Vivigen Formable Bl-1600-001 - [id number] Implanted:Qty : 1 on 03/11/2023 by Dionicio Zuluaga MD at [facility] IMPLANTS N/A: Spine Cervical LIFENET:LIFENET TRANSPLANT SRV 02/24/2024 BL-1600-0 01 / [id number] / Cage Eit Cif H 7mm 8 L [id number] - [id number] Implanted:Qty : 1 on 03/11/2023 by Dionicio Zuluaga MD at [facility] IMPLANTS N/A: Spine Cervical J &J:DEPUY:DEPUY SPINE 10/13/2025 [id number] / / [id number] Cage Eit Cif H 7mm 8 L [id number] - [id number] Implanted:Qty : 1 on 03/11/2023 by Dionicio Zuluaga MD at [facility] IMPLANTS N/A: Spine Cervical J &J:DEPUY:DEPUY SPINE 10/13/2025 [id number] / / [id number] Plt Ant Skyln Hybrd Lvl3 60mm 1867-05-200 - [id number] Implanted:Qty : 1 on 03/11/2023 by Dionicio Zuluaga MD at [facility] IMPLANTS N/A: Spine Cervical J &J:DEPUY:DEPUY SPINE 0 60 / 0 60 / Scr Skyln Vari-Ovsz 16mm 016 - [id number] Implanted:Qty : 2 on 03/11/2023 by Dionicio Zuluaga MD at [facility] IMPLANTS N/A: Spine Cervical J &J:DEPUY:DEPUY SPINE 0 16 / 16 / Scr Skyln Vari Sd 16mm 1868-50-016 - [id number] Implanted:Qty : 4 on 03/11/2023 by Dionicio Zuluaga MD at [facility] IMPLANTS N/A: Spine Cervical J &J:DEPUY:DEPUY SPINE 50-0 16 / 50-0 16 / Scr Skyln Vari Sd 18mm 1867-50-018 - [id number] Implanted:Qty : 2 on 03/11/2023 by Dionicio Zuluaga MD at [facility] IMPLANTS N/A: Spine Cervical J &J:DEPUY:DEPUY SPINE 50-0 18 / 0 18 / Insurance MEDICARE PART A B [facility] SUPP Care Teams Telecommunications Line Mechanic Relationship Specialty Start Date End Date Tommie Barraza MD PCP - General Family Medicine 03/05/23
--- OUTSIDE RECORDS SUMMARY | 2024-12-28 09:00 | XMS_ITS | Clinical Summary ---
Author Organization [employer] ([place], [place], [place], [place]) Address [address] [place] [address] Care Team Providers Care Teaching Artist Name Role Phone Tommie Barraza MD Primary Care Provider [phone] Allergies No known active allergies Medications ezetimibe [...] Date Wilbert rded Speak language other than Upper Sorbian at home Not on file 03/31/2023 Want [...] (#1) 2024 Medical Devices Implanted Type Area Concert Or Lecture Hall Manager Device Identifier Shelf Expiration Date Model / Serial / Lot Bone Vivigen Formable Sm Bl-1600-001 - [id number] Implanted:Qty : 1 on 03/11/2023 by Dionicio Zuluaga MD at [facility] IMPLANTS N/A: Spine Cervical LIFENET:LIFENET TRANSPLANT SRV 02/24/2024 [id number] / Cage Eit Cif H 7mm 8 L [id number] - [id number] Implanted:Qty : 1 on 03/11/2023 by Dionicio Zuluaga MD at [facility] IMPLANTS N/A: Spine Cervical J &J:DEPUY:DEPUY SPINE 10/13/2025 [id number] / / [id number] Cage Eit Cif H 7mm 8 L [id number] - [id number] Implanted:Qty : 1 on 03/11/2023 by Dionicio Zuluaga MD at [facility] IMPLANTS N/A: Spine Cervical J &J:DEPUY:DEPUY SPINE 10/13/2025 [id number] / / [id number] Plt Ant Skyln Hybrd Lvl3 60mm 1867-05-060 - [id number] Implanted:Qty : 1 on 03/11/2023 by Dionicio Zuluaga MD at [facility] IMPLANTS N/A: Spine Cervical J &J:DEPUY:DEPUY SPINE 03-0 60 / 03-0 60 / Scr Skyln Vari-Ovsz 16mm 54-016 - [id number] Implanted:Qty : 2 on 03/11/2023 by Dionicio Zuluaga MD at [facility] IMPLANTS N/A: Spine Cervical J &J:DEPUY:DEPUY SPINE 854-0 16 / 54-0 16 / Scr Skyln Vari Sd 16mm 1867-50-016 - [id number] Implanted:Qty : 4 on 03/11/2023 by Dionicio Zuluaga MD at [facility] IMPLANTS N/A: Spine Cervical J &J:DEPUY:DEPUY SPINE 50-0 16 / 50-0 16 / Scr Skyln Vari Sd 18mm 1867-50-018 - [id number] Implanted:Qty : 2 on 03/11/2023 by Dionicio Zuluaag MD at [facility] IMPLANTS N/A: Spine Cervical J &J:DEPUY:DEPUY SPINE 850-0 18 / 50-0 18 / Insurance MEDICARE PART [place] [address] [place] [address] SUPP [facility] SUPP Care Teams Teaching Artist Relationship Specialty Start Date End Date Tommie Barraza MD PCP - General Family Medicine 03/05/23
== END 2024-12-28 23:59 | disposition home or self-care (01) ==
LOC: RAD 08:46
PROVIDERS: PCP Nurse Practitioner Family; Visit Provider Nurse Practitioner Family
DX: M79.89 Other specified soft tissue disorders (principal); M67.873 Other specified disorders of tendon, right ankle and foot; M79.661 Pain in right lower leg; S82.61XA Displaced fracture of lateral malleolus of right fibula, initial encounter for closed fracture; R93.6 Abnormal findings on diagnostic imaging of limbs
CPT/HCPCS: 73721

== ENCOUNTER 2025-01-09 11:45 | Outpatient (CLI) | payer MEDICARE, BC, SELFPAY ==
[2025-01-09 15:04] LABS: Microscopic, Urine URINE MICROSCOPIC (MICROSCOPIC)
[2025-01-09 15:43] LABS: Bilirubin,Urine Negative (Negative); Color,Urine YELLOW (Yellow); Glucose,Urine (UA) TRACE (Negative); Ketones,Urine Negative (Negative); Leukocyte Esterase,Urine 3+ (Negative); PH,Urine 6.5 (5.0-8.5); Protein,Urine Negative (Negative); Specific Gravity, Urine 1.015 (1.005-1.030); Urobilinogen,Urine 0.2 EU/dl (0.2)
[2025-01-09 16:10] LABS: Bacteria,Urine 4+ /lpf; WBC,Urine 20-50 #/hpf (0-3)
--- OUTSIDE RECORDS SUMMARY | 2025-01-10 09:53 | XMS_ITS | Clinical Summary ---
[place] [address] Home Phone Mobile Phone Email Address Preferred Language en Marital Status Jainism Affiliation Unknown Race White Ethnic Group Not or Lati no Author Organization [facility] Address [address] [place] [address] Phone Care Team Providers Care Director Business Systems Name Role Phone Quincy CARR, Stef Diaz Unavailable [phone] RENETTA CARR, AZEEM Unavailable [phone] Reason for Visit and Chief Complaint The Chief Complaint is: R HIP PAIN Problems Includes: Problems addressed during this encounter and other active Problems All Visits Onset Date Resolved Date Provider Condition S tatus Joint Pain Hip Right 11/07/2021 Yaya Pineda Active Last Documented On 2 10:50AM ; [facility] Joint Pain Hip Left 05/02/2019 Stef linda MD Active Last Documented On 0 2:25PM ; [facility] Plan of Treatment No Plan of Treatment Recorded Assessments Includes: Assessments from this encounter Findings 1. Preoperative Exam- Pt underwent preoperative laboratory workup and diagnostic studies. - Last Documented On 12/25/2021 10:55AM ; [facility] 2. HTN- Continue Lisinopril/HCTZ. - Last Documented On 12/25/2021 10:55AM ; [facility] 3. DM- Continue Metformin, Novolog and Tresiba. - Last Documented On 12/25/2021 10:55AM ; [facility] 4. HL- Continue Ezetimibe. - Last Documented On 12/25/2021 10:55AM ; [facility] 5. 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 - Last Documented On 12/25/2021 10:55AM ; [facility], [facility] Medical Equipment - Implanted Devices Includes: Current Devices No Medical Equipment Recorded Medications Includes: Medications discussed during this encounter and other current Medications Current Medications (continue as prescribed) Lisinopril-hydroCHLOROthiazi de 20-12.5 MG Oral Tablet 11/26/2021 Provider: AZEEM JACKSON MD Diagnosis: Last Documented On 2 8:54AM By Martha Godwin ; [facility], [facility] Ezetimibe 10 MG Oral Tablet 11/11/2021 Provider: AZEEM JACKSON MD Diagnosis: Last Documented On 8:54AM By Martha Godwin ; [facility] metFORMIN HCl 1000 MG Oral Tablet 11/11/2021 Provide r: AZEEM JACKSON MD Diagnosis: Last Documented On 8:54AM By Martha Godwin ; [facility] Nortriptyline HCl 50 MG Oral Capsule 11/01/2021 Prov ider: AZEEM JACKSON MD Diagnosis: Last Documented On 8:54AM By Martha Godwin ; [facility] Tresiba FlexTouch 200 UNIT/M L Subcutaneous Solution Pen-injector 10/24/2021 Provider: AZEEM JACKSON MD Diagnosis: Last Documented On 2 8:54AM By Martha Godwin ; [facility] NovoLOG FlexPen 100 UNIT/ML Subcutaneous Solution Pen-injector 10/07/2021 Provider: AZEEM JACKSON MD Diagnosis: Last Documented On 8:54AM By Martha Godwin ; [facility] Past Medications on file traMADol HCl 50 MG Oral Tablet 01/06/2022 - 01/11/2022 Provider: Stef linda MD Diagnosis: 1-2 po q 4-6h Last Documented On 2 3:20PM By López Mathew ; [facility] oxyCODONE HCl 5 MG Oral Tablet 01/06/2022 - 01/11/2022 Provider: Stef linda MD Diagnosis: 1-2 po q 4-6h Last Documented On 2 3:20PM By López Mathew ; [facility] Ondansetron HCl 4 MG Oral Tablet 01/06/2022 - 01/11/2022 Provider: Stef Mathew MD Diagnosis: 5sym6-9w Last Documented On 2 3:20PM By López Mathew ; [facility] Colace 100 MG Oral Capsule 01/06/2022 - 04/06/2022 Provider: Stef linda MD Diagnosis: 1-2 tabs daily Last Documented On 2 3:20PM By López Mathew ; [facility] Cefadroxil 500 MG Oral Capsule 01/06/2022 - 01/09/2022 Provider: Stef linda MD Diagnosis: twice a day Last Documented On 2 3:20PM By López Mathew ; [facility] Aspirin 81 MG Oral Tablet Delayed Release 01/06/2022 - 05/12/2022 Provider: Stef Mathew MD Diagnosis: twice a day Last Documented On 2 3:20PM By López Mathew ; [facility] Acetaminophen 500 MG Oral Tablet 01/06/2022 - 02/05/2022 Provider: Stef Mathew MD Diagnosis: 2 three times a day Last Documented On 2 3:20PM By López Mathew ; [facility] Meloxicam 15 MG Oral Tablet 11/28/2021 - 01/27/2022 Provider: Stef linda MD Diagnosis: once a day Last Documented On 2 9:12AM By Martha Godwin ; [facility] Dilaudid 2 MG Oral Tablet 05/25/2019 - 05/27/2019 Provider: Stef linda MD Diagnosis: 1-2 po q6h prn pain (RESCUE PAIN)DO NOT FILL TILL 05/31/2019 FOR SURGERY Last Documented On 0 3:56PM By Latoya Delgado ; [facility] Neurontin 300 MG Oral Capsule 05/25/2019 - 08/23/2019 Provider: Stef linda MD Diagnosis: 1 every bedtime DO NOT DOUG L TILL 05/31/2019 FOR SURGERY Last Documented On 0 3:56PM By Latoya Delgado ; [facility] traMADol HCl 50 MG Oral Tablet 05/25/2019 - 05/30/2019 Provider: Stef linda MD Diagnosis: 1-2 po q6h prn pain DO NOT FILL TILL 05/31/2019 FOR SURGERY Last Documented On 0 3:56PM By Latoya Delgado ; [facility] oxyCODONE HCl 5 MG Oral Tablet 05/25/2019 - 05/30/2019 Provider: Stef linda MD Diagnosis: 1-2 po q6h prn pain DO NOT FILL TILL 05/31/2019 FOR SURGERY Last Documented On 0 3:56PM By Latoya Delgado ; [facility] Colace 100 MG Oral Capsule 05/25/2019 - 08/23/2019 Provider: Stef linda MD Diagnosis: 1-2 tabs daily DO NOT FILL TILL 05/31/2019 FOR SURGERY Last Documented On 0 5:16PM By Latoya Delgado ; [facility] Acetaminophen 500 MG Oral Tablet 05/25/2019 - 06/24/2019 Provider: Stef Mathew MD Diagnosis: 2 three times a day DO NOT FILL TILL 05/31/2019 FOR SURGERY Last Documented On 0 4:46PM By Latoya Delgado ; [facility] Mupirocin 2% External Ointment 05/11/2019 - 05/16/2019 Provider: Stef linda MD Diagnosis: three times a day Apply to n ostrils 3 time a day 5 days prior to surgery. Last Documented On 0 2:20PM By Nancy Arnold ; [facility] Medications Administered Includes: Administered Medications from this encounter No Administered Medications Recorded Vital Signs Includes: Vital Signs from this encounter Vital Name 12/19/2021 10:24A Blood Pressure Sitting (mmHg) 150/79 Pulse Rate-Sitting (bpm) 104 Height (in) 74 Weight (lb) 231 Body Mass Index (kg/m2) 29.7 Body Surface Area (m2) 2.3 Oxygen Saturation (%) 100 Note: TDT Last Documented: On 12/19/2021 10:29A M ; [facility] Results Includes: Results discussed during this encounter [...] 07/15/2022 Last Documented On 2 10:24AM ; [facility] No recent change in diet 07/15/2022 Last Documented On 2 10:24AM ; [facility] Not a current smoker. 07/15/2022 Last Documented On 2 10:24AM ; [facility] Retired from work 11/19/2021 Last Documented On 2 10:24AM ; [facility] Non-smoker 06/04/2020 Last Documented On 2 10:24AM ; [facility] Not a current smoker. 06/04/2020 Last Documented On 2 10:24AM ; [facility] No recent change in diet 07/21/2019 Last Documented On 2 10:24AM ; [facility] No tobacco use 07/21/2019 Last Documented On 2 10:24AM ; [facility] Not a current smoker 07/21/2019 Last Documented On 2 10:24AM ; [facility] Not using drugs 07/21/2019 Last Documented On 2 10:24AM ; [facility] Smoking status : Never smoker 07/21/2019 Last Documented On 2 10:24AM ; [facility] Alcohol use 05/02/2019 Last Documented On 2 10:24AM ; [facility] Caffeine use 05/02/2019 Last Documented On 2 10:24AM ; [facility] Not exercising regularly 05/02/2019 Last Documented On 2 10:24AM ; [facility] Procedures and Surgical History Surgical History Last Updated History of total hip replacement Left ~ 07/21/2019 Last Documented On 2 10:24AM ; [facility] History of back surgery 05/02/2019 Last Documented On 2 10:24AM ; [facility] Medical History Includes: Medical History addressed during this encounter Description Last Updated History of arthritis 11/08/2021 Last Documented On 2 10:24AM ; [facility] History of History of Cancer 11/08/2021 Last Documented On 2 10:24AM ; [facility] History of Hypertension 11/08/2021 Last Documented On 2 10:24AM ; [facility] Arthritis 06/04/2020 Last Documented On 2 10:24AM ; [facility] Back surgery 06/04/2020 Last Documented On 2 10:24AM ; [facility] History of Cancer 06/04/2020 Last Documented On 2 10:24AM ; [facility] Hypertension 06/04/2020 Last Documented On 2 10:24AM ; [facility] No recent immunization for flu Last Documented On 2 10:24AM ; [facility] No recent immunization for pneumococcal pneumonia 06/04/2020 Last Documented On 2 10:24AM ; [facility] Total hip replacement 06/04/2020 Last Documented On [...] fartun Dates 1 - Medicare Part B Psychiatric [id number] Will Edwards 2 - [facility] [id number] Will Edwards Clinical Notes Includes: Clinical Notes from this encounter No Clinical Notes Recorded
--- OUTSIDE RECORDS SUMMARY | 2025-01-10 09:53 | XMS_ITS ---
[address] [place] [address] Home Phone Mobile Phone Email Address Preferred Language en Marital Status Pentecostalism Affiliation Unknown Race White Ethnic Group Not or Lati no Author Organization [facility] Address [address] [place] [address] Phone Care Team Providers Care Residential Monitor Name Role Phone Quincy CARR, Stef Diaz Unavailable [phone] RENETTA CARR, AZEEM Unavailable [phone] Reason for Referral Date Encounter [...] Active Last Documented On 2 10:50AM ; [facility] Joint Pain Hip Left 05/02/2019 Stef linda MD Active Last Documented On 0 2:25PM ; [facility] Plan of Treatment Instructions to patient Lose weight Last Documented On 2 8:40AM ; [facility] Lose weight Last Documented On 2 8:57AM ; [facility] Instructions for patient to see pcp for bp and wt Last Documented On 2 8:05AM ; [facility] No intervention and counseli ng on cessation [...] On 2 8:54AM By Martha Godwin ; [facility] Ezetimibe 10 MG Oral Tablet 11/11/2021 Provider: AZEEM JACKSON MD Diagnosis: Last Documented On 2 8:54AM By Martha Godwin ; [facility] metFORMIN HCl 1000 MG Oral Tablet 11/11/2021 Provide r: AZEEM JACKSON MD Diagnosis: Last Documented On 8:54AM By Martha Godwin ; [facility] Nortriptyline HCl 50 MG Oral Capsule 11/01/2021 Prov ider: AZEEM JACKSON MD Diagnosis: Last Documented On 2 8:54AM By Martha Godwin ; [facility] Tresiba FlexTouch 200 UNIT/M L Subcutaneous Solution Pen-injector 10/24/2021 Provider: AZEEM JACKSON MD Diagnosis: Last Documented On 2 8:54AM By Martha Godwin ; [facility] NovoLOG FlexPen 100 UNIT/ML Subcutaneous Solution Pen-injector 10/07/2021 Provider: AZEEM JACKSON MD Diagnosis: Last Documented On 2 8:54AM By Martha Godwin ; [facility] Past Medications on file traMADol HCl 50 MG Oral Tablet 01/06/2022 - 01/11/2022 Provider: Stef linda MD Diagnosis: 1-2 po q 4-6h Last Documented On 2 3:20PM By López Mathew ; [facility] oxyCODONE HCl 5 MG Oral Tablet 01/06/2022 - 01/11/2022 Provider: Stef linda MD Diagnosis: 1-2 po q 4-6h Last Documented On 2 3:20PM By López Mathew ; [facility] Ondansetron HCl 4 MG Oral Tablet 01/06/2022 - 01/11/2022 Provider: Stef Mathew MD Diagnosis: 5anu4-5r Last Documented On 2 3:20PM By López Mathew ; [facility] Colace 100 MG Oral Capsule 01/06/2022 - 04/06/2022 Provider: Stef linda MD Diagnosis: 1-2 tabs daily Last Documented On 2 3:20PM By López Mathew ; [facility] Cefadroxil 500 MG Oral Capsule 01/06/2022 - 01/09/2022 Provider: Stef linda MD Diagnosis: twice a day Last Documented On 2 3:20PM By López Mathew ; [facility] Aspirin 81 MG Oral Tablet Delayed Release 01/06/2022 - 05/12/2022 Provider: Stef Mathew MD Diagnosis: twice a day Last Documented On 2 3:20PM By López Mathew ; [facility] Acetaminophen 500 MG Oral Tablet 01/06/2022 - 02/05/2022 Provider: Stef Mathew MD Diagnosis: 2 three times a day Last Documented On 2 3:20PM By López Mathew ; [facility] Adult Aspirin Regimen 81 MG Oral Tablet Delayed Release 11/28/2021 - 12/18/2021 Provider: Diagnosis: Last Documented On 2 3:26PM By Morenita Palomo ; [facility] Meloxicam 15 MG Oral Tablet 11/28/2021 - 01/27/2022 Provider: Stef linda MD Diagnosis: once a day Last Documented On 2 9:12AM By Martha Godwin ; [facility] Testosterone Cypionate 200 M G/ML Intramuscular Solution 10/24/2021 - 12/18/2021 Provider: SELINA HOOVER MD Diagnosis: Last Documented On 2 3:26PM By Morenita Palomo ; [facility] Dilaudid 2 MG Oral Tablet 05/25/2019 - 05/27/2019 Provider: Stef linda MD Diagnosis: 1-2 po q6h prn pain (RESCUE PAIN)DO NOT FILL TILL 05/31/2019 FOR SURGERY Last Documented On 0 3:56PM By Latoya Delgado ; [facility] Neurontin 300 MG Oral Capsule 05/25/2019 - 08/23/2019 Provider: Stef linda MD Diagnosis: 1 every bedtime DO NOT DOUG L TILL 05/31/2019 FOR SURGERY Last Documented On 0 3:56PM By Latoya Delgado ; [facility] traMADol HCl 50 MG Oral Tablet 05/25/2019 - 05/30/2019 Provider: Stef linda MD Diagnosis: 1-2 po q6h prn pain DO NOT FILL TILL 05/31/2019 FOR SURGERY Last Documented On 0 3:56PM By Latoya Delgado ; [facility] oxyCODONE HCl 5 MG Oral Tablet 05/25/2019 - 05/30/2019 Provider: Stef linda MD Diagnosis: 1-2 po q6h prn pain DO NOT FILL TILL 05/31/2019 FOR SURGERY Last Documented On 0 3:56PM By Latoya Delgado ; [facility] Colace 100 MG Oral Capsule 05/25/2019 - 08/23/2019 Provider: Stef linda MD Diagnosis: 1-2 tabs daily DO NOT FILL TILL 05/31/2019 FOR SURGERY Last Documented On 0 5:16PM By Latoya Delgado ; [facility] Acetaminophen 500 MG Oral Tablet 05/25/2019 - 06/24/2019 Provider: Stef Mathew MD Diagnosis: 2 three times a day DO NOT FILL TILL 05/31/2019 FOR SURGERY Last Documented On 0 4:46PM By Latoya Delgado ; [facility] Mupirocin 2% External Ointment 05/11/2019 - 05/16/2019 Provider: Stef linda MD Diagnosis: three times a day Apply to n ostrils 3 time a day 5 days prior to surgery. Last Documented On 0 2:20PM By Nancy Arnold ; [facility] Nortriptyline HCl 50 MG Oral Capsule 05/02/2019 - 11/14 Provider: Diagnosis: Last Documented On 2 8:54AM By Martha Godwin ; [facility] Aspirin Regimen 81 MG Oral Tablet Delayed Release 05/02/2019 - 11/28/2021 Provider: Diagnosis: Last Documented On 2 8:53AM By Martha Godwin ; [facility] NovoLOG 100 UNIT/ML Subcutaneous Solution 05/02/2019 - 11/28/2021 Provider: Diagnosis: Last Documented On 2 8:54AM By Martha Godwin ; [facility] metFORMIN HCl 1000 MG Oral Tablet 05/02/2019 - 022 Provider: Diagnosis: Last Documented On 2 8:54AM By Martha Godwin ; [facility] Telmisartan-HCTZ 80-25 MG Oral Tablet 05/02/2019 - Provider: Diagnosis: Last Documented On 2 8:54AM By Martha Godwin ; [facility] Ezetimibe-Simvastatin 10-10 MG Oral Tablet 05/02/2019 - 11/28/2021 Provider: Diagnosis: Last Documented On 2 8:53AM By Martha Godwin ; [facility] Depo-Testosterone 200 MG/ML Intramuscular Solution 05/02/2019 - 11/28/2021 Provider: Diagnosis: Last Documented On 2 8:53AM By Martha Godwin ; [facility] Medications Administered Includes: Administered Medications in patient's chart No Administered Medications Recorded Results Includes: Results from 01/11/2024 through 01/10/2025 No Results Recorded For Specified Dates History of Present Illness History of Present Illness not supported for this document type No History of Present Illness Recorded Social History Description Last Updated Tobacco non-user 07/15/2022 Last Documented On 3 10:23AM ; [facility] No recent change in diet 07/15/2022 Last Documented On 3 10:23AM ; [facility] Not a current smoker. 07/15/2022 Last Documented On 3 10:23AM ; [facility] Retired from work 11/19/2021 Last Documented On 2 4:11PM ; [facility] Non-smoker 06/04/2020 Last Documented On 1 3:29PM ; [facility] Not a current smoker. 06/04/2020 Last Documented On 1 3:29PM ; [facility] No recent change in diet 07/21/2019 Last Documented On 0 11:04AM ; [facility] No tobacco use 07/21/2019 Last Documented On 0 11:04AM ; [facility] Not a current smoker 07/21/2019 Last Documented On 0 11:04AM ; [facility] Not using drugs 07/21/2019 Last Documented On 0 11:04AM ; [facility] Smoking status : Never smoker 07/21/2019 Last Documented On 0 11:04AM ; [facility] Alcohol use 05/02/2019 Last Documented On 0 4:03PM ; [facility] Caffeine use 05/02/2019 Last Documented On 0 4:03PM ; [facility] Not exercising regularly 05/02/2019 Last Documented On 0 4:03PM ; [facility] Procedures and Surgical History Surgical History Last Updated History of total hip replacement Left ~ 07/21/2019 Last Documented On 0 11:04AM ; [facility] History of back surgery 05/02/2019 Last Documented On 0 4:03PM ; [facility] Medical History Includes: Medical History in patient's chart Description Last Updated History of arthritis 11/08/2021 Last Documented On 3 10:23AM ; [facility] History of History of Cancer 11/08/2021 Last Documented On 3 10:23AM ; [facility] History of Hypertension 11/08/2021 Last Documented On 3 10:23AM ; [facility] Arthritis 06/04/2020 Last Documented On 1 3:29PM ; [facility] Back surgery 06/04/2020 Last Documented On 1 3:29PM ; [facility] History of Cancer 06/04/2020 Last Documented On 1 3:29PM ; [facility] Hypertension 06/04/2020 Last Documented On 1 3:29PM ; [facility] No recent immunization for flu 1 Last Documented On 1 3:29PM ; [facility] No recent immunization for pneumococcal pneumonia 06/04/2020 Last Documented On 1 3:29PM ; [facility] Total hip replacement 06/04/2020 Last Documented On 1 3:29PM ; [facility] toe removal 05/02/2019 Last Documented On 0 4:03PM ; [facility] A history of cancer 05/02/2019 Last Documented On 0 4:03PM ; [facility] History of depression 05/02/2019 Last Documented On 0 4:03PM ; [facility] History of diabetes mellitus 05/02/2019 Last Documented On 0 4:03PM ; [facility] Intermittent hypertension 05/02/2019 Last Documented On 0 4:03PM ; [facility] Family History Includes: Family History in patient's chart Description Last Updated Diabetes mellitus 06/04/2020 Last Documented On 1 3:29PM ; [facility] Family history of cancer 05/02/2019 Last Documented On 0 4:03PM ; [facility] Family history of diabetes mellitus 04/16 Last Documented On 0 4:03PM ; [facility] Family history of hypertension 0 Last Documented On 0 4:03PM ; [facility] Family history of osteoporosis 0 Last Documented On 0 4:03PM ; [facility] Review of Systems Review of Systems not [...] fartun Dates 1 - Medicare Part B [facility] [id number] Selina Edwards 2 - [facility] [employer] [id number] Selina Edwards Clinical Notes Includes: Signed Clinical Notes starting from 02/27/2022 No Clinical Notes Recorded
--- OUTSIDE RECORDS SUMMARY | 2025-01-10 09:54 | XMS_ITS | Clinical Summary ---
[place] [address] Home Phone Mobile Phone Email Address Preferred Language en Marital Status Advent Affiliation Unknown Race White Ethnic Group Not or Lati no Author Organization [facility] Address [address] [place] [address] Phone Care Team Providers Care Deli Worker Name Role Phone Quincy CARR, Stef Diaz Unavailable [phone] RENETTA CARR, AZEEM Unavailable [phone] Reason for Visit and Chief Complaint [facility] Problems Includes: Problems addressed during this encounter and other active Problems All Visits Onset Date Resolved Date Provider Condition S tatus Joint Pain Hip Right 11/07/2021 Yaya Pineda Active Last Documented On 2 10:50AM ; [facility] Joint Pain Hip Left 05/02/2019 tSef linda MD Active Last Documented On 0 2:25PM ; [facility] Plan of Treatment No Plan of [...] 8:54AM By Martha Godwin ; [facility] Ezetimibe 10 MG Oral Tablet 11/11/2021 Provider: AZEEM JACKSON MD Diagnosis: Last Documented On 2 8:54AM By Martha Godwin ; [facility] metFORMIN HCl 1000 MG Oral Tablet 11/11/2021 Provide r: AZEEM JACKSON MD Diagnosis: Last Documented On 2 8:54AM By Martha Godwin ; [facility] Nortriptyline HCl 50 MG Oral Capsule 11/01/2021 Prov ider: AZEEM JACKSON MD Diagnosis: Last Documented On 2 8:54AM By Martha Godwin ; [facility] Tresiba FlexTouch 200 UNIT/M L Subcutaneous Solution Pen-injector 10/24/2021 Provider: AZEEM JACKSON MD Diagnosis: Last Documented On 2 8:54AM By Martha Godwin ; [facility] NovoLOG FlexPen 100 UNIT/ML Subcutaneous Solution Pen-injector 10/07/2021 Provider: AZEEM JACKSON MD Diagnosis: Last Documented On 2 8:54AM By Martha Godwin ; [facility] [...] Location Date Check-In Time Check-Out Time Diagnosis [facility] Stef Mathew MD Surgery 01/08/20 22 2:23PM 11:59PM Insurance Includes: Active Insurance Policies Plan Name Member ID Group # Subscriber Relationship Effect fartun Dates 1 - Medicare Part B [facility] [id number] Will Edwards 2 - [facility] [employer] [id number] Will Edwards Clinical Notes Includes: Clinical Notes from this encounter No Clinical Notes Recorded
--- OUTSIDE RECORDS SUMMARY | 2025-01-10 09:54 | XMS_ITS | Clinical Summary ---
Author Organization [facility] ([place], [place], [place], [place]) Address [address] [place] [address] Care Team Providers Care Almond Pan Finisher Name Role Phone Tommie Barraza MD Primary Care Provider [phone] Allergies No known active allergies Medications ezetimibe [...] Date Wilbert rded Speak language other than Faroese at home Not on file 03/31/2023 Want [...] (#1) 2024 Medical Devices Implanted Type Area Public Housing Manager Device Identifier Shelf Expiration Date Model / Serial / Lot Bone Vivigen Formable Sm Bl-1600-001 - [id number] Implanted:Qty : 1 on 03/11/2023 by Dionicio Zuluaga MD at [facility] [place] IMPLANTS N/A: Spine Cervical LIFENET:LIFENET TRANSPLANT SRV 02/24/2024 BL-[id number] / Cage Eit Cif H 7mm 8 L [id number] - [id number] Implanted:Qty : 1 on 03/11/2023 by Dionicio Zuluaga MD at [facility] [place] IMPLANTS N/A: Spine Cervical J &J:DEPUY:DEPUY SPINE 10/13/2025 [id number] / / [id number] Cage Eit Cif H 7mm 8 L [id number] - [id number] Implanted:Qty : 1 on 03/11/2023 by Dionicio Zuluaga MD at [facility] [place] IMPLANTS N/A: Spine Cervical J &J:DEPUY:DEPUY SPINE 10/13/2025 [id number] / / [id number] Plt Ant Skyln Hybrd Lvl3 60mm 1867-05-060 - [id number] Implanted:Qty : 1 on 03/11/2023 by Dionicio Zuluaga MD at [facility] [place] IMPLANTS N/A: Spine Cervical J &J:DEPUY:DEPUY SPINE 03-0 60 / 03-0 60 / Scr Skyln Vari-Ovsz 16mm 54-016 - [id number] Implanted:Qty : 2 on 03/11/2023 by Dionicio Zuluaga MD at [facility] [place] IMPLANTS N/A: Spine Cervical J &J:DEPUY:DEPUY SPINE 854-0 16 / 54-0 16 / Scr Skyln Vari Sd 16mm 1867-50-016 - [id number] Implanted:Qty : 4 on 03/11/2023 by Dionicio Zuluaga MD at [facility] [place] IMPLANTS N/A: Spine Cervical J &J:DEPUY:DEPUY SPINE 50-0 16 / 50-0 16 / Scr Skyln Vari Sd 18mm 1867-50-018 - [id number] Implanted:Qty : 2 on 03/11/2023 by Dionicio Zuluaga MD at [facility] [place] IMPLANTS N/A: Spine Cervical J &J:DEPUY:DEPUY SPINE 850-0 18 / 50-0 18 / Insurance MEDICARE PART [place] [address] SUPP [facility] SUPP Care Teams Almond Pan Finisher Relationship Specialty Start Date End Date Tommie Barraza MD PCP - General Family Medicine 03/05/23
--- OUTSIDE RECORDS SUMMARY | 2025-01-10 09:54 | XMS_ITS | Clinical Summary ---
[place] [address] Home Phone Mobile Phone Email Address Preferred Language en Marital Status Judaism Affiliation Unknown Race White Ethnic Group Not or Lati no Author Organization [facility] Address [address] [place] [address] Phone Care Team Providers Care Adjunct Physics Instructor Name Role Phone Quincy CARR, Stef Diaz Unavailable + [phone] RENETTA CARR, AZEEM Unavailable [phone] Reason for Referral Date Encounter [...] Documented On 2 10:50AM ; [facility] Joint Pain Hip Left 05/02/2019 Stef linda MD Active Last Documented On 0 2:25PM ; [facility] Plan of Treatment Fall Risk Assessment: [...] - Last Documented On 01/30/2022 9:36AM ; [facility] Patient states he was doing well [...] Last Documented On 01/30/2022 9:36AM ; [facility] Instructions to patient Lose weight Last Documented On 2 8:40AM ; [facility] Assessments Includes: Assessments from this encounter Findings 3 weeks postop right total hip arthroplasty - Last Documented On 01/30/2022 9:36AM ; [facility] Instructions Includes: Instructions from this encounter Instructions to patient Lose weight Last Documented On 2 8:40AM ; [facility] Medical Equipment - Implanted Devices Includes: Current Devices No Medical Equipment Recorded Medications Includes: Medications discussed during this encounter and other current Medications Current Medications (continue as prescribed) Lisinopril-hydroCHLOROthiazi de 20-12.5 MG Oral Tablet 11/26/2021 Provider: AZEEM JACKSON MD Diagnosis: Last Documented On 2 8:54AM By Martha Godwin ; [facility], [facility] Ezetimibe 10 MG Oral Tablet 11/11/2021 Provider: AZEEM JACKSON MD Diagnosis: Last Documented On 2 8:54AM By Martha Godwin ; [facility] metFORMIN HCl 1000 MG Oral Tablet 11/11/2021 Provide r: AZEEM JACKSON MD Diagnosis: Last Documented On 2 8:54AM By Martha Godwin ; [facility], [facility] Nortriptyline HCl 50 MG Oral Capsule 11/01/2021 Prov ider: AZEEM JACKSON MD Diagnosis: Last Documented On 2 8:54AM By Martha Godwin ; [facility], [facility] Tresiba FlexTouch 200 UNIT/M L Subcutaneous Solution Pen-injector 10/24/2021 Provider: AZEEM JACKSON MD Diagnosis: Last Documented On 2 8:54AM By Martha Godwin ; [facility], [facility] NovoLOG FlexPen 100 UNIT/ML Subcutaneous Solution Pen-injector 10/07/2021 Provider: AZEEM JACKSON MD Diagnosis: Last Documented On 2 8:54AM By Martha Godwin ; [facility] Past Medications on file traMADol HCl 50 MG Oral Tablet 01/06/2022 - 01/11/2022 Provider: Stef linda MD Diagnosis: 1-2 po q 4-6h Last Documented On 2 3:20PM By López Mathew ; [facility] oxyCODONE HCl 5 MG Oral Tablet 01/06/2022 - 01/11/2022 Provider: Stef linda MD Diagnosis: 1-2 po q 4-6h Last Documented On 2 3:20PM By López Mathew ; [facility] Ondansetron HCl 4 MG Oral Tablet 01/06/2022 - 01/11/2022 Provider: Stef Mathew MD Diagnosis: 1heh2-3d Last Documented On 2 3:20PM By López Mathew ; [facility] Colace 100 MG Oral Capsule 01/06/2022 - 04/06/2022 Provider: Stef linda MD Diagnosis: 1-2 tabs daily Last Documented On 2 3:20PM By óLpez Mathew ; [facility] Cefadroxil [...] On 2 3:20PM By López Mathew ; [facility] Meloxicam 15 MG Oral Tablet 11/28/2021 - 01/27/2022 Provider: Stef linda MD Diagnosis: once a day Last Documented On 2 9:12AM By Martha Godwin ; [facility] Dilaudid 2 MG Oral Tablet 05/25/2019 - 05/27/2019 Provider: Stef linda MD Diagnosis: 1-2 po q6h prn pain (RESCUE PAIN)DO NOT FILL TILL 05/31/2019 FOR SURGERY Last Documented On 0 3:56PM By Latoya Delgado ; [facility] Neurontin 300 [...] On 0 3:56PM By Latoya Delgado ; [facility] oxyCODONE HCl 5 MG Oral Tablet 05/25/2019 - 05/30/2019 Provider: Stef linda MD Diagnosis: 1-2 po q6h prn pain DO NOT FILL TILL 05/31/2019 FOR SURGERY Last Documented On 0 3:56PM By Latoya Delgado ; [facility] Colace 100 MG Oral Capsule 05/25/2019 - 08/23/2019 Provider: Stef linda MD Diagnosis: 1-2 tabs daily DO NOT FILL TILL 05/31/2019 FOR SURGERY Last Documented On 0 5:16PM By Latoya Delgado ; [facility] Acetaminophen 500 [...] 2:20PM By Nancy Arnold ; [facility] Medications Administered Includes: Administered Medications [...] Documented On 2 8:40AM ; [facility] No recent change in diet 07/15/2022 Last Documented On 2 8:40AM ; [facility] Not a current smoker. 07/15/2022 Last Documented On 2 8:40AM ; [facility] Retired from work 11/19/2021 Last Documented On 2 8:40AM ; [facility] Non-smoker 06/04/2020 Last Documented On 2 8:40AM ; [facility] Not a current smoker. 06/04/2020 Last Documented On 2 8:40AM ; [facility] No recent change in diet 07/21/2019 Last Documented On 2 8:40AM ; [facility] No tobacco use 07/21/2019 Last Documented On 2 8:40AM ; [facility] Not a current smoker 07/21/2019 Last Documented On 2 8:40AM ; [facility] Not using drugs 07/21/2019 Last Documented On 2 8:40AM ; [facility] Smoking status : Never smoker 07/21/2019 Last Documented On 2 8:40AM ; [facility] Alcohol use 05/02/2019 Last Documented On 2 8:40AM ; [facility] Caffeine use 05/02/2019 Last Documented On 2 8:40AM ; [facility] Not exercising regularly 05/02/2019 Last Documented On 2 8:40AM ; [facility] Procedures and Surgical History Includes: Procedures from this encounter Procedures Code Diagnosis Performing Provider Service L ocation Service Date use of tobacco assessment performed 1000F Last Documented On 2 8:40AM ; [facility] patient screened for future fall risk: documentation of any fall with injury in past year 1100F Last Documented On 2 8:40AM ; [facility] follow-up visit in one month Last Documented On 2 8:40AM ; [facility] referral to physician Last Documented On 2 8:40AM ; [facility] Surgical History Last Updated History of total hip replacement Left ~ 07/21/2019 Last Documented On 2 8:40AM ; [facility] History of back surgery 05/02/2019 Last Documented On 2 8:40AM ; [facility] Medical History Includes: Medical History addressed during this encounter Description Last Updated History of arthritis 11/08/2021 Last Documented On 2 8:40AM ; [facility] History of History of Cancer 11/08/2021 Last Documented On 2 8:40AM ; [facility] History of Hypertension 11/08/2021 Last Documented On 2 8:40AM ; [facility] Arthritis 06/04/2020 Last Documented On 2 8:40AM ; [facility] Back surgery 06/04/2020 Last Documented On 2 8:40AM ; [facility] History of Cancer 06/04/2020 Last Documented On 2 8:40AM ; [facility] Hypertension 06/04/2020 Last Documented On 2 8:40AM ; [facility] No recent immunization for flu 1 Last Documented On 2 8:40AM ; [facility] No recent immunization for pneumococcal pneumonia 06/04/2020 Last Documented On 2 8:40AM ; [facility] Total hip replacement 06/04/2020 Last Documented On 2 8:40AM ; [facility] toe removal 05/02/2019 Last Documented On 2 8:40AM ; [facility] A history of cancer 05/02/2019 Last Documented On 2 8:40AM ; [facility] History of depression 05/02/2019 Last Documented On 2 8:40AM ; [facility] History of diabetes mellitus 05/02/2019 Last Documented On 2 8:40AM ; [facility] Intermittent hypertension 05/02/2019 Last Documented On 2 8:40AM ; [facility] Family History Includes: Family History addressed during this encounter Description Last Updated Diabetes mellitus 06/04/2020 Last Documented On 2 8:40AM ; [facility] Family history of cancer 05/02/2019 Last Documented On 2 8:40AM ; [facility] Family history of diabetes mellitus 04/16 Last Documented On 2 8:40AM ; [facility] Family history of hypertension 0 Last Documented On 2 8:40AM ; [facility] Family history of osteoporosis 0 Last Documented On 2 8:40AM ; [facility] Review of Systems Includes: Review [...] Time Diagnosis Post Op Dionicio Taylor PA-C [facility] 2 8:36AM 9:29AM Insurance Includes: Active Insurance Policies Plan Name Member ID Group # Subscriber Relationship Effect fartun Dates 1 - Medicare Part B [facility] [id number] Will Edwards 2 - [facility] CLAIMS DIVISION [id number] Will Edwards Clinical Notes Includes: Clinical Notes from this encounter No Clinical Notes Recorded
--- OUTSIDE RECORDS SUMMARY | 2025-01-10 09:54 | XMS_ITS | Clinical Summary ---
[place] [address] Home Phone Mobile Phone Email Address Preferred Language en Marital Status Lutheran Affiliation Unknown Race White Ethnic Group Not or Lati no Author Organization [facility] Address [address] [place] [address] Phone Care Team Providers Care Booking Supervisor Name Role Phone Quincy CARR, Stef Diaz Unavailable [phone] RENETTA CARR, AZEEM Unavailable [phone] Reason for Referral Date Encounter [...] Active Last Documented On 2 10:50AM ; [facility] Joint Pain Hip Left 05/02/2019 Stef linda MD Active Last Documented On 0 2:25PM ; [facility] Plan of Treatment Fall Risk Assessment: [...] - Last Documented On 11/28/2021 4:23PM ; [facility] NON-SURGICAL PLAN: CONTINUE TO USE CANE FOR SAFETY MAINTAIN GOOD SHOES MEDICATION: MOBIC 15 MG SURGICAL PLAN: RIGHT HEENA-DIRECT ANTERIOR; 5 MM LENGTH. SURGERY CENTER CANDIDATE. IN 6 WEEKS DUE TO INJECTION - Last Documented On 11/28/2021 4:23PM ; [facility] PCP CLEARANCE FOLLOW UP: POST-OP - Last Documented On 11/28/2021 4:23PM ; [facility] Pending Tests Order Diagnosis Results Due Ordering P rovider Therapy - Physical Therapy Hip 11/28/21 Stef Mathew MD Last Documented On 2 12:04PM ; [facility] Instructions to patient Lose weight Last Documented On 2 8:57AM ; [facility] Assessments Includes: Assessments from this encounter Findings RIGHT HIP MODERATE-SEVERE DJD. VERY LIMITED. USING SPC. OCCASIONAL NSAIDs. INJECTION HELPED COMPLETELY FOR 3 DAYS. - Last Documented On 11/28/2021 4:23PM ; [facility] Instructions Includes: Instructions from this encounter Instructions to patient Lose weight Last Documented On 2 8:57AM ; [facility] Medical Equipment - Implanted Devices Includes: Current Devices No Medical Equipment Recorded Medications Includes: Medications discussed during this encounter and other current Medications Discontinued / Stopped on this date on 05/02/2019 Nortriptyline HCl 50 MG Oral Capsule Prov ider: Diagnosis: Last Documented On 2 8:54AM By Martha Godwin ; [facility] Adult Aspirin Regimen 81 MG Oral Tablet Delayed Releas e Provider: Diagnosis: Last Documented On 2 8:53AM By Martha Godwin ; [facility] NovoLOG 100 UNIT/ML Subcutaneous Solution Provider: Diagnosis: Last Documented On 2 8:54AM By Martha Godwin ; [facility] metFORMIN HCl 1000 MG Oral Tablet Provide r: Diagnosis: Last Documented On 2 8:54AM By Martha Godwin ; [facility] Telmisartan-HCTZ 80-25 MG Oral Tablet Pro vider: Diagnosis: Last Documented On 2 8:54AM By Martha Godwin ; [facility] Ezetimibe-Simvastatin 10-10 MG Oral Tablet Provider: Diagnosis: Last Documented On 2 8:53AM By Martha Godwin ; [facility] Depo-Testosterone 200 MG/ML Intramuscular Solution Provider: Diagnosis: Last Documented On 2 8:53AM By Martha Godwin ; [facility] New / Renewed during this visit Stef Mathew MD on 11/28/2021 Meloxicam 15 MG Oral Tablet Provider: Stef ledezma MD 30 day supply: 30 tablet, 1 refills Diagnosis: once a day Pharmacy: [facility] [place], [place], [address] - Last Documented On 2 9:12AM By Martha Godwin ; [facility] Current Medications (continue as prescribed) Lisinopril-hydroCHLOROthiazi de 20-12.5 MG Oral Tablet 11/26/2021 Provider: AZEEM JACKSON MD Diagnosis: Last Documented On 2 8:54AM By Martha Godwin ; [facility] Ezetimibe 10 MG Oral Tablet 11/11/2021 Provider: AZEEM JACKSON MD Diagnosis: Last Documented On 8:54AM By Martha Godwin ; [facility] metFORMIN HCl 1000 MG Oral Tablet 11/11/2021 Provide r: AZEEM JACKSON MD Diagnosis: Last Documented On 2 8:54AM By Martha Godwin ; [facility] Nortriptyline HCl 50 MG Oral Capsule 11/01/2021 Prov ider: AZEEM JACKSON MD Diagnosis: Last Documented On 2 8:54AM By Martha Godwin ; [facility] Tresiba FlexTouch 200 UNIT/M L Subcutaneous Solution Pen-injector 10/24/2021 Provider: AZEEM JACKSON MD Diagnosis: Last Documented On 2 8:54AM By Martha Godwin ; [facility] NovoLOG FlexPen 100 UNIT/ML Subcutaneous Solution Pen-injector 10/07/2021 Provider: AZEEM JACKSON MD Diagnosis: Last Documented On 2 8:54AM By Martha Godwin ; [facility] Past Medications on file traMADol HCl 50 MG Oral Tablet 01/06/2022 - 01/11/2022 Provider: Stef linda MD Diagnosis: 1-2 po q 4-6h Last Documented On 2 3:20PM By López Mathew ; [facility] oxyCODONE HCl 5 MG Oral Tablet 01/06/2022 - 01/11/2022 Provider: Stef linda MD Diagnosis: 1-2 po q 4-6h Last Documented On 2 3:20PM By López Mathew ; [facility] Ondansetron HCl 4 MG Oral Tablet 01/06/2022 - 01/11/2022 Provider: Stef Mathew MD Diagnosis: [id number] Last Documented On 2 3:20PM By López Mathew ; [facility] Colace 100 MG Oral Capsule 01/06/2022 - 04/06/2022 Provider: Stef linda MD Diagnosis: 1-2 tabs daily Last Documented On 2 3:20PM By López Mathew ; [facility] Cefadroxil 500 MG Oral Capsule 01/06/2022 - 01/09/2022 Provider: Stef linda MD Diagnosis: twice a day Last Documented On 2 3:20PM By López Mathew ; [facility] Aspirin 81 MG Oral Tablet Delayed Release 01/06/2022 - 05/12/2022 Provider: Stef Mathew MD Diagnosis: twice a day Last Documented On 2 3:20PM By López Mathew ; [facility] Acetaminophen 500 MG Oral Tablet 01/06/2022 - 02/05/2022 Provider: Stef Mathew MD Diagnosis: 2 three times a day Last Documented On 2 3:20PM By López Mathew ; [facility] Dilaudid 2 MG Oral Tablet 05/25/2019 - 05/27/2019 Provider: Stef linda MD Diagnosis: 1-2 po q6h prn pain (RESCUE PAIN)DO NOT FILL TILL 05/31/2019 FOR SURGERY Last Documented On 0 3:56PM By Latoya Delgado ; [facility] Neurontin 300 MG Oral Capsule 05/25/2019 - 08/23/2019 Provider: Stef linda MD Diagnosis: 1 every bedtime DO NOT DOUG L TILL 05/31/2019 FOR SURGERY Last Documented On 0 3:56PM By Latoya Delgado ; [facility] traMADol HCl 50 MG Oral Tablet 05/25/2019 - 05/30/2019 Provider: Stef linda MD Diagnosis: 1-2 po q6h prn pain DO NOT FILL TILL 05/31/2019 FOR SURGERY Last Documented On 0 3:56PM By Latoya Delgado ; [facility] oxyCODONE HCl 5 MG [...] On 0 5:16PM By Latoya Delgado ; [facility] Acetaminophen 500 MG Oral Tablet 05/25/2019 - 06/24/2019 Provider: Stef Mathew MD Diagnosis: 2 three times a day DO NOT FILL TILL 05/31/2019 FOR SURGERY Last Documented On 0 4:46PM By Latoya Delgado ; [facility] Mupirocin 2% External Ointment 05/11/2019 - 05/16/2019 Provider: Stef linda MD Diagnosis: three times a day Apply to n ostrils 3 time a day 5 days prior to surgery. Last Documented On 0 2:20PM By Nancy Arnold ; [facility] Medications Administered Includes: Administered Medications from this [...] Documented On 2 8:57AM ; [facility] patient screened for future fall risk: documentation of any fall with injury in past year 1100F Last Documented On 2 8:57AM ; [facility] follow-up visit in one month Last Documented On 2 8:57AM ; [facility] referral to physician Last Documented On 2 8:57AM ; [facility] Surgical History Last Updated History of total hip replacement Left ~ 07/21/2019 Last Documented On 2 8:25AM ; [facility] of [facility] surgery 05/02/2019 Last Documented On 2 8:25AM ; [facility] Medical History Includes: Medical History addressed during this encounter Description Last Updated History of arthritis 11/08/2021 Last Documented On 2 8:25AM ; [facility] History of History of Cancer 11/08/2021 Last Documented On 2 8:25AM ; [facility] History of Hypertension 11/08/2021 Last Documented On 2 8:25AM ; [facility] No recent immunization for flu 1 Last Documented On 2 8:25AM ; [facility] No recent immunization for pneumococcal pneumonia 06/04/2020 Last Documented On 2 8:25AM ; [facility] toe removal 05/02/2019 Last Documented On 2 8:25AM ; [facility] A history of cancer 05/02/2019 Last Documented On 2 8:25AM ; [facility] History of depression 05/02/2019 Last Documented On 2 8:25AM ; [facility] History of diabetes mellitus 05/02/2019 Last Documented On 2 8:25AM ; [facility] Intermittent hypertension 05/02/2019 Last Documented On 2 8:25AM ; [facility] Family History Includes: Family History addressed during this encounter Description Last Updated Family history of cancer 05/02/2019 Last Documented On 2 8:25AM ; [facility] Family history of diabetes mellitus 04/16 Last Documented On 2 8:25AM ; [facility] Family history of hypertension 0 Last Documented On 2 8:25AM ; [facility] Family history of osteoporosis 0 Last Documented On 2 8:25AM ; [facility] Review of Systems Includes: Review of [...] Time Diagnosis Follow Up Stef Mathew MD [facility] 11/29/19 22 7:47AM 9:18AM Insurance Includes: Active Insurance Policies Plan Name Member ID Group # Subscriber Relationship Effect fartun Dates 1 - Medicare Part B [facility] [id number] Will Edwards 2 - [facility] CLAIMS DIVISION [id number] Will Edwrads Clinical Notes Includes: Clinical Notes from this encounter No Clinical Notes Recorded
--- OUTSIDE RECORDS SUMMARY | 2025-01-10 09:55 | XMS_ITS ---
Care Plan - [facility] Created on: January 10, 2025 Will Marsh : 1955 Sex: [place] [address] Home Phone Mobile Phone Email Address Preferred Language en Marital Status Caodaism Affiliation Unknown Race White Ethnic Group Not or Lati no Author Organization [facility] Address [address] [place] [address] Phone Care Team Providers Care Broadcast Meteorologist Name Role Phone Quincy CARR, Stef Diaz Unavailable [phone] AZEEM JACKSON MD Unavailable [phone]
--- OUTSIDE RECORDS SUMMARY | 2025-01-10 09:55 | XMS_ITS | Clinical Summary ---
[place] [address] Home Phone Mobile Phone Email Address Preferred Language en Marital Status Voodoo Affiliation Unknown Race White Ethnic Group Not or Lati no Author Organization [facility] , [facility] Address [address] [place] [address] Phone Care Team Providers Care Stone Grader Name Role Phone Quincy CARR, Stef Diaz Unavailable [phone] RENETTA CARR, AZEEM Unavailable [phone] Reason for Visit and Chief Complaint [Patient Encounter] Problems Includes: Problems addressed during this encounter and other active Problems All Visits Onset Date Resolved Date Provider Condition S tatus Joint Pain Hip Right 11/07/2021 Yaya Pineda Active Last Documented On 2 10:50AM ; [facility] Joint Pain Hip Left 05/02/2019 Stef linda MD Active Last Documented On 0 2:25PM ; [facility] Plan of Treatment No Plan of [...] q 4-6h Pharmacy: [facility] - [address] [facility], [address] - Last Documented On 2 3:20PM By López Mathew ; [facility] oxyCODONE HCl 5 MG Oral Tablet Provider: Stef ledezma MD 5 day supply: 50 tablet, 0 refills Diagnosis: 1-2 po q 4-6h Pharmacy: [facility] - [address] [place] [address], [id number] - Last Documented On 2 3:20PM By López Mathew ; [facility], [facility] Ondansetron HCl 4 MG Oral Tablet Provider: Stef Mathew MD 5 day supply: 15 tablet, 0 refills Diagnosis: [id number] Pharmacy: [facility] - [address] [place] [address], [id number] - Last Documented On 2 3:20PM By López Mathew ; [facility], [facility] Colace 100 MG Oral Capsule Provider: Stef ledezma MD 30 day supply: 60 capsule, 2 refills Diagnosis: 1-2 tabs daily Pharmacy: [facility] - [address] [place] [address], [id number] - Last Documented On 2 3:20PM By López Mathew ; [facility], [facility] Cefadroxil 500 MG Oral Capsule Provider: Stef Mathew MD 3 day supply: 6 capsule, 0 refills Diagnosis: twice a day Pharmacy: [facility] - [address] [place] [address], [id number] - Last Documented On 2 3:20PM By López Mathew ; [facility], [facility] Aspirin 81 MG Oral Tablet Delayed Release Provider: Stef zhang MD 42 day supply: 84 tablet, 2 refills Diagnosis: twice a day Pharmacy: [facility] - [address] [place] [address], [id number] - Last Documented On 2 3:20PM By López Mathew ; [facility], [facility] Acetaminophen 500 MG Oral Tablet Provider: Stef Mathew MD 30 day supply: 180 tablet, 0 refills Diagnosis: 2 three times a day Pharmacy: [facility] - [address] [facility], [address] - Last Documented On 2 3:20PM By López Mathew ; [facility], [facility] Current Medications (continue as prescribed) Lisinopril-hydroCHLOROthiazi de 20-12.5 MG Oral Tablet 11/26/2021 Provider: AZEEM JACKSON MD Diagnosis: Last Documented On 2 8:54AM By Martha Godwin ; [facility], [facility] Ezetimibe 10 MG Oral Tablet 11/11/2021 Provider: AZEEM JACKSON MD Diagnosis: Last Documented On 2 8:54AM By Martha Godwin ; [facility], [facility] metFORMIN HCl 1000 MG Oral Tablet 11/11/2021 Provide r: AZEEM JACKSON MD Diagnosis: Last Documented On 2 8:54AM By Martha Godwin ; [facility], [facility] Nortriptyline HCl 50 MG Oral Capsule 11/01/2021 Prov ider: AZEEM JACKSON MD Diagnosis: Last Documented On 2 8:54AM By Martha Godwin ; [facility], [facility] Tresiba FlexTouch 200 UNIT/M L Subcutaneous Solution Pen-injector 10/24/2021 Provider: AZEEM JACKSON MD Diagnosis: Last Documented On 2 8:54AM By Martha Godwin ; [facility], [facility] NovoLOG FlexPen 100 UNIT/ML Subcutaneous Solution Pen-injector 10/07/2021 Provider: AZEEM JACKSON MD Diagnosis: Last Documented On 2 8:54AM By Martha Godwin ; [facility], [facility] Medications Administered Includes: Administered Medications [...] fartun Dates 1 - Medicare Part B [facility] [id number] Will Edwards 2 - [facility] [id number] Will Edwards Clinical Notes Includes: Clinical Notes from this encounter No Clinical Notes Recorded
--- OUTSIDE RECORDS SUMMARY | 2025-01-10 09:55 | XMS_ITS | Referral Summary ---
Author Organization [employer] ([place], [place], [place], [place]) Address [address] [place] [address] Care Team Providers Care Telecommunication Lines Repairer Name Role Phone Tommie Barraza MD Primary Care Provider [phone] Allergies No known active allergies Medications ezetimibe [...] Date Wilbert rded Speak language other than Yakut at home Not on file 03/31/2023 Want [...] on file Medical Devices Implanted Type Area Ballistics Tester Device Identifier Shelf Expiration Date Model / Serial / Lot Bone Vivigen Formable Bl-1600-001 - [id number] Implanted:Qty : 1 on 03/11/2023 by Dionicio Zuluaga MD at [facility] IMPLANTS N/A: Spine Cervical LIFENET:LIFENET TRANSPLANT SRV 02/24/2024 BL-1600-0 01 / [id number] / Cage Eit Cif H 7mm 8 L [id number] - [id number] Implanted:Qty : 1 on 03/11/2023 by Dionicio Zuluaga MD at [facility] IMPLANTS N/A: Spine Cervical J &J:DEPUY:DEPUY SPINE 10/13/2025 [id number] / / [id number] Cage Eit Cif H 7mm 8 L [id number] - [id number] Implanted:Qty : 1 on 03/11/2023 by Dionicio Zuluaga MD at [facility] IMPLANTS N/A: Spine Cervical J &J:DEPUY:DEPUY SPINE 10/13/2025 [id number] / / [id number] Plt Ant Skyln Hybrd Lvl3 60mm 1867-05-200 - [id number] Implanted:Qty : 1 on 03/11/2023 by Dionicio Zuluaga MD at [facility] IMPLANTS N/A: Spine Cervical J &J:DEPUY:DEPUY SPINE 0 60 / 0 60 / Scr Skyln Vari-Ovsz 16mm 016 - [id number] Implanted:Qty : 2 on 03/11/2023 by Dionicio Zuluaga MD at [facility] IMPLANTS N/A: Spine Cervical J &J:DEPUY:DEPUY SPINE 0 16 / 16 / Scr Skyln Vari Sd 16mm 1868-50-016 - [id number] Implanted:Qty : 4 on 03/11/2023 by Dionicio Zuluaga MD at [facility] IMPLANTS N/A: Spine Cervical J &J:DEPUY:DEPUY SPINE 50-0 16 / 50-0 16 / Scr Skyln Vari Sd 18mm 1867-50-018 - [id number] Implanted:Qty : 2 on 03/11/2023 by Dionicio Zuluaga MD at [facility] IMPLANTS N/A: Spine Cervical J &J:DEPUY:DEPUY SPINE 50-0 18 / 0 18 / Insurance MEDICARE PART A B [facility] SUPP Care Teams Telecommunication Lines Repairer Relationship Specialty Start Date End Date Tommie Barraza MD PCP - General Family Medicine 03/05/23
== END 2025-01-09 23:59 ==
LOC: LAB.DROPOF 01-10 09:41
PROVIDERS: PCP Nurse Practitioner Family; Visit Provider Nurse Practitioner Family
DX: N39.0 Urinary tract infection, site not specified (principal)
CPT/HCPCS: 81001; 87086; 87088

== ENCOUNTER 2025-01-27 08:25 | Outpatient (CLI) | payer MEDICARE, BC, SELFPAY ==
[2025-01-27 16:33] LABS: Microscopic, Urine URINE MICROSCOPIC (MICROSCOPIC)
[2025-01-27 17:41] LABS: Bilirubin,Urine Negative (Negative); Color,Urine YELLOW (Yellow); Glucose,Urine (UA) TRACE (Negative); Ketones,Urine Negative (Negative); Leukocyte Esterase,Urine 3+ (Negative); PH,Urine 6.0 (5.0-8.5); Protein,Urine Negative (Negative); Specific Gravity, Urine <= 1.005 (1.005-1.030); Urobilinogen,Urine 0.2 EU/dl (0.2)
[2025-01-27 18:01] LABS: Bacteria,Urine 4+ /lpf
--- OUTSIDE RECORDS SUMMARY | 2025-01-28 08:28 | XMS_ITS | Clinical Summary ---
Author Organization [employer] ([place], [place], [place], [place], [place]) Address [address] [place] [address] Care Team Providers Care Bullet Swaging Machine Operator Name Role Phone Tommie Barraza MD Primary Care Provider Allergies No known active allergies Medications ezetimibe [...] Date Wilbert rded Speak language other than Macanese at home Not on file 03/31/2023 Want [...] (#1) 2024 Medical Devices Implanted Type Area Clip Wrapper Device Identifier Shelf Expiration Date Model / Serial / Lot Bone Vivigen Formable Sm Bl-1600-001 - [id number] Implanted:Qty : 1 on 03/11/2023 by Dionicio Zuluaga MD at [facility] IMPLANTS N/A: Spine Cervical LIFENET:LIFENET TRANSPLANT SRV 02/24/2024 BL-1600-0 [id number] / Cage Eit Cif H 7mm 8 L [id number] - [id number] Implanted:Qty : 1 on 03/11/2023 by Dionicio Zuluaga MD at [facility] IMPLANTS N/A: Spine Cervical J &J:DEPUY:DEPUY SPINE 10/13/2025 [id number] / / [id number] Cage Eit Cif H 7mm 8 L [id number] - [id number] Implanted:Qty : 1 on 03/11/2023 by Dionicio Zuluaga MD at [facility] IMPLANTS N/A: Spine Cervical J &J:DEPUY:DEPUY SPINE 10/13/2025 [id number] / / [id number] Plt Ant Skyln Hybrd Lvl3 60mm 1867-05-060 - [id number] Implanted:Qty : 1 on 03/11/2023 by Dionicio Zuluaga MD at [facility] IMPLANTS N/A: Spine Cervical J &J:DEPUY:DEPUY SPINE 03-0 60 / 03-0 60 / Scr Skyln Vari-Ovsz 16mm 54-016 - [id number] Implanted:Qty : 2 on 03/11/2023 by Dionicio Zuluaga MD at [facility] IMPLANTS N/A: Spine Cervical J &J:DEPUY:DEPUY SPINE 854-0 16 / 54-0 16 / Scr Skyln Vari Sd 16mm 1867-50-016 - [id number] Implanted:Qty : 4 on 03/11/2023 by Dionicio Zuluaga MD at [facility] IMPLANTS N/A: Spine Cervical J &J:DEPUY:DEPUY SPINE 50-0 16 / 50-0 16 / Scr Skyln Vari Sd 18mm 1867-50-018 - [id number] Implanted:Qty : 2 on 03/11/2023 by Dionicio Zuluaga MD at [facility] IMPLANTS N/A: Spine Cervical J &J:DEPUY:DEPUY SPINE 850-0 18 / 50-0 18 / Insurance MEDICARE [place] [address] [place] [id number] [facility] SUPP Care Teams Bullet Swaging Machine Operator Relationship Specialty Start Date End Date Tommie Barraza MD PCP - General Family Medicine 03/05/23
--- OUTSIDE RECORDS SUMMARY | 2025-01-28 08:28 | XMS_ITS | Referral Summary ---
Author Organization [employer] ([place], [place], [place], [place], [place]) Address [address] [place] [address] Care Team Providers Care Cotton Header Name Role Phone Tommie Barraza MD Primary Care Provider [phone] Allergies No known active allergies Medications ezetimibe [...] Date Wilbert rded Speak language other than Senegalese at home Not on file 03/31/2023 Want [...] on file Medical Devices Implanted Type Area Sausage Grinder Device Identifier Shelf Expiration Date Model / Serial / Lot Bone Vivigen Formable Bl-1600-001 - [id number] Implanted:Qty : 1 on 03/11/2023 by Dionicio Zuluaga MD at [facility] IMPLANTS N/A: Spine Cervical LIFENET:LIFENET TRANSPLANT SRV 02/24/2024 BL-1600-0 / [id number] / Cage Eit Cif H 7mm 8 L [id number] - [id number] Implanted:Qty : 1 on 03/11/2023 by Dionicio Zuluaga MD at [facility] IMPLANTS N/A: Spine Cervical J &J:DEPUY:DEPUY SPINE 10/13/2025 [id number] / / [id number] Cage Eit Cif H 7mm 8 L [id number] - [id number] Implanted:Qty : 1 on 03/11/2023 by Dionicio Zuluaga MD at [facility] IMPLANTS N/A: Spine Cervical J &J:DEPUY:DEPUY SPINE 10/13/2025 [id number] / / [id number] Plt Ant Skyln Hybrd Lvl3 60mm 1867-05-200 - [id number] Implanted:Qty : 1 on 03/11/2023 by Dionicio Zuluaga MD at [facility] IMPLANTS N/A: Spine Cervical J &J:DEPUY:DEPUY SPINE 0 60 / 0 60 / Scr Skyln Vari-Ovsz 16mm 016 - [id number] Implanted:Qty : 2 on 03/11/2023 by Dionicio Zuluaga MD at [facility] IMPLANTS N/A: Spine Cervical J &J:DEPUY:DEPUY SPINE 0 16 / 1868-54-0 16 / Scr Skyln Vari Sd 16mm 1867-50-016 - [id number] Implanted:Qty : 4 on 03/11/2023 by Dionicio Zuluaga MD at [facility] IMPLANTS N/A: Spine Cervical J &J:DEPUY:DEPUY SPINE 50-0 16 / 50-0 16 / Scr Skyln Vari Sd 18mm 50-018 - [id number] Implanted:Qty : 2 on 03/11/2023 by Dionicio Zuluaga MD at [facility] IMPLANTS N/A: Spine Cervical J &J:DEPUY:DEPUY SPINE 50-0 18 / 500 18 / Insurance MEDICARE PART A B [facility] SUPP [facility] SUPP Care Teams Cotton Header Relationship Specialty Start Date End Date Tommie Barraza MD PCP - General Family Medicine 03/05/23
--- OUTSIDE RECORDS SUMMARY | 2025-01-28 08:28 | XMS_ITS | Data Portability ---
Author Organization [facility] - ADBULAZIZ [facility] CLOSED Address [address] [facility] [address] [place] [address] Care Team Providers Care Electrical Engineer Mep Name Role Phone AZEEM JACKSON Primary Care Provider Assessment Encounter Date Assessment Date Assessment LastModified by Organization Details LastModified Time 12/24/2020 12/24/2020 Pt is S/P L2-3 Laminectomy on 11/30/2020. Here for staple removal. Incision is well healed. Glover were removed. Pt is doing well. Tolerated [...] history of bilateral hip replacements completed at [facility]. 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 Addendum 02/20/23 1420 [facility] [email or web address] Not available 02/20/2023 14:20:28 04/20/2023 04/20/2023 Mr. [...] are satisfied with this plan of care. [email or web address] Not available 07/20/2023 15:40:47 Plan of Treatment [...] By Organization Details Last Modified Time 07/20/2023 [id number] CATEGORY DESCRIPTION MINUTES Prepare to see the patient (e.g. review of tests) 5 Obtain/review separately obtained history 5 Perform medically appropriate exam/evaluation 5 Order medications, tests, or procedures Sectionizer/educate the patient/family/car egiver 10 Refer/communicate w/other healthcare professionals Document clinical information into health record 5 Non-billable independent interp of results Non-billable care coordination TOTAL TIME 30 34413 (15-29) 12834 (30-44) 80710 (45-59) 41206 (60-74) 96040 03364 (10-19) 25817 (20-29) 80716 (30-39) 52455 (40-54) [email or web address] Not available 07/20/2023 14:39:22 Reason for Referral None Reported. Results Created Date Observation Date Name Description Value Unit Range Abnormal Flag Note LastModifiedBy Organization Detail LastModifiedTime 12/20/1912/25/2021 FRUCT OSAMI NE fructosamine 266 umol/ L 205-28 5 normal TEST PERFO RMED AT: [facility]I [facility] [address] [place] [address] Dev OSORIO,PHD ,SHAHRAM Not Available [facility] [address] [place] [address], [address], 12/25/2021 09:24:44 12/20/19 22 12/23/2021 NICOT INE [...] for clini beatriz purpo ses. Not Available [facility] [address] [place], [address], 12/24/2021 09:10:24 10/06/20 22 12/23/2021 NICOT INE AND COTIN INE, BL cotinine <2 NG/mL normal Refer ence Range Smoke r: 16-14 5 Nonsm oker: < or = 8 This test was lamontel steven and its mariama tical perfo rmanc e [...] condi tions . TEST PERFO RMED AT: [facility] [address] [place] [address] Dev PIKE Not Available [facility] [address] [place] [address], [address], 12/24/2021 09:10:24 12/20/19 22 12/22/2021 NASAL CULTU RE nasal culture SEE BELOW normal CULTU RE, BARGE CAPTAIN/NA KRISHAN Micro Numbe r: [id number] Test Statu s: Final Speci men Sourc e: Nasal Speci men Quali ty: Adequ ate Resul t: Growt h of skin jennifer (note : Growt h does not inclu de S. aureu s, beta- hemol ytic Strep tococ ci or P. aerug inosa ). TEST PERFO RMED AT: [facility] AUDELIA BURTON [address] [place] [address] MARK Palmer MD Not Available [facility] [place], [address], 12/22/2021 13:17:36 12/20/19 22 12/20/2021 PREAL BUMIN prealbumin 30 mg/dL 21-43 normal TEST PERFO RMED AT: [facility] [place] [address] [facility], [place] [phone] MARK Palmer MD Not Available [facility] [address] [place], [address], 12/20/2021 14:25:49 12/20/19 22 12/19/2021 PTT (APTT ) PTT (APTT) 26.6 secon ds 21.3-2 9.7 normal Not Available [facility] [address] [place], [address], 12/19/2021 18:33:24 12/20/19 22 12/19/2021 PROTH ROMBI N TIME prothrombin time 9.9 secon ds 8.9-10 .8 normal Not Available [facility] [address] [place], [address], 12/19/2021 18:33:23 12/20/19 22 12/19/2021 PROTH ROMBI [...] NICAL PROST HETIC VALVE S Not Available [facility] [address] [place], [address], 12/19/2021 18:33:23 12/01/19 21 11/30/2020 fluor oscop y (PROC ) No observ ation record ed. [email or web address] Neurosurgery [facility] [address], [place], [address], 11/30/2020 14:32:41 01/30/20 23 01/29/2023 MRI, cervi beatriz spine , w/o contr ast [facility] [address] [facility] [place] [address] Willian rico Name: JEMMA rico : 956 Willian rico 0 Orderi ng Provid er: GREGGDELMY Rico EXAM DATE: 2022 EXAM: MR CERVIC [...] fied. The visual ized spinal cord and test deck supervisor ior fossa of the brain are normal [...] Adalberto Salinas MD on 2022 11:25 AM [email or web address] [facility] [address], [address], 02/19/2023 12:37:12 01/30/20 23 01/29/2023 MRI, lumba r spine , w/o contr ast [address] [place] [facility] [address] Rainahu t Name: JEMMA Dorsey t : 956 Patien t 0 Orderi ng Provid er: GREGG Rico EXAM DATE: 2022 EXAM: MR LUMBAR W/O CONTRA ST HISTOR Y: Back pain COMPAR ROBERT: None. The patien t did not requir e sedati on for this exam. FINDIN GS: The alignm ent is [facility] which can indica te muscle spasm. No [...] spinal canal stenos is L3-L4: Broad protru len with mild bilate ral facet DJD. Modera [...] Adalberto Salinas MD on 2022 11:57 AM [email or web address] [facility] [address] [place] [address], [place], [address], 02/19/2023 12:37:12 01/30/20 23 01/29/2023 XR, cervi beatriz spine , 4 or [address] [place] [address] Willian rico Name: JEMMA Méndez Cary rico : 956 Willian r[place] 0 Orderi [...] Xi Thomson MD on 2022 1:02 PM [email or web address] [facility] [address] [place] [address], [address], 02/19/2023 12:37:13 04/20/19 24 04/20/2023 XR, cervi beatriz spine , 2 or [address] [address] Patien t Name: JEMMA rico : 956 Patihu rico 0 Orderi ng Provid er: JUAN Martinez RADHA EXAM DATE: 2023 EXAM: XR CERVIC AL [...] Signed By: Xi Thomson MD on 04/20/19 24 2:35 PM [email or web address] [facility] [address] [place], [address], 04/23/2023 14:56:19 07/21/19 24 07/20/2023 XR, cervi beatriz spine , 2 or [address] [place] [address] [facility] INFORM ATION: Neck pain IMAGES PROVID ED: AP, latera l, open mouth and submen lacey views of the cervic al spine COMPAR [...] joints . Interp reted By: Sidney odonnell Electr onical ly Signed By: Sidney odonnell on 07/21/19 9:56 AM [email or web address] [facility] [address], [address], 07/21/2023 13:34:37 07/21/19 24 07/20/2023 XR, lumbo sacra l spine , compl ete [address] [place] [address] [facility] INFORM ATION: Back pain. IMAGES PROVID ED: Comple te radiog raphic series of the lumbar spine with additi onal latera l views in flexio n and extens ion. COMPAR ROBERT: None. FINDIN GS: There is severe narrow ing of the disks at L2-3 throug h L5-S1 with large anteri or and test deck supervisor ior osteop hytes. There is extens fartun [...] Sidney odonnell on 07/21/19 10:01 AM [email or web address] [facility] [address], [address], 07/21/2023 13:34:30 Result Notes Documentation Provider Name and Address Organization Details Recorded Time Xr, Cervical Spine, 4 Or 5 View : [place] [address] Patient Name: SELINA MARSH Patient : 1955 Patient Ordering Provider: GREGG PORRAS EXAM DATE: 01/29/2023 EXAM: XR CERVICAL SPINE AP/LAT/FLEX/EXT CLINICAL INFORMATION: Neck pain. IMAGES PROVIDED: Lateral views of the cervical spine in flexion and extension. COMPARISON: None. FINDINGS AND IMPRESSION: C5-C7 spinal fusion is noted. Surgical hardware is satisfactorily placed. No abnormal hardware movement is seen in flexion or extension. Degenerative changes are seen at other levels. There is no instability. Interpreted By: Kyaw Thomson MD G PORRAS, OXYGEN TANK FILLER [address] [place] [address], [address], [facility] 02/19/2023 12:37:13 Mri, Cervical Spine, W/o Contrast : [address] [address] Patient Name: SELINA MARSH Patient : 1955 Patient Ordering Provider: GREGG PORRAS EXAM DATE: 01/29/2023 EXAM: MR CERVICAL W/O CONTRAST HISTORY: Pain. Previous surgery COMPARISON: 12/29/2011 FINDINGS: Previous C5-C7 anterior fixation and interbody fusion. No definite complication although there is paramagnetic artifact. There is no fracture or pathologic intraosseous lesion. There is mild anterior marginal osteophytic spurring. No paraspinous soft tissue abnormality is identified. The visualized spinal cord and posterior fossa of the brain are normal in appearance. The craniocervical junction is normal in appearance. There are mild degenerative changes at C1-C2. C2-C3: Mild spurring and diffuse disc bulge. No spinal stenosis. Bilateral facet DJD which is at least moderate. There is mild stenosis of the right neural foramen. Unchanged. C3-C4: There is a broad protrusion paracentral to the right with endplate spurring. The right with disc/osteophyte complex produces right lateral recess stenosis. There is severe narrowing of the right neural foramen and mild left neural foraminal narrowing. Moderate spinal stenosis C4-C5: Mild endplate spurring with diffuse bulge of the disc. No substantial spinal stenosis. Mild bilateral facet DJD. Moderate bilateral neural foraminal stenosis. C5-C6: Fusion level with residual spurring. Moderate to severe stenosis of the right neural foramen. No spinal stenosis C6-C7: Fusion level. Moderate spurring. Mild central canal stenosis. Moderate to severe bilateral neural foraminal stenosis. C7-T1: Diffuse bulge of mild endplate spurring. Mild facet DJD. There is moderate bilateral neural foraminal stenosis.. The visualized thoracic spine are essentially normal in appearance. IMPRESSION: 1. Previous C5 C7 fusion with no gross complication 2. Diffuse DDD elsewhere most notably at C3-4 producing significant stenosis on the spinal canal, lateral recess, and neural foramina Interpreted By: Adalberto Salinas MD G PORRAS, OXYGEN TANK FILLER [address] [place] [address], [address], [facility] 02/19/2023 12:37:12 Mri, Lumbar Spine, W/o Contrast : [address] [address] Patient Name: SELINA MARSH Patient : 1955 Patient Ordering Provider: GREGG PORRAS EXAM DATE: 01/29/2023 EXAM: MR LUMBAR W/O CONTRAST HISTORY: Back pain COMPARISON: None. The patient did not require sedation for this exam. FINDINGS: The alignment is somewhat straightened which can indicate muscle spasm. No significant subluxation. Previous laminectomies L2-L4. There is no evidence of fracture. There is mild anterior marginal osteophytic spurring. No pathologic lesion is identified in the lumbar spine. The conus medullaris is normal in appearance at the L1-L2 level. T12-L1: There is a broad central disc protrusion. There is no significant spinal canal or foraminal stenosis. L1-L2: There is a diffuse protrusion of the disc with possible small extruded component centrally. There is moderate stenosis of the neural foramina bilaterally and mild degree of spinal canal stenosis L2-L3: There is a diffuse protrusion with probable extruded component centrally. Mild bilateral facet DJD. There is severe bilateral neural foraminal stenosis. Moderate spinal canal stenosis L3-L4: Broad protrusion with mild bilateral facet DJD. Moderate endplate spurring. Moderate to severe bilateral neural foraminal stenosis. L4-L5: Diffuse narrowing of the disc space with mild bilateral facet DJD. Diffuse bulge of the disc. Severe bilateral neural foraminal stenosis is present. L5-S1: Diffuse narrowing of the disc space. There is broad protrusion of the disc. Moderate endplate spurring. There is moderate to severe bilateral neural foraminal stenosis. Moderate bilateral facet DJD. IMPRESSION: 1. Diffuse degenerative changes are present. Each level as detailed above. The largest findings at L2-3 with broad protrusion and associated central extrusion. There are multiple neural foramina impacted bilaterally Interpreted By: Adalberto Salinas MD G PORRAS, OXYGEN TANK FILLER [address] [place] [address], [address], [facility] 02/19/2023 12:37:12 Xr, Cervical Spine, 2 Or 3 View : [address] [address] Patient Name: SELINA MARSH Patient : 1955 Patient Ordering Provider: KAYLA ZULUAGA EXAM DATE: 04/20/2023 EXAM: XR CERVICAL AP/LAT CLINICAL INFORMATION: Postoperative. IMAGES PROVIDED: AP, and lateral views of the cervical spine. COMPARISON: None. FINDINGS AND IMPRESSION: Spinal fusion is noted at C3-C7 level. Surgical hardware is satisfactorily placed. No evidence of loosening or infection is seen. Other levels are normal. Interpreted By: Kyaw Thomson MD A ZULUAGA MD [address] [place] [address], [phone], [facility] 04/23/2023 14:56:19 Xr, Cervical Spine, 2 Or 3 View : [place] [address] CLINICAL INFORMATION: Neck pain IMAGES PROVIDED: AP, lateral, open mouth and submental views of the cervical spine COMPARISON: 04/20/2023. FINDINGS: There is anterior fixation from C3 through C6 with discectomy's. There is arthritic change of the facet joints of bony sclerosis and spurring. There is no change in alignment compared to the prior exam. The fixation device is intact. IMPRESSION: Stable appearance of the cervical spine.. The fixation device is intact. There is extensive arthritic change of the facet joints. Interpreted By: Sidney Almazan A ZULUAGA MD [address] [place] [address], [address], [facility] 07/21/2023 13:34:37 Xr, Lumbosacral Spine, Complete : [place] [address] CLINICAL INFORMATION: Back pain. IMAGES PROVIDED: Complete radiographic series of the lumbar spine with additional lateral views in flexion and extension. COMPARISON: None. FINDINGS: There is severe narrowing of the disks at L2-3 through L5-S1 with large anterior and posterior osteophytes. There is extensive facet spurring. There is laminectomy of the lower lumbar spine at L4-S1. There is bilateral placement of the hips. There is severe sclerosis of the endplates at the T3 level. There is limited motion with flexion and extension with no evidence of instability. The SI joints appear intact.. No pars defect is seen. No radiographic evidence of injury is noted. IMPRESSION: Advanced degeneration of the lower lumbar spine with disc space narrowing sclerosis of the endplates and spurring with additional spurring of the facets and postsurgical change.. No instability. Interpreted By: Sidney Almazan A ZULUAGA MD [address] [place] [address], [address], [facility] 07/21/2023 13:34:30 Procedures Surgical History Date Name Laterality Status Provider Name and Address Organization Details Recorded Time 03/31/19 19 LAMINECTOMY, EACH ADDITIONAL SEGMENT (SURG) completed Jaz Avtar [facility] 04/01/2018 11:40:45 02/27/20 18 Electromyography (EMG) with Nerve Conduction Study (NCV) completed Maeve Diaz (Nicky) [facility] 02/26/2018 14:02:14 Neck Surgery completed Jessica Martinez [facility] 11/05/2020 11:31:27 procedure on hip completed Jessica Martinez [facility] 11/05/2020 11:31:43 Imaging Results None recorded. Procedure Notes None recorded. Medical Equipment None [...] active Not Available Not Available Not Available [place] 7.5 mg-325 mg tablet Take 1 tablet [...] Body mass index (BMI) Body weight Systolic And Diastolic Provider Name and Address Organization Details Last Updated DateTime 04/20/2023 190.5 cm 28.7 kg/m2 331895.25 g 140/82 mm[Hg] [facility] 04/20/2023 13:36:05 Date Recorded Body height Body mass index (BMI) Body weight Systolic And Diastolic Provider Name and Address Organization Details Last Updated DateTime 07/20/2023 190.5 cm 28.7 kg/m2 417534.25 g 134/78 mm[Hg] [facility] 07/20/2023 13:24:47 Date Recorded Body height Body mass index (BMI) Body weight Systolic And Diastolic Provider Name and Address Organization Details Last Updated DateTime 01/03/2021 190.5 cm 29.9 kg/m2 346038.58 g 142/82 mm[Hg] [facility] 01/03/2021 11:39:09 Date Recorded Body height Body mass index (BMI) Body weight Provider Name and Address Organization Details Last Updated DateTime 01/06/2023 190.5 cm 28.7 kg/m2 100003.25 g Jennifer Oviedo [facility] 01/06/2023 14:15:39 Social History Question Answer Notes LastModified by Organizat ion Details LastModified Time Tobacco Smoking Status [facility] 11/05/2020 11:31:05 Marital Status [email or web address] Informatio n not available 05/18/2017 What Was The Date Of Your Most Recent Tobacco Screening? 10/04/2018 [email or web address] Information not available 05/03/2019 Has Tobacco Cessation Counseling Been Provided? Yes [email or web address] Information not available 05/18/2017 On What Date Was Tobacco Cessation Counseling Provided? 11/05/2020 [email or web address] Information not available 11/05/2020 Sex: Unknown Functional Status Question Answer Note LastModified by Organization D etails LastModified Time What is your level of alcohol consumption? None [email or web address] Information not available 05/18/2017 Mental Status None [...] 11:30:42 Medical History Condition Response Diabetes Y Arthritis Y High Cholesterol Y Thyroid Disorder Y Cancer Y Hypertension Y Past Encounters Encounter ID Performer Location Encounter Start Date Encounter Closed Date Diagnosis/Indication Diagnosis SNOMED-CT Code Diagnosis ICD10 Code Diagnosis IMO Codes Diagnosis Note [id number] BORIS BELCHER MD [facility] [address] [place] [address] 05/18/2017 11:41:27 05/18/2017 17:23:47 Impotence of organic origin 082780439 N52.9 [id number] KAYLA ZULUAGA MD [facility] [address] [place] [address] 02/08/2018 10:03:44 02/08/2018 13:58:11 Cervical radiculopathy 19090079 M54.12 Time spent reviewing images, discussing the diagnosis and coordinati ng care: 30 min [id number] YAAKOV SCHERER MD NEUROLOGY [facility] [address] [place] [address] 02/26/2018 12:17:10 02/26/2018 14:33:18 Diabetic peripheral neuropathy 444405319 E11.40 Cervical radiculopathy 78810598 M54.12 [id number] KAYLA ZULUAGA [facility] [address] [place] [address] 03/04/2018 09:09:22 03/04/2018 11:45:39 Cervical radiculopathy 66303415 M54.12 Thoracic radiculopathy 59125029 M54.14 [id number] KAYLA ZULUAGA MD NEUROSURG [facility] [address] [place] [address] 05/03/2018 10:12:03 05/03/2018 11:07:50 Postoperative care 494495149 Z48.89 [id number] KAYLA ZULUAGA [facility] [address] [place] [address] 07/26/2018 08:49:03 07/27/2018 13:52:37 Spinal stenosis of lumbar region 38937567 M48.309 [id number] KAYLA ZULUAGA MD SURGERY SCHEDULE [address] [place] [address] 09/03/2018 13:48:20 09/03/2018 16:06:21 [id number] KAYLA [facility]AGA [facility] [address] [place] [address] 09/13/2018 10:19:15 09/13/2018 10:31:11 [id number] KAYLA ZULUAGA [facility] [address] [place] [address] 10/04/2018 08:34:10 10/05/2018 13:58:28 Postoperative care 520639083 Z48.89 [id number] KAYLA ZULUAGA MD NEUROSURG [facility] [address] [place] [address] 12/06/2018 10:55:45 12/09/2018 12:16:11 Postoperative care 306311076 Z48.89 [id number] KAYLA ZULUAGA MD NEUROSURG [facility] [address] [place] [address] 05/02/2019 11:04:58 05/06/2019 10:16:27 Postoperative care 650340562 Z48.89 [id number] JASEN PABON PA-C [facility] [address] [place] [address] 11/05/2020 10:32:03 11/06/2020 08:15:06 Lumbar radiculopathy 270657731 M54.16 Mr. Marsh is a 65-year-ol d [...] Reviewed the case and imaging with Dr. Zuluaga.Discu ssed multiple treatment options with the patient [...] and today Lumbar MRI on 08/04/20 at [facility]. He brought the disc with him.-Shows large disc herniation at L2-L3 with bilateral foraminal stenosis, worse on the left. Also shows disc disease throughout the lumbar,Wor se at L5-S1 [id number] KAYLA ZULUAGA MD SURGERY SCHEDULE [address] [place] [address] 12/12/2020 09:15:18 12/12/2020 11:05:16 [id number] KAYLA ZULUAGA MD [facility] [address] [place] [address] 12/24/2020 12:36:47 12/28/2020 13:18:20 [id number] KAYLA ZULUAGA MD [facility] [address] [place] [address] 01/03/2021 11:06:23 01/04/2021 09:56:19 Postoperative care 226209647 Z48.89 [id number] GREGG PORRAS APRN [facility] [address] [place] [address] 01/06/2023 13:20:39 01/07/2023 04:19:00 Lumbar radiculopathy 287088636 M54.16 Lumbar spondylosis 24399 0009 M47.896 Impairment of balance 38 1147663 R26.89 Cervical spondylosis 387 709015 M47.812 Cervical radiculopathy 88686492 M54.12 History of cervical spine fusion 1795238929 101 Z98.1 Poor manual dexterity 30 1127863 R29.898 [id number] KAYLA ZULUAGA MD [facility] [address] [place] [address] 04/20/2023 13:07:56 04/21/2023 04:20:18 Postoperative care 184679303 Z48.89 [id number] GREGG PORRAS APRN [facility] [address] [place] [address] 07/20/2023 13:07:26 07/21/2023 04:11:18 Lumbar radiculopathy 724346736 M54.16 Lumbar spondylosis 87250 0009 M47.896 History of cervical spine fusion 9337568906 101 Z98.1 Health Concerns Section Related Observation LastModified by Organization Detai ls LastModified Time None Recorded Concern Status LastModified by Organization Details LastModified Time None Recorded Advance Directives Directive None Recorded Payers Insurance Date Sequence Insurance Name Policy Number Policy Bae Covered Member ID Bae Member ID Guarantor Name 12/19/2021 1 [facility] [id number] Keily Marsh [id number] Selina Marsh 07/17/2023 1 [place] Selina Marsh [id number] Selina Marsh 07/17/2023 2 [employer] (MEDICARE SUPPLEMENT) Selina Marsh [id number] Selina Marsh Notes Date Note Type Note Provider Name and Address Organization Details Recorded Time 01/03/2021 text/html ROS as noted in the HPI Mr. Marsh is a 65-year-old gentleman status [...] improvement at this time. KAYLA ZULUAGA MD [address] [place], [address], [facility] 01/03/2021 12:00:01 01/06/2023 text/html Mr. Marsh is a 67-year-old male who returns to the office after last being seen 01/03/2021 following his L2-3 laminectomy on 11/30/[address] Zuluaga. He also has a history of a L3-4 and L4-[address] Zuluaga on 09/01/2018 GREGG PORRAS APRN [address] [place], [address], [facility] 02/20/2023 14:20:32 04/20/2023 text/html ROS as noted in the HPI Mr. Marsh is a 68-year-old gentleman status [...] performed in August 2018. KAYLA ZULUAGA MD [address] [place], [address], [facility] 04/20/2023 14:05:35 07/20/2023 text/html ROS as noted in the HPI Mr. Marsh is a 68-year-old man who [...] this last surgery. GREGG PORRAS, BRAD [address] [place], [address], [facility] 07/20/2023 15:40:55
--- OUTSIDE RECORDS SUMMARY | 2025-01-28 08:28 | XMS_ITS | Data Portability ---
Author Organization [facility] Address [address] [place] [address] Assessment No assessment recorded. Plan of Treatment Reminders Order Date Submit Date Provider Last Modified By Organization Details Last Modified Time Details Appointments None recorded. Lab None recorded. Referral None recorded. Procedures None recorded. Surgeries None recorded. Imaging None recorded. Medication Orders Fiasp FlexTouch U-100 Insulin 100 unit/mL (3 mL) subcutaneou s pen [address], [address], 4 12:00:54 Tresiba FlexTouch U-100 insulin 100 unit/mL (3 mL) subcutaneou s pen [address], [address], 4 12:00:54 Patient TargetsNo targets recorded. Patient InstructionsNo instructions recorded. Reason for Referral None Reported. Problems Name Problem SNOMED Code Status Onset Date Resolution Date Notes Provider Name and Address Organization Details Recorded Time Type 2 diabetes mellitus 04889749 Active 2023 Mar Stears null, [facility] 10:56:15 Hypertensiv e disorder 37210485 Active 2023 Mar Stears null, [facility] 10:56:22 Hypercholes terolemia 52241073 Active 2023 Mar Stears null, [facility] 4 10:56:29 History of total hip arthroplast y 079861877279 Active 2023 right and left hip Mar Shaylees null, [place] - [facility] 11:02:43 Problem Notes None recorded. Procedures Surgical History Date Name Laterality Status Provider Name and Address Organization Details Recorded Time procedure on spine completed Mar Stears [place] - [facility] 10/27/2023 11:00:52 Back Surgery completed Mar Stears [place] - [facility] 10/27/2023 11:01:01 total replacement of hip completed Mar Stears [place] - [facility] 10/27/2023 11:01:27 amputation of toe completed Mar Stears [place] - [facility] 10/27/2023 11:01:39 colonoscopy completed Mar Stears [place] - [facility] 10/27/2023 11:01:59 cardiac catheterization completed Mar Junes [place] - [facility] 10/27/2023 11:02:13 Imaging Results None recorded. Procedure Notes None recorded. Medical Equipment None Reported. Allergies No known drug allergies Medications Name Sig Start Date Stop Date Status Note LastModified by Organization Details LastModified Time trimix # (alprostadi l 40mcg / phentolamin e 2mg / papaverine 30mg / ml) injectable prostagland in phe INJECT 20 UNITS (0.2ML) NEEDED DIRECTED. 10/26 completed Not Available Not Available Not Available trimix (alprostadi l 40mcg/phent olamine 2mg/papaver ine 30mg/ml) injectable # INJECT 20 UNITS (0.2ML) NEEDED DIRECTED. 10/26 completed Not Available Not Available Not Available aspirin 81 mg tablet,abelardo yed release Take 1 tablet every day by oral route. active Not Available Not Available No t Available amlodipine 10 mg tablet 10/26 completed Not Available Not Available Not Available hydrocodone 7.5 mg-acetamin ophen 325 mg tablet 10/26 completed Not Available Not Available Not Available metformin 1,000 mg tablet 1 tablet twice per day active Not Available Not Available No t Available nitroglycer in 0.4 mg sublingual tablet prn active Not Available Not Available Not Available metoprolol succinate ER 25 mg tablet,exte nded release 24 hr 1 tablet every day active Not Available Not Available No t Available testosteron e cypionate 200 mg/mL intramuscul ar oil every 2 weeks active Not Available Not Available No t Available lisinopril 40 mg tablet 1 tablet twice per day active Not Available Not Available No t Available nortriptyli ne 50 mg capsule 1 tablet every day active Not Available Not Available No t Available ezetimibe 10 mg tablet 1 tablet once daily active Not Available Not Available No t Available insulin aspart (U-100) 100 unit/mL (3 mL) subcutaneou s pen INJECT 30 UNITS UNDER THE SKIN TWICE DAILY AND AND 50 UNITS ONCE DAILY DIRECTED active Not Available Not Available No t Available nitrofurant oin monohydrate /macrocryst als 100 mg capsule 10/26 completed Not Available Not Available Not Available BD Ultra-Fine Short Pen Needle 31 gauge x 5/16 active Not Available Not Available Not Available Tresiba FlexTouch U-100 insulin 100 unit/mL (3 mL) subcutaneou s pen INJECT 40 UNITS EVERY DAY BY SUBCUTANE OUS ROUTE AT BEDTIME. active Not Available Not Available No t Available Fiasp FlexTouch U-100 Insulin 100 unit/mL (3 mL) subcutaneou s pen INJECT 30 UNITS TWICE A DAY BY SUBCUTANE OUS ROUTE AT BREAKFAST AND LUNCH, AND 50 UNITS AT SUPPER 2023 active Not Available Not Available Not Avai lable Paxlovid 300 mg (150 mg x 2)-100 mg tablets in a dose pack TAKE 3 TABLETS TOGETHER (TWO 150 MG NIRMATREL VIR TABLETS AND ONE 100 MG RITONAVIR TABLET) BY MOUTH TWICE DAILY FOR 5 DAYS. 10/26 completed Not Available Not Available Not Available Vitals Date Recorded Body weight Body mass index (BMI) Body height Respiratory rate Body temperature Heart rate Oxygen saturation Oxygen saturation in Arterial blood by Pulse oximetry Systolic And Diastolic Provider Name and Address Organization Details Last Updated DateTime 4 052069. 84 g 29.7 kg/m2 187.96 cm 18 /min 97.6 [degF] 76 /min 97 % 97 % 156/88 mm[Hg] Mar Manzo [place] - [facility] 10:50:59 Social History Question Answer Notes LastModified by Organizat ion Details LastModified Time Tobacco Smoking Status Former Smoker Mar Manzo null, [place] - [facility] 10/27/2023 10:59:39 Do You Have An Advance Directive? No Information not available 10/27/2023 Are You Blind Or Do You Have Difficulty Seeing? No Information not available 10/27/2023 What Is Your Level Of Caffeine Consumption? Moderate Information not available 10/27/2023 Are You Deaf Or Do You Have Serious Difficulty Hearing? No Information not available 10/27/2023 What Type Of Diet Are You Following? REGULAR Information not available 10/27/2023 What Is The Highest Grade Or Level Of School You Have Completed Or The Highest Degree You Have Received? [id number] Information not available 10/27/2023 Have There Been Any Changes To Your Family Or Social Situation? No Information no t available 10/27/2023 What Is The Fluoride Status Of Your Home? Unknown Information not available 10/27/2023 When Did You Quit Smoking? 16+yearssince lastcigarette Information not available 10/27/2023 Do You Have A Medical Power Of Security Rover? No Information not available 10/27/2023 What Was The Date Of Your Most Recent Tobacco Screening? 10/27/2023 Information not available 10/27/2023 What Is Your Relationship Status? Information not available 10/27/2023 Do You Have Smoke And Carbon Monoxide Detectors In Your Home? Yes Information not available 10/27/2023 At What Age Did You Start Smoking Tobacco? 15 Information not available 10/27/2023 How Much Tobacco Do You Smoke? No Information not available 10/27/2023 Has Tobacco Cessation Counseling Been Provided? No Information not available 10/27/2023 Do You Have Difficulty Walking Or Climbing Stairs? No Information not available 10/27/2023 Sex: Male Functional Status Question Answer Note LastModified by Organizat ion Details LastModified Time How many times per week do you consume alcohol? 1-2 times per week Information not available 10/27/2023 Do you or have you ever used smokeless tobacco? Former smokeless tobacco user Information not available 10/27/2023 Are you currently employed? No Information not available 10/27/2023 Do you have transportation difficulties? No Information not available 10/27/2023 Are you able to care for yourself independently? Yes Information not available 10/27/2023 Do you have difficulty dressing, bathing, grooming, or toileting? No Information not available 10/27/2023 Do you or have you ever used e-cigarettes or vape? Never used electronic cigarettes Information not available 10/27/2023 What is your exercise level? None Information not available 10/27/2023 Do you use any illicit or recreational drugs? No Information not available 10/27/2023 Do you or have you ever used any other forms of tobacco or nicotine? Yes Information not available 10/27/2023 What is your level of alcohol consumption? Occasional Information not available 10/27/2023 Are you able to walk independently without assistance or assistive devices? YESWOREST Information not available 10/27/2023 Do you have difficulty doing errands alone? No Information not available 10/27/2023 Mental Status Question Answer Note LastModified by Organizat ion Details LastModified Time Do you feel stressed (tense, restless, nervous, or anxious, or unable to sleep at night)? SA5918-5 Information not available 10/27/2023 Do you have difficulty concentrating, remembering or making decisions? No Information no t available 10/27/2023 Family History Relationship Description Onset Age of this Age Resolved Age Notes LastModified by Organization Details LastModified Time Unspecified Relation Malignant neoplastic disease bstears Not available 2023 10:57:29 Father Hypertensive disorder bstears Not available 2023 10:57:42 Mother Hypertensive disorder bstears Not available 2023 10:57:42 Medical History No medical history recorded. Immunizations Vaccine Type Date Status Note Provider Nam e and Address Organization Details Recorded Time COVID-19, mRNA, LNP-S, PF, 100 mcg/0.5mL dose or 50 mcg/0.25mL dose 03/22/2020 completed Mar [place]oto, [place] - [facility] 10/27/2023 10:41:33 COVID-19, mRNA, LNP-S, PF, 100 mcg/0.5mL dose or 50 mcg/0.25mL dose 04/23/2020 completed Mar Junes null, [place] - [facility] 10/27/2023 10:41:33 COVID-19, mRNA, LNP-S, PF, 100 mcg/0.5mL dose or 50 mcg/0.25mL dose 02/06/2021 completed Mar Junes null, [place] - [facility] 10/27/2023 10:41:33 Past Encounters Encounter ID Performer Location Encounter Start Date Encounter Closed Date Diagnosis/Indication Diagnosis SNOMED-CT Code Diagnosis ICD10 Code Diagnosis IMO Codes Diagnosis Note [id number] Clarisa Waldron APRN [address] [address] 10/27/2023 10:18:01 10/27/2023 12:02:21 Insulin treated type 2 diabetes mellitus 719202288 Z79.4 informatio n given on omnipod Health Concerns Section Related Observation LastModified by Organization Detai ls LastModified Time None Recorded Concern Status LastModified by Organization Details LastModified Time None Recorded Advance Directives Directive N: Payers Insurance Date Sequence Insurance Name Policy Number Policy Bae Covered Member ID Bae Member ID Guarantor Name 11/02/2023 2 [employer] (MEDICARE SUPPLEMENT) Will Marsh [id number] Will Marsh 10/27/2023 1 [place] Will Marsh [id number] Will Marsh 11/02/2023 [employer] [place] - [facility] (MEDICARE) Will Marsh [id number] Will Marsh Notes Date Note Type Note Provider Name and Address Organization Details Recorded Time 10/27/2023 text/html 68 year old male who presents to the office today with concerns oftype 2 diabetes- unable to get FIASP prescription, was prescribed insulin aspart which he says cost more.tried [facility] alexander, [facility] get fiaspstates last A1C was 6.2- says has never been a 7.0pt states hx of htn,hyperlipidemi a,dm.pt states he has labs due on Clarisa Waldron APRN [address], [place], [address], [place] - [facility] 10/27/2023 12:03:33
== END 2025-01-27 23:59 | disposition home or self-care (01) ==
LOC: LAB.DROPOF 01-28 08:25
PROVIDERS: PCP Nurse Practitioner Family; Visit Provider Nurse Practitioner Family
DX: N39.0 Urinary tract infection, site not specified (principal)
CPT/HCPCS: 81001; 87086; 87088; 87186

== ENCOUNTER 2025-02-15 09:42 | Outpatient (CLI) | payer MEDICARE, SELFPAY ==
--- OUTSIDE RECORDS SUMMARY | 2025-02-15 09:45 | XMS_ITS | Clinical Summary ---
Author Organization [employer] ([place], [place], [place], [place], [place]) Address [address] [place] [address] Care Team Providers Care Internal Combustion Engine Assembler Name Role Phone Tommie Barraza MD Primary Care Provider [phone] Allergies No known active allergies Medications ezetimibe [...] (#1) 2024 Medical Devices Implanted Type Area Cytology Supervisor Device Identifier Shelf Expiration Date Model / Serial / Lot Bone Vivigen Formable Sm Bl-1600-001 - [id number] Implanted:Qty : 1 on 03/11/2023 by Dionicio Zuluaga MD at [facility] IMPLANTS N/A: Spine Cervical LIFENET:LIFENET TRANSPLANT SRV 02/24/2024 BL-1600-0 [id number] / Cage Eit Cif H 7mm 8 L [id number] - [id number] Implanted:Qty : 1 on 03/11/2023 by Dionicio Zuluaga MD at [facility] IMPLANTS N/A: Spine Cervical J &J:DEPUY:DEPUY SPINE 10/13/2025 [id number] / / [id number] Cage Eit Cif H 7mm 8 L [id number] - [id number] Implanted:Qty : 1 on 03/11/2023 by Dionicio Zuluaga MD at [facility] IMPLANTS N/A: Spine Cervical J &J:DEPUY:DEPUY SPINE 10/13/2025 [id number] / / [id number] Plt Ant Skyln Hybrd Lvl3 60mm 1867-05-060 - [id number] Implanted:Qty : 1 on 03/11/2023 by Dionicio Zuluaga MD at [facility] IMPLANTS N/A: Spine Cervical J &J:DEPUY:DEPUY SPINE 03-0 60 / 03-0 60 / Scr Skyln Vari-Ovsz 16mm 54-016 - [id number] Implanted:Qty : 2 on 03/11/2023 by Dionicio Zuluaga MD at [facility] IMPLANTS N/A: Spine Cervical J &J:DEPUY:DEPUY SPINE 854-0 16 / 54-0 16 / Scr Skyln Vari Sd 16mm 1867-50-016 - [id number] Implanted:Qty : 4 on 03/11/2023 by Dionicio Zuluaga MD at [facility] IMPLANTS N/A: Spine Cervical J &J:DEPUY:DEPUY SPINE 50-0 16 / 50-0 16 / Scr Skyln Vari Sd 18mm 1867-50-018 - [id number] Implanted:Qty : 2 on 03/11/2023 by Dionicio Zuluaga MD at [facility] IMPLANTS N/A: Spine Cervical J &J:DEPUY:DEPUY SPINE 850-0 18 / 50-0 18 / Insurance MEDICARE [place] [address] [place] [address] SUPP [facility] SUPP Care Teams Internal Combustion Engine Assembler Relationship Specialty Start Date End Date Tommie Barraza MD PCP - General Family Medicine 03/05/23
--- OUTSIDE RECORDS SUMMARY | 2025-02-15 09:46 | XMS_ITS | Referral Summary ---
Author Organization [employer] ([place], [place], [place], [place], [place]) Address [address] [place] [address] Care Team Providers Care Aging Room Operator Name Role Phone Tommie Barraza MD Primary Care Provider [phone] Allergies No known active allergies Medications ezetimibe [...] Date Wilbert rded Speak language other than Bhutanese at home Not on file 03/31/2023 Want [...] on file Medical Devices Implanted Type Area Research Electrician Device Identifier Shelf Expiration Date Model / Serial / Lot Bone Vivigen Formable Bl-1600-001 - [id number] Implanted:Qty : 1 on 03/11/2023 by Dionicio Zuluaga MD at [facility] IMPLANTS N/A: Spine Cervical LIFENET:LIFENET TRANSPLANT SRV 02/24/2024 BL-1600-0 / [id number] / Cage Eit Cif H 7mm 8 L [id number] - [id number] Implanted:Qty : 1 on 03/11/2023 by Dionicio Zuluaga MD at [facility] IMPLANTS N/A: Spine Cervical J &J:DEPUY:DEPUY SPINE 10/13/2025 [id number] / / [id number] Cage Eit Cif H 7mm 8 L [id number] - [id number] Implanted:Qty : 1 on 03/11/2023 by Dionicio Zuluaga MD at [facility] IMPLANTS N/A: Spine Cervical J &J:DEPUY:DEPUY SPINE 10/13/2025 [id number] / / [id number] Plt Ant Skyln Hybrd Lvl3 60mm 1867-05-200 - [id number] Implanted:Qty : 1 on 03/11/2023 by Dionicio Zuluaga MD at [facility] IMPLANTS N/A: Spine Cervical J &J:DEPUY:DEPUY SPINE 0 60 / 0 60 / Scr Skyln Vari-Ovsz 16mm 016 - [id number] Implanted:Qty : 2 on 03/11/2023 by Dionicio Zuluaga MD at [facility] IMPLANTS N/A: Spine Cervical J &J:DEPUY:DEPUY SPINE 0 16 / 1868-54-0 16 / Scr Skyln Vari Sd 16mm 1867-50-016 - [id number] Implanted:Qty : 4 on 03/11/2023 by Dionicio Zuluaga MD at [facility] IMPLANTS N/A: Spine Cervical J &J:DEPUY:DEPUY SPINE 50-0 16 / 50-0 16 / Scr Skyln Vari Sd 18mm 50-018 - [id number] Implanted:Qty : 2 on 03/11/2023 by Dionicio Zuluaga MD at [facility] IMPLANTS N/A: Spine Cervical J &J:DEPUY:DEPUY SPINE 50-0 18 / 500 18 / Insurance MEDICARE PART A B [facility] SUPP [facility] SUPP Care Teams Aging Room Operator Relationship Specialty Start Date End Date Tommie Barraza MD PCP - General Family Medicine 03/05/23
--- NOTE | 2025-02-15 10:00 | US_ITS ---
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 Reviewed, Interpreted and Dictated by Carmen Danielson MD Transcribed by Yoko Saavedra Authenticated and [facility]
== END 2025-02-15 23:59 | disposition home or self-care (01) ==
LOC: RT 09:43
PROVIDERS: PCP Nurse Practitioner Family; Visit Provider Nurse Practitioner Family
DX: M21.372 Foot drop, left foot (principal); R09.89 Other specified symptoms and signs involving the circulatory and respiratory systems; R29.6 Repeated falls; R93.6 Abnormal findings on diagnostic imaging of limbs; E11.9 Type 2 diabetes mellitus without complications; Z99.89 Dependence on other enabling machines and devices; Z79.4 Long term (current) use of insulin
CPT/HCPCS: 93923

== ENCOUNTER 2025-03-01 16:05 | Outpatient (CLI) | payer MEDICARE, SELFPAY ==
--- OUTSIDE RECORDS SUMMARY | 2025-03-02 12:08 | XMS_ITS | Referral Summary ---
Author Organization [employer] ([place], [place], [place], [place], [place]) Address [address] [place] [address] Care Team Providers Care Case Operator Name Role Phone Tommie Barraza MD Primary Care Provider [phone] Allergies No known active allergies Medications ezetimibe [...] Date Wilbert rded Speak language other than [place]ry[place]in[place] at home Not on file 03/31/2023 Want [...] on file Medical Devices Implanted Type Area Production Control Analyst Device Identifier Shelf Expiration Date Model / Serial / Lot Bone Vivigen Formable Bl-1600-001 - [id number] Implanted:Qty : 1 on 03/11/2023 by Dionicio Zuluaga MD at [facility] IMPLANTS N/A: Spine Cervical LIFENET:LIFENET TRANSPLANT SRV 02/24/2024 BL-1600-0 / [id number] / Cage Eit Cif H 7mm 8 L [id number] - [id number] Implanted:Qty : 1 on 03/11/2023 by Dionicio Zuluaga MD at [facility] IMPLANTS N/A: Spine Cervical J &J:DEPUY:DEPUY SPINE 10/13/2025 [id number] / / [id number] Cage Eit Cif H 7mm 8 L [id number] - [id number] Implanted:Qty : 1 on 03/11/2023 by Dionicio Zuluaga MD at [facility] IMPLANTS N/A: Spine Cervical J &J:DEPUY:DEPUY SPINE 10/13/2025 [id number] / / [id number] Plt Ant Skyln Hybrd Lvl3 60mm 1867-05-200 - [id number] Implanted:Qty : 1 on 03/11/2023 by Dionicio Zuluaga MD at [facility] IMPLANTS N/A: Spine Cervical J &J:DEPUY:DEPUY SPINE 0 60 / 0 60 / Scr Skyln Vari-Ovsz 16mm 016 - [id number] Implanted:Qty : 2 on 03/11/2023 by Dionicio Zuluaga MD at [facility] IMPLANTS N/A: Spine Cervical J &J:DEPUY:DEPUY SPINE 0 16 / 1868-54-0 16 / Scr Skyln Vari Sd 16mm 1867-50-016 - [id number] Implanted:Qty : 4 on 03/11/2023 by Dionicio Zuluaga MD at [facility] IMPLANTS N/A: Spine Cervical J &J:DEPUY:DEPUY SPINE 50-0 16 / 50-0 16 / Scr Skyln Vari Sd 18mm 50-018 - [id number] Implanted:Qty : 2 on 03/11/2023 by Dionicio Zuluaga MD at [facility] IMPLANTS N/A: Spine Cervical J &J:DEPUY:DEPUY SPINE 50-0 18 / 500 18 / Insurance MEDICARE PART A B [facility] SUPP [facility] SUPP Care Teams Case Operator Relationship Specialty Start Date End Date Tommie Barraza MD PCP - General Family Medicine 03/05/23
--- OUTSIDE RECORDS SUMMARY | 2025-03-02 12:08 | XMS_ITS | Clinical Summary ---
Author Organization [facility] Address [address] [place] [address] Care Team Providers Care Credit Card Analyst Name Role Phone Morenita De Jesus APRN Primary Care Provider [phone] Social History Tobacco Use Types Packs/Day Years Used Date Smoking Tobacco: Never Assessed Sex and Gender Information Value Date Recorded Sex Assigned at Not on file Legal Sex Male 1:30 PM EST Gender Identity Not on file Sexual Orientation Not on file Plan of Treatment Upcoming Encounters Date Type Department Care Team (Late st Contact Info) Description 07/26/2025 10:30 AM EDT Office Visit [facility] [address] [facility] [address] [place] [address] Frances Madrid MD [address] [facility] [address] [place] [address] Health Maintenance Due Date Last Done Comments ANNUAL PHYSICAL 1955 HEPATITIS C SCREENING 1955 TDAP/TD VACCINES (1 - Tdap) 02/13/1975 COLOGUARD 02/13/2001 COLON CANCER SCREENING 5 YEAR SIGMOIDOSCOPY 02/13/2001 COLONOSCOPY 02/13/2001 COLORECTAL CANCER SCREENING 02/13/2001 CT COLONOGRAPHY 02/13/2001 FECAL OCCULT BLOOD TEST 02/13/2001 FIT Testing (1 year) 02/13/2001 Pneumococcal Vaccine 50+ (1 of 1 - PCV) 02/13/2006 ZOSTER VACCINE (1 of 2) 02/13/2006 AAA SCREEN ONCE 02/13/2021 INFLUENZA VACCINE 10/14/2024 COVID-19 Vaccine ( season) 2024 Procedures Procedure Name Priority Date/Time Associated Diagnosis Comments SCANNED - LABS 01/27/2025 SCANNED - LABS 01/27/2025 SCANNED - LABS 01/09/2025 SCANNED - LABS 12/23/2024 SCANNED - LABS 12/23/2024 from Last 3 Months Results * LABS SCANNED (01/27/2025) Only the most recent of5 resultswithin the time period is included. [facility] Onbase LAB BLOOD ORDERABLES Final Re sult from Last 3 Months Insurance MEDICARE A & B Member Subscriber Plan / Payer (Ef fective 2016-Present) Name:Will Marsh Member ID:[id number] Relation to Subscriber:Self Name:Will Marsh Subscriber ID:[id number] Payer ID:[id number] Group ID:Not on file Type:Not on file Address: [facility] [id number] Care Teams Credit Card Analyst Relationship Specialty Start Date End Date Morenita De Jesus APRN [address] [place] [address] PCP - General Nurse Practitioner 02/21/25
--- OUTSIDE RECORDS SUMMARY | 2025-03-02 12:08 | XMS_ITS | Clinical Summary ---
Author Organization [employer] ([place], [place], [place], [place], [place]) Address [address] [place] [address] Care Team Providers Care Client Care Specialist Name Role Phone Tommie Barraza MD Primary Care Provider [phone] Allergies No known active allergies Medications ezetimibe [...] Date Wilbert rded Speak language other than Emirati at home Not on file 03/31/2023 Want [...] (#1) 2024 Medical Devices Implanted Type Area Investigation Officer Device Identifier Shelf Expiration Date Model / Serial / Lot Bone Vivigen Formable Sm Bl-1600-001 - [id number] Implanted:Qty : 1 on 03/11/2023 by Dionicio Zuluaga MD at [facility] IMPLANTS N/A: Spine Cervical LIFENET:LIFENET TRANSPLANT SRV 02/24/2024 BL-1600-0 [id number] / Cage Eit Cif H 7mm 8 L [id number] - [id number] Implanted:Qty : 1 on 03/11/2023 by Dionicio Zuluaga MD at [facility] IMPLANTS N/A: Spine Cervical J &J:DEPUY:DEPUY SPINE 10/13/2025 [id number] / / [id number] Cage Eit Cif H 7mm 8 L [id number] - [id number] Implanted:Qty : 1 on 03/11/2023 by Dionicio Zuluaga MD at [facility] IMPLANTS N/A: Spine Cervical J &J:DEPUY:DEPUY SPINE 10/13/2025 [id number] / / [id number] Plt Ant Skyln Hybrd Lvl3 60mm 1867-05-060 - [id number] Implanted:Qty : 1 on 03/11/2023 by Dionicio Zuluaga MD at [facility] IMPLANTS N/A: Spine Cervical J &J:DEPUY:DEPUY SPINE 03-0 60 / 03-0 60 / Scr Skyln Vari-Ovsz 16mm 54-016 - [id number] Implanted:Qty : 2 on 03/11/2023 by Dionicio Zuluaga MD at [facility] IMPLANTS N/A: Spine Cervical J &J:DEPUY:DEPUY SPINE 854-0 16 / 54-0 16 / Scr Skyln Vari Sd 16mm 1867-50-016 - [id number] Implanted:Qty : 4 on 03/11/2023 by Dionicio Zuluaga MD at [facility] IMPLANTS N/A: Spine Cervical J &J:DEPUY:DEPUY SPINE 50-0 16 / 50-0 16 / Scr Skyln Vari Sd 18mm 1867-50-018 - [id number] Implanted:Qty : 2 on 03/11/2023 by Dionicio Zuluaga MD at [facility] IMPLANTS N/A: Spine Cervical J &J:DEPUY:DEPUY SPINE 850-0 18 / 50-0 18 / Insurance [place] [address] [place] [address] SUPP [facility] SUPP Care Teams Client Care Specialist Relationship Specialty Start Date End Date Tommie Barraza MD PCP - General Family Medicine 03/05/23
== END 2025-03-01 23:59 | disposition home or self-care (01) ==
LOC: LAB.DROPOF 03-02 10:46
PROVIDERS: PCP Nurse Practitioner Family; Visit Provider Nurse Practitioner Family
DX: N39.0 Urinary tract infection, site not specified (principal)
CPT/HCPCS: 87077; 87086